=== PATIENT | female | born 1980 | race Caucasian/White ===

== ENCOUNTER 2019-11-03 14:43 | Emergency (ER) | payer OTHER, SELFPAY ==
[2019-11-03 14:55] VITALS: BP 143/100; PULSE 125; RESP 20; TEMP 36.8; O2SAT 100
--- NOTE | 2019-11-03 15:16 | ED.URI ---
HPI - URI/Sore Throat General Chief Complaint: Upper Respiratory Infection Stated Complaint: cough/congestion Time Seen by Provider: 11/03/19 15:10 Source: patient Mode of arrival: ambulatory Limitations: no limitations History of Present Illness HPI Narrative: Lilia Vazquez is a 39 yo female with a PMH exercised induced asthma who comes to the urgent care with complaints of upper respiratory infection such as cough fever 102 no appetite feeling poorly. Started on Wednesday Related Data Home Medications Medication Instructions Recorded Confirmed Bystolic 5 mg PO QPM 08/10/19 11/03/19 diclofenac sodium 75 mg PO BID 08/10/19 11/03/19 Allergies Allergy/AdvReac Type Severity Reaction Status Date / Time meperidine AdvReac Severe N/V Verified 11/03/19 14:59 ondansetron AdvReac Unknown Headache Verified 11/03/19 14:59 Review of Systems Review of Systems: Narrative: CONSTITUTIONAL: Denies fever, chills, sweats. EYES: Denies visual changes, redness, discharge. ENT: Has rhinorrhea, congestion, sore throat, otalgia. CARDIOVASCULAR: Denies chest pain, palpitations, edema. RESPIRATORY: Denies dyspnea, wheezing, has dry cough GASTROINTESTINAL: Denies abdominal pain, nausea, vomiting, diarrhea. GENITOURINARY: Denies dysuria, hematuria, abnormal discharge SKIN: Denies rash or itching. MUSCULOSKELETAL: Denies acute back pain, joint pain, or myalgia. NEUROLOGIC: Denies numbness, or focal weakness. PSYCHIATRIC: Denies anxiety or depression. PMF Past Medical History Medical History HTN (hypertension) Surgical History Surgical History History of foot surgery History of knee surgery History of shoulder surgery Family History Family History (System 08/05/19 @ 12:49 by Dior Diaz) Father Diabetes mellitus Family history of diabetes mellitus in first degree relative Hypertension Family history of elevated blood lipids Mother Family history of hypercholesterolemia Hypertension Family history of elevated blood lipids Sibling Hypertension Family history of elevated blood lipids Family history of hypercholesterolemia Grandparent Diabetes mellitus Family history of hypercholesterolemia Hypertension Family history of cardiovascular disease Family history of lung cancer Family history of coronary artery disease Other Family history of malignant neoplasm Social History Social History (System 08/05/19 @ 12:49 by Diro Diaz) Smoking status: Never smoker Second hand tobacco smoke exposure: No Alcohol intake: current Comments At time of signature, I agree with nursing past medical, surgical, social and family history. There is no relevant family history pertinent to the presenting complaint. Exam Narrative: Exam Narrative: GENERAL: This is a well-nourished, well-developed patient, in moderate in distress. HEAD: normocephalic, atraumatic. EYES: Sclera clear/white. Vision is grossly intact. Ears: Biateral ears wuth redness of canals and bulging TMs Nose: discharge, nares with redness, rhinorrhea. THROAT: Mucous membranes moist, posterior pharynxerythema NECK: Neck supple, non-tender without lymphadenopathy, masses or thyromegaly. CARDIOVASCULAR: Regular rate and rhythm without murmurs, gallops, or rubs. RESPIRATORY: Diminished to auscultation. Breath sounds equal bilaterally. No wheezes, rales, or rhonchi. GASTROINTESTINAL: Abdomen soft, non-tender, SKIN: warm, intact with no suspicious lesions or rash, good texture and turgor. NEURO: awake, alert, and oriented to person, place and time. There were no obvious focal neurologic abnormalities. Steady gait EXTREMITIES: Normal range of motion. No edema. BACK: Nontender without deformity or crepitance.. Course Course Emergency Course: + flu B, neg strep Xofluza, mucinex, codeine cough Vital Signs Vital signs
== END 2019-11-03 15:37 | disposition home or self-care (01) ==
PROVIDERS: Emergency Provider Nurse Practitioner; PCP Family Medicine
DX: J10.1 Influenza due to other identified influenza virus with other respiratory manifestations (principal); I10 Essential (primary) hypertension
CPT/HCPCS: 87804; 87880; 99213; G0463

== ENCOUNTER 2020-04-06 10:51 | Emergency (ER) | payer OTHER, SELFPAY ==
--- NOTE | ~2020-04-06 | CT_ITS ---
EXAMINATION: CT abdomen pelvis wo con DATE: 04/06/2020 12:02 INDICATION: Right flank pain radiating to the abdomen. TECHNIQUE: Computed tomography (CT) of the abdomen and pelvis was performed without intravenous contr ast. Automated exposure control and iterative reconstruction technique were employed. The dose-length product was 771.73 mGy-cm. COMPARISON: None FINDINGS: Lung bases are clear. Heart size is normal. No pericardial or pleural effusion. Diffuse hepatic steat osis. Gallbladder, pancreas and bilateral adrenal glands are normal. 12 mm cyst at the upper pole of the left kidney. 5 mm nonobstructing stone at the mid left kidney. Right kidney and ureter are normal with no urolithiasis or hydronephrosis. Bowels including the appendix are normal. Bladder, anteverte d uterus and bilateral ovaries are normal. Small phleboliths versus tubal ligation rings along the bi lateral broad ligaments. No free intraperitoneal gas or fluid. No pathologically enlarged abdominal o r pelvic lymphadenopathy. Mild lumbar levocurvature with severe spondylosis at the lumbosacral juncti on. IMPRESSION: 1. 5 mm nonobstructing left renal stone. No hydronephrosis or right-sided urolithiasis. 2. Normal appendix. No acute intra-abdominal/pelvic process. 3. Diffuse hepatic steatosis. Reviewed, dictated and finalized at location A. IMPRESSION: 1. 5 mm nonobstructing left renal stone. No hydronephrosis or right-sided uroli thiasis. 2. Normal appendix. No acute intra-abdominal/pelvic process. 3. Diffuse hepatic steatosis.
[2020-04-06 11:13] VITALS: BP 172/110; PULSE 100; RESP 20; TEMP 36.8; O2SAT 99
[2020-04-06 11:39] LABS: Basophils Percent Auto 0.5 % (0.2-1.2); Eosinophils Absolute Auto 0.2 K/mm3 (0-0.3); Eosinophils Percent Auto 2.9 % (0-4.4); Hemoglobin 13.6 g/dL (12.0-15.0); Immature Granulocyte Absolute 0.03 K/mm3 (0.00-0.031); Immature Granulocyte Percent A 0.4 % (0-0.5); Lymphocytes Absolute Auto 2.03 K/mm3 (0.9-3.2); Lymphocytes Percent Auto 25.8 % (18.3-44.2); Mean Corpuscular HGB Conc 33.2 g/dl (32-36); Mean Corpuscular Hemoglobin 29.2 pg (26-34); Mean Platelet Volume 10.3 fl (7.4-10.4); Monocytes Absolute Auto 0.4 K/mm3 (0.1-0.6); Monocytes Percent Auto 5.2 % (2.6-8.5); Neutrophils Absolute Auto 5.1 K/mm3 (1.3-6.7); Neutrophils Percent Auto 65.2 % (45.5-73.1); Platelet Count Result 283 k/mm3 (150-375); Red Blood Count 4.66 M/mm3 (4.2-5.4); Red Cell Distribution Width 12.7 % (11.5-14.5); White Blood Count 7.9 K/mm3 (4.5-10.0)
--- NOTE | 2020-04-06 11:39 | ED.BACK ---
HPI - Back Pain/Injury General Chief Complaint: Back Pain/Injury Stated Complaint: R flank pain Time Seen by Provider: 04/06/20 11:29 Source: patient Mode of arrival: ambulatory Limitations: no limitations History of Present Illness HPI Narrative: This is a 40-year-old female that presents the emergency department for right mid back pain since last night. Reports she was working on some baseboards yesterday. Reports she started having some right-sided back pain since that afternoon. Associated with some nausea. The pain is constant and worse with movement. She took a Flexeril with little relief. Denies fever, vomiting, dysuria, or hematuria. Related Data Home Medications Medication Instructions Recorded Confirmed diclofenac sodium 75 mg PO BID 08/10/19 01/25/20 allopurinol 300 mg tablet 300 mg PO DAILY 01/25/20 01/25/20 tolterodine 4 mg capsule,extended 4 mg PO DAILY 01/25/20 01/25/20 release 24 hr pregabalin [Lyrica] 75 mg PO BID 04/06/20 04/06/20 Allergies Allergy/AdvReac Type Severity Reaction Status Date / Time meperidine AdvReac Severe N/V Verified 01/25/20 08:53 ondansetron AdvReac Unknown Headache Verified 01/25/20 08:53 Review of Systems Review of Systems: Narrative: CONSTITUTIONAL: Denies fever GASTROINTESTINAL: Reports abdominal pain, nausea. Denies vomiting, or diarrhea. GENITOURINARY: Denies dysuria or hematuria. MUSCULOSKELETAL: Reports back pain, joint pain, and myalgia. NEUROLOGIC: Denies numbness, or weakness. All systems reviewed & are unremarkable except as noted in HPI and below PMFSH Past Medical History Medical History (Updated 04/06/20 @ 13:59 by Lilia Kidd PA-C) HTN (hypertension) Hyperlipidemia Surgical History Surgical History History of foot surgery History of knee surgery History of shoulder surgery Family History Family History (System 08/05/19 @ 12:49 by Dior Diaz) Father Diabetes mellitus Family history of diabetes mellitus in first degree relative Hypertension Family history of elevated blood lipids Mother Family history of hypercholesterolemia Hypertension Family history of elevated blood lipids Sibling Hypertension Family history of elevated blood lipids Family history of hypercholesterolemia Grandparent Diabetes mellitus Family history of hypercholesterolemia Hypertension Family history of cardiovascular disease Family history of lung cancer Family history of coronary artery disease Other Family history of malignant neoplasm Social History Social History (System 08/05/19 @ 12:49 by Dior Diaz) Smoking status: Never smoker Second hand tobacco smoke exposure: No Alcohol intake: current Exam Narrative: Exam Narrative: GENERAL: Well-appearing, obese, and in no acute distress. HEAD: Normocephalic, atraumatic. EYES: EOMI. CHEST: Clear to auscultation. No respiratory distress. No wheezes rales or rhonchi HEART: Regular rate and rhythm. No murmur heard. Normal peripheral pulses. ABDOMEN: Soft, nontender, nondistended, normal active bowel sounds. No CVA tenderness BACK: No midline spinal tenderness EXTREMITIES: Normal range of motion. No edema. Strength equal in bilateral lower extremities SKIN: Warm, dry, no rash. NEURO: No focal deficits. Alert and oriented x3. PSYCH: Normal mood and affect Course Vital Signs Vital signs: Vital Signs Temperature 98.2 F 04/06/20 11:13 Pulse Rate 100 04/06/20 11:13 Respiratory Rate 04/06/20 11:13 Blood Pressure 172/110 H 04/06/20 11:13 Pulse Oximetry 99 04/06/20 11:13 Temperature 98.2 F 04/06/20 11:13 Pulse Rate 100 04/06/20 11:13 Respiratory Rate 04/06/20 11:13 Blood Pressure 172/110 H 04/06/20 11:13 Pulse Oximetry 99 04/06/20 11:13 MDM - Back Pain/Injury MDM Narrative Medical decision making narrative: Patient presents to the emergency department for right-
[2020-04-06 11:49] LABS: Add Urine Microscopic? YES; Appearance Urine Cloudy (Clear); Bacteria Urine Trace /hpf; Bilirubin Urine Negative (Negative); Blood Urine Negative (Negative); Color Urine Yellow (Yellow); Glucose Urine UA Negative (Negative); Ketones Urine Negative (Negative); Leukocyte Esterase Ur Trace LEU/UL (Negative); Mucus Urine Rare /lpf; Nitrate Urine Negative (Negative); Protein Urine Negative (Negative); RBC Urine 0-2 /hpf (0-2); Specific Grav Ur 1.014 (1.001-1.035); Squamous Epithelial Cell Urine Many /hpf (Few); Urobilinogen Urine Negative mg/dL (<2.0)
[2020-04-06 11:50] LABS: Blood Urea Nitrogen 10 mg/dL (7-17); Carbon Dioxide 23 mmol/L (22-30); Chloride 104 mmol/L (98-107); Estimated CRCL calculation 153 ml/min; Estimated Glomerular Filt Rate > 60; Glucose 135 mg/dL (65-105); Potassium 3.8 mmol/L (3.4-5.0); Sodium 135 mmol/L (137-145)
[2020-04-06 14:47] VITALS: BP 138/76; PULSE 80; RESP 20
== END 2020-04-06 14:49 | disposition home or self-care (01) ==
PROVIDERS: Physician Assistant; Emergency Provider Emergency Medicine; PCP Family Medicine
DX: M54.6 Pain in thoracic spine (principal); I10 Essential (primary) hypertension; E78.5 Hyperlipidemia, unspecified; N20.0 Calculus of kidney; K76.0 Fatty (change of) liver, not elsewhere classified
CPT/HCPCS: 36415; 74176; 80048; 81001; 81025; 85025; 87086; 96365; 96375; 99284; J0131; J3360

== ENCOUNTER 2020-06-05 08:45 | Outpatient (CLI) | payer OTHER, SELFPAY ==
--- NOTE | 2020-06-08 00:32 | SLEEP_ITS ---
Home Sleep Study DATE OF STUDY: 06/05/2020 ORDERING PHYSICIAN: Linda Moore MD. REASON FOR THE STUDY: Hypersomnia. HISTORY: This patient is a 40-year-old female, 5 feet 5 inches tall, weighing 230 pounds with a body mass index of 38.2. She has extreme hypersomnolence. She can sleep for 8-12 hours and still feel very tired. She falls asleep most any time during the day, the middle of the day if it is quiet. This started about 4-6 years ago and has become worse in the last 2 years. Her father has sleep apnea. She frequently snores and it is frequently loud enough that other people complain about it. She does not awaken at night with heartburn, belching, or coughing. She does not awaken from sleep feeling short of breath. She frequently has difficulty sleeping if she has a cold, does not awake at night gasping for breath, constantly has breathing problems at night reported to her by others. She does not sweat excessively at night. She frequently notices her heart pounding or beating irregularly at night. She frequently falls asleep during the day rarely involuntarily, but never while driving or during physical effort. She does not have loss of muscle tone with strong emotion. 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 She does not feel paralyzed on waking or falling asleep. She does not have vivid dreamlike scenes upon awakening or falling asleep and is not afraid to go to sleep. She does not have nightmares. She rarely remembers her dreams, rarely has racing thoughts, feelings of sadness, depression, anxiety, and rarely has muscular tension. She notices her legs moving at night constantly. She occasionally has crawly achy feelings in her legs. She constantly has foot pain at night. She does not have morning jaw pain. She does not grind her teeth at night. She is bothered by pain in her feet during the day and rarely is awakened by pain at night. She rarely wakes up feeling stiff in the morning with sore achy muscles. She rarely wakes up with pain in the neck and spine. She has fatigue, headaches, palpitations. Bedtime is 9 to 10 p.m., falling asleep within 30 to 60 minutes, waking 1 or 2 times at night for 5 minutes and will go to the bathroom at this time. She wakes in the morning at 7 a.m. She estimates 9 to 10 hours of sleep at night. Weekend schedule reveals she goes to bed 1 hour later and wakes 1 hour later. She does not take naps. Short naps are not refreshing. She is drowsy in the morning for 2 hours or longer. She feels better in the afternoon than other times a day. MEDICAL COMORBIDITIES: Palpitations, hypertension, mixed hyperlipidemia, obesity. MEDICATIONS: 1. Fluoxetine 40 mg a day for depression. 2. Lisinopril 20 mg a day. 3. Lyrica 75 mg a day for foot pain. 4. Diclofenac ER 75 mg b.i.d. 5. Allopurinol 300 mg a day. 6. Atorvastatin 10 mg a day. 7. Bisoprolol 10 mg daily. 8. Detrol LA 4 mg a day for slight incontinence. HABITS: Never smoked tobacco. Caffeine, 6 to 8 beverages a day. No alcohol. No recreational drugs. DESCRIPTION OF THE STUDY: On the [place] Sleepiness Scale, her score is 18. This is extremely high. This study was conducted as an unattended type III portable home sleep study using 4-channel monitoring including respiratory effort channel, snoring channel, oxygen saturation channel, and heart rate channel. The study was scored using CMS guidelines. Duration of the study was 9 hours 25 minutes. The apnea-hypopnea index is 6.1. Oxygen desaturation index 6. Lowest desaturation 91%. She had 2 apneas, both were obstructive. She had 55 hypopneas, 1003 snoring events, and 55 desaturations, but spent no time below 88%. Heart rate ranged from 65 to 95.
== END 2020-06-05 08:46 | disposition home or self-care (01) ==
LOC: ANHCSM 08:45
PROVIDERS: PCP Family Medicine; Visit Provider Internal Medicine Cardiovascular Disease
DX: G47.10 Hypersomnia, unspecified (principal); G47.33 Obstructive sleep apnea (adult) (pediatric)
CPT/HCPCS: 95806

== ENCOUNTER 2020-10-28 09:45 | Outpatient (CLI) | payer OTHER, SELFPAY ==
--- NOTE | ~2020-10-28 | XR_ITS ---
EXAMINATION: XR abdomen/kub 1V DATE: 10/28/2020 10:06 INDICATION: Calculus of kidney. TECHNIQUE: A supine view of the abdomen on 2 radiographs was obtained. COMPARISON: CT abdomen and pelvis 04/06/20 FINDINGS: There are no dilated loops of bowel. There is a 4 mm stone in left kidney. IMPRESSION: 1. 4 mm stone in left kidney. Reviewed, dictated and finalized at location A. 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
== END 2020-10-28 09:46 | disposition home or self-care (01) ==
LOC: ANHIMG 09:50
PROVIDERS: PCP Family Medicine; Visit Provider Urology
DX: N20.0 Calculus of kidney (principal)
CPT/HCPCS: 74018

== ENCOUNTER 2020-12-09 16:29 | Outpatient (CLI) | payer OTHER, SELFPAY | END 2020-12-09 16:30 | disposition home or self-care (01) | LOC: ANHLAB 16:33 | PROVIDERS: PCP Family Medicine; Visit Provider Urology | DX: Z01.818 Encounter for other preprocedural examination (principal); N39.3 Stress incontinence (female) (male) | CPT/HCPCS: 87086 ==

== ENCOUNTER → 2020-12-10 02:37 | Outpatient (CLI) | payer OTHER, SELFPAY ==
[2020-12-10 22:47] LABS: SARS-CoV-2 RNA PCR Negative
== END ==
PROVIDERS: PCP Family Medicine; Visit Provider Urology
DX: Z01.812 Encounter for preprocedural laboratory examination (principal); Z20.822 Contact with and (suspected) exposure to COVID-19
CPT/HCPCS: C9803; U0003; U0005

== ENCOUNTER 2020-12-13 01:09 | Day surgery (SDC) | payer OTHER, SELFPAY ==
--- NOTE | 2020-12-07 09:42 | PM.IMHP ---
H&P: HPI History of Present Illness Date/Time: 12/07/20 09:42 Chief Complaint: stress incontinence Narrative: Lilia Vazquez is a 40 year old female with stress incontinence. She also has a degree of overactive bladder which she is on combination therapy Review of Systems Review of Systems: All systems reviewed & are unremarkable except as noted in HPI and below PMFSH Past Medical History Medical History (Updated 12/07/20 @ 09:44 by Dimitri Dean MD) Depression Headache, migraine HTN (hypertension) Hyperlipidemia Neuropathy Obstructive sleep apnea Surgical History Surgical History History of foot surgery History of knee surgery History of shoulder surgery Family History Family History Father Diabetes mellitus Family history of diabetes mellitus in first degree relative Hypertension Family history of elevated blood lipids Mother Family history of hypercholesterolemia Hypertension Family history of elevated blood lipids Sibling Hypertension Family history of elevated blood lipids Family history of hypercholesterolemia Grandparent Diabetes mellitus Family history of hypercholesterolemia Hypertension Family history of cardiovascular disease Family history of lung cancer Family history of coronary artery disease Other Family history of malignant neoplasm Social History Social History Smoking status: Never smoker Second hand tobacco smoke exposure: No Alcohol intake: current Substance use: never Additional occupation/education comments: [employer] Gender identity (if verbalized by the patient): Female Spiritual care concerns: No Agree to blood products: Yes Meds Home Medications and Allergies Home Medications Medication Instructions Recorded Confirmed Type diclofenac sodium 75 mg PO BID 08/10/19 05/27/20 History allopurinol 300 mg tablet 300 mg PO DAILY 01/25/20 05/27/20 History tolterodine 4 mg capsule,extended 4 mg PO DAILY 01/25/20 05/27/20 History release 24 hr pregabalin [Lyrica] 75 mg PO BID 04/06/20 05/27/20 History bisoprolol fumarate 10 mg tablet 10 mg PO DAILY #90 tablet 04/23/20 05/27/20 Rx fluoxetine 40 mg capsule 40 mg PO DAILY #90 cap 04/23/20 05/27/20 Rx atorvastatin 20 mg tablet 20 mg PO DAILY #90 tablet 06/15/20 Rx albuterol sulfate 90 mcg/actuation 1 puff INHALATION Q4H PRN 07/22/20 History aerosol inhaler lisinopril 20 mg tablet 20 mg PO DAILY #90 tablet 09/03/20 Rx mirabegron 25 mg tablet,extended 25 mg PO DAILY 11/01/20 History release 24 hr Allergies Allergy/AdvReac Type Severity Reaction Status Date / Time meperidine AdvReac Severe N/V Verified 07/22/20 09:12 ondansetron AdvReac Unknown Headache Verified 07/22/20 09:12 Exam Const: General: healthy appearing HENMT: Head: normal to inspection Face and sinus: normal facial exam Resp: Effort & Inspection: normal respiratory effort and able to speak in complete sentences Back/Spine/Pelvis: Back: no CVA tenderness Skin: General skin exam: normal color Neuro: General: patient oriented x3 Assessment and Plan Assessment and plan (1) [place] (stress urinary incontinence, female): Code(s): N39.3 - Stress incontinence (female) (male) Status: Acute Assessment and Plan: urethral sling. She understands this will likely not improve her overactive bladder symptoms
[2020-12-09 15:00] VITALS: BMI 40.1
--- NOTE | 2020-12-13 05:54 | ECG_ITS ---
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
[2020-12-13] MEDS: LACTATED RINGERS 1,000 ML 30 ML IV CONT (06:43)
--- NOTE | 2020-12-13 07:13 | WPDANESEPPF ---
Anes - Initial Pre Proc Eval Procedure: Operation Date: 12/13/20 07:30 Proposed Procedures p Urethral Sling - Dimitri Dean MD Date/Time: 12/13/20 07:13 Surgeon: Dimitri Dean MD Pre Op Diagnosis: Stress Incontinence Patient Data Age: 40 Gender: F Height: 1.63 m Weight: 106 kg Allergies Allergy/AdvReac Type Severity Reaction Status Date / Time meperidine AdvReac Severe N/V Verified 12/09/20 14:49 ondansetron AdvReac Unknown Headache Verified 12/09/20 14:49 Home Medications Medication Instructions Recorded Confirmed Type diclofenac sodium 75 mg PO BID 08/10/19 12/09/20 History allopurinol 300 mg tablet 300 mg PO DAILY 01/25/20 12/09/20 History tolterodine 4 mg capsule,extended 4 mg PO DAILY 01/25/20 12/09/20 History release 24 hr pregabalin [Lyrica] 75 mg PO BID 04/06/20 12/09/20 History fluoxetine 40 mg capsule 40 mg PO DAILY #90 cap 04/23/20 12/09/20 Rx albuterol sulfate 90 mcg/actuation 1 puff INHALATION Q4H PRN 07/22/20 12/09/20 History aerosol inhaler lisinopril 20 mg tablet 20 mg PO DAILY #90 tablet 09/03/20 12/09/20 Rx atorvastatin 20 mg tablet See Rx Instructions .ROUTE 12/11/20 Rx .COMPLEX #90 tablet bisoprolol fumarate 10 mg tablet 10 mg PO DAILY #90 tablet 12/11/20 Rx Patient hx anesthesia problems: none Family hx anesthesia problems: none PMFSH Past Medical History Medical History (Updated 12/13/20 @ 07:15 by Jluis Dunlap MD) Asthma Depression Headache, migraine HTN (hypertension) Hyperlipidemia Neuropathy Obstructive sleep apnea Surgical History Surgical History History of foot surgery History of knee surgery History of shoulder surgery Family History Family History Father Diabetes mellitus Family history of diabetes mellitus in first degree relative Hypertension Family history of elevated blood lipids Mother Family history of hypercholesterolemia Hypertension Family history of elevated blood lipids Sibling Hypertension Family history of elevated blood lipids Family history of hypercholesterolemia Grandparent Diabetes mellitus Family history of hypercholesterolemia Hypertension Family history of cardiovascular disease Family history of lung cancer Family history of coronary artery disease Other Family history of malignant neoplasm Social History Social History Smoking status: Former smoker Second hand tobacco smoke exposure: No Additional smoking assessment comments: stopped 20 yrs ago Alcohol intake: current Drinks per week: 1 Substance use: never Living arrangements: with family Additional occupation/education comments: [employer] Gender identity (if verbalized by the patient): Female Spiritual care concerns: No Agree to blood products: Yes Anes - Eval Final PreProcedure Day of Procedure 12/13/20 07:13 Patient weight: morbidly obese Heart: regular rate and rhythm Lungs: clear to auscultation and normal air movement Airway: Mallampati scale class II Neurological: alert and oriented Last oral intake: >/= 8 hours ASA classification: III Emergent: no Anesthetic plan: proceed Anesthesia type and monitoring: general LMA and ETT Informed Consent: The patient's anesthetic plan and its attendant risks and benefits were discussed with the patient/family/POA. Questions were solicited and answers provided to the satisfaction of the patient/family/POA.
--- NOTE | 2020-12-13 07:16 | WPDHPUPDATE1 ---
History and Physical Update Update Date/Time: 12/13/20 07:16 History and Physical has been reviewed, including an updated exam of the patient. There are NO changes in the patient's condition. Risks, benefits, and alternatives have been discussed and questions answered. Patient agrees to proceed with procedure.
[2020-12-13] MEDS: ceFAZolin 2 GM/D5W 50 ML 2 GM/50 ML BAG IVPB (07:27)
[2020-12-13] MEDS: BUPIVACAINE/EPINEPHRINE 0.25% 50 ML VIAL 10 ML INFILTRATE (07:43)
[2020-12-13 07:52] VITALS: BP 130/90; PULSE 84; RESP 18; TEMP 36.1; O2SAT 99
--- NOTE | 2020-12-13 08:00 | PM.PROC ---
Procedure Note - Detailed Date of procedure: 12/13/20 Pre-op diagnosis: Stress Incontinence Stress urinary incontinence Post-op diagnosis: same Procedure performed: Transobturator Mid-urethral sling Cystoscopy Description of procedure: Anesthesia: MAC/Local This is a patient with confirmed stress urinary incontinence. She desires correction. She understands the risks of bleeding, infection, damage to the urinary tract, lack of cure of stress incontinence, recurrence of stress incontinence, postoperative voiding dysfunction including incontinence and retention, need for ancillary procedures to loosen remove the sling, postoperative voiding dysfunction including retention and overactive bladder, hip and leg pain, dyspareunia, mesh related complications including exposure and extrusion. She agrees to proceed. She understands it will not help overactive bladder symptoms if present. She was correctly identified and informed consent obtained. She is brought to the operating room. She was given appropriate anesthesia. She was placed in the dorsal lithotomy position. All pressure points were padded. She was given appropriate perioperative antibiotics and a time-out performed. A Reyes catheter is placed. I marked out the thigh incisions anesthetize the skin and made those incisions. I anesthetized the anterior vaginal wall over the mid urethra. I made a 1 cm incision. I dissected out laterally taking great care not to injure the urethra or the vaginal wall. Passed the helical trocars 1st on the left and then on the right from the thigh incision towards the vaginal incision. Sling was connected to the trocars and brought out through the thigh incision. I tensioned the sling appropriately. I cut and removed the plastic sheaths. I closed the incision with 2 0 Vicryl. I then performed cystoscopy. There was no surgical artifact or abnormalities inside the bladder. The urethra was normal without surgical artifact. I cut the excess sling material. I closed the incisions with glue. She was awakened and transferred to the PACU in stable condition. Implants: Mid urethral sling Surgeon: Dimitri Dean MD Drains: No Packing: No Pathology: none sent Complications: No immediate complications Condition: stable Disposition: PACU
[2020-12-13 08:02] VITALS: BP 161/90; PULSE 88; RESP 20; O2SAT 98
[2020-12-13 08:30] VITALS: BP 155/86; PULSE 83; RESP 18; O2SAT 98
--- NOTE | 2020-12-13 08:51 | SUR.PHASEII ---
0840; PT UP TO RECLINER. GAIT STEADY. 0850; SPOUSE AT BEDSIDE
[2020-12-13 09:00] VITALS: BP 154/90; PULSE 79; RESP 20
--- NOTE | 2020-12-13 09:20 | SUR.PHASEII ---
0905; PT WALKED TO BATHROOM. GAIT STEADY. VOIDED
[2020-12-13] MEDS: oxyCODONE HCL (*CRX) 5 MG TAB IR PO (09:30)
--- NOTE | 2020-12-13 09:45 | SUR.PHASEII ---
0925; PT AWAKE AND ALERT. STATES READY TO GO HOME. 0945; NOTIFIED DR LAYTON, PRESCRIPTION SENT TO WRONG [facility].
== END 2020-12-13 09:50 | disposition home or self-care (01) ==
PROVIDERS: PCP Family Medicine; Visit Provider Urology
PROC: (CPT 57288; principal; 2020-12-13 07:30)
DX: N39.3 Stress incontinence (female) (male) (principal); I10 Essential (primary) hypertension; E78.5 Hyperlipidemia, unspecified; G62.9 Polyneuropathy, unspecified; J45.909 Unspecified asthma, uncomplicated; G47.33 Obstructive sleep apnea (adult) (pediatric); F32.9 Major depressive disorder, single episode, unspecified; Z87.891 Personal history of nicotine dependence; E66.01 Morbid (severe) obesity due to excess calories; Z68.41 Body mass index [BMI] 40.0-44.9, adult
CPT/HCPCS: 57288; 87086; 93005; A9270; C1771; C9803; J0131; J0690; J1100; J1885; J2250; J2405; J2704; J3010; J7030; J7120; U0003; U0005

== ENCOUNTER → 2021-01-30 08:51 | Outpatient (CLI) | payer OTHER, SELFPAY ==
--- NOTE | ~2021-01-30 | MR_ITS ---
. EXAMINATION: MR shoulder RT wo con DATE: 01/30/2021 09:40 INDICATION: Right shoulder pain. TECHNIQUE: Magnetic resonance imaging (MRI) of the right shoulder was performed without intravenous c ontrast. Sequences included axial PD-weighted FS FSE, coronal oblique PD-weighted FS FSE and T2-weigh sergey FS FSE, and sagittal oblique T2-weighted FS FSE and T1-weighted FSE. COMPARISON: None. FINDINGS: Coracoacromial arch: The acromion undersurface is curved in morphology (type II). There is moderate acromioclavicular join t osteoarthritis. There is mild subacromial/subdeltoid bursitis. Rotator cuff: There is severe supraspinatus tendinopathy and mild infraspinatus tendinopathy. There is a bursal laura ed partial-thickness tear of anterior supraspinatus tendon at its distal attachment measuring 8 mm an terior to posterior by 7 mm proximal to distal by 30% tendon thickness. Teres minor tendon is normal. There is moderate subscapularis tendinopathy. There is a partial tear of distal subscapularis tendon . There are artifacts from prior surgery around subscapularis tendon. There is mild fatty atrophy of superior subscapularis tendon. Biceps tendon and glenoid labrum: Biceps tendon is medially displaced from the bicipital groove into the partial tear of subscapularis tendon. There is a longitudinal split tear of biceps tendon. The glenoid labrum is normal. Fluid: There is no glenohumeral joint effusion. Bones/cartilage: Glenoid cartilage is normal. Humeral head cartilage is normal. IMPRESSION: 1. Partial tear of subscapularis tendon and evidence of prior surgery in the area of subscapularis te ndon. 2. Longitudinal split tear of biceps tendon, which is medially displaced into the subscapularis tendo n tear. 3. Bursal-sided, partial-thickness tear of distal supraspinatus tendon. 4. Moderate acromioclavicular joint osteoarthritis. 5. Mild subacromial/subdeltoid bursitis. Reviewed, dictated and finalized at location A. IMPRESSION: 1. Partial tear of subscapularis tendon and evidence of prior surgery in the ar ea of subscapularis tendon. 2. Longitudinal split tear of biceps tendon, which is medially displaced into t he subscapularis tendon tear. 3. Bursal-sided, partial-thickness tear of distal supraspinatus tendon. 4. Moderate acromioclavicular joint osteoarthritis. 5. Mild subacromial/subdeltoid bursitis.
== END ==
DX: M25.511 Pain in right shoulder (principal); S46.811A Strain of other muscles, fascia and tendons at shoulder and upper arm level, right arm, initial encounter; S46.211A Strain of muscle, fascia and tendon of other parts of biceps, right arm, initial encounter; M19.011 Primary osteoarthritis, right shoulder; M75.51 Bursitis of right shoulder
CPT/HCPCS: 73221

== ENCOUNTER 2021-08-29 11:01 | Outpatient (CLI) | payer OTHER, SELFPAY ==
--- NOTE | ~2021-08-29 | CT_ITS ---
EXAMINATION: CT abdomen pelvis wo con DATE: 08/29/2021 11:32 INDICATION: Right flank pain TECHNIQUE: Computed tomography (CT) of the abdomen and pelvis was performed without intravenous contr ast. The dose-length product (DLP) was 1296.42 mGy-cm. Automated exposure control and iterative recon struction technique were employed. COMPARISON: 04/06/2020 FINDINGS: Minimal dependent atelectasis is present in the lung bases. The heart size is normal. The l iver, spleen, pancreas, gallbladder, and adrenal glands are normal. There is a [address] one of the left kidney. There is a punctate nonobstructing stone of the right kidney. No stones are i dentified in the ureters or bladder. There is no hydronephrosis or hydroureter. No pathologically enl arged abdominal or pelvic lymph nodes are identified. The appendix is normal. There is no free intrap eritoneal gas or evidence of bowel obstruction. There is severe lumbar spondylosis at L5-S1. IMPRESSION: 1. No CT correlate for the patient's symptoms. Bilateral nonobstructing nephrolithiasis. Reviewed, dictated and finalized at location A. OMETRICIAN IMPRESSION: 1. No CT correlate for the patient's symptoms. Bilateral nonobstructing nephrol ithiasis.
--- NOTE | ~2021-08-29 | XR_ITS ---
EXAMINATION: XR abdomen/kub 1V INDICATION: Right flank pain TECHNIQUE: Supine views of the abdomen were obtained on 2 radiographs. COMPARISON: CT from today FINDINGS: No urolithiasis is identified. Round densities of the right abdomen are demonstrated to be within the bowel on today's CT. The bowel gas pattern is normal. There is lumbar spondylosis. Phlebol iths are noted in the pelvis. IMPRESSION: 1. No urolithiasis identified. Reviewed, dictated and finalized at location A. 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
== END 2021-08-29 11:02 | disposition home or self-care (01) ==
LOC: ANHIMG 11:07
PROVIDERS: PCP Hospitalist; Visit Provider Nurse Practitioner Adult Health
DX: R10.9 Unspecified abdominal pain (principal); N20.0 Calculus of kidney
CPT/HCPCS: 74018; 74176

== ENCOUNTER 2021-10-24 02:08 | Day surgery (SDC) | payer OTHER, SELFPAY ==
[2021-10-21 14:23] VITALS: BMI 39.4
--- NOTE | 2021-10-21 14:32 | PC.NURSE ---
Report to the Outpatient Waiting Room, entrance under the green pavilion located off [facility], at time 0830 on date 10/24/21. OR Time: 1030. - You will be asked a series of questions to screen for COVID 19 for your protection. - A mask is required within the hospital. - No visitors are allowed at this time. Preoperative COVID Testing Requirements: No COVID Test needed if: (proof is required; if not received patient will have Rapid Test prior to entry) - Patient has received COVID Vaccine at least 14 days prior to procedure date or - Patient has positive COVID test result within last 90 days of surgery date. COVID Test needed if above criteria is not met Patients may have clear liquids (water, carbonated beverages, clear teas, apple juice) until 3 hours prior to surgery with a maximum of 20 ounces. - No food from midnight until time of surgery Take the following medications with a SIP of water the morning of surgery: FLUOXETINE, LYRICA Medications to discontinue per physician: DICLOFENAC Date to take last dose: PER DR. CAMEJO Please no make-up, nail chinese, hairspray, perfume, deodorant, or body powder the day of surgery. No jewelry (including any body piercings) or valuables the day of surgery, leave them at home. Please take a shower or bath the night before, or the morning of, surgery with an antibacterial soap. Wear comfortable, loose fitting clothing. - Jewelry must be removed prior to entering the operating room. Rings and piercings that are not removed may be cut off. - The hospital will not accept responsibility for valuables. - Please leave all valuables, including medications, at home the day of surgery. If you are going home after surgery, a licensed mobile lounge driver or operator must drive you home. - NO public transportation without another adult. - We recommend that an adult stay with you for 24 hours following discharge. - We also recommend that you do not drive, make important decision, drink alcoholic beverages, or take any drugs that were not prescribed by your health care provider for at least 24 hours after your discharge time. Follow any additional instructions given to you from your surgeon. Telephone instructions given to BRANDY WAY and asked if any additional questions and then verbalized understanding. Patient advised to call surgeon office or pre surgery nurse liaison [phone] if any additional questions.
[2021-10-24] VITALS (8 sets, daily range): BP systolic 124–146; BP diastolic 80–99; PULSE 98–104; RESP 15–20; TEMP 36.3–36.6; O2SAT 93–100
--- NOTE | ~2021-10-24 | XR_ITS ---
EXAMINATION: XR surgery orthopedic DATE: 10/24/2021 10:50 INDICATION: Left foot arthrodesis and second hammertoe correction TECHNIQUE: 2 fluoroscopic images of the left forefoot were obtained during procedure performed by Dr. Cervantes. Radiologist was not present for the imaging or procedure. The amount of fluoroscopy time u sed during this procedure was 0.3 minutes. COMPARISON: None. FINDINGS: First metatarsophalangeal arthrodesis with dorsal plate and screw fixation. Osteotomy at the head of the second metatarsal with second proximal interphalangeal arthrodesis, also with internal fixation d evice. Alignment of the arthrodeses appears near-anatomic. No fracture. Remaining joint spaces are un remarkable. IMPRESSION: 1. Instrumented arthrodesis at the first metatarsophalangeal and second proximal interphalangeal join ts. See procedure note for further detail. Reviewed, dictated and finalized at location A. HER OPERATOR IMPRESSION: 1. Instrumented arthrodesis at the first metatarsophalangeal and second proxima l interphalangeal joints. See procedure note for further detail.
--- NOTE | 2021-10-24 07:25 | WPDHPUPDATE1 ---
History and Physical Update Update Date/Time: 10/24/21 07:25 History and Physical has been reviewed, including an updated exam of the patient. There are NO changes in the patient's condition. Risks, benefits, and alternatives have been discussed and questions answered. Patient agrees to proceed with procedure.
--- NOTE | 2021-10-24 09:06 | WPDANESEPPF ---
Anes - Initial Pre Proc Eval Procedure: Operation Date: 10/24/21 10:30 Proposed Procedures p Arthrodesis of First Metatarsal Phalangeal Joint Left Foot, - Israel Cervantes JR, MD s Hammer Toe Deformity Second Digit Left Foot - Israel Cervantes JR, MD Date/Time: 10/24/21 09:06 Surgeon: Israel Cervantes JR, MD Pre Op Diagnosis: arthritis lft 1st mpj,hammer toe 2nd digit lft ft Patient Data Age: 41 Gender: F Height: 1.63 m Weight: 104.33 kg Allergies Allergy/AdvReac Type Severity Reaction Status Date / Time meperidine AdvReac Severe N/V Verified 10/24/21 08:59 ondansetron AdvReac Unknown Headache Verified 10/24/21 08:59 Home Medications Medication Instructions Recorded Confirmed Type diclofenac sodium 75 mg PO BID 08/10/19 10/21/21 History allopurinol 300 mg tablet 300 mg PO DAILY 01/25/20 10/21/21 History pregabalin [Lyrica] 75 mg PO BID 04/06/20 10/21/21 History atorvastatin [Lipitor] 20 mg PO DAILY 12/13/20 10/21/21 History albuterol sulfate 90 mcg/actuation 1 puff INHALATION Q4H PRN #8.5 g 12/26/20 10/21/21 Rx aerosol inhaler lisinopril 20 mg tablet See Rx Instructions .ROUTE 02/17/21 10/21/21 Rx .COMPLEX #90 tablet fluoxetine 40 mg capsule 40 mg PO DAILY #90 cap 06/11/21 10/21/21 Rx bisoprolol fumarate 10 mg PO HS 10/21/21 10/21/21 History Patient hx anesthesia problems: none Family hx anesthesia problems: none Results Review: All pre-operative results and documents have been reviewed as part of the pre-operative evaluation. [facility] Past Medical History Medical History Asthma Depression Headache, migraine HTN (hypertension) Hyperlipidemia Neuropathy Obstructive sleep apnea Surgical History Surgical History History of bladder surgery History of foot surgery History of knee surgery History of shoulder surgery Family History Family History Father Diabetes mellitus Family history of diabetes mellitus in first degree relative Hypertension Family history of elevated blood lipids Mother Family history of hypercholesterolemia Hypertension Family history of elevated blood lipids Sibling Hypertension Family history of elevated blood lipids Family history of hypercholesterolemia Grandparent Diabetes mellitus Family history of hypercholesterolemia Hypertension Family history of cardiovascular disease Family history of lung cancer Family history of coronary artery disease Other Family history of malignant neoplasm Social History Social History Smoking status: Never smoker Second hand tobacco smoke exposure: No Additional smoking assessment comments: stopped 20 yrs ago Alcohol intake: current Drinks per week: 1 Alcohol use details: 2/MONTH Substance use: never Substance use type: does not use Living arrangements: with family Additional occupation/education comments: [employer] Gender identity (if verbalized by the patient): Female Sexual Orientation (if Verbalized by the Patient): Straight or Heterosexual Spiritual care concerns: No Agree to blood products: Yes Anes - Eval Final PreProcedure Day of Procedure 10/24/21 09:06 Patient weight: morbidly obese Heart: regular rate and rhythm Lungs: clear to auscultation Airway: Mallampati scale class II Neurological: alert and oriented Last oral intake: >/= 8 hours ASA classification: III Emergent: no Anesthetic plan: proceed Anesthesia type and monitoring: general LMA and standard monitoring Results Review: All pre-operative results and documents have been reviewed as part of the pre-operative evaluation. Informed Consent: The patient's anesthetic plan and its attendant risks and benefits were discussed with the patient/family/POA. Questions were solicited an
--- NOTE | 2021-10-24 09:26 | WPDANESPNB ---
Anes - Peripheral Nerve Block Date/Time: 10/24/21 09:26 I have discussed with the patient/family/POA the placement of a peripheral nerve block for post-operative pain management, including associated risks, benefits, complications, and side effects. Alternative methods of post-operative analgesia were detailed. Questions were solicited and answers provided to the satisfaction of the patient/family/POA. Time-Out: A pre-procedural Time-Out was completed immediately before starting the procedure and confirmed: Patient Identification, Site, Procedure, Patient Position and the Availability of Requisite Equipment. Clinical Indications: Acute post-operative pain management requested by the operative surgeon. Nerve Block Insertion Note Anes-nerve block: posterior fossa sciatic left and other (saphenous) Patient position: supine Skin prep: chlorhexidine Needle: 22 gauge, stimulating, insulated echogenic needle. Needle length: 120 mm Technique: nerve stimulation lost at (mA) (0.35) Injectate: bupivacaine 0.5% with epi 5 mcg/ml (23cc sciatic, 9 cc saphenous) and dexamethasone (mg) (8) Observations: tolerated well Complications: none Procedure start time:: 919 Procedure end time:: 926
[2021-10-24] MEDS: LACTATED RINGERS 1,000 ML 30 ML IV CONT ×2 (09:27→11:12)
[2021-10-24] MEDS: ceFAZolin 2 GM/D5W 50 ML 2 GM/50 ML BAG IVPB (09:37)
[2021-10-24] MEDS: SCOPOLAMINE 1.5 MG PATCH TRANSDERM (09:50)
--- NOTE | 2021-10-24 11:29 | W.PM.PROC2 ---
Procedure Note - Detailed Date of Procedure 10/24/21 Pre-op Diagnosis 1. Arthritic bunion left foot 2. Hammertoe deformity 2nd digit left foot Post-op Diagnosis same Procedure Performed 1. Arthrodesis of the first metatarsal phalangeal joint left foot 2. Hammertoe repair 2nd digit left foot Surgeon Israel Cervantes JR, LINDA Anesthesia general and regional Indications Painful left great toe joint and 2nd digit of the left foot Description of Procedure PROCEDURE IN DETAIL: Under mild sedation, the patient was brought into the operating room, placed on the operating table in supine position. A pneumatic ankle tourniquet was placed about the patient's ipsilateral ankle. Following general anesthesia and a popliteal fossa block, the foot was then scrubbed, prepped, and draped in the usual aseptic manner. An Esmarch bandage was then used to exsanguinate the patient's foot and the pneumatic ankle tourniquet was then inflated. Surgery began in the following manner: Attention was directed to the dorsal medial aspect of the 1st metatarsophalangeal joint where there was a moderate subcutaneous prominence was noted. The incision was made starting along the central shaft of the 1st metatarsal and extending just proximal to the interphalangeal joint of the hallux. The incision was continued deep down through the subcutaneous tissues using sharp and blunt dissection. All bleeders were cauterized as necessary. At this point, the dissection was continued down to the level of the periosteum and capsular structures overlying the 1st metatarsophalangeal joint. A full length periosteum and capsular incision was made just medial to the extensor hallucis longus tendon. The periosteum and capsular structures were freed from the base of the proximal phalanx as well as the distal 1st metatarsal. At this point, the 1st metatarsophalangeal joint was identified. There was loss of articular cartilage to the head of the 1st metatarsal as well as the base of the proximal phalanx worse centrally and medially. There was significant broadening and hypertrophy of the 1st metatarsophalangeal joint. Utilizing a sagittal bone saw, the hypertrophied 1st metatarsal was resected dorsally, medially, and laterally. A power bur was used to make sure that there were no rough edges and also to further debride the hypertrophic 1st metatarsal. Next, a rongeur was used to resect the hypertrophic base of the proximal phalanx. At this point, the reamer system for the SIM Digital CrossCHECK system was used to denude the degenerative cartilage from the head of the 1st metatarsal as well as the base of the proximal phalanx. The cartilage and subchondral bone were fully debrided utilizing the reamer system until healthy bleeding bone was noted. Next, a 2-0 drill bit was used to further fenestrate the head of the 1st metatarsal as well as the base of the proximal phalanx in order to allow fusion across the 1st metatarsophalangeal joint. Next, a 0.045 inch K-wire was driven from the medial aspect of the base of the proximal phalanx into the head of the 1st metatarsal in order to serve as temporary fixation. A large steel plate was used to make sure that the hallux was in a rectus position both in the sagittal plane as well as the frontal and transverse plane. Excellent position of the hallux was noted. Next, a CrossCHECK plate was placed atop the 1st metatarsophalangeal joint held in position with [place] wires. Utilizing standard principles and techniques, the 2 distal drill holes were drilled and two 2.7mm mm fully-threaded locking screws were driven from dorsal to plantar holding the distal aspect of the plate intact. At this point, a 3.5mm lag screw was driven from dorsal distal to proximal plantar across the 1st metatarsophalangeal joint through the plate system with excellent compression noted after careful removal of the olive wire and temporary fixation from the 1st metatarsopha
== END 2021-10-24 13:00 | disposition home or self-care (01) ==
PROVIDERS: PCP Hospitalist; Visit Provider Podiatrist Foot & Ankle Surgery
PROC: (CPT 28750; principal; 2021-10-24 10:30)
PROC: (CPT 28285; 2021-10-24 10:30)
DX: M21.612 Bunion of left foot (principal); M20.42 Other hammer toe(s) (acquired), left foot; G89.18 Other acute postprocedural pain; I10 Essential (primary) hypertension; E78.5 Hyperlipidemia, unspecified; G47.33 Obstructive sleep apnea (adult) (pediatric); J45.909 Unspecified asthma, uncomplicated; G62.9 Polyneuropathy, unspecified; F32.9 Major depressive disorder, single episode, unspecified; E66.01 Morbid (severe) obesity due to excess calories; Z68.39 Body mass index [BMI] 39.0-39.9, adult; Z79.51 Long term (current) use of inhaled steroids
CPT/HCPCS: 28285; 28750; 64450; 64445; A9270; C1713; J0690; J1100; J2250; J2405; J2704; J3010; J7120

== ENCOUNTER 2022-01-10 19:56 | Emergency (ER) | payer OTHER, SELFPAY ==
--- NOTE | ~2022-01-10 | CT_ITS ---
EXAMINATION: CT abdomen pelvis wo con DATE: 01/10/2022 20:56 INDICATION: left flank pain TECHNIQUE: Computed tomography (CT) of the abdomen and pelvis was performed without intravenous contr ast. Automated exposure control and iterative reconstruction technique were employed. The dose-length product was 617.33 mGy-cm. COMPARISON: 08/29/2021 FINDINGS: Lower thorax: Unremarkable. Liver: Normal. Biliary/Gallbladder: Gallbladder is normal. No bile duct dilation. Spleen: Normal. Pancreas: No mass or duct dilation. Adrenals:No mass. Kidneys: Mild left pelviectasis and caliectasis. Moderate left perinephric stranding. 6 mm calcificat ion at the left UPJ. GI tract: No small or large bowel dilation. Normal appendix. Mesentery/Peritoneum: No ascites, mass, or free air. Retroperitoneum: No mass. Pelvis: Pelvic organs are within normal limits. Bones/Soft Tissues: Soft tissues and body wall unremarkable. Degenerative changes. Additional Findings: None. IMPRESSION: 6 mm stone lodged at the left UPJ causing mild obstructive uropathy. Reviewed, dictated and finalized at location K.
[2022-01-10 20:04] VITALS: BP 164/114; PULSE 122; RESP 18; TEMP 36.5; O2SAT 99
[2022-01-10 20:30] LABS: Basophils Percent Auto 0.2 % (0.2-1.2); Eosinophils Percent Auto 0.2 % (0-4.4); Hematocrit 40.7 % (37.0-47.0); Hemoglobin 13.6 g/dL (12.0-15.0); Immature Granulocyte Absolute 0.15 K/mm3 (0.00-0.031); Immature Granulocyte Percent A 0.8 % (0-0.5); Lymphocytes Absolute Auto 0.94 K/mm3 (0.9-3.2); Lymphocytes Percent Auto 5.1 % (18.3-44.2); Mean Corpuscular HGB Conc 33.4 g/dl (32-36); Mean Corpuscular Hemoglobin 29.7 pg (26-34); Mean Corpuscular Volume 88.9 fl (80-100); Mean Platelet Volume 9.9 fl (7.4-10.4); Monocytes Absolute Auto 0.5 K/mm3 (0.1-0.6); Monocytes Percent Auto 2.7 % (2.6-8.5); Neutrophils Absolute Auto 16.7 K/mm3 (1.3-6.7); Platelet Count Result 344 k/mm3 (150-375); Red Blood Count 4.58 M/mm3 (4.2-5.4); White Blood Count 18.4 K/mm3 (4.5-10.0)
[2022-01-10 20:40] LABS: Alanine Aminotransferase 28 U/L (4-35); Albumin Level 4.6 g/dL (3.5-5.1); Alkaline Phosphatase 89 U/L (38-126); Anion Gap 11 mmol/L (8-16); Aspartate Amino Transferase 38 U/L (14-36); Bilirubin,Total 0.5 mg/dL (0.2-1.3); Blood Urea Nitrogen 13 mg/dL (7-17); Calcium 8.9 mg/dL (8.4-10.2); Carbon Dioxide 21 mmol/L (22-30); Chloride 105 mmol/L (98-107); Estimated CRCL calculation 87 ml/min; Estimated Glomerular Filt Rate > 60; Glucose 147 mg/dL (65-110); Lipase 138 U/L (23-300); Sodium 137 mmol/L (137-145)
[2022-01-10 20:41] LABS: Add Urine Microscopic? YES; Appearance Urine Cloudy (Clear); Bacteria Urine Trace /hpf; Bilirubin Urine Negative (Negative); Blood Urine 3+ (Negative); Color Urine Yellow (Yellow); Glucose Urine UA Negative (Negative); Ketones Urine 1+ mg/dL (Negative); Leukocyte Esterase Ur Negative LEU/UL (Negative); Mucus Urine Rare /lpf; Nitrate Urine Negative (Negative); Protein Urine 1+ mg/dL (Negative); RBC Urine >75 /hpf (0-2); Specific Grav Ur 1.019 (1.001-1.035); Squamous Epithelial Cell Urine Occasional /hpf (Few); Urobilinogen Urine Negative mg/dL (<2.0)
--- NOTE | 2022-01-10 20:50 | ED.GENADULT ---
HPI - General Adult General Chief complaint: Abdominal Pain Stated complaint: Left flank pain, n/v/d Time Seen by Provider: 01/10/22 20:24 Source: patient and family History of Present Illness HPI narrative: 51-year-old female with history of kidney stone presents to the emergency department for evaluation of cute onset of left-sided flank pain. Patient states yesterday she did have onset of some nausea and vomiting. Patient states today she did have onset of the left-sided flank pain. Patient describes as a sharp posterior pain that does radiate around to the front. Patient states the pain is improved when she presses on it. Patient does have a prior history of kidney stones but feels this is slightly different. Patient denies any other associated abdominal pain. Patient denies any pain with urination. Patient denies any fevers. Related Data Home Medications Medication Instructions Recorded Confirmed diclofenac sodium 75 mg PO BID 08/10/19 10/21/21 allopurinol 300 mg tablet 300 mg PO DAILY 01/25/20 10/21/21 pregabalin [Lyrica] 75 mg PO BID 04/06/20 10/21/21 atorvastatin [Lipitor] 20 mg PO DAILY 12/13/20 10/21/21 bisoprolol fumarate 10 mg PO HS 10/21/21 10/21/21 Allergies Allergy/AdvReac Type Severity Reaction Status Date / Time meperidine AdvReac Severe N/V Verified 01/10/22 20:33 ondansetron AdvReac Unknown Headache Verified 01/10/22 20:33 Review of Systems Review of Systems: CONSTITUTIONAL: Denies fever, chills, or sweats. EYES: Denies visual changes, redness, or discharge. ENT: Denies rhinorrhea, congestion, sore throat, or otalgia. CARDIOVASCULAR: Denies chest pain, palpitations, or edema. RESPIRATORY: Denies cough or dyspnea. GASTROINTESTINAL: Left flank pain with associated nausea vomiting and diarrhea GENITOURINARY: Denies dysuria or hematuria. SKIN: Denies rash or itching. MUSCULOSKELETAL: Denies back pain, joint pain, or myalgia. NEUROLOGIC: Denies headache, numbness, or weakness. All systems reviewed & are unremarkable except as noted in HPI and below PMFSH Past Medical History Medical History Asthma Depression Headache, migraine HTN (hypertension) Hyperlipidemia Neuropathy Obstructive sleep apnea Surgical History Surgical History History of bladder surgery History of foot surgery History of knee surgery History of shoulder surgery Family History Family History Father Diabetes mellitus Family history of diabetes mellitus in first degree relative Hypertension Family history of elevated blood lipids Mother Family history of hypercholesterolemia Hypertension Family history of elevated blood lipids Sibling Hypertension Family history of elevated blood lipids Family history of hypercholesterolemia Grandparent Diabetes mellitus Family history of hypercholesterolemia Hypertension Family history of cardiovascular disease Family history of lung cancer Family history of coronary artery disease Other Family history of malignant neoplasm Social History Social History Smoking status: Never smoker Second hand tobacco smoke exposure: No Additional smoking assessment comments: stopped 20 yrs ago Alcohol intake: current Drinks per week: 1 Alcohol use details: 2/MONTH Substance use: never Substance use type: does not use Additional occupation/education comments: [employer] Gender identity (if verbalized by the patient): Female Sexual Orientation (if Verbalized by the Patient): Straight or Heterosexual Spiritual care concerns: No Agree to blood products: Yes Exam Narrative: APPEARANCE: Well appearing, no pain, no distress, well-nourished. HEAD: normocephalic, atraumatic. EYES: PERRLA/EOMI, conjunctivae clear. NOSE: Pat
[2022-01-10 21:18] VITALS: BP 158/98; PULSE 119; RESP 18; O2SAT 97
[2022-01-10] MEDS: METOCLOPRAMIDE HCL INJ 10 MG/2 ML VIAL IV PUSH (21:21)
[2022-01-10] MEDS: HYDROmorphone HCL INJ (*CRX) 1 MG/ML SYR IV PUSH (21:23)
--- NOTE | 2022-01-10 21:28 | PC.NURSE ---
EDP Good notified of pts HR, no new orders.
[2022-01-10 21:50] VITALS: BP 148/107; PULSE 115; RESP 18; O2SAT 94
[2022-01-10] MEDS: SODIUM CHLORIDE 0.9% IV 500 ML 999 ML IV CONT (21:52)
[2022-01-10] MEDS: TAMSULOSIN HCL 0.4 MG CAPSULE PO (23:05)
[2022-01-10] MEDS: HYDROcodone/acetaminophen (*CRX) 5-325 MG TABLET 2 TAB PO (23:05)
[2022-01-10 23:10] VITALS: BP 153/101; PULSE 108; RESP 16; O2SAT 100
== END 2022-01-10 23:13 | disposition home or self-care (01) ==
PROVIDERS: Emergency Medicine; Emergency Provider Emergency Medicine; PCP Hospitalist
DX: N13.9 Obstructive and reflux uropathy, unspecified (principal); N20.1 Calculus of ureter; J45.909 Unspecified asthma, uncomplicated; I10 Essential (primary) hypertension; E78.5 Hyperlipidemia, unspecified; G47.33 Obstructive sleep apnea (adult) (pediatric); G62.9 Polyneuropathy, unspecified; Z87.891 Personal history of nicotine dependence
CPT/HCPCS: 36415; 74176; 80053; 81001; 83690; 85025; 96361; 96365; 96375; 99284; A9270; J0696; J1170; J2765; J7040

== ENCOUNTER → 2022-01-19 11:43 | Outpatient (CLI) | payer OTHER, SELFPAY ==
--- NOTE | ~2022-01-19 | XR_ITS ---
EXAM: XR abdomen/kub 1V HISTORY: Left ureteral stone COMPARISON: CT abdomen and pelvis 01/10/2022, x-ray abdomen/KUB 08/29/2021 FINDINGS: Lung bases clear. Bowel gas pattern. 2 x 6 mm left ureteral stone remains at the left UPJ. No other renal calcification. Pelvic phleboliths. IMPRESSION: Unchanged 6 mm left UPJ stone. Reviewed, dictated and finalized at location K.
== END ==
PROVIDERS: PCP Hospitalist; Visit Provider Urology
DX: N20.1 Calculus of ureter (principal)
CPT/HCPCS: 74018

== ENCOUNTER 2022-01-23 00:56 | Day surgery (SDC) | payer OTHER, SELFPAY ==
[2022-01-20 10:50] VITALS: BMI 39.1
--- NOTE | 2022-01-20 10:56 | PC.NURSE ---
Report to the Outpatient Waiting Room, entrance under the green pavilion located off [facility], at time 1030 on date 01/23/22. OR Time: 1230. - You and your visitor will be asked a series of questions to screen for COVID 19 for your protection. - A mask is required within the hospital. One visitor will be allowed to accompany the patient into the hospital. Patients visitor will be instructed to remain with patient at all times or leave the building. We will allow the visitor to come back to the postoperative area when patient is ready. Preoperative COVID Testing Requirements: No COVID Test needed if: (proof is required; if not received patient will have Rapid Test prior to entry) - Patient has received COVID Vaccine at least 14 days prior to procedure date or - Patient has positive COVID test result within last 90 days of surgery date. COVID Test needed if above criteria is not met Patients may have clear liquids (water, carbonated beverages, clear teas, apple juice) until 3 hours prior to surgery with a maximum of 20 ounces. - No food from midnight until time of surgery Take the following medications with a SIP of water the morning of surgery: FLUOXETINE, LYRICA, INHALER (IF NEEDED) Medications to discontinue per physician: DICLOFENAC Date to take last dose: PER DR. MAX Please no make-up, nail uzbek, hairspray, perfume, deodorant, or body powder the day of surgery. No jewelry (including any body piercings) or valuables the day of surgery, leave them at home. Please take a shower or bath the night before, or the morning of, surgery with an antibacterial soap. Wear comfortable, loose fitting clothing. Children are encouraged to wear pajamas. - Jewelry must be removed prior to entering the operating room. Rings and piercings that are not removed may be cut off. - The hospital will not accept responsibility for valuables. - Please leave all valuables, including medications, at home the day of surgery. If you are going home after surgery, a licensed local company refrigerated truck driver must drive you home. - NO public transportation without another adult. - We recommend that an adult stay with you for 24 hours following discharge. - We also recommend that you do not drive, make important decision, drink alcoholic beverages, or take any drugs that were not prescribed by your health care provider for at least 24 hours after your discharge time. Follow any additional instructions given to you from your surgeon. Telephone instructions given to BRANDY WAY and asked if any additional questions and then verbalized understanding. Patient advised to call surgeon office or pre surgery nurse liaison [phone] if any additional questions.
--- NOTE | 2022-01-22 13:38 | WPDANESEPPF ---
Anes - Initial Pre Proc Eval Procedure: Operation Date: 01/23/22 11:30 Proposed Procedures p Left Ureteral Extracorporeal Shock Wave Lithotripsy, - Donny Samuel MD s Possible Left Ureteroscopy, - Donny Samuel MD s Possible Holmium Laser - Donny Samuel MD Date/Time: 01/22/22 13:38 Surgeon: Donny Samuel MD Pre Op Diagnosis: left ureteral stone Patient Data Age: 42 Gender: F Height: 1.65 m Weight: 106.59 kg Allergies Allergy/AdvReac Type Severity Reaction Status Date / Time meperidine AdvReac Severe N/V Verified 01/23/22 10:42 ondansetron AdvReac Unknown Headache Verified 01/23/22 10:42 Home Medications Medication Instructions Recorded Confirmed Type diclofenac sodium 75 mg PO BID 08/10/19 01/20/22 History allopurinol 300 mg tablet 300 mg PO DAILY 01/25/20 01/20/22 History pregabalin [Lyrica] 75 mg PO BID 04/06/20 01/20/22 History atorvastatin [Lipitor] 20 mg PO DAILY 12/13/20 01/20/22 History albuterol sulfate 90 mcg/actuation 1 puff INHALATION Q4H PRN #8.5 g 12/26/20 01/20/22 Rx aerosol inhaler lisinopril 20 mg tablet See Rx Instructions .ROUTE 02/17/21 01/20/22 Rx .COMPLEX #90 tablet bisoprolol fumarate 10 mg PO HS 10/21/21 01/20/22 History fluoxetine 40 mg capsule See Rx Instructions .ROUTE 11/24/21 01/20/22 Rx .COMPLEX #90 cap hydrocodone-acetaminophen 1 tablet PO Q6H PRN #14 tablet 01/10/22 01/20/22 Rx tamsulosin [Flomax] 0.4 mg PO DAILY #10 cap 01/10/22 01/20/22 Rx Patient hx anesthesia problems: none Family hx anesthesia problems: none Results Review: All pre-operative results and documents have been reviewed as part of the pre-operative evaluation. [facility] Past Medical History Medical History Asthma Depression Headache, migraine HTN (hypertension) Hyperlipidemia Neuropathy Obstructive sleep apnea Surgical History Surgical History History of bladder surgery History of foot surgery History of knee surgery History of shoulder surgery Family History Family History Father Diabetes mellitus Family history of diabetes mellitus in first degree relative Hypertension Family history of elevated blood lipids Mother Family history of hypercholesterolemia Hypertension Family history of elevated blood lipids Sibling Hypertension Family history of elevated blood lipids Family history of hypercholesterolemia Grandparent Diabetes mellitus Family history of hypercholesterolemia Hypertension Family history of cardiovascular disease Family history of lung cancer Family history of coronary artery disease Other Family history of malignant neoplasm Social History Social History Smoking status: Never smoker Second hand tobacco smoke exposure: No Additional smoking assessment comments: stopped 20 yrs ago Alcohol intake: current Drinks per week: 1 Alcohol use details: 2/MONTH Substance use: never Substance use type: does not use Living arrangements: with family Additional occupation/education comments: [employer] Gender identity (if verbalized by the patient): Female Sexual Orientation (if Verbalized by the Patient): Straight or Heterosexual Spiritual care concerns: No Agree to blood products: Yes Anes - Eval Final PreProcedure Day of Procedure 01/22/22 13:38 Patient weight: obese Heart: regular rate and rhythm Lungs: clear to auscultation and normal air movement Airway: Mallampati scale class II Neurological: alert and oriented Last oral intake: >/= 8 hours ASA classification: III Emergent: no Anesthetic plan: proceed Anesthesia type and monitoring: general LMA and standard monitoring Results Review: All pre-operative results and documents have been reviewed as part of
[2022-01-23] VITALS (11 sets, daily range): BP systolic 142–167; BP diastolic 83–107; PULSE 80–92; RESP 14–21; TEMP 36.1–36.4; O2SAT 95–100
--- NOTE | ~2022-01-23 | XR_ITS ---
EXAMINATION: XR retrograde pyelo w/stent LT EXAM DATE: 01/23/2022 12:24 INDICATION: Left ureteral stone TECHNIQUE: Fluoroscopy used during XR retrograde pyelo w/stent LT performed by Dr. Donny fonseca MD, urologist. The radiologist Ronen Escalante M.D. dictating this report of the image(s) availabl e was not present for the procedure. Total fluoroscopic time of 27 seconds. The DAP for this proced ure was 0.52 mGym2. A total of 9 images sent to PACS from the exam. FINDINGS: Left proximal ureteral stone likely identified on teaching assistant image between the L3 and L4 transve rse processes. Left ureter was cannulated, injected. Mild left hydronephrosis. A double-J ureteral st ent was placed. Correlate with procedure note. IMPRESSION: Mild left hydronephrosis. Stent in position. Reviewed, dictated and finalized at location A.
--- NOTE | ~2022-01-23 | XR_ITS ---
EXAMINATION: XR abdomen/kub 1V DATE: 01/23/2022 09:24 INDICATION: Kidney stone. TECHNIQUE: A supine view of the abdomen on 2 radiographs was obtained. COMPARISON: CT abdomen and pelvis 01/10/2022 FINDINGS: There are no dilated loops of bowel. There is a 7 x 3 mm stone in proximal left ureter at L 3-L4. IMPRESSION: 1. 7 x 3 mm stone in proximal left ureter. Reviewed, dictated and finalized at location B.
[2022-01-23] MEDS: LACTATED RINGERS 1,000 ML 30 ML IV CONT ×2 (10:00→13:02)
--- NOTE | 2022-01-23 10:10 | WPDHPUPDATE1 ---
History and Physical Update Update Date/Time: 01/23/22 10:10 History and Physical has been reviewed, including an updated exam of the patient. There are NO changes in the patient's condition. Risks, benefits, and alternatives have been discussed and questions answered. Patient agrees to proceed with procedure.
[2022-01-23 10:45] LABS: Partial Thromboplastin Time 31.9 SECONDS (22.3-36.8)
--- NOTE | 2022-01-23 11:30 | WPDHPUPDATE1 ---
History and Physical Update Update Date/Time: 01/23/22 11:30 History and Physical has been reviewed, including an updated exam of the patient. There are NO changes in the patient's condition. Risks, benefits, and alternatives have been discussed and questions answered. Patient agrees to proceed with procedure. Ureteral stone is difficult to identify for lithotripsy. Will thus plan on cystoscopy, left retrograde pyelogram, left ureteroscopy with possible holmium laser, left ureteral stent placement
[2022-01-23] MEDS: ceFAZolin 2 GM/D5W 50 ML 2 GM/50 ML BAG IVPB (11:39)
[2022-01-23] MEDS: LIDOCAINE HCL 2% GEL UROJET 10 ML PKG MUCOUS MEM (12:05)
--- NOTE | 2022-01-23 12:22 | P.OP_ITS ---
Procedure Note - Detailed Date of Procedure 01/23/22 Pre-op Diagnosis left ureteral stone Post-op Diagnosis Same Procedure Performed Cystoscopy, left retrograde pyelogram, left ureteroscopy with holmium laser, stone extraction, left ureteral stent placement 4.8 Tanzanian contour Surgeon Donny Samuel MD Anesthesia General Description of Procedure Patient is taken the operative suite correctly identified. Once anesthesia was obtained she was placed in dorsal lithotomy position and prepped draped usual s terile fashion. Twenty-two Tanzanian scope was inserted into the bladder. There were no tumors noted. Left ureteral orifice was cannulated with a guidewire. We were able to be manipulated past the stone. The ureteral access sheath was then placed. Mini flexible ureteral scope was inserted. It was noted that there was some mucosal disruption from the access sheath. We were able to visualize the stone but it was too large to retrieve 1 piece. Using a 272 micron fiber we fragmented this into multiple pieces and sent those for analysis. Pyelogram was then performed to confirm placement of the stent. 4.8 Tanzanian contour stent was placed with the proximal end coiled in the renal pelvis and the distal in the bladder. Bladder was drained. 2% viscous lidocaine was inserted urethra patient is taken recovery stable condition. She will follow up in 2 weeks time for stent removal. Drains Yes Packing No Pathology Yes Complications No immediate complications Condition Stable Disposition PACU
[2022-01-23] MEDS: fentaNYL CITRATE INJ (*CRX) 100 MCG/2 ML VIAL 25 MCG IV PUSH ×8 (12:33→12:56)
[2022-01-23] MEDS: HYDROmorphone HCL INJ (*CRX) 1 MG/ML SYR 0.5 MG IV PUSH ×2 (13:09→13:34)
[2022-01-23] MEDS: oxyCODONE HCL (*CRX) 5 MG TAB IR PO (14:14)
--- NOTE | 2022-01-23 15:03 | SUR.PHASEII ---
Patient stated, Tramadol does not work for me. RN called office and got [place] electronically sent to pharmacy. Script for tramadol was shredded. Dr. Samuel said diclofenac can be resumed tomorrow if minimal bleeding.
== END 2022-01-23 14:55 | disposition home or self-care (01) ==
PROVIDERS: PCP Hospitalist; Visit Provider Urology
PROC: (CPT 50590; principal; 2022-01-23 11:30)
DX: N20.1 Calculus of ureter (principal); Z79.51 Long term (current) use of inhaled steroids; F32.9 Major depressive disorder, single episode, unspecified; I10 Essential (primary) hypertension; E78.5 Hyperlipidemia, unspecified; G62.9 Polyneuropathy, unspecified; G47.33 Obstructive sleep apnea (adult) (pediatric); E66.9 Obesity, unspecified; Z68.39 Body mass index [BMI] 39.0-39.9, adult; R51.9 Headache, unspecified; Z79.899 Other long term (current) drug therapy; J45.909 Unspecified asthma, uncomplicated
CPT/HCPCS: 52356; 36415; 74018; 74420; 82365; 85610; 85730; 88300; A9270; C1769; C1894; C2617; J0690; J1100; J1170; J2250; J2704; J3010; J7030; J7120; Q9966

== ENCOUNTER 2022-01-23 18:39 | Observation (INO) | payer OTHER, SELFPAY ==
[2022-01-23] VITALS (9 sets, daily range): BP systolic 147–186; BP diastolic 95–117; PULSE 99–110; RESP 18; TEMP 36.2; O2SAT 96–100
--- NOTE | ~2022-01-23 | CT_ITS ---
EXAMINATION: CT abdomen pelvis w con INDICATION: Left flank pain TECHNIQUE: Computed tomographic images of the abdomen and pelvis were obtained after the administrati on of 100 cc of Omnipaque 350 intravenous contrast. The dose-length product (DLP) was 1549.35 mGy-cm. Automated exposure control and iterative reconstruction technique were employed. COMPARISON: 01/10/2022 FINDINGS: Minimal dependent atelectasis is present in the lung bases. The heart size is normal. The l iver, spleen, pancreas, gallbladder, and adrenal glands are normal. The right kidney is unremarkable. A left internal ureteral stent has been placed in expected position. There is a large amount of left retroperitoneal stranding surrounding the left ureter. In addition, there are also multiple foci of gas adjacent to the proximal aspect of the ureter. The left ovarian vein as outlined by retroperitone al edema. There is a small amount of gas in the urinary bladder, likely due to today's catheter inser tion. No pathologically enlarged abdominal or pelvic lymph nodes are identified. There is no free int raperitoneal gas or evidence of bowel obstruction. IMPRESSION: 1. Large amount of left retroperitoneal stranding and foci of retroperitoneal gas adjacent to the pro ximal aspect of the left ureter. Findings likely reflect disruption of the ureter. The left internal ureteral stent is in expected position. Reviewed, dictated and finalized at location F. IMPRESSION: 1. Large amount of left retroperitoneal stranding and foci of retroperitoneal g as adjacent to the proximal aspect of the left ureter. Findings likely reflect disruption of the ureter. The left internal ureteral stent is in expected posit ion.
--- NOTE | 2022-01-23 19:16 | PC.NURSE ---
Patient report given to NOE Kwan. All questions answered and care of patient transferred.
--- NOTE | 2022-01-23 19:20 | PC.NURSE ---
Report received from NOE Lee.
--- NOTE | 2022-01-23 19:24 | ED.GENADULT ---
HPI - General Adult General Chief complaint: Abdominal Pain <Sen Higgins MD - Last Filed: 01/24/22 21:28> Stated complaint: sx today, now extreme pain, n/v, chills <Sen Higgins MD - Last Filed: 01/24/22 21:28> Time Seen by Provider: 01/23/22 18:50 <Sen Higgins MD - Last Filed: 01/24/22 21:28> History of Present Illness HPI narrative: Patient is a 42-year-old female who presents ER with left-sided flank pain. Patient underwent uteroscopy for a 5 mm left-sided ureteral stone today with its removal. She then underwent ureteral stent placement. She was discharged home. She has been having aching pains on the left side but this evening around 5:30 PM they became much more severe and intense. She is feeling chills. No documented fevers. No new dysuria. Contacted the on-call line who referred her here. Procedure performed by Dr. Samuel. <Sen Higgins MD - Last Filed: 01/24/22 21:28> Related Data Home medications: Home Medications Medication Instructions Recorded Confirmed allopurinol 300 mg tablet 300 mg PO HS 01/25/20 01/24/22 pregabalin [Lyrica] 75 mg PO Q12H 04/06/20 01/24/22 atorvastatin [Lipitor] 20 mg PO HS 12/13/20 01/24/22 bisoprolol fumarate 20 mg PO HS 10/21/21 01/24/22 fluoxetine 40 mg PO DAILY 01/24/22 01/24/22 lisinopril 20 mg PO DAILY 01/24/22 01/24/22 <Sen Higgins MD - Last Filed: 01/24/22 21:28> Allergies/adverse reactions: Allergies Allergy/AdvReac Type Severity Reaction Status Date / Time meperidine AdvReac Severe N/V Verified 01/23/22 19:27 ondansetron AdvReac Unknown Headache Verified 01/23/22 19:27 <Sen Higgins MD - Last Filed: 01/24/22 21:28> Review of Systems Review of Systems: All systems reviewed & are unremarkable except as noted in HPI and below <Sen Higgins MD - Last Filed: 01/24/22 21:28> Constitutional: Constitutional: Reports chills, Denies fever(s) and Denies weakness <Sen Higgins MD - Last Filed: 01/24/22 21:28> ENT: Denies nasal congestion and Denies sore throat <Sen Higgins MD - Last Filed: 01/24/22 21:28> Cardiovascular: Cardiovascular: Denies chest pain, Denies rapid heart rate and Denies radiating jaw, neck or arm pain <Sen Higgins MD - Last Filed: 01/24/22 21:28> Respiratory: Respiratory: Denies cough and Denies dyspnea <Sen Higgins MD - Last Filed: 01/24/22 21:28> Gastrointestinal: Gastrointestinal: Denies abdominal pain, Reports nausea and Denies vomiting <Sen Higgins MD - Last Filed: 01/24/22 21:28> Genitourinary: Genitourinary: Denies nocturia, Denies dysuria and Reports flank pain <Sen Higgins MD - Last Filed: 01/24/22 21:28> PMFSH Past Medical History Medical History: Medical History (Updated 01/24/22 @ 12:24 by Derik Baer MD) Asthma Depression Headache, migraine History of kidney stones HTN (hypertension) Hyperlipidemia Neuropathy Obstructive sleep apnea <Sen Higgins MD - Last Filed: 01/24/22 21:28> Surgical History Surgical History: Surgical History (Updated 01/23/22 @ 22:16 by Sen Higgins MD) History of bladder surgery History of foot surgery History of knee surgery History of shoulder surgery <Sen Higgins MD - Last Filed: 01/24/22 21:28> Family History Family History: Family History Father Diabetes mellitus Family history of diabetes mellitus in first degree relative Hypertension Family history of elevated blood lipids Mother Family history of hypercholesterolemia Hypertension Family history of elevated blood lipids Sibling Hypertension Family history of elevated blood lipids Family history of hypercholesterolemia Grandparent Diabetes mellitus Family history of hypercholesterolemia Hypertension Family history of cardiovascular disease Family history of lung cancer Family history of sherin
[2022-01-23] MEDS: SODIUM CHLORIDE 0.9% IV 1,000 ML 999 ML IV CONT (19:26)
[2022-01-23] MEDS: PROMETHAZINE HCL 25 MG/ML AMPUL 12.5 MG IV PUSH (19:26)
[2022-01-23 19:27] LABS: Basophils Percent Auto 0.2 % (0.2-1.2); Eosinophils Percent Auto 0.1 % (0-4.4); Hematocrit 42.8 % (37.0-47.0); Hemoglobin 13.8 g/dL (12.0-15.0); Immature Granulocyte Percent A 0.7 % (0-0.5); Lymphocytes Absolute Auto 0.97 K/mm3 (0.9-3.2); Lymphocytes Percent Auto 6.5 % (18.3-44.2); Mean Corpuscular HGB Conc 32.2 g/dl (32-36); Mean Corpuscular Hemoglobin 29.3 pg (26-34); Mean Corpuscular Volume 90.9 fl (80-100); Mean Platelet Volume 10.2 fl (7.4-10.4); Monocytes Absolute Auto 0.1 K/mm3 (0.1-0.6); Monocytes Percent Auto 0.7 % (2.6-8.5); Neutrophils Absolute Auto 13.8 K/mm3 (1.3-6.7); Neutrophils Percent Auto 91.8 % (45.5-73.1); Platelet Count Result 357 k/mm3 (150-375); Red Blood Count 4.71 M/mm3 (4.2-5.4); Red Cell Distribution Width 12.9 % (11.5-14.5)
[2022-01-23] MEDS: MORPHINE SULFATE (*CRX) 4 MG/ML INJ IV PUSH ×2 (19:27→21:51)
[2022-01-23 19:36] LABS: Lactic Acid Reflex 3.7 mmol/L (0.7-2.1)
[2022-01-23 19:53] LABS: Alanine Aminotransferase 33 U/L (4-35); Albumin Level 4.7 g/dL (3.5-5.1); Alkaline Phosphatase 85 U/L (38-126); Anion Gap 14 mmol/L (8-16); Aspartate Amino Transferase 35 U/L (14-36); Bilirubin,Total 0.2 mg/dL (0.2-1.3); Blood Urea Nitrogen 12 mg/dL (7-17); Calcium 8.6 mg/dL (8.4-10.2); Carbon Dioxide 18 mmol/L (22-30); Chloride 105 mmol/L (98-107); Estimated CRCL calculation 89 ml/min; Estimated Glomerular Filt Rate > 60; Glucose 218 mg/dL (65-110); Potassium 4.2 mmol/L (3.4-5.0); Sodium 137 mmol/L (137-145)
[2022-01-23] MEDS: SODIUM CHLORIDE 0.9% IV 3,200 ML/1,000 ML BAG 999 ML IV CONT (20:07)
--- NOTE | 2022-01-23 20:08 | PC.NURSE ---
2nd set blood cultures being drawn.. Liters #2 and #3 initiated for total of 3200ml's.
[2022-01-23 20:59] LABS: Add Urine Microscopic? YES; Appearance Urine Cloudy (Clear); Bilirubin Urine Negative (Negative); Blood Urine 3+ (Negative); Color Urine Yellow (Yellow); Glucose Urine UA 1+ mg/dL (Negative); Ketones Urine Trace mg/dL (Negative); Leukocyte Esterase Ur 1+ LEU/UL (Negative); Mucus Urine Rare /lpf; Nitrate Urine Negative (Negative); Protein Urine 1+ mg/dL (Negative); RBC Urine >75 /hpf (0-2); Specific Grav Ur 1.017 (1.001-1.035); Squamous Epithelial Cell Urine Many /hpf (Few); Urobilinogen Urine Negative mg/dL (<2.0)
[2022-01-23 22:24] LABS: Reflex Lactic Acid Yes or No Add Lactic
--- NOTE | 2022-01-23 23:09 | PM.IMHP ---
H&P: HPI History of Present Illness Date/Time: 01/23/22 23:09 Chief Complaint: 42 years old female with past medical history of hypertension kidney stone presented to the hospital with left flank pain severe worsening today sharp in nature associated with nausea patient had Cystoscopy, left retrograde pyelogram, left ureteroscopy with holmium laser, stone extraction, left ureteral stent placement 4.8 Gu[place]ian contour was done today at the ER patient was found to tachycardia leukocytosis CT scan of the abdomen was done showed retroperitoneal gas but with intact stent urology was aware of the CT scan finding commended IV antibiotic admission to the hospital urology will see the patient in a.m. Review of Systems Review of Systems: Twelve system review was done no significant finding other than as mentioned HPI [facility] Past Medical History Medical History (Updated 01/23/22 @ 23:03 by Doni Wilson MD) Asthma Depression Headache, migraine History of kidney stones HTN (hypertension) Hyperlipidemia Neuropathy Obstructive sleep apnea Surgical History Surgical History (Updated 01/23/22 @ 22:16 by Sen Higgins MD) History of bladder surgery History of foot surgery History of knee surgery History of shoulder surgery Family History Family History Father Diabetes mellitus Family history of diabetes mellitus in first degree relative Hypertension Family history of elevated blood lipids Mother Family history of hypercholesterolemia Hypertension Family history of elevated blood lipids Sibling Hypertension Family history of elevated blood lipids Family history of hypercholesterolemia Grandparent Diabetes mellitus Family history of hypercholesterolemia Hypertension Family history of cardiovascular disease Family history of lung cancer Family history of coronary artery disease Other Family history of malignant neoplasm Social History Social History Smoking status: Never smoker Second hand tobacco smoke exposure: No Additional smoking assessment comments: stopped 20 yrs ago Alcohol intake: current Drinks per week: 1 Alcohol use details: 2/MONTH Substance use: never Substance use type: does not use Additional occupation/education comments: [employer] Gender identity (if verbalized by the patient): Female Sexual Orientation (if Verbalized by the Patient): Straight or Heterosexual Spiritual care concerns: No Agree to blood products: Yes Meds Home Medications and Allergies Home Medications Medication Instructions Recorded Confirmed Type diclofenac sodium 75 mg PO BID 08/10/19 01/23/22 History allopurinol 300 mg tablet 300 mg PO DAILY 01/25/20 01/23/22 History pregabalin [Lyrica] 75 mg PO BID 04/06/20 01/23/22 History atorvastatin [Lipitor] 20 mg PO DAILY 12/13/20 01/23/22 History albuterol sulfate 90 mcg/actuation 1 puff INHALATION Q4H PRN #8.5 g 12/26/20 01/23/22 Rx aerosol inhaler lisinopril 20 mg tablet See Rx Instructions .ROUTE 02/17/21 01/23/22 Rx .COMPLEX #90 tablet bisoprolol fumarate 10 mg PO HS 10/21/21 01/23/22 History fluoxetine 40 mg capsule See Rx Instructions .ROUTE 11/24/21 01/23/22 Rx .COMPLEX #90 cap hydrocodone-acetaminophen 1 tablet PO Q6H PRN #14 tablet 01/10/22 01/23/22 Rx tamsulosin [Flomax] 0.4 mg PO DAILY #10 cap 01/10/22 01/23/22 Rx hydrocodone-acetaminophen 1 tablet PO Q6H PRN #20 tablet 01/23/22 Rx Allergies Allergy/AdvReac Type Severity Reaction Status Date / Time meperidine AdvReac Severe N/V Verified 01/23/22 19:27 ondansetron AdvReac Unknown Headache Verified 01/23/22 19:27 Vital Signs Vital Signs - 24 hr 01/23/22 18:42 01/23/22 19:26 01/23/22 19:31 Temperature 97.1 F L Pulse Rate 110 H 99 Respiratory Rate 18 18 Blood Pressure 159/109 H 172/95 H 186/117 H Pulse Oximetry 99 96 97
[2022-01-23 23:18] LABS: Lactic Acid 2.8 mmol/L (0.7-2.1)
[2022-01-23] MEDS: SODIUM CHLORIDE 0.9% IV 250 ML 999 ML (23:51)
--- NOTE | 2022-01-23 23:52 | PC.NURSE ---
NS 250ml initiated to complete 3200ml bolus ordered. Preparing to transport pt to floor.
[2022-01-24] VITALS (8 sets, daily range): BP systolic 128–175; BP diastolic 76–100; PULSE 88–101; RESP 16–18; TEMP 36.3–37.2; O2SAT 98–100
[2022-01-24 00:10] LABS: Hemoglobin A1C 5.5 % (<5.7)
[2022-01-24] MEDS: LACTATED RINGERS 1,000 ML 125 ML IV CONT ×3 (00:17→20:25)
[2022-01-24] MEDS: HYDROcodone/acetaminophen (*CRX) 5-325 MG TABLET 1 TAB PO ×2 (00:58→20:29)
[2022-01-24] MEDS: hydrALAZINE HCL 20 MG/ML VIAL 10 MG IV PUSH (01:00)
--- NOTE | 2022-01-24 01:20 | ADMGEN ---
At 0000, this patient, Lilia Vazquez, was admitted to 3 [facility] Surg Room 313-01. Patient/family oriented to hospital policies and general routines including ID bracelet, bed and alarms, visiting hours, pain management, procedures, bathroom and other care routines, personal items, smoking policy, room service/diet, and visiting hours. Information on how to activate the Rapid Response Team has been discussed. Patient/Family are encouraged to report perceived risks to care and to ask questions if they do not understand what they are told or what they should do.
[2022-01-24 01:43] LABS: Glucose Point of Care 148 mg/dl (65-105)
[2022-01-24] MEDS: HYDROmorphone HCL INJ (*CRX) 1 MG/ML SYR 0.5 MG IV PUSH ×4 (05:31→15:06)
[2022-01-24 06:44] LABS: Basophils Percent Auto 0.1 % (0.2-1.2); Eosinophils Percent Auto 0.1 % (0-4.4); Hematocrit 35.2 % (37.0-47.0); Hemoglobin 11.8 g/dL (12.0-15.0); Immature Granulocyte Percent A 0.7 % (0-0.5); Lymphocytes Absolute Auto 1.59 K/mm3 (0.9-3.2); Mean Corpuscular HGB Conc 33.5 g/dl (32-36); Mean Corpuscular Hemoglobin 29.7 pg (26-34); Mean Corpuscular Volume 88.7 fl (80-100); Mean Platelet Volume 10.1 fl (7.4-10.4); Monocytes Absolute Auto 0.8 K/mm3 (0.1-0.6); Monocytes Percent Auto 5.7 % (2.6-8.5); Neutrophils Absolute Auto 11.9 K/mm3 (1.3-6.7); Neutrophils Percent Auto 82.4 % (45.5-73.1); Platelet Count Result 326 k/mm3 (150-375); Red Blood Count 3.97 M/mm3 (4.2-5.4); White Blood Count 14.4 K/mm3 (4.5-10.0)
[2022-01-24 06:56] LABS: Alanine Aminotransferase 19 U/L (4-35); Albumin Level 3.7 g/dL (3.5-5.1); Alkaline Phosphatase 70 U/L (38-126); Anion Gap 9 mmol/L (8-16); Aspartate Amino Transferase 23 U/L (14-36); Bilirubin,Total 0.2 mg/dL (0.2-1.3); Blood Urea Nitrogen 12 mg/dL (7-17); Carbon Dioxide 20 mmol/L (22-30); Chloride 108 mmol/L (98-107); Estimated CRCL calculation 89 ml/min; Estimated Glomerular Filt Rate > 60; Glucose 143 mg/dL (65-110); Potassium 3.6 mmol/L (3.4-5.0); Sodium 137 mmol/L (137-145)
[2022-01-24] MEDS: MORPHINE SULFATE (*CRX) 2 MG/ML INJ IV PUSH (08:04)
--- NOTE | 2022-01-24 10:30 | PC.NURSE ---
Patient refusing polk catheter at this time,Patient wants to talk to doctor .
[2022-01-24] MEDS: KETOROLAC 30 MG/ML VIAL (*BKC) IV PUSH ×2 (10:49→18:36)
--- NOTE | 2022-01-24 11:16 | PM.IMPN ---
Progress Note: A&P Assessment and Plan (1) Pyelonephritis: Code(s): N12 - Tubulo-interstitial nephritis, not specified as acute or chronic Status: Acute Assessment and Plan: Awaiting cultures Started IV Zosyn (2) Sepsis: Qualifiers: Sepsis acute organ dysfunction status: unspecified Sepsis type: sepsis due to unspecified organism Qualified Code(s): A41.9 - Sepsis, unspecified organism Code(s): A41.9 - Sepsis, unspecified organism Status: Acute Assessment and Plan: Continue iv fluids Probably related to pyelonephritis and left ureteral injury Urology consult (3) Left ureteral injury: Qualifiers: Encounter type: initial encounter Qualified Code(s): S37.10XA - Unspecified injury of ureter, initial encounter Code(s): S37.10XA - Unspecified injury of ureter, initial encounter Status: Acute Assessment and Plan: CT scan shows retroperitoneal gas stent in place Probably urethral injury concern for pyelonephritis Urology to see and decide next steps (4) Obstructive sleep apnea: Code(s): G47.33 - Obstructive sleep apnea (adult) (pediatric) Status: Acute Assessment and Plan: Continue home today (5) HTN (hypertension): Code(s): I10 - Essential (primary) hypertension Status: Acute Assessment and Plan: Uncontrolled on admission given IV hydralazine now more stable (6) Hyperlipidemia: Code(s): E78.5 - Hyperlipidemia, unspecified Status: Acute Assessment and Plan: Npo with iv medications presently await urology evaluation Additional Plan DVT prophylaxis SCD for now pending urology evaluation Subjective Date/time seen: 01/24/22 11:16 Interval history: 42 years old female with past medical history of hypertension kidney stone presented to the hospital with left flank pain severe worsening today sharp in nature associated with nausea patient had Cystoscopy, left retrograde pyelogram, left ureteroscopy with holmium laser, stone extraction, left ureteral stent placement 4.8 [place] contour was done today at the ER patient was found to tachycardia leukocytosis CT scan of the abdomen was done showed retroperitoneal gas but with intact stent urology was aware of the CT scan finding commended IV antibiotic admission to the hospital urology will see the patient in a.m. Pt having left flank pain feels hot low grade fevers. Awaiting to see urology Review of Systems Review of Systems: All systems reviewed & are unremarkable except as noted in HPI and below Exam Const: General: in distress Resp: Effort & Inspection: normal respiratory effort Auscultation: clear to auscultation bilaterally Cardio: Rate: regular rate Rhythm: regular rhythm GI: Inspection: non-distended Auscultation: normal bowel sounds Other: Left sided Flank pains Skin: General skin exam: normal color Neuro: General: gait normal Speech: normal speech Motor exam (neuro): Normal motor muscle tone present throughout Extrem: General: normal to inspection Right upper extremity: normal to inspection Left upper extremity: normal to inspection Right lower extremity: normal to inspection Left lower extremity: normal to inspection Psych: Mental Status: mental status grossly normal Objective Data Vital Signs Vital Signs: Vital Signs - 24 hr 01/23/22 18:42 01/23/22 19:26 01/23/22 19:31 Temperature 36.2 C L Pulse Rate 110 H 99 Respiratory Rate 18 18 Blood Pressure 159/109 H 172/95 H 186/117 H Pulse Oximetry 99 96 97 01/23/22 20:31 01/23/22 21:19 01/23/22 21:20 Temperature Pulse Rate Respiratory Rate Blood Pressure 163/99 H 172/100 H Pulse Oximetry 100 98 01/23/22 22:16 01/23/22 22:31 01/23/22 23:20 Temperature Pulse Rate Respiratory Rate Blood Pressure 166/105 H 172/104 H 147/95 H Pulse Oximetry 98 96 97 01/24/22 00:00 01/24/22 04:00 01/24/22 06:00 Temperature 37.2 C
--- NOTE | 2022-01-24 12:19 | PM.IMHP ---
H&P: HPI History of Present Illness Date/Time: 01/24/22 12:19 Patient had left sided ureteroscopic stone extraction with placement stenting yesterday by Dr. Samuel. He placed a stent during the procedure he said this down was difficult to remove in the patient has subsequently had some recurrent left-sided flank pain nausea without fevers or chills. The pain worsened to the point which need to be seen in the emergency room last night a CT scan was completed the shows perinephric and periureteral edema without significant hydronephrosis on the left side. Of note the stent is in a appropriate position with a good curl the renal pelvis and a good curl in the bladder. The patient continued to have discomfort and pain overnight now a Reyes catheter is being placed a recheck of her laboratory values and she is continued on IV antibiotics. Chief Complaint: Left renal colic Review of Systems Review of Systems: No changes in her review of systems she denies fevers or chills PMFSH Past Medical History Medical History (Updated 01/24/22 @ 12:24 by Derik Baer MD) Asthma Depression Headache, migraine History of kidney stones HTN (hypertension) Hyperlipidemia Neuropathy Obstructive sleep apnea Surgical History Surgical History (Updated 01/23/22 @ 22:16 by eSn Higgins MD) History of bladder surgery History of foot surgery History of knee surgery History of shoulder surgery Family History Family History Father Diabetes mellitus Family history of diabetes mellitus in first degree relative Hypertension Family history of elevated blood lipids Mother Family history of hypercholesterolemia Hypertension Family history of elevated blood lipids Sibling Hypertension Family history of elevated blood lipids Family history of hypercholesterolemia Grandparent Diabetes mellitus Family history of hypercholesterolemia Hypertension Family history of cardiovascular disease Family history of lung cancer Family history of coronary artery disease Other Family history of malignant neoplasm Social History Social History Smoking status: Never smoker Second hand tobacco smoke exposure: No Additional smoking assessment comments: stopped 20 yrs ago Alcohol intake: never Drinks per week: 1 Alcohol use details: 2/MONTH Substance use: never Substance use type: does not use Additional occupation/education comments: [employer] Gender identity (if verbalized by the patient): Female Sexual Orientation (if Verbalized by the Patient): Straight or Heterosexual Spiritual care concerns: No Agree to blood products: Yes Meds Home Medications and Allergies Home Medications Medication Instructions Recorded Confirmed Type allopurinol 300 mg tablet 300 mg PO HS 01/25/20 01/24/22 History pregabalin [Lyrica] 75 mg PO Q12H 04/06/20 01/24/22 History atorvastatin [Lipitor] 20 mg PO HS 12/13/20 01/24/22 History albuterol sulfate 90 mcg/actuation 1 puff INHALATION Q4H PRN #8.5 g 12/26/20 01/24/22 Rx aerosol inhaler bisoprolol fumarate 20 mg PO HS 10/21/21 01/24/22 History hydrocodone-acetaminophen 1 tablet PO Q6H PRN #14 tablet 01/10/22 01/24/22 Rx fluoxetine 40 mg PO DAILY 01/24/22 01/24/22 History lisinopril 20 mg PO DAILY 01/24/22 01/24/22 History Allergies Allergy/AdvReac Type Severity Reaction Status Date / Time meperidine AdvReac Severe N/V Verified 01/23/22 19:27 ondansetron AdvReac Unknown Headache Verified 01/23/22 19:27 Vital Signs Vital Signs - 24 hr 01/23/22 18:42 01/23/22 19:26 01/23/22 19:31 Temperature 36.2 C L Pulse Rate 110 H 99 Respiratory Rate 18 18 Blood Pressure 159/109 H 172/95 H 186/117 H Pulse Oximetry 99 96 97 01/23/22 20:31 01/23/22 21:19 01/23/22 21:20 Temperature Pulse Rate Respiratory Rate Blood Pressure 16
--- NOTE | 2022-01-24 15:09 | PCRCNOTE ---
Patient has a CPAP machine at home that she don't wear. She not going to weaqr CPAP here.
--- NOTE | 2022-01-24 18:43 | PC.NURSE ---
The patient is still refusing polk her pain is getting better.
[2022-01-25] VITALS: BP 109/53; PULSE 79; RESP 18; TEMP 36.2; O2SAT 96
[2022-01-25] MEDS: HYDROmorphone HCL INJ (*CRX) 1 MG/ML SYR 0.5 MG IV PUSH (00:45)
[2022-01-25] MEDS: KETOROLAC 30 MG/ML VIAL (*BKC) IV PUSH ×2 (03:52→10:05)
[2022-01-25 04:00] VITALS: BP 164/94; PULSE 77; RESP 18; TEMP 36.6; O2SAT 98
[2022-01-25] MEDS: LACTATED RINGERS 1,000 ML 125 ML IV CONT (04:01)
[2022-01-25] MEDS: hydrALAZINE HCL 20 MG/ML VIAL 10 MG IV PUSH (04:24)
[2022-01-25 06:50] LABS: Basophils Percent Auto 0.5 % (0.2-1.2); Eosinophils Absolute Auto 0.2 K/mm3 (0-0.3); Eosinophils Percent Auto 2.3 % (0-4.4); Hematocrit 33.8 % (37.0-47.0); Hemoglobin 10.9 g/dL (12.0-15.0); Immature Granulocyte Absolute 0.05 K/mm3 (0.00-0.031); Immature Granulocyte Percent A 0.6 % (0-0.5); Lymphocytes Absolute Auto 2.93 K/mm3 (0.9-3.2); Lymphocytes Percent Auto 36.9 % (18.3-44.2); Mean Corpuscular HGB Conc 32.2 g/dl (32-36); Mean Corpuscular Hemoglobin 29.5 pg (26-34); Mean Corpuscular Volume 91.6 fl (80-100); Mean Platelet Volume 10.1 fl (7.4-10.4); Monocytes Absolute Auto 0.6 K/mm3 (0.1-0.6); Monocytes Percent Auto 6.9 % (2.6-8.5); Neutrophils Absolute Auto 4.2 K/mm3 (1.3-6.7); Neutrophils Percent Auto 52.8 % (45.5-73.1); Platelet Count Result 243 k/mm3 (150-375); Red Blood Count 3.69 M/mm3 (4.2-5.4); Red Cell Distribution Width 13.2 % (11.5-14.5); White Blood Count 7.9 K/mm3 (4.5-10.0)
[2022-01-25 08:00] VITALS: BP 159/89; PULSE 90; RESP 18; TEMP 35.9; O2SAT 99
[2022-01-25] MEDS: ACETAMINOPHEN 325 MG TABLET 650 MG PO (08:01)
[2022-01-25 08:42] LABS: Alanine Aminotransferase 17 U/L (4-35); Albumin Level 3.6 g/dL (3.5-5.1); Alkaline Phosphatase 62 U/L (38-126); Anion Gap 7 mmol/L (8-16); Aspartate Amino Transferase 20 U/L (14-36); Bilirubin,Total 0.3 mg/dL (0.2-1.3); Blood Urea Nitrogen 11 mg/dL (7-17); Calcium 8.3 mg/dL (8.4-10.2); Carbon Dioxide 24 mmol/L (22-30); Chloride 108 mmol/L (98-107); Estimated CRCL calculation 112 ml/min; Estimated Glomerular Filt Rate > 60; Glucose 106 mg/dL (65-110); Potassium 3.5 mmol/L (3.4-5.0); Sodium 139 mmol/L (137-145)
--- NOTE | 2022-01-25 09:54 | PM.IMPN ---
Progress Note: A&P Assessment and Plan (1) Pyelonephritis: Code(s): N12 - Tubulo-interstitial nephritis, not specified as acute or chronic Status: Acute Assessment and Plan: Awaiting cultures Started IV Zosyn, management per Urology. (2) Sepsis: Qualifiers: Sepsis acute organ dysfunction status: unspecified Sepsis type: sepsis due to unspecified organism Qualified Code(s): A41.9 - Sepsis, unspecified organism Code(s): A41.9 - Sepsis, unspecified organism Status: Acute Assessment and Plan: Resolved. Continue IV antibiotics. (3) Left ureteral injury: Qualifiers: Encounter type: initial encounter Qualified Code(s): S37.10XA - Unspecified injury of ureter, initial encounter Code(s): S37.10XA - Unspecified injury of ureter, initial encounter Status: Acute Assessment and Plan: Per Urology, conservative management for now. Continue IV antibiotics. (4) Obstructive sleep apnea: Code(s): G47.33 - Obstructive sleep apnea (adult) (pediatric) Status: Acute Assessment and Plan: Chronic and stable. (5) HTN (hypertension): Code(s): I10 - Essential (primary) hypertension Status: Acute Assessment and Plan: Monitor blood pressure and adjust medications as needed. (6) Hyperlipidemia: Code(s): E78.5 - Hyperlipidemia, unspecified Status: Acute Assessment and Plan: Chronic and stable. Additional Plan DVT prophylaxis SCD for now pending urology evaluation Subjective Date/time seen: 01/25/22 09:54 Patient is still having significant abdominal pain. Required Toradol earlier this morning. No new complaints. Review of Systems Review of Systems: All systems reviewed & are unremarkable except as noted in HPI and below Exam Const: General: in distress HENMT: Mouth: Yes dry mucous membranes Eyes: Sclera: sclerae normal Neck: Neck: no JVD Resp: Effort & Inspection: normal respiratory effort Auscultation: clear to auscultation bilaterally Cardio: Rate: regular rate Rhythm: regular rhythm GI: Inspection: non-distended Auscultation: normal bowel sounds Other: Left sided Flank pains Skin: General skin exam: normal color Neuro: General: gait normal Speech: normal speech Motor exam (neuro): Normal motor muscle tone present throughout Extrem: General: normal to inspection Right upper extremity: normal to inspection Left upper extremity: normal to inspection Right lower extremity: normal to inspection Left lower extremity: normal to inspection Psych: Mental Status: mental status grossly normal Objective Data Vital Signs Vital Signs: Vital Signs - 24 hr 01/24/22 12:00 01/24/22 16:00 01/24/22 20:00 Temperature 97.5 F L 97.3 F L 97.8 F Pulse Rate 93 91 97 Respiratory Rate 16 18 16 Blood Pressure 130/76 128/81 148/78 H Pulse Oximetry 99 99 99 01/25/22 00:00 01/25/22 04:00 01/25/22 08:00 Temperature 97.2 F L 97.8 F 96.7 F L Pulse Rate 79 77 90 Respiratory Rate 18 18 18 Blood Pressure 109/53 L 164/94 H 159/89 H Pulse Oximetry 96 98 99 Intake/Output Intake/Output: Intake & Output 01/22/22 01/23/22 01/24/22 01/25/22 23:59 23:59 23:59 23:59 Intake Total 7250 3440 1650 Balance 7250 3440 1650 Meds/Results Medications: Active Medications Generic Name Dose Route Start Last Admin Trade Name Freq PRN Reason Stop Dose Admin Acetaminophen 650 mg 01/23/22 23:05 01/25/22 08:01 Acetaminophen 325 Mg Tablet PO 650 mg Q6H PRN Administration Mild Pain (1-3) Hydrocodone Bitart/Acetaminophen 1 tab 01/23/22 23:05 01/24/22 20:29 Hydrocodone/Acetaminophen (*Crx) 5-325 Mg Tablet PO 1 tab Q6H PRN Administration Pain Rated 4-6 Albuterol 1 puff 01/24/22 11:24 Albuterol Sulfate (*Sp) Aerosol 1 Puff INHALATION Q4H PRN Shortness Of Breath Dextrose 12.5 gm 01/23/22 23:08 Dextrose 50% 25 Gm/50 Ml Syringe IV PUSH
[2022-01-25 12:00] VITALS: BP 148/91; PULSE 89; RESP 18; TEMP 36.1; O2SAT 99
--- NOTE | 2022-01-25 12:41 | WPDUROPN2 ---
Progress Note: A&P Assessment and Plan (1) Renal colic on left side: Code(s): N23 - Unspecified renal colic Status: Acute Assessment and Plan: Her pain is significantly improved now tolerating oral pain medications implanted discharged home today she has a stent in place we talked about the discomfort especially with the stent she will plan to leave the stent in for approximately two weeks. (2) Left ureteral injury: Qualifiers: Encounter type: initial encounter Qualified Code(s): S37.10XA - Unspecified injury of ureter, initial encounter Code(s): S37.10XA - Unspecified injury of ureter, initial encounter Status: Acute Assessment and Plan: There is fluid around the year and this is not to be unexpected from a ureteral stone extraction in addition there is some perinephric edema a stents in a good position and likely if there is any type of ureteral urine leak this will seal in the near future repeat imaging as well as further evaluation would be entertained pending our symptoms proceed. Clinically she has dramatically improved to be discharged home today with plans to leave the stent in place for two weeks. She will follow-up with Dr. Samuel. Subjective Subjective Date/Time Seen: 01/25/22 12:41 She is feeling much better today least Toradol this helped quite a bit with her left renal colic type symptoms. Reyes catheter was not placed and she is voiding without significant. Her cultures are negative today and she has no fevers she tolerated a regular diet the plan will be to let her discharge home today. Review of Systems Review of Systems: Denies fever chills nausea vomiting Objective Data Vital Signs Vital Signs: Vital Signs - 24 hr 01/24/22 16:00 01/24/22 20:00 01/25/22 00:00 Temperature 36.3 C L 36.6 C 36.2 C L Pulse Rate 91 97 79 Respiratory Rate 18 16 18 Blood Pressure 128/81 148/78 H 109/53 L Pulse Oximetry 99 99 96 01/25/22 04:00 01/25/22 08:00 Temperature 36.6 C 35.9 C L Pulse Rate 77 90 Respiratory Rate 18 18 Blood Pressure 164/94 H 159/89 H Pulse Oximetry 98 99 Intake/Output Intake/Output: Intake & Output 01/22/22 01/23/22 01/24/22 01/25/22 23:59 23:59 23:59 23:59 Intake Total 7250 3440 1650 Balance 7250 3440 1650 Meds/Results Medications: Active Medications Generic Name Dose Route Start Last Admin Trade Name Juanq PRN Reason Stop Dose Admin Acetaminophen 650 mg 01/23/22 23:05 01/25/22 08:01 Acetaminophen 325 Mg Tablet PO 650 mg Q6H PRN Administration Mild Pain (1-3) Hydrocodone Bitart/Acetaminophen 1 tab 01/23/22 23:05 01/24/22 20:29 Hydrocodone/Acetaminophen (*Crx) 5-325 Mg Tablet PO 1 tab Q6H PRN Administration Pain Rated 4-6 Hydrocodone Bitart/Acetaminophen 1 tab 01/25/22 11:38 Hydrocodone/Acetaminophen (*Crx) 5-325 Mg Tablet PO Q6H PRN PAIN RATED 4-6 Albuterol 1 puff 01/24/22 11:24 Albuterol Sulfate (*Sp) Aerosol 1 Puff INHALATION Q4H PRN Shortness Of Breath Allopurinol 300 mg 01/25/22 21:00 Allopurinol 300 Mg Tablet PO HS TRICIA Atorvastatin Calcium 20 mg 01/25/22 21:00 Atorvastatin 20 Mg Tablet PO HS TRICIA Bisoprolol Fumarate 20 mg 01/25/22 21:00 Bisoprolol Fumarate 5 Mg Tablet PO HS TRICIA Dextrose 12.5 gm 01/23/22 23:08 Dextrose 50% 25 Gm/50 Ml Syringe IV PUSH PRN PRN Hypoglycemia Protocol Fluoxetine HCl 40 mg 01/25/22 11:50 Fluoxetine Hcl 20 Mg Capsule PO DAILY TRICIA Glucagon 1 mg 01/23/22 23:08 Glucagon For Inj 1 Mg Vial IM PRN PRN Hypoglycemia Protocol Glucose 15 gm 01/23/22 23:08 Glucose Oral Gel 15 Gm Of Glucse In 37.5 Gm Tube PO PRN PRN Hypoglycemia Protocol Hydralazine HCl 10 mg 01/23/22 23:05 01/25/22 04:24 Hydralazine Hcl 20 Mg/Ml Vial IV PUSH 10 mg Q6H PRN Administration Hypertension Hydromorphone HCl 0.5 mg 01/24/22 10:22
--- NOTE | 2022-01-25 13:02 | PM.DS ---
DS: Admitting Diagnosis Discharge Date 01/25/22 Admitting Diagnosis ureteral injury DS: Discharge Diagnosis Discharge Diagnosis (1) Pyelonephritis: Code(s): N12 - Tubulo-interstitial nephritis, not specified as acute or chronic Status: Acute Assessment and Plan: no further plan perurology abx on dc (2) Sepsis: Qualifiers: Sepsis acute organ dysfunction status: unspecified Sepsis type: sepsis due to unspecified organism Qualified Code(s): A41.9 - Sepsis, unspecified organism Code(s): A41.9 - Sepsis, unspecified organism Status: Acute Assessment and Plan: Resolved. (3) Left ureteral injury: Qualifiers: Encounter type: initial encounter Qualified Code(s): S37.10XA - Unspecified injury of ureter, initial encounter Code(s): S37.10XA - Unspecified injury of ureter, initial encounter Status: Acute Assessment and Plan: Per Urology, conservative management for now. fu urology (4) Obstructive sleep apnea: Code(s): G47.33 - Obstructive sleep apnea (adult) (pediatric) Status: Acute Assessment and Plan: Chronic and stable. (5) HTN (hypertension): Code(s): I10 - Essential (primary) hypertension Status: Acute Assessment and Plan: Monitor blood pressure and adjust medications as needed. (6) Hyperlipidemia: Code(s): E78.5 - Hyperlipidemia, unspecified Status: Acute Assessment and Plan: Chronic and stable. DS: Summary Hospital Course Hospital Course: see plan and diagnosis Time Spent with Patient Time attestation: Total time spent providing and/or coordinating discharge services: greater than 30 min Exam Const: General: in distress HENMT: Mouth: Yes dry mucous membranes Eyes: Sclera: sclerae normal Neck: Neck: no JVD Resp: Effort & Inspection: normal respiratory effort Auscultation: clear to auscultation bilaterally Cardio: Rate: regular rate Rhythm: regular rhythm GI: Inspection: non-distended Auscultation: normal bowel sounds Other: Left sided Flank pains Skin: General skin exam: normal color Neuro: General: gait normal Speech: normal speech Motor exam (neuro): Normal motor muscle tone present throughout Extrem: General: normal to inspection Right upper extremity: normal to inspection Left upper extremity: normal to inspection Right lower extremity: normal to inspection Left lower extremity: normal to inspection Psych: Mental Status: mental status grossly normal DS: Data Data Completed and Pending Labs on day of discharge: Labs from last 24 hours 01/25/22 01/25/22 07:41 06:23 WBC 7.9 RBC 3.69 L Hgb 10.9 L Hct 33.8 L MCV 91.6 MCH 29.5 MCHC 32.2 RDW 13.2 Plt Count 243 MPV 10.1 Immature Gran % (Auto) 0.6 H Neut % (Auto) 52.8 Lymph % (Auto) 36.9 [place] % (Auto) 6.9 Eos % (Auto) 2.3 Baso % (Auto) 0.5 Lymph # (Auto) 2.93 [place] # (Auto) 0.6 Eos # (Auto) 0.2 Baso # (Auto) 0.0 Abs Immat Gran (auto) 0.05 H Absolute Neuts (auto) 4.2 Absolute Nucleated RBC 0.0 Nucleated RBC % 0.0 Sodium 139 Potassium 3.5 Chloride 108 H Carbon Dioxide 24 Anion Gap 7 L BUN 11 Creatinine 0.70 Estim Creat Clear Calc 112 Estimated GFR > 60 Glucose 106 Calcium 8.3 L Total Bilirubin 0.3 AST 20 ALT 17 Alkaline Phosphatase 62 Total Protein 6.0 L Albumin 3.6 Preliminary micro results at discharge 01/23/22 20:09 Blood Culture - Preliminary Blood 01/23/22 20:09 Blood Culture - Preliminary Blood Discharge Plan Discharge Attending physician on discharge: Tom Gil Consulting providers: Derik Baer Discharging Clinician: Tom Gil Patient Disposition: Home, Self-Care Activity: no preference Diet: as tolerated Discharge Instructions: Dr. Baer Call the office and make appointment with Dr. Samuel to have stent
== END 2022-01-25 13:20 | disposition home or self-care (01) ==
LOC: ANHED 23:03 → ANH3MEDSUR 01-25 12:44
PROVIDERS: Emergency Medicine; Admitting Provider Internal Medicine; Emergency Provider Emergency Medicine; PCP Hospitalist; Visit Provider Chiropractor
DX: A41.9 Sepsis, unspecified organism (principal); N12 Tubulo-interstitial nephritis, not specified as acute or chronic; S37.10XA Unspecified injury of ureter, initial encounter; G89.18 Other acute postprocedural pain; N23 Unspecified renal colic; I10 Essential (primary) hypertension; E78.5 Hyperlipidemia, unspecified; J45.909 Unspecified asthma, uncomplicated; G47.33 Obstructive sleep apnea (adult) (pediatric); G62.9 Polyneuropathy, unspecified; F32.9 Major depressive disorder, single episode, unspecified; Z79.51 Long term (current) use of inhaled steroids; Z96.0 Presence of urogenital implants; Z79.899 Other long term (current) drug therapy
CPT/HCPCS: 36415; 74018; 74177; 74420; 80053; 81001; 81025; 82365; 82948; 83036; 83605; 85025; 85610; 85730; 87040; 87086; 88300; 96361; 96365; 96366; 96375; 96376; 99285; A9270; C1769; C1894; C2617; G0378; J0360; J0690; J0696; J1100; J1170; J1885; J2250; J2270; J2543; J2550; J2704; J3010; J7030; J7050; J7120; Q9966; Q9967

== ENCOUNTER 2022-10-08 09:37 | Emergency (ER) | payer OTHER, SELFPAY ==
[2022-10-08 09:50] VITALS: BP 135/99; PULSE 96; RESP 18; TEMP 36.2; O2SAT 99
--- NOTE | 2022-10-08 09:53 | ED.URI ---
HPI - URI/Sore Throat General Chief Complaint: Upper Respiratory Infection Stated Complaint: Sore Throat Time Seen by Provider: 10/08/22 09:53 Source: patient, RN notes reviewed and old records reviewed Mode of arrival: ambulatory Limitations: no limitations History of Present Illness HPI Narrative: 42-year-old female who presents to [facility] with complaints of sore throat which started last night with some post nasal drainage. Patient reports no fevers, chills, or body aches. Patient has had Covid vaccinations and also flu shot.Patient has not taken any OTC medications for her symptoms. Patient denies any cough or any ear pain or any shortness of breath. MD elicited complaint: sore throat and other (post nasal drainage) Onset (ago): day(s) (since last night ) Pain scale (0-10): 3 Treatments prior to arrival: none Related Data Home Medications Medication Instructions Recorded Confirmed allopurinol 300 mg tablet 300 mg PO HS 01/25/20 10/08/22 pregabalin 75 mg capsule (Lyrica) 75 mg PO Q12H 04/06/20 10/08/22 atorvastatin 20 mg tablet (Lipitor) 20 mg PO HS 12/13/20 10/08/22 bisoprolol fumarate 10 mg tablet 20 mg PO HS 10/21/21 10/08/22 fluoxetine 40 mg capsule 40 mg PO DAILY 01/24/22 10/08/22 amitriptyline 25 mg tablet 25 mg PO DAILY 10/08/22 10/08/22 diclofenac sodium 75 mg 75 mg PO DAILY 10/08/22 10/08/22 tablet,delayed release Allergies Allergy/AdvReac Type Severity Reaction Status Date / Time meperidine AdvReac Severe N/V Verified 10/13/22 10:44 ondansetron AdvReac Unknown Headache Verified 10/13/22 10:44 Review of Systems Review of Systems: CONSTITUTIONAL: Denies malaise, chills, sweats, or fever. EYES: Denies visual changes, redness, or discharge. ENT: Reports some post nasal drainage, no sinus pain,no otalgia positive for sore throat. CARDIOVASCULAR: Denies chest pain, palpitations, or edema. RESPIRATORY: Reports no cough.? Denies dyspnea. GASTROINTESTINAL: Denies abdominal pain, nausea, vomiting, diarrhea SKIN: Denies rash or itching. MUSCULOSKELETAL: Denies myalgia. NEUROLOGIC: Denies headache. All systems reviewed & are unremarkable except as noted in HPI and below PMFSH Past Medical History Medical History Asthma Depression Headache, migraine History of kidney stones HTN (hypertension) Hyperlipidemia Neuropathy Obstructive sleep apnea Surgical History Surgical History History of bladder surgery History of foot surgery History of knee surgery History of shoulder surgery Family History Family History Father Diabetes mellitus Family history of diabetes mellitus in first degree relative Hypertension Family history of elevated blood lipids Mother Family history of hypercholesterolemia Hypertension Family history of elevated blood lipids Sibling Hypertension Family history of elevated blood lipids Family history of hypercholesterolemia Grandparent Diabetes mellitus Family history of hypercholesterolemia Hypertension Family history of cardiovascular disease Family history of lung cancer Family history of coronary artery disease Other Family history of malignant neoplasm Social History Social History (Updated 10/13/22 @ 20:13 by Kimberley Beatty NP) Smoking status: Former smoker Second hand tobacco smoke exposure: No Additional smoking assessment comments: stopped 20 yrs ago Alcohol intake: never Drinks per week: 1 Alcohol use details: 2/MONTH Substance use: never Substance use type: does not use Additional occupation/education comments: [employer] Gender identity (if verbalized by the patient): Female Sexual Orientation (if Verbalized by the Patient): Straight or Heterosexual Spiritual care concerns: No Agree to blood products: Yes Comments At t
== END 2022-10-08 10:33 | disposition home or self-care (01) ==
PROVIDERS: Emergency Provider Registered Nurse; PCP Hospitalist
DX: J06.9 Acute upper respiratory infection, unspecified (principal); J02.9 Acute pharyngitis, unspecified; I10 Essential (primary) hypertension; J45.909 Unspecified asthma, uncomplicated; G47.33 Obstructive sleep apnea (adult) (pediatric); E78.5 Hyperlipidemia, unspecified; Z87.891 Personal history of nicotine dependence
CPT/HCPCS: 87081; 87880; 99213; G0463

== ENCOUNTER 2022-10-13 10:00 | Emergency (ER) | payer OTHER, SELFPAY ==
--- NOTE | ~2022-10-13 | XR_ITS ---
EXAMINATION: XR chest 2V DATE: 10/13/2022 10:31 INDICATION: Cough and congestion. Chest tightness. TECHNIQUE: Frontal and lateral views of the chest were obtained. COMPARISON: Chest single view 04/19/2018 FINDINGS: The chest demonstrates clear lungs without pneumonia, pleural effusion, or pneumothorax. Th e heart size is normal. There is mild chronic anterior wedging of multiple vertebral bodies. IMPRESSION: 1. No acute cardiopulmonary disease. Reviewed, dictated and finalized at location A. 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
[2022-10-13 10:03] VITALS: BP 178/107; PULSE 91; RESP 98; TEMP 36.6; O2SAT 99
[2022-10-13 10:50] VITALS: BP 141/106; PULSE 86; RESP 16; TEMP 36.7; O2SAT 98
--- NOTE | 2022-10-13 11:59 | ED.URI ---
HPI - URI/Sore Throat General Chief Complaint: Upper Respiratory Infection Stated Complaint: URI Time Seen by Provider: 10/13/22 10:11 History of Present Illness HPI Narrative: 42-year-old female presents to the emergency room for evaluation of sinus congestion, postnasal drip, cough, headache. States has been experiencing symptoms for over 2 weeks. Has tried multiple [id number] medications including Mucinex, phenylephrine, Sudafed, Flonase and Afrin. Has had little to no relief of her symptoms. States that his facial pain that is worse when she bends over. Patient symptoms are worse at night when lying down. Denies fevers. Related Data Home Medications Medication Instructions Recorded Confirmed allopurinol 300 mg tablet 300 mg PO HS 01/25/20 10/08/22 pregabalin 75 mg capsule (Lyrica) 75 mg PO Q12H 04/06/20 10/08/22 atorvastatin 20 mg tablet (Lipitor) 20 mg PO HS 12/13/20 10/08/22 bisoprolol fumarate 10 mg tablet 20 mg PO HS 10/21/21 10/08/22 fluoxetine 40 mg capsule 40 mg PO DAILY 01/24/22 10/08/22 amitriptyline 25 mg tablet 25 mg PO DAILY 10/08/22 10/08/22 diclofenac sodium 75 mg 75 mg PO DAILY 10/08/22 10/08/22 tablet,delayed release Allergies Allergy/AdvReac Type Severity Reaction Status Date / Time meperidine AdvReac Severe N/V Verified 10/13/22 10:44 ondansetron AdvReac Unknown Headache Verified 10/13/22 10:44 Review of Systems Review of Systems: CONSTITUTIONAL: Denies fever, chills, or sweats. EYES: Denies visual changes, redness, or discharge. ENT: Reports rhinorrhea, congestion CARDIOVASCULAR: Denies chest pain, palpitations, or edema. RESPIRATORY: Denies cough or dyspnea. GASTROINTESTINAL: Denies abdominal pain, nausea, vomiting, or diarrhea. GENITOURINARY: Denies dysuria or hematuria. SKIN: Denies rash or itching. MUSCULOSKELETAL: Denies back pain, joint pain, or myalgia. NEUROLOGIC: Denies headache, numbness, dizziness, or weakness. PSYCHIATRIC: Denies anxiety or depression. [facility] Past Medical History Medical History Asthma Depression Headache, migraine History of kidney stones HTN (hypertension) Hyperlipidemia Neuropathy Obstructive sleep apnea Surgical History Surgical History History of bladder surgery History of foot surgery History of knee surgery History of shoulder surgery Family History Family History Father Diabetes mellitus Family history of diabetes mellitus in first degree relative Hypertension Family history of elevated blood lipids Mother Family history of hypercholesterolemia Hypertension Family history of elevated blood lipids Sibling Hypertension Family history of elevated blood lipids Family history of hypercholesterolemia Grandparent Diabetes mellitus Family history of hypercholesterolemia Hypertension Family history of cardiovascular disease Family history of lung cancer Family history of coronary artery disease Other Family history of malignant neoplasm Social History Social History Smoking status: Never smoker Second hand tobacco smoke exposure: No Additional smoking assessment comments: stopped 20 yrs ago Alcohol intake: never Drinks per week: 1 Alcohol use details: 2/MONTH Substance use: never Substance use type: does not use Additional occupation/education comments: [employer] Gender identity (if verbalized by the patient): Female Sexual Orientation (if Verbalized by the Patient): Straight or Heterosexual Spiritual care concerns: No Agree to blood products: Yes Exam Narrative: GENERAL: Well-appearing, well-nourished, no physical limitations, and in no acute distress. HEAD: Normocephalic, atraumatic. +TTP to maxillary and frontal sinuses EYES: Conjunctivae normal, PERRLA
[2022-10-13 12:46] VITALS: BP 134/102; RESP 16; O2SAT 99
[2022-10-13 12:52] LABS: Influenza A QL RT-PCR Negative (Negative); Influenza B QL RT-PCR Negative (Negative); RSV RNA, RT-PCR Negative (Negative); SARS-CoV-2 RNA PCR Negative
== END 2022-10-13 12:47 | disposition home or self-care (01) ==
PROVIDERS: Emergency Medicine; Emergency Provider Nurse Practitioner Family; PCP Hospitalist
DX: J06.9 Acute upper respiratory infection, unspecified (principal); J32.9 Chronic sinusitis, unspecified; Z20.822 Contact with and (suspected) exposure to COVID-19; J45.909 Unspecified asthma, uncomplicated; F32.9 Major depressive disorder, single episode, unspecified; I10 Essential (primary) hypertension; Z87.442 Personal history of urinary calculi; G47.30 Sleep apnea, unspecified
CPT/HCPCS: 71046; 87637; 96372; 99283; J1100

== ENCOUNTER 2023-01-19 08:20 | Emergency (ER) | payer OTHER, SELFPAY ==
--- NOTE | ~2023-01-19 | XR_ITS ---
EXAMINATION: XR elbow LT min 3V DATE: 01/19/2023 09:12 INDICATION: Left elbow trauma after being hit with a fast ball TECHNIQUE: Anteroposterior, two oblique and lateral views of the left elbow were obtained. COMPARISON: None. FINDINGS: Alignment is normal. No fracture or joint effusion. Joint spaces are normal. Mild soft tissue swellin g posterior to the proximal ulna. IMPRESSION: 1. No left elbow joint effusion or osseous abnormality. Reviewed, dictated and finalized at location A.
[2023-01-19 08:51] VITALS: BP 153/93; PULSE 84; RESP 18; TEMP 36.6; O2SAT 99
--- NOTE | 2023-01-19 09:00 | ED.UPPEXIN ---
HPI - Extremity Injury (Upper) General Chief Complaint: Extremity Injury, Upper Stated Complaint: lt elbow injury Time Seen by Provider: 01/19/23 09:00 Source: patient Mode of arrival: ambulatory Limitations: no limitations History of Present Illness HPI narrative: 43-year-old female presents with complaint of pain and swelling to left elbow since last night. Patient reports that she was throwing balls to her daughter who was doing batting practice in the [place]. States that daughter had a line drive right to patient's left elbow. Patient reports that the pain was so bad that she almost passed out. Full range of motion to left elbow, distal neurovascularly intact. All Systems reviewed and negative except as noted above. Related Data Home Medications Medication Instructions Recorded Confirmed allopurinol 300 mg tablet 300 mg PO HS 01/25/20 01/19/23 pregabalin 75 mg capsule (Lyrica) 75 mg PO Q12H 04/06/20 01/19/23 atorvastatin 20 mg tablet (Lipitor) 20 mg PO HS 12/13/20 01/19/23 bisoprolol fumarate 10 mg tablet 20 mg PO HS 10/21/21 01/19/23 fluoxetine 40 mg capsule 40 mg PO DAILY 01/24/22 01/19/23 amitriptyline 25 mg tablet 25 mg PO DAILY 10/08/22 01/19/23 diclofenac sodium 75 mg 75 mg PO DAILY 10/08/22 01/19/23 tablet,delayed release Allergies Allergy/AdvReac Type Severity Reaction Status Date / Time meperidine AdvReac Severe N/V Verified 01/19/23 08:53 ondansetron AdvReac Unknown Headache Verified 01/19/23 08:53 Review of Systems Review of Systems: CONSTITUTIONAL: Denies fever, chills, or sweats. EYES: Denies visual changes, redness, or discharge. ENT: Denies rhinorrhea, congestion, sore throat, or otalgia. CARDIOVASCULAR: Denies chest pain, palpitations, or edema. RESPIRATORY: Denies cough or dyspnea. GASTROINTESTINAL: Denies abdominal pain, nausea, vomiting, or diarrhea. GENITOURINARY: Denies dysuria or hematuria. SKIN: Denies rash or itching. MUSCULOSKELETAL: reports pain and swelling to left elbow. NEUROLOGIC: Denies headache, numbness, or weakness. PSYCHIATRIC: Denies anxiety or depression. All other systems reviewed are negative, except as documented in HPI. [facility] Past Medical History Medical History Asthma Depression Headache, migraine History of kidney stones HTN (hypertension) Hyperlipidemia Neuropathy Obstructive sleep apnea Surgical History Surgical History History of bladder surgery History of foot surgery History of knee surgery History of shoulder surgery Family History Family History Father Diabetes mellitus Family history of diabetes mellitus in first degree relative Hypertension Family history of elevated blood lipids Mother Family history of hypercholesterolemia Hypertension Family history of elevated blood lipids Sibling Hypertension Family history of elevated blood lipids Family history of hypercholesterolemia Grandparent Diabetes mellitus Family history of hypercholesterolemia Hypertension Family history of cardiovascular disease Family history of lung cancer Family history of coronary artery disease Other Family history of malignant neoplasm Social History Social History (Updated 10/13/22 @ 20:13 by Kimberley Beatty NP) Smoking status: Former smoker Second hand tobacco smoke exposure: No Additional smoking assessment comments: stopped 20 yrs ago Alcohol intake: never Drinks per week: 1 Alcohol use details: 2/MONTH Substance use: never Substance use type: does not use Living arrangements: with family Occupation/Education: occupation Additional occupation/education comments: [employer] Gender identity (if verbalized by the patient): Female Sexual Orientation (if Verbalized by the Patient): Straight or Heterosexual Spiritual care concerns: No
== END 2023-01-19 09:23 | disposition home or self-care (01) ==
PROVIDERS: Emergency Provider Nurse Practitioner Family; PCP Hospitalist
DX: S50.02XA Contusion of left elbow, initial encounter (principal); W21.03XA Struck by baseball, initial encounter; J45.909 Unspecified asthma, uncomplicated; I10 Essential (primary) hypertension; E78.5 Hyperlipidemia, unspecified; G62.9 Polyneuropathy, unspecified; F32.A Depression, unspecified
CPT/HCPCS: 73080; 99213; G0463

== ENCOUNTER → 2023-03-20 09:52 | Outpatient (CLI) | payer OTHER, SELFPAY ==
--- NOTE | ~2023-03-20 | MR_ITS ---
MRI of the right shoulder Technique: Axial proton-density fat-sat images, coronal proton density fat-sat and T2 fat-sat images, and sagittal T1-weighted and T2 fat-sat images were acquired. Clinical History: Pain COMPARISON: 01/30/2021 Findings: There is moderate to severe AC joint degenerative change, with minimal subacromial spur. Co racoclavicular, coracoacromial, and coracohumeral ligaments are intact. There is probable focal full-thickness tearing at the very anterior, distal supraspinatus tendon inse rtion, with tear measuring up to 1.0 x 1.0 cm in extent. Infraspinatus tendon is intact, without part ial or full-thickness tear. Subscapularis tendon demonstrates severe tendinosis and/or postoperative change, with areas of susceptibility artifact about the midportion of the tendon. Tendon of the long head of the biceps is probably intact. Possible focal tear of the anterior labrum at the equator. Inferior glenohumeral ligament appears to be intact. There is a small glenohumeral joint effusion wit h fluid passing through the rotator cuff defect into the subacromial/subdeltoid bursa. No muscle atro phy or edema identified. No degenerative change at the glenohumeral joint. Impression: 1.0 x 1.0 cm area of full-thickness tearing at the very anterior, distal supraspinatus tendon inserti on. Postoperative change of the subscapularis tendon, which is similar appearance to prior exam. Possible focal tear of the anterior labrum at the equator. Moderate to advanced AC joint degenerative change. Reviewed, dictated and finalized at location . Impression: 1.0 x 1.0 cm area of full-thickness tearing at the very anterior, distal supras pinatus tendon insertion. Postoperative change of the subscapularis tendon, which is similar appearance t o prior exam. Possible focal tear of the anterior labrum at the equator. Moderate to advanced AC joint degenerative change.
== END ==
DX: M19.011 Primary osteoarthritis, right shoulder (principal); M75.121 Complete rotator cuff tear or rupture of right shoulder, not specified as traumatic
CPT/HCPCS: 73221

== ENCOUNTER → 2023-06-11 12:39 | Outpatient (CLI) | payer OTHER, SELFPAY ==
--- NOTE | ~2023-06-11 | XR_ITS ---
EXAMINATION: XR lumbar spine min 4V DATE: 06/11/2023 13:30 INDICATION: Low back pain TECHNIQUE: Anteroposterior, lateral, and bilateral oblique views of the lumbar spine, and cone-down l ateral view of the lumbosacral junction were obtained. COMPARISON: CT, 01/10/2022 FINDINGS: There is unchanged severe loss of intervertebral disc space height at L5-S1. There is mild loss of disc space height at L4-5. The lumbar vertebral body heights are maintained. There is mild ch ronic anterior wedging of multiple lower thoracic vertebral bodies. There is no fracture. There is mo derate facet joint osteoarthritis in the lower lumbar spine. A moderate volume of colonic stool is pr esent. IMPRESSION: 1. Moderate to severe lumbar spondylosis at L5-S1, otherwise mild lumbar spondylosis. Reviewed, dictated and finalized at location B. IMPRESSION: 1. Moderate to severe lumbar spondylosis at L5-S1, otherwise mild lumbar spondy losis.
== END ==
PROVIDERS: PCP Chiropractor; Visit Provider Hospitalist
DX: M54.50 Low back pain, unspecified (principal); M43.06 Spondylolysis, lumbar region
CPT/HCPCS: 72110

== ENCOUNTER 2023-09-25 13:19 | Emergency (ER) | payer OTHER, SELFPAY ==
--- NOTE | 2023-09-25 13:35 | ED.URI ---
HPI - URI/Sore Throat General Chief Complaint: Upper Respiratory Infection Stated Complaint: bodyaches,headache,fever Source: patient Mode of arrival: ambulatory Limitations: no limitations History of Present Illness HPI Narrative: Lilia is a 43-year-old female patient presenting to the clinic today with complaints of body aches, headache, and fever times. She reports MD elicited complaint: sore throat and nasal congestion Related Data Home Medications Medication Instructions Recorded Confirmed allopurinol 300 mg tablet 300 mg PO HS 01/25/20 01/19/23 pregabalin 75 mg capsule (Lyrica) 75 mg PO Q12H 04/06/20 01/19/23 atorvastatin 20 mg tablet (Lipitor) 20 mg PO HS 12/13/20 01/19/23 bisoprolol fumarate 10 mg tablet 20 mg PO HS 10/21/21 01/19/23 fluoxetine 40 mg capsule 40 mg PO DAILY 01/24/22 01/19/23 amitriptyline 25 mg tablet 25 mg PO DAILY 10/08/22 01/19/23 diclofenac sodium 75 mg 75 mg PO DAILY 10/08/22 01/19/23 tablet,delayed release Allergies Allergy/AdvReac Type Severity Reaction Status Date / Time meperidine AdvReac Severe N/V Verified 01/19/23 08:53 ondansetron AdvReac Unknown Headache Verified 01/19/23 08:53 Review of Systems Review of Systems: Pertinent positives per HPI. Patient denies any rash, visual changes, dizziness, cough, shortness of breath, chest pain, palpitations, nausea, vomiting, diarrhea, constipation, abdominal pain, or any urinary issues. [facility] Past Medical History Medical History Asthma Depression Headache, migraine History of kidney stones HTN (hypertension) Hyperlipidemia Neuropathy Obstructive sleep apnea Surgical History Surgical History History of bladder surgery History of foot surgery History of knee surgery History of shoulder surgery Family History Family History Father Diabetes mellitus Family history of diabetes mellitus in first degree relative Hypertension Family history of elevated blood lipids Mother Family history of hypercholesterolemia Hypertension Family history of elevated blood lipids Sibling Hypertension Family history of elevated blood lipids Family history of hypercholesterolemia Grandparent Diabetes mellitus Family history of hypercholesterolemia Hypertension Family history of cardiovascular disease Family history of lung cancer Family history of coronary artery disease Other Family history of malignant neoplasm Social History Social History Smoking status: Former smoker Second hand tobacco smoke exposure: No Additional smoking assessment comments: stopped 20 yrs ago Alcohol intake: never Drinks per week: 1 Alcohol use details: 2/MONTH Substance use: never Substance use type: does not use Living arrangements: with family Occupation/Education: occupation Additional occupation/education comments: [employer] Gender identity (if verbalized by the patient): Female Sexual Orientation (if Verbalized by the Patient): Straight or Heterosexual Spiritual care concerns: No Agree to blood products: Yes Comments At the time of my signature, I reviewed and agree with the nursing past medical, surgical, social, and family history. There is no relevant family history pertinent to the patient complaint. Exam Narrative: General: Well-developed, well nourished, in no apparent distress Head: Normocephalic, atraumatic Eyes: Pupils equally round and reactive to light bilaterally, EOM intact, sclera and conjunctive clear, no discharge, lids normal Ears: TMs intact and clear, ear canals clear, no drainage, grossly hearing normal. Nose: Nares patent, no discharge, no inflammation, no sinus tenderness. Mouth: Oral pharynx without lesions or masses, good dentitio
[2023-09-25 14:25] VITALS: BP 101/56; PULSE 130; RESP 20; TEMP 37.5; O2SAT 99
== END 2023-09-25 14:41 | disposition home or self-care (01) ==
PROVIDERS: Emergency Provider Nurse Practitioner Family; PCP Hospitalist
DX: U07.1 COVID-19 (principal); Z87.891 Personal history of nicotine dependence; J45.909 Unspecified asthma, uncomplicated; I10 Essential (primary) hypertension; E78.5 Hyperlipidemia, unspecified; G62.9 Polyneuropathy, unspecified; F32.A Depression, unspecified
CPT/HCPCS: 87081; 87426; 87804; 87880; 99213; C9803; G0463

== ENCOUNTER → 2023-10-15 11:04 | Outpatient (CLI) | payer OTHER, SELFPAY ==
--- NOTE | ~2023-10-15 | XR_ITS ---
XR sacroiliac joints min 3V DATE: 10/15/2023 11:32 INDICATION: Low back pain TECHNIQUE: AP, bilateral oblique views of sacroiliac joints COMPARISON: January 23, 2022 CT abdomen pelvis FINDINGS: There is severe degenerative disc disease at L5-S1. No sacral fracture or bone destruction is evident. Normal alignment and mild degenerative change at t he sacroiliac joints. No erosive change or ankylosis is evident. The pubic symphysis is intact. IMPRESSION: Severe degenerative disc disease at L5-S1 Mild degenerative change at the sacroiliac joints Reviewed, dictated and finalized at Location A. Reviewed, dictated and finalized at location B. 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
== END ==
PROVIDERS: PCP Hospitalist; Referring Provider Chiropractor
DX: M51.37 Other intervertebral disc degeneration, lumbosacral region (principal); M46.1 Sacroiliitis, not elsewhere classified
CPT/HCPCS: 72202

== ENCOUNTER 2024-06-21 14:02 | Emergency (ER) | payer OTHER, SELFPAY ==
[2024-06-21 14:18] VITALS: BP 122/79; PULSE 103; RESP 18; TEMP 36.3; O2SAT 98
--- NOTE | 2024-06-21 16:32 | ED.EAR ---
HPI - Ear Problem General Chief complaint: Ear Stated complaint: ear infection Time Seen by Provider: 06/21/24 14:19 Source: patient and RN notes reviewed Mode of arrival: ambulatory Limitations: no limitations History of Present Illness HPI Narrative: Patient presents today complaining of a right ear pain and swelling with popping and decreased hearing since yesterday. Denies any other upper respiratory symptoms. Currently rates her pain 5/10 and has been taking Tylenol without relief. Related Data Home Medications Medication Instructions Recorded Confirmed allopurinol 300 mg tablet 300 mg PO HS 01/25/20 06/21/24 pregabalin 75 mg capsule (Lyrica) 75 mg PO Q12H 04/06/20 06/21/24 atorvastatin 20 mg tablet (Lipitor) 20 mg PO HS 12/13/20 06/21/24 bisoprolol fumarate 10 mg tablet 20 mg PO HS 10/21/21 06/21/24 fluoxetine 40 mg capsule 40 mg PO DAILY 01/24/22 06/21/24 amitriptyline 25 mg tablet 25 mg PO DAILY 10/08/22 06/21/24 diclofenac sodium 75 mg 75 mg PO DAILY 10/08/22 06/21/24 tablet,delayed release Allergies Allergy/AdvReac Type Severity Reaction Status Date / Time meperidine AdvReac Severe N/V Verified 06/21/24 14:26 ondansetron AdvReac Unknown Headache Verified 06/21/24 14:26 Review of Systems Review of Systems: CONSTITUTIONAL: Denies body aches, fever, chills, or sweats. EYES: Denies visual changes, redness, or discharge. ENT: Denies rhinorrhea, congestion, sore throat. + right ear pain, swelling, popping, muffling CARDIOVASCULAR: Denies chest pain, palpitations, or edema. RESPIRATORY: Denies cough or dyspnea. GASTROINTESTINAL: Denies abdominal pain, nausea, vomiting, or diarrhea. GENITOURINARY: Denies dysuria or hematuria. SKIN: Denies rash, itching, or wounds. MUSCULOSKELETAL: Denies back pain, joint pain, or myalgia. NEUROLOGIC: Denies headache, numbness, tingling, or weakness. PSYCH: Denies depression or anxiety. [facility] Past Medical History Medical History Asthma Depression Headache, migraine History of kidney stones HTN (hypertension) Hyperlipidemia Neuropathy Obstructive sleep apnea Surgical History Surgical History History of bladder surgery History of foot surgery History of knee surgery History of shoulder surgery Family History Family History Father Diabetes mellitus Family history of diabetes mellitus in first degree relative Hypertension Family history of elevated blood lipids Mother Family history of hypercholesterolemia Hypertension Family history of elevated blood lipids Sibling Hypertension Family history of elevated blood lipids Family history of hypercholesterolemia Grandparent Diabetes mellitus Family history of hypercholesterolemia Hypertension Family history of cardiovascular disease Family history of lung cancer Family history of coronary artery disease Other Family history of malignant neoplasm Social History Social History Smoking status: Former smoker Second hand tobacco smoke exposure: No Additional smoking assessment comments: stopped 20 yrs ago Alcohol intake: never Drinks per week: 1 Alcohol use details: 2/MONTH Substance use: never Substance use type: does not use Living arrangements: with family Occupation/Education: occupation Additional occupation/education comments: [employer] Gender identity (if verbalized by the patient): Female Sexual Orientation (if Verbalized by the Patient): Straight or Heterosexual Spiritual care concerns: No Agree to blood products: Yes Comments At time of signature, I have reviewed and agree with nursing past medical, surgical, social and family history unless otherwise noted. Please see nursing chart for further informat
== END 2024-06-21 14:30 | disposition home or self-care (01) ==
PROVIDERS: Emergency Provider Nurse Practitioner; PCP Hospitalist
DX: H60.91 Unspecified otitis externa, right ear (principal); Z87.891 Personal history of nicotine dependence; J45.909 Unspecified asthma, uncomplicated; I10 Essential (primary) hypertension; E78.5 Hyperlipidemia, unspecified; G62.9 Polyneuropathy, unspecified; F32.A Depression, unspecified
CPT/HCPCS: 99213; G0463

== ENCOUNTER 2024-11-08 15:54 | Emergency (ER) | payer OTHER, SELFPAY ==
[2024-11-08 16:07] VITALS: BP 128/85; PULSE 96; RESP 18; TEMP 37.2; O2SAT 100
--- NOTE | 2024-11-08 16:08 | ED_ITS ---
HPI - URI/Sore Throat General Chief Complaint: Upper Respiratory Infection Stated Complaint: flu-like symptoms Source: patient and RN notes reviewed Mode of arrival: ambulatory Limitations: no limitations History of Present Illness HPI Narrative: Reported year old female presented for complaint of headache, body aches, sinus pressure/congestion, cough, fever/chills. Onset 2 days. Temp up to 101 yesterday. Daughter tested positive for COVID last week. Denies sob, wheezing, n/v/d. Taking Tylenol for symptoms. MD elicited complaint: cough Related Data Home Medications ?Medication ?Instructions ?Recorded ?Confirmed ?Last Taken ?Type allopurinol 300 mg tablet 300 mg PO HS 01/25/20 06/21/24 01/23/22 21:00 History pregabalin 75 mg capsule (Lyrica) 75 mg PO Q12H 04/06/20 06/21/24 01/23/22 06:30 History atorvastatin 20 mg tablet (Lipitor) 20 mg PO HS 12/13/20 06/21/24 01/23/22 21:00 History bisoprolol fumarate 10 mg tablet 20 mg PO HS 10/21/21 06/21/24 01/23/22 21:00 History fluoxetine 40 mg capsule 40 mg PO DAILY 01/24/22 06/21/24 01/23/22 06:30 History diclofenac sodium 75 mg 75 mg PO DAILY 10/08/22 06/21/24 Unknown History tablet,delayed release Allergies Allergy/AdvReac Type Severity Reaction Status Date / Time meperidine AdvReac Severe N/V Verified 11/08/24 16:07 ondansetron AdvReac Unknown Headache Verified 11/08/24 16:07 Review of Systems Review of Systems: CONSTITUTIONAL: Endorses malaise, chills, sweats, fever EYES: Denies visual changes, redness, or discharge ENT: Reports rhinorrhea, congestion, sinus pain, otalgia, sore throat CARDIOVASCULAR: Denies chest pain, palpitations, edema RESPIRATORY: Reports cough, post nasal drainage. Denies dyspnea GASTROINTESTINAL: Denies abdominal pain, nausea, vomiting, diarrhea MUSCULOSKELETAL: Endorses myalgia NEUROLOGIC: Reports headache PMFSH Past Medical History Medical History History of kidney stones Asthma Obstructive sleep apnea Neuropathy Headache, migraine Depression Hyperlipidemia HTN (hypertension) Surgical History Surgical History History of bladder surgery History of foot surgery History of knee surgery History of shoulder surgery Family History Family History Father Diabetes mellitus Family history of diabetes mellitus in first degree relative Hypertension Family history of elevated blood lipids Mother Family history of hypercholesterolemia Hypertension Family history of elevated blood lipids Sibling Hypertension Family history of elevated blood lipids Family history of hypercholesterolemia Grandparent Diabetes mellitus Family history of hypercholesterolemia Hypertension Family history of cardiovascular disease Family history of lung cancer Family history of coronary artery disease Other Family history of malignant neoplasm Social History Social History Smoking status: Former smoker Second hand tobacco smoke exposure: No Additional smoking assessment comments: stopped 20 yrs ago Alcohol intake: never Drinks per week: 1 Alcohol use details: 2/MONTH Substance use: never Substance use type: does not use Living arrangements: with family Occupation/Education: occupation Additional occupation/education comments: [employer] Gender identity (if verbalized by the patient): Female Sexual Orientation (if Verbalized by the Patient): Straight or Heterosexual Spiritual care concerns: No Agree to blood products: Yes Exam Narrative: GENERAL: Ill-appearing, nontoxic no acute distress. EYES: PERRLA, conjunctivae clear ENT: Mucous membranes moist. TM pearly nelson with dull light reflex bilaterally; no tragal tenderness. Oropharynx erythematous without lesions or exudate, no drooling, no hoarseness, no trismus, uvula midline. No tripod positioning, muffled voice, soft palate or pharyngeal wall bulging NECK: Supple. No lymphadenopathy CHEST: Clear to auscultation, breath sounds equal. No wheezing, rhonchi, rales, or stridor. No respiratory distress, speaks in full sentences. HEART: Regular rate and rhythm. No murmur heard. SKIN: Warm, dry, no rash. NEURO: Alert and oriented x3. PSYCH: Normal mood and affect Course Course Emergency Course: Patient is aware of diagnosis, understands and agrees to treatment plan. Anticipatory guidance given. Patient agrees to follow-up as directed and is olive re of reasons to seek care at the emergency department. Portions of this record may have been created with voice recognition software Level of Care: Express Care Visit Vital Signs Vital signs: Vital Signs Temperature 99.0 F 11/08/24 16:07 Pulse Rate 96 11/08/24 16:07 Respiratory Rate 18 11/08/24 16:07 Blood Pressure 128/85 11/08/24 16:07 Pulse Oximetry 100 11/08/24 16:07 Oxygen Delivery Room Air 11/08/24 16:07 Temperature 99.0 F 11/08/24 16:07 Pulse Rate 96 11/08/24 16:07 Respiratory Rate 18 11/08/24 16:07 Blood Pressure 128/85 11/08/24 16:07 Pulse Oximetry 100 11/08/24 16:07 Oxygen Delivery Room Air 11/08/24 16:07 reviewed MDM - URI/Sore Throat MDM Narrative Medical decision making narrative: Positive COVID. Discussed physical exam findings. Advised supportive measures and signs/symptoms to go to the ER. Pt is appropriate for outpt treatment and f/u. Differential Diagnosis Differential diagnosis: Likely upper respiratory infection, sinusitis, viral infection, bronchitis, influenza and pharyngitis Discharge Plan Discharge Clinical Impression: COVID-19 Patient Disposition: Home, Self-Care Condition: Stable Instructions: COVID-19 (Coronavirus Disease 2019) (ED) Additional Instructions: Your rapid COVID test was positive today. The following updated recommendations have been made by the CDC and local Health Departments, regarding COVID-19: - When people get sick with a respiratory virus, they stay home and away from others. - Return to normal activities when, for at least 24 hours, symptoms are impro ving overall, and if a fever was present, it has been gone without use of a fever-reducing medication. - Once people resume normal activities, they are encouraged to take additional prevention strategies for the next 5 days to curb disease spread, such as taking more steps for domestic cleaner air, enhancing hygiene practices, wearing a well-fitting mask, keeping a distance from others, and/or getting tested for respiratory viruses. - Enhanced precautions are especially important to protect those most at risk for severe illness, including those over 65 and people with weakened immune systems. Rest, stay hydrated. Tylenol and ibuprofen every 8 hours as needed Flonase/nasal spray, Zyrtec, cough syrup cold/flu medications for symptoms as needed Follow up with your primary care provider, call to schedule an appointment. Go to the ER for worsening symptoms or concerns. Patient Language: Japanese Prescriptions: No Action diclofenac sodium 75 mg tablet,delayed release (DR/EC) 75 mg PO DAILY allopurinol 300 mg tablet 300 mg PO HS pregabalin [Lyrica] 75 mg Capsule 75 mg PO Q12H atorvastatin [Lipitor] 20 mg tablet 20 mg PO HS Rx Instructions: TAKE 1 TABLET DAILY bisoprolol fumarate 10 mg tablet 20 mg PO HS fluoxetine 40 mg capsule 40 mg PO DAILY lisinopril 20 mg tablet See Rx Instructions .ROUTE .COMPLEX Qty: 90 0RF Dose Instruction: TAKE 1 TABLET DAILY Rx Instructions: TAKE 1 TABLET DAILY Follow-up/Referrals: Bonilla,Tom Mackey Jr., MD [Primary Care Provider] - Time of Disposition: 16:13
--- OUTSIDE RECORDS SUMMARY | 2024-11-08 16:09 | XMS_ITS | Encounter Summary ---
Author Organization [facility] Address [address] [place] [address] Care Team Providers Care Diamond Cleaver Name Role Phone Tom Lees MD Primary Care Provider [phone] Encounter Details Date Type Department Care Team (Late st Contact Info) Description 07/13/2023 Lab Requisition [facility] - DermPath Lab [address] [place] [id number] Marco Antonio Gambino MD [address] [place] [address] Social History Tobacco Use Types Packs/Day Years Used Date Smoking Tobacco: Never Assessed Sex and Gender Information Value Date Recorded Sex Assigned at Not on file Gender Identity Not on file Sexual Orientation Not on file documented as of this encounter Plan of Treatment Not on file documented as of this encounter Procedures Procedure Name Priority Date/Time Associated Diagnosis Comments DERMATOPATHOLOGY Routine 07/09/2023 12:0 0 AM CDT documented in this encounter Results * DERMATOPATHOLOGY (07/09/2023 12:00 AM CDT) Case Report Dermatopathology Report Case: [id number] Authorizing Provider: Marco Antonio Gambino MD Collected: 07/09/2023 12:00 AM Ordering Location: [facility] DermPath Lab Received: 07/13/2023 07:29 AM Pathologist: Delma Allen MD Specimen: Skin, left neck 11:55 AM CDT DERMATOPATHOLOGY LABORATORY Final Diagnosis Specimen A. SKIN, left neck: SUBACUTE SPONGIOTIC DERMATITIS WITH INTRAEPIDERMAL NEUTROPHILS (L30.8) (see microscopic description and comment) 11:55 AM [facility] DERMAT[facility]ORAT[facility] Clinical History Dermatomyositis vs Lupus vs ACD. Path# [id number] 11:55 AM [facility]MAT[facility]OR[facility] Gross Description Specimen A: Received is one formalin filled container labeled with the patient's name and designated left neck. The specimen consists of a shave biopsy measuring 5x4x1 mm. Jar 0. 11:55 AM [facility] DERMATOPATHOLOGY [facility]ORATORY Microscopic Description Specimen A. SKIN, left neck: The epidermis reveals neutrophil-rich subcorneal pustules, and focal spongiosis. In the dermis there is a superficial perivascular inflammatory infiltrate composed predominantly of lymphocytes and neutrophils. Eosinophils are not present. Grocott's methenamine silver (GMS) stain fails to highlight fungal elements in the available sections. Additional deeper sections were obtained and reviewed. COMMENT: These histologic findings represent a subcorneal and intra-epidermal pustule with overlying excoriation. The differential diagnosis of these histologic findings include acute generalized exanthematous pustulosis (AGEP,) subcorneal pustular dermatosis, IgA pemphigus, pustular psoriasis, as well as infectious etiologies including impetigo and candidiasis. If there is clinical concern for a diagnosis of IgA pemphigus, consideration should be given to submitting tissue for direct immunofluorescence. Clinicopathologic correlation is recommended. 11:55 AM [facility]ERMAT[facility]ORAT[facility] Disclaimer An external and internal positive and negative controls are appropriate for the histochemical, immunohistochemical and immunofluorescence stain(s) in this case (if any), except where stated explicitly. The performance characteristics of the stain(s) cited in this report were developed and its performance characteristic determined by the Dermatopathology Laboratory at [facility], directed by Dr. Terrell Allen. These tests need not be, and therefore are not, approved by the [place] Food and Drug Administration. The tests are used for clinical purposes. Billing Codes Specimen Charges Stain Charges 59689 1 82606 1 11:55 AM T DERMATOPATHOLOGY LABORATORY Embedded Images 11:55 AM [facility] DERMAT[facility]OR[facility] Pathology/Cytolog y TISSUE SPECIMEN FROM SKIN / Unknown 07/09/2023 07/13/2023 7:29 AM CDT Marco Antonio Gambino MD LAB - PATHOLOGY/CYTO LOGY ORDERABLES DERMATOPATHOLOGY LABORATORY [facility] - Department of Dermatology [address], [address] [phone] documented in this encounter Visit Diagnoses Not on filedocumented in this encounter Care Teams Diamond Cleaver Relationship Specialty Start Date End Date Tom Lees MD [address] [place], [place] [id number] PCP - General 07/10/19 documented as of this encounter
--- OUTSIDE RECORDS SUMMARY | 2024-11-08 16:09 | XMS_ITS | Referral Summary ---
Author Organization [facility] Address [address] [place] [address] Care Team Providers Care Oracle Fusion Middleware Developer Name Role Phone Tom Lees MD Primary Care Provider [phone] Source Comments [facility],non-owned Affiliates and Associated Physician Practices is amultiple site organization consisting of ambulatory clinics and hospital sitesin [place], [place]. This disclosure is being madepursuant to the Care Everywhere program and may not contain all information available regarding this patient. Last updated 18.[facility] [employer] Social History Tobacco Use Types Packs/Day Years Used Date Smoking Tobacco: Never Assessed Sex and Gender Information Value Date Recorded Sex Assigned at Not on file Gender Identity Not on file Sexual Orientation Not on file Plan of Treatment Not on file Care Teams Oracle Fusion Middleware Developer Relationship Specialty Start Date End Date Tom Lees MD [address] [place] [address] [address] [place] [address] [facility] - General 07/10/19
--- OUTSIDE RECORDS SUMMARY | 2024-11-08 16:09 | XMS_ITS | Encounter Summary ---
Author Organization [facility] Address [address] [place] [address] Care Team Providers Care Dedicated Regional Driver Name Role Phone Gerardo Ortega MD Unavailable [phone] Billy Guevara DPM, Gabriel Unavailable [phone] Linda Moore MD Unavailable [phone] Bonilla Guevara MD, Tom Mackey Primary Care Provide r Noe Acevedo MD Unavailable [phone] Reason for Visit * Reason Onset Date Comments [facility] Preprocedure 01/06/2024 Encounter Details Date Type Department Care Team (Late st Contact Info) Description 01/06/2024 Telephone [facility] [address] [facility] [address] [place] [address] Derik Faith MD [address] [facility] [facility] [address] [place] [address] [facility] Preprocedure Social History Tobacco Use Types Packs/Day Years Used Date Smoking Tobacco: Never Smokeless Tobacco: Never Comments:high school smoker Alcohol Use Standard Drinks/Week Comments Yes 1 (1 standard drink = 0.6 oz pur e alcohol) occassionally AUDIT-C Answer Date Recorded Q1: How often do you have a drink containing alcohol? Never 11/30/2023 Q2: How many drinks containi ng alcohol do you have on a typical day when you are drinking? Patient does not drink Q3: How often do you have si x or more drinks on one occasion? Never 11/30/2023 PHQ-2 Answer Date Recorded PHQ-2 Total Score (If total score is 3 or more points, staff should administer the PHQ-9) 4 10/27/2023 Hunger Vital Sign Answer Date Recorded Within the past 12 months, y ou worried that your food would run out before you got the money to buy more. Never true 09/30/20 23 Within the past 12 months, t he food you bought just didn't last and you didn't have money to get more. Never true 09/30/2023 Personal Safety Answer Date Recorded Have you ever been in or are you currently in a harmful physical or emotional relationship or is someone making you feel afraid or unsafe? 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 Author CCM Chronic Pain Care Plan Chronic Care Management Worsening( 9:38 AM FIELD CROP HARVEST CONTRACTOR) Sharon Chamberlain, NOE Note: Problem: Chronic Pain Goals: 1. Minimize further functional decline 2. Maximize quality of life 3. Control pain Strategies: - Activity/exercise program recommendation - Conservative stepwise pain medicine strategy with multi-disciplinary approach - Recommend healthy lifestyle strategies and compensatory methods as needed documented as of this encounter Visit Diagnoses Not on filedocumented in this encounter Care Teams Dedicated Regional Driver Relationship Specialty Start Date End Date Tom Crystal Jr., MD [address] [address] PCP - General Internal Medicine 07/23/22 Gerardo Ortega MD [address] [address] Referring Physician Obstetrics and Gynecology 04/10/21 Israel Cervantes Jr., DPM [address] [place] [address] Referring Physician Podiatry 04/10/21 Linda Moore MD [address] [place] [address] Consulting Physician Cardiology 04/10/21 Noe Acevedo MD [address] [place] [address] Consulting Physician Rheumatology 08/17/23 documented as of this encounter
--- OUTSIDE RECORDS SUMMARY | 2024-11-08 16:09 | XMS_ITS | Clinical Summary ---
Author Organization [facility] [address] Address [address] [place] [address] Care Team Providers Care Soyfreeze Operator Name Role Phone Gerardo Ortega MD Unavailable [phone] Billy Guevara DPM, Gabriel Unavailable Linda Moore MD Unavailable Bonilla Guevara MD, Tom Mackey Primary Care Provide r Noe Acevedo MD Unavailable [phone] Allergies Active Allergy Reactions Criticality Noted Date Comments Meperidine Nausea only Low 04/16/2022 Metoprolol Succinate Other (See comments) Low 05/12 Extreme fatigue Ondansetron Headache Low 10/28/2017 Medications albuterol HFA (PROVENTIL HFA,VENTOLIN HFA,PROAIR HFA) 90 mcg/actuation inhaler Inhale 2 puffs every 4 (four) hours as needed for wheezing Please dispense 3 inhalers 3 each 3 3 Active allopurinoL (ZYLOPRIM) 300 mg tabletIndications: Gout, unspecified cause, unspecified chronicity, unspecified site TAKE 1 TABLET DAILY (PLEASE CALL TO SCHEDULE YOUR ANNUAL VISIT) 90 tablet 3 4 Active FLUoxetine (PROzac) 40 mg capsule TAKE 1 CAPSULE DAILY 90 capsule [address] (VOLTAREN) 75 mg EC tablet TAKE 1 TABLET TWICE A DAY 180 tablet 3 4 Active atorvastatin (LIPITOR) 20 mg tabletIndications: Mixed hyperlipidemia TAKE 1 TABLET DAILY 90 tablet 3 4 Active bisoprolol (ZEBETA) 10 mg tabletIndications: Sinus tachycardia TAKE 2 TABLETS DAILY 180 tablet 3 4 Active amLODIPine (NORVASC) 5 mg tabletIndications: Essential hypertension TAKE 1 TABLET DAILY 100 tablet 1 4 Active lisinopriL (PRINIVIL,ZESTRIL) 40 mg tabletIndications: Essential hypertension TAKE 1 TABLET DAILY 90 tablet 3 4 Active mexiletine (MEXITIL) 150 mg capsuleIndications :Ventricular Arrhythmias Take 1 capsule (150 mg total) by mouth 3 (three) times a day 90 capsule 2 4 025 Active HYDROcodone-acetam inophen (NORCO) 5-325 mg per tabletIndications: Pain Take 1 tablet by mouth 2 (two) times a day as needed for pain 60 tablet 5 Active pregabalin (LYRICA) 150 mg capsuleIndications :Neuropathy (CMS/HCC) Take 2 capsules (300 mg total) by mouth 2 (two) times a day 120 capsule 5 025 Active pregabalin (LYRICA) 150 mg capsuleIndications :Neuropathy (CMS/HCC) Take 2 capsules (300 mg total) by mouth 2 (two) times a day 120 capsule 2 4 025 Discontin ued(Reord er) HYDROcodone-acetam inophen (NORCO) 5-325 mg per tabletIndications: Pain Take 1 tablet by mouth 2 (two) times a day as needed for pain 60 tablet 4 025 Discontin ued(Reord er) tirzepatide, weight loss, (Zepbound) 2.5 mg/0.5 mL pen injectorIndication s:Class 3 severe obesity due to excess calories with serious comorbidity and body mass index (BMI) of 40.0 to 44.9 in adult (HCC) Inject 0.5 mL (2.5 mg total) under the skin every 7 days 2 mL 4 025 Discontin ued(Reord er) pregabalin (LYRICA) 150 mg capsuleIndications :Neuropathy (CMS/HCC) Take 2 capsules (300 mg total) by mouth 2 (two) times a day 120 capsule 2 5 025 Discontin ued(Reord er) HYDROcodone-acetam inophen (NORCO) 5-325 mg per tabletIndications: Pain Take 1 tablet by mouth 2 (two) times a day as needed for pain 60 tablet 5 025 Discontin ued(Reord er) tirzepatide, weight loss, (Zepbound) 2.5 mg/0.5 mL pen injectorIndication s:Class 3 severe obesity due to excess calories with serious comorbidity and body mass index (BMI) of 40.0 to 44.9 in adult ([facility]) Inject 0.5 mL (2.5 mg total) under the skin every 7 days 2 mL 5 025 Discontin ued(Reord er) tirzepatide, weight loss, (Zepbound) 2.5 mg/0.5 mL pen injectorIndication s:Class 3 severe obesity due to excess calories with serious comorbidity and body mass index (BMI) of 40.0 to 44.9 in adult ([facility]) Inject 0.5 mL (2.5 mg total) under the skin every 7 days 2 mL 5 025 Discontin ued(Thera py completed ) Active Problems Problem Noted Date Diagnosed Date Preventative health care 06/16/2024 Assessment & Plan (06/16/2024 9:48 AM CDT): Reviewed labs, screenings and vaccines Recurrent major depression 10/27/2023 Assessment & Plan (06/16/2024 11:20 AM CDT): Chronic stable Well controlled Continue current prescribed medications elavil and prozac at current dose Assessment & Plan (01/25/2024 9:41 AM CDT): Will continue the prozac for now She is in a better space with her foot getting better, sun is out and weather is improved Rash and nonspecific skin eruption 09/14/2023 Overview (10/05/2023): 09/2023 AVISE negative, Neg Myositis 11 panel, CRP 35.5, ESR 9, AST 42, ALT 45, TSH 2.12, 06/2022 XR: -R elbow: unremarkable -R shoulder: mild GH and AC joint OA Assessment & Plan (10/05/2023 4:20 PM DIRECTOR OF DIRECT MARKETING): Ms. Vazquez is a 43yo female with PMH of HTN, HLD, MARINE, tachycardia, PCOS, peripheral neuropathy, depression, presyncope, asthma, nephrolithiasis, migraines, rosacea and psoriasis who presented at last visit for evaluation of neck/facial rash that developed in July. The rash did not respond to either antifungal cream or steroid cream and started on neck spreading up onto her face/cheeks. A skin biopsy came back as 'subacute spongiotic dermatitis with intraepidermal neutrophils' with ddx dermatomyositis vs Lupus vs ACD. Reports history of purple discoloration/rash under her eyes in the past but not involving the eyelids and no photosensitivity. Does have some LBP worsened with activity but denies any inflammatory sounding symptoms. She denies any muscle weakness, rashes to upper back/chest/sides of hips or dyspnea. Currently on amitriptyline, lyrica and diclofenac for foot neuropathies. Additional symptoms include fatigue and intermittent mouth sores. FH significant for mother with psoriasis. Recent autoimmune antibody testing was negative on both the AVISE and Myositis 11 panel. CRP was elevated at 35.5 with normal ESR (9) as well as mildly elevated AST 42/ALT 45. TSH was wnl at 2.12. At this time the work up does not support a diagnosis of lupus or dermatomyositis. We are still awaiting prior results of SI joint imaging and will try to request this again. Will call her once we have the results - if there are inflammatory changed noted on the imaging then medication may be warranted. Seen with Dr. Acevedo. Assessment & Plan (09/14/2023 11:33 AM DIRECTOR OF DIRECT MARKETING): Ms. Vazquez is a 43yo female with PMH of HTN, HLD, MARINE, tachycardia, PCOS, peripheral neuropathy, depression, presyncope, asthma, nephrolithiasis, migraines, rosacea and psoriasis who presents for evaluation of neck/facial rash that developed in July. The rash did not respond to either antifungal cream or steroid cream and started on neck spreading up onto her face/cheeks. A skin biopsy came back as 'subacute spongiotic dermatitis with intraepidermal neutrophils' with ddx dermatomyositis vs Lupus vs ACD. Reports history of purple discoloration/rash under her eyes in the past but not involving the eyelids and no photosensitivity. Does have some LBP worsened with activity but denies any inflammatory sounding symptoms. She denies any muscle weakness, rashes to upper back/chest/sides of hips or dyspnea. Currently on amitriptyline, lyrica and diclofenac for foot neuropathies. Additional symptoms include fatigue and intermittent mouth sores. FH significant for mother with psoriasis. No joint synovitis on exam, R shoulder examination was deferred due to recent RTC surgery. There is tto of the upper thoracic/lower lumbar spine and SI joints. Rosacea apparent on face. Symptoms and rash appearance are not overly concerning for dermatomyositis or lupus. However given the differential on the dermatopathology results and history of psoriasis will be thorough and check serologies and SI joint XRs to evaluate for any underlying connective tissue disease or inflammatory arthritis. Recommend use of a TENs unit on her left foot to see if this would reduce the neuropathic pain and look into SCRAMBLR therapy. Return in [address] Acevedo. Complex regional pain syndro me type 1 of left lower extremity 07/13/2022 Assessment & Plan (06/16/2024 10:11 AM CDT): Chronic stable Well controlled Continue current prescribed medications pregabalin, amitriptyline at current dose Insomnia 06/17/2022 Assessment & Plan (06/17/2022 12:32 PM CDT): Attempt amitriptyline Right shoulder pain 06/15/2022 Right elbow pain 06/15/2022 Medial epicondylitis of right elbow 06/15/2022 Lateral epicondylitis of right elbow 06/15/2022 Rotator cuff tendinitis, right 06/15/2022 PCOS (polycystic ovarian syndrome) 05/06/2022 Class 3 severe obesity due t o excess calories with serious comorbidity and body mass index (BMI) of 40.0 to 44.9 in adult 03/12/2022 Assessment & Plan (06/16/2024 11:19 AM CDT): Will hector for now Made several diet changes, weight remains the same Assessment & Plan (01/25/2024 9:41 AM CDT): Monitor weight Assessment & Plan (01/21/2023 11:02 AM CDT): With HTN and HLD Doing hand written prescription for [employer] for [facility], cheapest option available Will try to do this via phone moving forward MARINE on CPAP 05/12/2021 Neuropathy 04/11/2021 Assessment & Plan (06/16/2024 10:13 AM CDT): Chronic stable Well controlled Continue current prescribed medications lyrica at current dose Assessment & Plan (01/25/2024 9:41 AM CDT): Continue amitriptyline and lyrica Assessment & Plan (01/21/2023 11:46 AM CDT): Chronic stable Well controlled Continue current prescribed medications at current dose Assessment & Plan (06/12/2022 9:45 AM CDT): leftlower ext- wants to see a specialist to figure out what to do next Assessment & Plan (04/11/2021 8:12 AM CDT): Left foot s/p tarsal tunnel relase and several surgeries also with gout Cont lyrica Gout 04/11/2021 Assessment & Plan (04/11/2021 8:12 AM CDT): Left foot Cont allopurinol Mixed hyperlipidemia 04/30/2020 Assessment & Plan (01/21/2023 11:46 AM CDT): Chronic stable Well controlled Continue current prescribed medications at current dose Assessment & Plan (04/11/2021 8:09 AM CDT): Checking flp Essential hypertension 05/31/2017 Assessment & Plan (06/16/2024 10:14 AM CDT): Chronic stable Well controlled Continue current prescribed medications amlodipine lisinopril at current dose Assessment & Plan (01/25/2024 9:41 AM CDT): Controlled, continue current medications Assessment & Plan (01/21/2023 11:46 AM CDT): Chronic stable Well controlled Continue current prescribed medications at current dose Assessment & Plan (07/23/2022 9:53 AM CDT): Within normal range Continue current medication Assessment & Plan (06/12/2022 9:53 AM CDT): Taking lisinopril - running high Assessment & Plan (04/11/2021 8:08 AM CDT): Controlled, no changes today Assessment & Plan (05/31/2017 8:49 PM CDT): Hypertension is controlled on today's visit. Palpitations 05/04/2017 Assessment & Plan (05/31/2017 8:51 PM CDT): Increased frequency of palpitations which are disturbing to the patient. Will do further monitoring to see what type of arrhythmia she may be experiencing. Patient says that her heart rate is usually over 100 during the day, which makes me wonder if she has POTS. Unfortunately she was intolerant of a beta-ananya in the past as a cause excessive fatigue. Resolved Problems Problem Noted Date Diagnosed Date Resolved Date Preoperative clearance 04/10/202205/06 Assessment & Plan (04/10/2022 10:29 AM CDT): Pt is acceptable medical risk for podiatric surgery. Body mass index 40.0-44.9, adult ([facility]) 03/12/2022 01/21/2023 Overview (03/13/2022): Has been on saxenda, had to dc dt cost Assessment & Plan (03/13/2022 8:54 AM CDT): Sending semaglutide to compound pharm- restart at 0.5 mg weekly x4 weeks then inc to 1.0 mg weekly if tolerating well Preoperative cardiovascular examination 04/11/2021 06/16/2024 Assessment & Plan (04/11/2021 8:09 AM CDT): Needs pap- referral placed Fasting labwork Has had tdap and varicella vax Had covid fax Due for mammo 01/2021 Sleep-disordered breathing 04/24/2020 0 05/06/2022 Excessive daytime sleepiness 04/24/2020 05/06/2022 Abnormal ECG 08/28/2019 05/06/2022 Sinus tachycardia 08/28/2019 06/16/2024 Assessment & Plan (04/11/2021 8:08 AM CDT): 108 resting even after 30 minutes of us talking Recommend she discuss increasing bisoprolol v switching bb at her next cards appt Obesity (BMI 30-39.9) 05/31/20172021 Assessment & Plan (09/12/2021 1:24 PM DIRECTOR OF DIRECT MARKETING): Cont saxenda On month ~6 for now wegovy not covered If at next appt, still plateu'ing , may not be the right med for her. Recommend referral to discuss weight loss surgery options, she is agreeable to this as she has tried many avenues to loose weight now. Assessment & Plan (04/11/2021 8:10 AM CDT): Cont saxenda for now- has had so much success with 22 lbs Trying to see if wegovy may be covered- also instructed her to talk with [employer] and her husbands [employer] to see if wegovy covered under independent plan Assessment & Plan (05/31/2017 8:49 PM CDT): Unfortunately continues to gain weight, is nearly in the morbidly obese category. Encounters Date Type Department Care Team Description 11/08/2024 Telephone [facility] [address] [place] [address] Arlette Marsh MD PhD pre-procedure instructions 10/17/2024 Orders Only [facility] [address] [place] [address] Arlette Marsh MD PhD Neuropathy (CMS/HCC) 10/12/2024 Telephone [facility] [address] [place] [address] Arlette Marsh MD PhD 10/11/2024 Orders Only [facility] [address] [place] [address] Winter Verma RN 09/22/2024 9:02 AM DIRECTOR OF DIRECT MARKETING - 09/22/2024 11:59 PM DIRECTOR OF DIRECT MARKETING Hospital Encounter [facility] [address] [place] [address] Arlette Marsh MD PhD Neuralgia (Primary Dx) Discharge Disposition: Discharge to home or self care 09/05/2024 1:00 PM DIRECTOR OF DIRECT MARKETING Office Visit [facility] [address] [place] [address] Jojo Pavon NP Sinus tachycardia (Primary Dx) 08/23/2024 Orders Only [facility] [address] [place] [address] Arlette Marsh MD PhD Neuralgia (Primary Dx) 08/09/2024 11:15 AM DIRECTOR OF DIRECT MARKETING Office Visit [facility] [address] [place] [id number] Master Coates, PhD Other chronic pain (Primary Dx); Complex regional pain syndrome type 1 of left lower extremity; Recurrent major depressive disorder, in partial remission (HCC); Neuralgia from Last 3 Months Immunizations Name Administration Dates Next Due Influenza, Quadrivalent, Spl it, Intramuscular 07/31/2015 Influenza, Quadrivalent, Spl it, Preservative Free, Intramuscular 07/23/2022,09/11/2021,07/12/2019,07/08 Influenza, Trivalent, Preser vative Free, Intramuscular 06/16/2024 Influenza, Unspecified 01/25/2024(Deferred: Pam ent Refused) Pfizer SARS-CoV-2 Monovalent Vaccination (12+ Yrs) PURPLE 02/03/2021,01/13/2021 Tdap 09/11/2021 Surgical History Surgery Date Site/Laterality Comments TARSAL TUNNEL RELEASE 10/04/2018 - 10/03/2019 TUBAL LIGATION SHOULDER SURGERY 3 KNEE SURGERY Bilateral FOOT SURGERY 2 left 1 right TONSILLECTOMY ENDOMETRIAL ABLATION W/ JEROD Medical History Medical History Date Comments Hx Other Medical migraines; Comm ents: [facility] 11/09/2014 - Hx Other Medical psoriasis; Comm ents: [facility] 11/09/2014 - Hx Other Medical asthma; Comment s: [facility] 11/09/2014 - Hypertension Hypertension Depression Depression Hx Other Medical obesity; Commen ts: [facility] 11/09/2014 - Tachycardia Gout Peripheral neuropathy Hypercholesteremia Kidney stone Migraines Chronic pain disorder Family History Medical History Relation Name Comments Hyperlipidemia Brother Micheal Diabetes Father Lazaro Family history of diabetes mellitus - (Added by TW Conv) Heart failure Father Lazaro Hyperlipidemia Father Lazaro Stroke Father Lazaro Diabetes Maternal Grandmother Rachel Hyperlipidemia Mother Asiya Hypertension Mother Asiya Breast cancer Neg Hx Relation Name Status Comments Brother Micheal Father Lazaro Alive Maternal Grandmother Rachel Mother Asiya Alive Social History Tobacco Use Types Packs/Day Years Used Date Smoking Tobacco: Never Smokeless Tobacco: Never Tobacco Cessation:Counseling Given: Not Answered Comments:high school smoker Alcohol Use Standard Drinks/Week Comments Yes 1 (1 standard drink = 0.6 oz pur e alcohol) occassionally AUDIT-C Answer Date Recorded Q1: How often do you have a drink containing alcohol? Never 09/22/2024 Q2: How many drinks containi ng alcohol do you have on a typical day when you are drinking? Patient does not drink Q3: How often do you have si x or more drinks on one occasion? Never 09/22/2024 PHQ-2 Answer Date Recorded PHQ-2 Total Score (If total score is 3 or more points, staff should administer the PHQ-9) 3 06/16/2024 Hunger Vital Sign Answer Date Recorded Within the past 12 months, y ou worried that your food would run out before you got the money to buy more. Never true 06/08/20 24 Within the past 12 months, t he food you bought just didn't last and you didn't have money to get more. Never true 06/08/2024 Personal Safety Answer Date Recorded Have you ever been in or are you currently in a harmful physical or emotional relationship or is someone making you feel afraid or unsafe? 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 Not on file Not on file Obstetrics History Para Term AB IAB SAB Ectopic Multiple Livin g Live Births 2 2 2 Date Outcome GA Total Labor Labor/2nd/3rd Weight Sex Type Anes PTL Maria Isabel A1 A5 Name Clin Term Term Last Filed Vital Signs Vital Sign Reading Time Taken Comments Blood Pressure 120/71 09/22/2024 9:35 AM DIRECTOR OF DIRECT MARKETING Pulse 84 09/22/2024 9:35 AM DIRECTOR OF DIRECT MARKETING Temperature 36.2 C (97.1 F) 09/22/2024 9:35 AM DIRECTOR OF DIRECT MARKETING Respiratory Rate 12 09/22/2024 9:35 AM DIRECTOR OF DIRECT MARKETING Oxygen Saturation 96% 09/22/2024 9:35 AM DIRECTOR OF DIRECT MARKETING Inhaled Oxygen Concentration - - Weight 111.1 kg (245 lb) 09/22/2024 9:35 AM DIRECTOR OF DIRECT MARKETING Height 165.1 cm (5' 5 ) 09/22/2024 9:35 AM DIRECTOR OF DIRECT MARKETING Body Mass Index 40.77 09/22/2024 9:35 AM DIRECTOR OF DIRECT MARKETING Plan of Treatment Health Maintenance Due Date Last Done Comments Hepatitis C Screening 1982 Hepatitis B Screening 01/20/2000 Breast Cancer Screening-Mammogram 05/26/2023 05/26/2022 Cervical Cancer Screening 01/12/2024 01/11/2023 Covid-19 Vaccine ( season) 2024 10/01/2021, 02/03/2021, 01/13/2021 Depression Screening 06/16/2025 06/16/2024, 01/25/2024, 10/27/2023, Additional history exists Regular Well Visit/Exam 18-64 06/16/2025 06/16/2024, 06/12/2022, 04/10/2021 DTaP/Tdap/Td Vaccine (2 - Td or Tdap) 09/11/2031 09/11/2021 Influenza Vaccine Completed 06/16/2024, , 09/11/2021, Additional history exists HPV Vaccines Aged Out No longer eligi ble based on patient's age to complete this topic Pneumococcal vaccine <65 Aged Out No longer eligible based on patient's age to complete this topic Varicella Vaccines Discontinued Goals Goal Patient Goal Type Associated Problems Recent Progress Patient-Stated? Author CCM Chronic Pain Care Plan Chronic Care Management Worsening( 9:38 AM DIRECTOR OF DIRECT MARKETING) No Sharon Thompson, RN Note: Problem: Chronic Pain Goals: 1. Minimize further functional decline 2. Maximize quality of life 3. Control pain Strategies: - Activity/exercise program recommendation - Conservative stepwise pain medicine strategy with multi-disciplinary approach - Recommend healthy lifestyle strategies and compensatory methods as needed Procedures Procedure Name Priority Date/Time Associated Diagnosis Comments HEMOGLOBIN A1C Routine 10/18/2024 9:12 AM DIRECTOR OF DIRECT MARKETING Hyperglycemia COMPREHENSIVE METABOLIC PANEL Routine 10/18/2024 9:12 AM DIRECTOR OF DIRECT MARKETING Hyperglycemia HM PAP SMEAR WITH HPV Routine 01/11/2023 SCREENING MAMMOGRAM BILATERAL W CARLOS Schedule Routine, Read Routine (OP Routine) 05/26/2022 3:17 PM CDT Preventative health care from Last 3 Months or Most Recently Relevant to Health Maintenance Results * (ABNORMAL) Hemoglobin A1c (10/18/2024 9:12 AM DIRECTOR OF DIRECT MARKETING) Hgb A1C 7.2(H) 4.8 - 5.6 % [facility] - 01 Comment: Prediabetes: 5.7 - 6.4 Diabetes: >6.4 Glycemic control for adults with diabetes: <7.0 Blood 10/18/2024 9:12 AM DIRECTOR OF DIRECT MARKETING 10/18/2024 Narrative [facility] - 10/19/2024 3:35 AM DIRECTOR OF DIRECT MARKETING Performed at: [address] [place] [id number] Math Specialist: Kahlil Mims PhD, Phone: [phone] us Tom Crystal Jr., MD LAB BLOOD ORDERABLES Final Result [facility] - 01 * (ABNORMAL) Comprehensive metabolic panel (10/18/2024 9:12 AM DIRECTOR OF DIRECT MARKETING) [facility] Glucose 140(H) 70 - 99 mg/dL [facility] - 01 BUN 11 6 - 24 mg/dL [facility] - 01 Creatinine, Serum 0.60 0.57 - 1.00 mg/dL [facility] - 01 eGFR 115 >59 mL/min/1.7 3 [facility] - 01 BUN/creat ratio 18 9 - 23 [facility] - 01 Sodium 141 134 - 144 mmol/L [facility] - 01 Potassium, sr 4.3 3.5 - 5.2 mmol/L [facility] - 01 Chloride 104 96 - 106 mmol/L [facility] - 01 CO2 21 20 - 29 mmol/L [facility] - 01 Calcium 9.1 8.7 - 10.2 mg/dL [facility] - 01 Protein, sr 6.5 6.0 - 8.5 g/dL [facility] - 01 Albumin 4.3 3.9 - 4.9 g/dL [facility] - 01 Globulin, Total 2.2 1.5 - 4.5 g/dL [facility] - 01 Bilirubin, Total 0.4 0.0 - 1.2 mg/dL [facility] - 01 Alk phos 98 44 - 121 IU/L [facility] - 01 AST 49(H) 0 - 40 IU/L [facility] - 01 ALT 52(H) 0 - 32 IU/L [facility] - 01 Blood 10/18/2024 9:12 AM DIRECTOR OF DIRECT MARKETING 10/18/2024 Narrative [facility] - 10/19/2024 3:35 AM DIRECTOR OF DIRECT MARKETING Performed at: - [facility] [id number] Math Specialist: Kahlil Mims PhD, Phone: [phone] Tom Crystal Jr., MD LAB BLOOD ORDERABLES Final Result [facility] - 01 * HM PAP SMEAR WITH HPV (01/11/2023) Scribed Pap Smear w/HPV Normal Historical Provider HEALTH MAINTENANCE Final Result * Screening Mammogram Bilateral W Carlos (05/26/2022 3:17 PM CDT) Anatomical Region Laterality Modality Breast Bilateral Mammography Impressions 05/27/2022 9:30 AM CDT BI-RADS ATLAS category (overall): 2 - Benign There is no mammographic evidence of malignancy. A 1 year screening mammogram is recommended. The patient has been or will be contacted. We recommend annual screening mammography for women at average risk of breast cancer beginning at age 40, based on guidelines of the [employer] (ACR Practice Parameter for the Performance of Screening and Diagnostic Mammography) and [employer]. For women with and elevated risk of breast cancer, please refer to the ACR Practice Parameter for specific screening recommendations. The patient will be entered into a reminder system with a target due date of 1 year for her next screening exam. Narrative 05/27/2022 9:30 AM CDT Screening Mammogram Bilateral W Carlos: 05/26/22 The study was acquired using full field digital technology and interpreted from soft copy. 2D digital mammographic views, as well as 3D digital tomosynthesis were performed in the CC and MLO projections. CLINICAL: Preventative health care. No relevant medical history has been documented for this patient. History of breast cancer in Neg Hx. COMPARISON: New Baseline Screening Mammography. No prior mammography is available for comparison. BREAST TISSUE: The breasts have scattered areas of fibroglandular density. FINDINGS: There are benign appearing intramammary lymph nodes in the outer left breast. No suspicious masses, suspicious calcifications, or other suspicious findings are seen within either breast. Kirstin Gaytan MD IMG MAMMO PROCEDURES Final Resu lt from Last 3 Months or Most Recently Relevant to Health Maintenance Insurance [employer] [place] [address] [employer] Care Teams Soyfreeze Operator Relationship Specialty Start Date End Date Tom Crystal Jr., MD [address] [place] [id number] PCP - General Internal Medicine 07/23/22 Gerardo Ortega MD [address] [place] [address] Referring Physician Obstetrics and Gynecology 04/10/21 Israel Cervantes Jr., LINDA [address] [place] [address] Referring Physician Podiatry 04/10/21 Linda Moore MD [address] [place] [address] [phone] Consulting Physician Cardiology 04/10/21 Noe Acevedo MD [address] [place] [address] Consulting Physician Rheumatology 08/17/23
--- OUTSIDE RECORDS SUMMARY | 2024-11-08 16:09 | XMS_ITS | Encounter Summary ---
Author Organization [facility] Healthcare Address [address] [place] [address] Care Team Providers Care Silk Screen Cutter Name Role Phone Gerardo Ortega MD Unavailable [phone] Billy Guevara DPM, Gabriel Unavailable [phone] Linda Moore MD Unavailable Bonilla Guevara MD, Tom Mackey Primary Care Provide r Noe Acevedo MD Unavailable [phone] Reason for Visit * Reason Onset Date Comments infusion 03/07/2024 Encounter Details Date Type Department Care Team (Late st Contact Info) Description 03/07/[address] [facility] [address] [facility] [address] [place] [address] Arlette Marsh MD PhD [address] [facility] [address] [place] [address] infusion Social History Tobacco Use Types Packs/Day Years Used Date Smoking Tobacco: Never Smokeless Tobacco: Never Comments:high school smoker Alcohol Use Standard Drinks/Week Comments Yes 1 (1 standard drink = 0.6 oz pur e alcohol) occassionally AUDIT-C Answer Date Recorded Q1: How often do you have a drink containing alc ohol? Monthly or less 02/24/2024 Q2: How many drinks containi ng alcohol do you have on a typical day when you are drinking? 1 or 2 02/24/2024 Q3: How often do you have si x or more drinks on one occasion? Never 02/24/2024 PHQ-2 Answer Date Recorded PHQ-2 Total Score (If total score is 3 or more points, staff should administer the PHQ-9) 1 01/25/2024 Hunger Vital Sign Answer Date Recorded Within the past 12 months, y ou worried that your food would run out before you got the money to buy more. Never true 02/24/20 24 Within the past 12 months, t he food you bought just didn't last and you didn't have money to get more. Never true 02/24/2024 Personal Safety Answer Date Recorded Have you ever been in or are you currently in a harmful physical or emotional relationship or is someone making you feel afraid or unsafe? Denies 11/03/2023 Comments No Sex and Gender Information Value Date Recorded Sex Assigned at Not on file Legal Sex Female 3:33 AM FAREBOX REPAIRER Gender Identity Not on file Sexual Orientation [...] Plan Chronic Care Management Worsening( 9:38 AM FAREBOX REPAIRER) Sharon Chamberlain, NOE Note: Problem: Chronic Pain Goals: 1. Minimize further functional decline 2. Maximize quality of life 3. Control pain Strategies: - Activity/exercise program recommendation - Conservative stepwise pain medicine strategy with multi-disciplinary approach - Recommend healthy lifestyle strategies and compensatory methods as needed documented as of this encounter Visit Diagnoses Not on filedocumented in this encounter Care Teams Silk Screen Cutter Relationship Specialty Start Date End Date Tom Crystal Jr., MD [address] [address] PCP - General Internal Medicine 07/23/22 Gerardo Ortega MD [address] [address] Referring Physician Obstetrics and Gynecology 04/10/21 Israel Cervantes Jr., DPM [address] [place] [address] Referring Physician Podiatry 04/10/21 Linda Moore MD [address] [place] [address] Consulting Physician Cardiology 04/10/21 Noe Acevedo MD [address] [place] [address] Consulting Physician Rheumatology 08/17/23 documented as of this encounter
--- OUTSIDE RECORDS SUMMARY | 2024-11-08 16:09 | XMS_ITS | Clinical Summary ---
Author Organization [facility] Address [address] [place] [address] Care Team Providers Care Food Service Hotel Runner Name Role Phone Linda Moore MD Unavailable [phone] Bonilla Guevara MD, Tom Patricio Primary Care Pro vider Allergies Active Allergy Reactions Criticality Noted Date Comments Meperidine Nausea Only 04/16/2022 Metoprolol Other (see comment) Low 05/12/2021 Extreme fatigue Ondansetron Headache Low 10/28/2017 Medications allopurinol (ZYLOPRIM) 300 MG tablet Take 1 tablet (300 mg total) by mouth daily. 02/06/2022 Active atorvastatin (LIPITOR) 20 MG tablet Take 1 tablet (20 mg total) by mouth nightly. 02/06/2022 Active bisoprolol (ZEBETA) 10 MG tablet Take 1 tablet (10 mg total) by mouth nightly. 01/22/2022 Active diclofenac EC (VOLTAREN) 75 MG tablet Take 1 tablet (75 mg total) by mouth 2 (two) times a day. 01/22/2022 Active FLUoxetine (PROZAC) 40 MG capsule Take 1 capsule (40 mg total) by mouth daily. 02/25/2022 Active lisinopril (PRINIVIL) 20 MG tablet Take 1 tablet (20 mg total) by mouth daily. Active pregabalin (LYRICA) 150 MG capsule Take 1 capsule (150 mg total) by mouth 2 (two) times a day. 1 in AM 2 in PM 03/12/2022 Active semaglutide (OZEMPIC) 2 MG/1.5ML injection (PEN) Inject 0.5 mg into the skin once a week. Starting next week Wednesday for weight loss, NOT DIABETIC 03/13/2022 Active omeprazole (PRILOSEC) 40 MG capsule Take 1 capsule (40 mg total) by mouth daily. Active Family History Medical History Relation Comments No Known Problems Brother 1 No Known Problems Brother 2 Diabetes Father Stroke Father Relation Status Comments Brother 1 Alive Brother 2 Alive Father Alive Mother Alive Social History Tobacco Use Types Packs/Day Years Used Date Smoking Tobacco: Never Smokeless Tobacco: Never Tobacco Cessation:Counseling Given: Not Answered Alcohol Use Standard Drinks/Week Comments Not Currently 0 (1 standard drink = 0.6 oz pur e alcohol) rare Comments No Sex and Gender Information Value Date Recorded Sex Assigned at Not on file Legal Sex Female 9:24 PM CDT Gender Identity Not on file Sexual Orientation Not on file Last Filed Vital Signs Vital Sign Reading Time Taken Comments Blood Pressure 135/94 05/13/2023 10:48 AM CDT Pulse 81 05/13/2023 10:48 AM CDT Temperature 36.5 C (97.7 F) 05/13/2023 10:48 AM CDT Respiratory Rate 16 05/13/2023 10:4 8 AM CDT Oxygen Saturation 97% 05/13/2023 10: 48 AM CDT Inhaled Oxygen Concentration - - Weight 116.5 kg (256 lb 13.4 oz) 05/13/2023 6:54 AM CDT Height 165.1 cm (5' 5 ) 05/13/2023 6:54 AM CDT Body Mass Index 42.74 05/13/2023 6:54 AM CDT Plan of Treatment Health Maintenance Due Date Last Done Comments Cervical Cancer Screening Pap Smear (Age 30 to 64) Every 3 Years 1982 Annual Physical 1985 Hepatitis C 01/20/2000 Hepatitis B Vaccines (1 of 3 - 19+ 3-dose series) 2001 Cervical Cancer Screening Pap with HPV Testing (Age 30 to 64) Every 5 Years 01/20/2012 Cervical Cancer Screening with HPV 01/20/2012 Mammogram Screening 2022 COVID-19 Vaccine ( season) 2024 10/01/2021, 02/03/2021, 01/13/2021 Influenza Adult (#1) 2024 07/23/2022, 09/11/2021, 07/12/2019, Additional history exists DTaP, Tdap and Td Vaccines (2 - Td or Tdap) 09/11/2031 09/11/2021 HPV Vaccines Aged Out No longer eligi ble based on patient's age to complete this topic Meningococcal B Vaccine Aged Out No l onger eligible based on patient's age to complete this topic Meningococcal Vaccine Aged Out No [place] eligible based on patient's age to complete this topic Pneumococcal Vaccine: Pediatrics (0 to 5 Years) and At-Risk Patients (6 to 64 Years) Aged Out No longer eligible based on patient's age to complete this topic RSV Immunizations Under 20 Months Aged Out No longer eligible based on patient's age to complete this topic Medical Devices Explanted Type Area Gauger Delivery Device Identifier Shelf Expiration Date Model / Serial / Lot Plate Explanted:Qty: 1 on 04/23/2022 by Margarito Crystal DPM at [facility] Plate Left: Foot Description:Plate and screws removed from left foot- hardware from [employer] medical Screws Explanted:Qty: 1 on 04/23/2022 by Margarito Crystal DPM at [facility] Screw Left: Foot Description:Hardware explant ed from Left foot - hardware from [employer] Insurance [facility] Care Teams Food Service Hotel Runner Relationship Specialty Start Date End Date Tom Crystal Jr., MD [address] [place] [id number] PCP - General HOSPITALIST 05/06/23 [facility] [address] [facility] [address] [place] [address] CARDIOVASCULAR DISEASE 04/16/22
--- OUTSIDE RECORDS SUMMARY | 2024-11-08 16:09 | XMS_ITS | Patient Health Summary ---
Author Organization [facility] Address [address] [facility] [place] [address] Care Team Providers Care Entry Level Programmer Name Role Phone Tom Lees MD Primary Care Provider Note from [facility],non-owned Affiliates and Associated Physician Practices is amultiple site organization consisting of ambulatory clinics and hospital sitesin [place], [place]. This disclosure is being madepursuant to the Care Everywhere program and may not contain all information available regarding this patient. Last updated 18.[facility] Social History Tobacco Use Types Packs/Day Years Used Date Smoking Tobacco: Never Assessed Sex and Gender Information Value Date Recorded Sex Assigned at Not on file Gender Identity Not on file Sexual Orientation Not on file Procedures * DERMATOPATHOLOGY(Performed 07/09/2023) Results * DERMATOPATHOLOGY (07/09/2023 12:00 AM CDT) Case Report Dermatopathology Report Case: [id number] Authorizing Provider: Marco Antonio Gambino MD Collected: 07/09/2023 12:00 AM Ordering Location: [facility] DermPath Lab Received: 07/13/2023 07:29 AM Pathologist: Delma Allen MD Specimen: Skin, left neck 11:55 AM CDT DERMATOPATHOLOGY LABORATORY Final Diagnosis Specimen A. 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 Path# [id number] 11:55 AM CDT DERMATOPATHOLOGY LABORATORY Gross Description Specimen A: Received is one formalin filled container labeled with the patient's name and designated left neck. The specimen consists of a shave biopsy measuring 5x4x1 mm. Jar 0. 11:55 AM T DERMATOPATHOLOGY LABORATORY Microscopic Description Specimen A. SKIN, [...] immunofluorescence. Clinicopathologic correlation is recommended. 11:55 AM T DERMATOPATHOLOGY LABORATORY Disclaimer An external and internal positive and negative controls are appropriate for the histochemical, immunohistochemical and immunofluorescence stain(s) in this case (if any), except where stated explicitly. The performance characteristics of the stain(s) cited in this report were developed and its performance characteristic determined by the Dermatopathology Laboratory at [facility], directed by Dr. Terrell Allen. These tests need not be, and therefore are not, approved by the [place] Food and Drug Administration. The tests are used for clinical purposes. Billing Codes Specimen Charges Stain Charges 16530 1 03039 1 11:55 AM CDT DERMATOPATHOLOGY LABORATORY Embedded Images 11:55 AM CDT DERMATOPATHOLOGY LABORATORY Pathology/Cytolog y TISSUE SPECIMEN FROM SKIN / Unknown 07/09/2023 07/13/2023 7:29 AM CDT Marco Antonio Gambino MD LAB - PATHOLOGY/CYTO LOGY ORDERABLES DERMATOPATHOLOGY LABORATORY [facility] - Department of Dermatology [facility] Special[facility] [facility], [address]rd Floor [address] [phone] Care Teams Entry Level Programmer Relationship Specialty Start Date End Date Tom Lees MD [address] [facility] [address] [place] [address] PCP - General 07/10/19
--- OUTSIDE RECORDS SUMMARY | 2024-11-08 16:09 | XMS_ITS | Clinical Summary ---
Author Organization [facility] Address [address] [place] [address] Phone Care Team Providers Care Learning Administrator Name Role Phone Unavailable Primary Care Provider Unavailabl e Allergies No known active allergies Medications FLUoxetine (PROzac) 40 mg capsule TAKE ONE CAPSULE BY MOUTH ONCE DAILY 90 Capsule 07/22/2022 9:41 AM CDT 2 Active albuterol sulfate HFA 90 mcg/actuation aerosol inhaler Inhale 2 puffs every 4 (four) hours as needed for wheezing or shortness of breath 25.5 Gram 4 12/10/2022 4:22 PM CADDIE SUPERVISOR 3 Active azithromycin (ZITHROMAX) 250 mg tablet Take 2 tablets (500 mg) by mouth today, than take 1 tablet (250 mg) once daily for 4 days. 6 Tablet 11/06/2022 3:41 PM CADDIE SUPERVISOR 3 Active FLUoxetine (PROzac) 40 mg capsule TAKE ONE CAPSULE BY MOUTH ONCE DAILY 90 Capsule 3 Active amitriptyline (ELAVIL) 25 mg tablet Take 1 tablet (25 mg total) by mouth nightly 90 Tablet 1 12/04/2022 7:20 PM CADDIE SUPERVISOR 3 Active pregabalin (LYRICA) 75 mg Capsule Take 2 Capsules (150 mg) by mouth 2 times daily. 120 Capsule 2 3 Active amitriptyline (ELAVIL) 50 mg tablet Take 1 Tablet (50 mg) by mouth nightly. 90 Tablet 3 02/19/2023 12:21 PM CDT 3 Active pregabalin (LYRICA) 75 mg Capsule Take 2 Capsules (150 mg) by mouth 2 times daily. 120 Capsule 2 05/05/2023 2:43 PM CDT 3 Active cephALEXin (KEFLEX) 500 mg capsule Take 1 capsule (500 mg total) by mouth 2 (two) times a day for 10 days 20 Capsule 3 Active doxycycline hyclate (VIBRAMYCIN) 100 mg capsule Take 1 capsules (100 mg total) by mouth 2 (two) times a day for 10 days 20 Capsule 3 Active FLUoxetine (PROzac) 20 mg capsule Take 1 capsule (20 mg total) by mouth daily 30 Capsule 08/11/2023 10:10 AM CADDIE SUPERVISOR 3 Active sertraline (ZOLOFT) 25 mg tablet Take 1 tablet (25 mg total) by mouth daily 90 Tablet 4 08/11/2023 10:10 AM CADDIE SUPERVISOR 3 Active sertraline (ZOLOFT) 25 mg tablet Take 1 tablet (25 mg total) by mouth daily 90 Tablet 4 3 Active HYDROcodone-moira taminophen (NORCO) 5-325 mg tablet Take 1 tablet by mouth every 6 (six) hours as needed for pain for up to 7 days 28 Tablet 09/01/2023 2:07 PM CADDIE SUPERVISOR 3 Active HYDROcodone-moira taminophen (NORCO) 5-325 mg tablet Take 1 Tablet by mouth nightly as needed for pain. 30 Tablet 10/07/2023 11:40 AM CADDIE SUPERVISOR 4 Active cariprazine (Vraylar) 1.5 mg Capsule capsule Take 1 Capsule (1.5 mg) by mouth daily. 90 Capsule 12/20/2023 6:53 PM CDT 4 Active amLODIPine (NORVASC) 5 mg tablet Take 1 Tablet (5 mg) by mouth daily. 90 Tablet 4 11/05/2023 2:59 PM CADDIE SUPERVISOR 4 Active Encounters Date Type Department Care Team Description 10/25/2024 External Device Data [facility] ABSTRACTION Provider, Abstract 10/24/2024 External Device Data [facility]CTION Provider, Abstract 09/05/2024 External Device Data [facility] Provider, Abstract 08/08/2024 External Device Data [facility]CTION Provider, Abstract from Last 3 Months Social History Tobacco Use Types Packs/Day Years Used Date Smoking Tobacco: Never Assessed Comments Unknown Sex and Gender Information Value Date Recorded Sex Assigned at Not on file Legal Sex Female 9:28 PM CDT Gender Identity Not on file Sexual Orientation Not on file Plan of Treatment Health Maintenance Due Date Last Done Comments DTAP/TDAP/TD VACCINES (1 - Tdap) 2001 HEPATITIS B VACCINES (1 of 3 - 19+ 3-dose series) 2001 CERVICAL CANCER SCREENING 01/20/2012 BREAST CANCER SCREENING 2022 INFLUENZA VACCINE (#1) 2024 HPV VACCINES Aged Out No longer eligi ble based on patient's age to complete this topic PNEUMOCOCCAL VACCINE 0-64 YEARS Aged Out No longer eligible based on patient's age to complete this topic Insurance [employer] (INTERNAL) [employer] [employer] Commercial
--- OUTSIDE RECORDS SUMMARY | 2024-11-08 16:09 | XMS_ITS | Referral Summary ---
Author Organization [facility] [address] Address [address] [place] [address] Care Team Providers Care Industrial Automation Engineer Name Role Phone Gerardo Ortega MD Unavailable [phone] Billy Guevara DPM, Gabriel Unavailable Linda Moore MD Unavailable [phone] Bonilla Guevara MD, Tom Mackey Primary Care Provide r Noe Acevedo MD Unavailable [phone] Encounters Date Type Department Care Team Description 11/08/2024 Telephone [facility] [place] [facility] [address] [place] [address] Arlette Marsh MD PhD pre-procedure instructions 10/17/2024 Orders Only [facility] [address] [facility] [address] [place] [address] Arlette Marsh MD PhD Neuropathy (CMS/HCC) 10/12/2024 Telephone [facility] [address] [facility] [address] [place] [address] Arlette Marsh MD PhD 10/11/2024 Orders Only [facility] [address] [place] [address] Winter Verma RN 09/22/2024 9:02 AM CORNER BLOCK CUTTER - 09/22/2024 11:59 PM CORNER BLOCK CUTTER Hospital Encounter [facility] at the [facility] [address] [facility] [address] [place] [address] Arlette Marsh MD PhD Neuralgia (Primary Dx) Discharge Disposition: Discharge to home or self care 09/05/2024 1:00 PM CORNER BLOCK CUTTER Office Visit [facility] Cardiology [address] [place] [address] Jojo Pavon NP Sinus tachycardia (Primary Dx) 08/23/2024 Orders Only [facility] at the [facility] [address] [facility] [address] [place] [address] Arlette Marsh MD PhD Neuralgia (Primary Dx) 08/09/2024 11:15 AM CORNER BLOCK CUTTER Office Visit [facility] [address] [place] [id number] Master Coates, PhD Other chronic pain (Primary Dx); Complex regional pain syndrome type 1 of left lower extremity; Recurrent major depressive disorder, in partial remission (HCC); Neuralgia from Last 3 Months Allergies Active Allergy Reactions Criticality Noted Date [...] (BMI) of 40.0 to 44.9 in adult ([facility]) Inject 0.5 mL (2.5 mg total) under the skin every 7 days 2 mL 5 025 Discontin ued(Reord er) tirzepatide, weight loss, (Zepbound) 2.5 mg/0.5 mL pen injectorIndication s:Class 3 severe obesity due to excess calories with serious comorbidity and body mass index (BMI) of 40.0 to 44.9 in adult ([facility]) Inject 0.5 mL (2.5 mg total) [...] OA Assessment & Plan (10/05/2023 4:20 PM CORNER BLOCK CUTTER): Ms. Vazquez is a 43yo female with [...] Acevedo. Assessment & Plan (09/14/2023 11:33 AM CORNER BLOCK CUTTER): Ms. Vazquez is a 43yo female with [...] and HLD Doing hand written prescription for [employer] for SaxFlick[employer], cheapest option available Will try to do [...] podiatric surgery. Body mass index 40.0-44.9, adult ([facility]) 03/12/2022 01/21/2023 Overview (03/13/2022): Has been [...] 05/31/20172021 Assessment & Plan (09/12/2021 1:24 PM CORNER BLOCK CUTTER): Cont saxenda On month ~6 for now [...] covered- also instructed her to talk with [employer] and her husbands employer [employer] to see if wegovy covered under independent plan Assessment & Plan (05/31/2017 8:49 PM CDT): Unfortunately continues to gain weight, is nearly in the morbidly obese category. Immunizations Name Administration Dates Next Due Influenza, Quadrivalent, Spl it, Intramuscular 07/31/2015 Influenza, Quadrivalent, Spl it, Preservative Free, Intramuscular 07/23/2022,09/11/2021,07/12/2019,07/08 Influenza, Trivalent, Preser vative Free, Intramuscular 06/16/2024 Influenza, Unspecified 01/25/2024(Deferred: Pam ent Refused) Pfizer SARS-CoV-2 Monovalent Vaccination (12+ Yrs) PURPLE 02/03/2021,01/13/2021 Tdap 09/11/2021 Social History Tobacco Use Types Packs/Day Years [...] on file Legal Sex Female 3:33 AM CORNER BLOCK CUTTER Gender Identity Not on file Sexual Orientation Not on file 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 Not on file Not on file Last Filed Vital Signs Vital Sign Reading Time Taken Comments Blood Pressure 120/71 09/22/2024 9:35 AM CORNER BLOCK CUTTER Pulse 84 09/22/2024 9:35 AM CORNER BLOCK CUTTER Temperature 36.2 C (97.1 F) 09/22/2024 9:35 AM CORNER BLOCK CUTTER Respiratory Rate 12 09/22/2024 9:35 AM CORNER BLOCK CUTTER Oxygen Saturation 96% 09/22/2024 9:35 AM CORNER BLOCK CUTTER Inhaled Oxygen Concentration - - Weight 111.1 kg (245 lb) 09/22/2024 9:35 AM CORNER BLOCK CUTTER Height 165.1 cm (5' 5 ) 09/22/2024 9:35 AM CORNER BLOCK CUTTER Body Mass Index 40.77 09/22/2024 9:35 AM CORNER BLOCK CUTTER Plan of Treatment Not on file Goals Goal Patient Goal Type Associated Problems Recent Progress Patient-Stated? Author CCM Chronic Pain Care Plan Chronic Care Management Worsening( 9:38 AM CORNER BLOCK CUTTER) Sharon Chamberlain, RN Note: Problem: Chronic Pain Goals: 1. Minimize further functional decline 2. Maximize quality of life 3. Control pain Strategies: - Activity/exercise program recommendation - Conservative stepwise pain medicine strategy with multi-disciplinary approach - Recommend healthy lifestyle strategies and compensatory methods as needed Procedures Procedure Name Priority Date/Time Associated Diagnosis Comments HEMOGLOBIN A1C Routine 10/18/2024 9:12 AM CORNER BLOCK CUTTER Hyperglycemia COMPREHENSIVE METABOLIC PANEL Routine 10/18/2024 9:12 AM CORNER BLOCK CUTTER Hyperglycemia HM PAP SMEAR WITH HPV Routine 01/11/2023 SCREENING MAMMOGRAM BILATERAL W CARLOS Schedule Routine, Read Routine (OP Routine) 05/26/2022 3:17 PM CDT Preventative health care from Last 3 Months or Most Recently Relevant to Health Maintenance Results * (ABNORMAL) Hemoglobin A1c (10/18/2024 9:12 AM CORNER BLOCK CUTTER) Hgb A1C 7.2(H) 4.8 - 5.6 % [facility] - 01 Comment: Prediabetes: 5.7 - 6.4 Diabetes: >6.4 Glycemic control for adults with diabetes: <7.0 Blood 10/18/2024 9:12 AM CORNER BLOCK CUTTER 10/18/2024 Narrative [facility] - 10/19/2024 3:35 AM CORNER BLOCK CUTTER Performed at: [address] [id number] Perinatology Physician: Kahlil Mims PhD, Phone: [phone] us Tom Crystal Jr., MD LAB BLOOD ORDERABLES Final Result [facility] - * (ABNORMAL) Comprehensive metabolic panel (10/18/2024 9:12 AM CORNER BLOCK CUTTER) [facility] Glucose 140(H) 70 - 99 mg/dL [facility] [...] [facility] - 01 Blood 10/18/2024 9:12 AM CORNER BLOCK CUTTER 10/18/2024 Narrative [facility] - 10/19/2024 3:35 AM CORNER BLOCK CUTTER Performed at: 01 - [facility] [place] [address] [id number] Perinatology Physician: Kahlil Mims PhD, Phone: [phone] Tom Crystal Jr., MD LAB BLOOD ORDERABLES Final Result [facility] - 01 * HM PAP SMEAR [...] age 40, based on guidelines of the [employer] (ACR Practice Parameter for the Performance of Screening and Diagnostic Mammography) and [employer]. For women [...] Most Recently Relevant to Health Maintenance Insurance [employer] OPEN ACCESS [employer] OPEN ACCESS [employer] OPEN ACCESS [employer] OPEN ACCESS Care Teams Industrial Automation Engineer Relationship Specialty Start Date End Date Tom Crystal Jr., MD [address] [place] [address] PCP - General Internal Medicine 07/23/22 Gerardo Ortega MD [address] [place] [address] Referring Physician Obstetrics and Gynecology 04/10/21 Israel Cervantes Jr., DPDelma [address] [address] Referring Physician Podiatry 04/10/21 Linda Moore MD [address] [id number] Consulting Physician Cardiology 04/10/21 Noe Acevedo MD [address] [place] [address] Consulting Physician Rheumatology 08/17/23
--- OUTSIDE RECORDS SUMMARY | 2024-11-08 16:09 | XMS_ITS | Clinical Summary ---
Author Organization [facility] [employer] Address [address] [place] [address] Care Team Providers Care Tonguer Name Role Phone Tom Lees MD Primary Care Provider [phone] Source Comments [facility],non-owned Affiliates and Associated Physician Practices is amultiple site organization consisting of ambulatory clinics and hospital sitesin [place], [place], [place] and [place]. This disclosure is being madepursuant to the Care Everywhere program and may not contain all information available regarding this patient. Last updated 18.[facility] [employer] Social History Tobacco Use Types Packs/Day Years Used Date Smoking Tobacco: Never Assessed Sex and Gender Information Value Date Recorded Sex Assigned at Not on file Gender Identity Not on file Sexual Orientation Not on file Plan of Treatment Health Maintenance Due Date Last Done Comments LIPID TESTING 1982 MAMMOGRAM 1982 PAP SMEAR 1982 HIV SCREENING 1997 HEPATITIS C SCREENING 01/15/2000 DTAP/TDAP/TD VACCINES (1 - Tdap) 2001 HEPATITIS B VACCINE (1 of 3 - 19+ 3-dose series) 2001 COVID-19 VACCINE (3 - 2023-25 season) 2024 02/03/2021, 01/13/2021 INFLUENZA VACCINE (#1) 2024 , 09/11/2021, 07/12/2019, Additional history exists DEPRESSION SCREENING 10/04/2024 ZOSTER VACCINE (1 of 2) 01/20/2032 HIB VACCINE Aged Out No longer eligi ble based on patient's age to complete this topic HPV VACCINE Aged Out No longer eligi ble based on patient's age to complete this topic MENINGOCOCCAL (Group B) VACCINE Aged Out No longer eligible based on patient's age to complete this topic MENINGOCOCCAL VACCINE Aged Out No junito [place] eligible based on patient's age to complete this topic PNEUMOCOCCAL VACCINE Aged Out No long er eligible based on patient's age to complete this topic Care Teams Tonguer Relationship Specialty Start Date End Date Tom Lees MD [address] [place] [address] [address] [place] [address] PCP - General 07/10/19
--- OUTSIDE RECORDS SUMMARY | 2024-11-08 16:09 | XMS_ITS | Encounter Summary ---
Author Organization [facility] Address [address] [place] [address] Care Team Providers Care Geomagnetist Name Role Phone Gerardo Ortega MD Unavailable [phone] Billy Guevara DPM, Gabriel Unavailable [phone] Linda Moore MD Unavailable [phone] Bonilla Guevara MD, Tom Mackey Primary Care Provide r Noe Acevedo MD Unavailable [phone] Reason for Visit * Reason Onset Date Comments pre-procedure instructions 11/08/2024 Encounter Details Date Type Department Care Team (Late st Contact Info) Description 11/08/2024 Telephone [facility] [place] [facility] [address] [facility] [address] [place] [address] Arlette Marsh MD PhD [address] [facility] [address] [place] [address] pre-procedure instructions Social History Tobacco Use Types Packs/Day Years [...] on file 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 Minimize further functional decline 2. Maximize quality of life 3. Control pain Strategies: - Activity/exercise program recommendation - Conservative stepwise pain medicine strategy with multi-disciplinary approach - Recommend healthy lifestyle strategies and compensatory methods as needed documented as of this encounter Visit Diagnoses Not on filedocumented in this encounter Care Teams Geomagnetist Relationship Specialty Start Date End Date Tom Crystal Jr., MD [address] [address] PCP - General Internal Medicine 07/23/22 Gerardo Ortega MD [address] [address] Referring Physician Obstetrics and Gynecology 04/10/21 Israel Cervantes Jr., DPM [address] [place] [address] Referring Physician Podiatry 04/10/21 Linda Moore MD [address] [place] [address] Consulting Physician Cardiology 04/10/21 Noe Acevedo MD [address] [place] [address] Consulting Physician Rheumatology 08/17/23 documented as of this encounter
[2024-11-08 16:22] LABS: EDCOVIDSCREEN Positive (Negative); EDINFLUASCREEN Negative (Negative); EDINFLUBSCREEN Negative (Negative)
== END 2024-11-08 16:25 | disposition home or self-care (01) ==
PROVIDERS: Emergency Provider Nurse Practitioner Family; PCP Hospitalist
DX: U07.1 COVID-19 (principal); I10 Essential (primary) hypertension; Z87.891 Personal history of nicotine dependence
CPT/HCPCS: 87426; 87804; 99212; G0463

== ENCOUNTER 2024-12-19 12:09 | Outpatient (CLI) | payer OTHER, SELFPAY ==
--- NOTE | ~2024-12-19 | MM_ITS ---
EXAMINATION: MM screening isabel BI w veda HISTORY: Screening TECHNIQUE: Craniocaudal and mediolateral oblique 3-D tomosynthesis images were obtained and synthetic 2-D images were generated. CAD analysis was submitted and interpreted. COMPARISON: No prior mammogram is available for comparison at this institution. BREAST PARENCHYMAL COMPOSITION: Not dense: There are scattered areas of fibroglandular density. FINDINGS: There are low-density masses in the upper outer quadrant of the left breast, most likely be nign intramammary lymph nodes. There is no evidence for malignancy in the right breast. IMPRESSION: 1. Low-density left breast masses centered in the upper outer quadrant. 2. Recommend comparison to previous outside mammograms. If prior mammograms are not available additio nal views of the left breast and left breast ultrasound recommended. BI-RADS CATEGORY 0 - INCOMPLETE STUDY, NEED ADDITIONAL IMAGING EVALUATION. Reviewed, dictated and finalized at location B. IMPRESSION: 1. Low-density left breast masses centered in the upper outer quadrant. 2. Recommend comparison to previous outside mammograms. If prior mammograms are not available additional views of the left breast and left breast ultrasound r ecommended. BI-RADS CATEGORY 0 - INCOMPLETE STUDY, NEED ADDITIONAL IMAGING EVALUATION.
--- OUTSIDE RECORDS SUMMARY | 2024-12-19 13:34 | XMS_ITS | Encounter Summary ---
Author Organization [facility] Healthcare Address [address] [place] [address] Care Team Providers Care Electrical Cad Technician Name Role Phone Gerardo Ortega MD Unavailable [phone] Billy Guevara DPM, Gabriel Unavailable [phone] Linda Moore MD Unavailable [phone] Bonilla Guevara MD, Tom Mackey Primary Care Provide r Noe Acevedo MD Unavailable [phone] Reason for Visit * Reason Onset Date Comments pre-procedure instructions 11/08/2024 Encounter Details Date Type Department Care Team (Late st Contact Info) Description 11/08/2024 Telephone [facility] at the [place] [facility] [address] [facility] Advanced Medicine [address] [place] [address] Arlette Marsh MD PhD [address] [facility] [address] [place] [address] pre-procedure instructions Social History Tobacco Use Types Packs/Day Years Used Date Smoking Tobacco: Never Smokeless Tobacco: Never Comments:high school smoker Alcohol Use Standard Drinks/Week Comments Yes 1 (1 standard drink = 0.6 oz pur e alcohol) occassionally AUDIT-C Answer Date Recorded Q1: How often do you have a drink containing alcohol? Never 11/10/2024 Q2: How many drinks containi ng alcohol do you have on a typical day when you are drinking? Patient does not drink Q3: How often do you have si x or more drinks on one occasion? Never 11/10/2024 PHQ-2 Answer Date Recorded PHQ-2 Total Score [...] money to get more. Never true 06/08/2024 PHQ-9 Answer Date Recorded PHQ-9 Total Score 11 06/16/2024 Personal Safety Answer Date Recorded Have you ever been in or are you currently in a harmful physical or emotional relationship or is someone making you feel afraid or unsafe? 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 Never 11/10/2024 1:40 PM Donte Kessler RN Q2: How many drinks containing alcohol do you have on a typical day when you are drinking? Patient does not drink 11/10/2024 1:40 PM Donte Kessler RN Q3: How often do you have six or more drinks on one occasion? Never 11/10/2024 1:40 PM Donte Kessler RN documented as of this encounter Plan of Treatment Not on file documented as of this encounter Goals Goal Patient Goal Type Associated Problems Recent Progress Patient-Stated? 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 Minimize further functional decline 2. Maximize quality of life 3. Control pain Strategies: - Activity/exercise program recommendation - Conservative stepwise pain medicine strategy with multi-disciplinary approach - Recommend healthy lifestyle strategies and compensatory methods as needed documented as of this encounter Visit Diagnoses Not on filedocumented in this encounter Care Teams Electrical Cad Technician Relationship Specialty Start Date End Date Tom Crystal Jr., MD [address] [place] [address] PCP - General Internal Medicine 07/23/22 Gerardo Ortega MD [address] [phone] Referring Physician Obstetrics and Gynecology 04/10/21 Israel Cervantes Jr., DPM [address] [phone] Referring Physician Podiatry 04/10/21 Linda Moore MD [address] [address] Consulting Physician Cardiology 04/10/21 Noe Acevedo MD [address] [place] [address] Consulting Physician Rheumatology 08/17/23 documented as of this encounter
--- OUTSIDE RECORDS SUMMARY | 2024-12-19 13:34 | XMS_ITS | Clinical Summary ---
Author Organization [facility] Address [address] [place] [address] Care Team Providers Care Rough Rib Grader Name Role Phone Linda Moore MD Unavailable [phone] Bonilla Guevara MD, Tom Patricio Primary Care [...] this topic Medical Devices Explanted Type Area Day Spa Manager Device Identifier Shelf Expiration Date Model / Serial / Lot Plate Explanted:Qty: 1 on 04/23/2022 by Margarito Crystal DPM at [facility] Plate Left: Foot Description:Plate and screws removed from left foot- hardware from [employer] Screws Explanted:Qty: 1 on 04/23/2022 by Margarito Crystal DPM at [facility] Screw Left: Foot Description:Hardware explant ed from Left foot - hardware from [employer] Insurance [facility] Care Teams Rough Rib Grader Relationship Specialty Start Date End Date Tom Crystal Jr., MD [address] [place] [address] PCP - General HOSPITALIST 05/06/23 RustLinda MD [address] [facility] [address] [place] [address] CARDIOVASCULAR DISEASE 04/16/22
--- OUTSIDE RECORDS SUMMARY | 2024-12-19 13:35 | XMS_ITS | Encounter Summary ---
Author Organization [facility] Address [address] [facility] [place] [address] Care Team Providers Care Chinese Herbalist Name Role Phone Tom Lees MD Primary Care Provider Encounter Details Date Type Department Care Team (Late st Contact Info) Description 07/13/2023 Lab Requisition [facility] - DermPath Lab [address] [facility] [place] [id number] Marco Antonio Gambino MD [address] [facility] [address] [address] [place] [address] Social History Tobacco Use Types Packs/Day [...] AM CDT) Case Report Dermatopathology Report Case: [id number] Authorizing Provider: Marco Antonio Gambino MD Collected: 07/09/2023 12:00 AM Ordering Location: [facility] DermPath Lab Received: 07/13/2023 07:29 AM Pathologist: Delma Allen MD Specimen: Skin, left neck 11:55 AM CDT DERMATOPATHOLOGY LABORATORY Final Diagnosis Specimen A. 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 Path# [id number] 11:55 AM [facility] DERMATOPATHOLOGY LABORATORY Gross Description Specimen A: Received is one formalin filled container labeled with the patient's name and designated left neck. The specimen consists of a shave biopsy measuring 5x4x1 mm. Jar 0. 11:55 AM [facility] DERMATOPATHOLOGY LABORATORY Microscopic Description Specimen A. SKIN, [...] immunofluorescence. Clinicopathologic correlation is recommended. 11:55 AM [facility] DERMATOPATHOLOGY LABORATORY Disclaimer An external and internal positive and negative controls are appropriate for the histochemical, immunohistochemical and immunofluorescence stain(s) in this case (if any), except where stated explicitly. The performance characteristics of the stain(s) cited in this report were developed and its performance characteristic determined by the Dermatopathology Laboratory at [facility], directed by Dr. Terrell Allen. These tests need not be, and therefore are not, approved by the [place] Food and Drug Administration. The tests are used for clinical purposes. Billing Codes Specimen Charges Stain Charges 48098 1 22601 1 11:55 AM T DERMATOPATHOLOGY LABORATORY Embedded Images 11:55 AM [facility] DERMATOPATHOLOGY LABORATORY Pathology/Cytolog y TISSUE SPECIMEN FROM SKIN / Unknown 07/09/2023 07/13/2023 7:29 AM CDT Marco Antonio Gambino MD LAB - PATHOLOGY/CYTO LOGY ORDERABLES DERMATOPATHOLOGY LABORATORY [facility] - Department of Dermatology [address], [address] [phone] documented in this encounter Visit Diagnoses Not on filedocumented in this encounter Care Teams Chinese Herbalist Relationship Specialty Start Date End Date Tom Lees MD [address] [place], [place] [id number] PCP - General 07/10/19 documented as of this encounter
--- OUTSIDE RECORDS SUMMARY | 2024-12-19 13:35 | XMS_ITS | Referral Summary ---
Author Organization [facility] – [place] [address] Address [address] [place] [address] Care Team Providers Care Systems Software Engineer Name Role Phone Gerardo Ortega MD Unavailable [phone] Billy Guevara DPM, Gabriel Unavailable Linda Moore MD Unavailable [phone] Bonilla Guevara MD, Tom Mackey Primary Care Provide r Noe Acevedo MD Unavailable [phone] Encounters Date Type Department Care Team Description 12/18/2024 Telephone [facility] Scheduling [address] [place] [address] Amrit Bright MD PhD Scheduling Appointments 12/14/2024 Telephone [facility] Primary Care [address] [place] [phone] Tom Crystal Jr., MD 11/23/2024 Orders Only [facility] Primary Care [address] [place] [phone] Tom Crystal Jr., MD Gastroesophageal reflux disease without esophagitis (Primary Dx) 11/14/2024 9:45 AM REHABILITATION ENGINEER Office Visit [facility] Primary Care [address] [place] [phone] Tom Crystal Jr., MD Type 2 diabetes mellitus with hyperlipidemia (HCC) (Primary Dx); Moderate episode of recurrent major depressive disorder (HCC); Class 3 severe obesity due to excess calories with serious comorbidity and body mass index (BMI) of 40.0 to 44.9 in adult (HCC); Neuropathy 11/10/2024 12:58 PM REHABILITATION ENGINEER - 11/10/2024 11:59 PM REHABILITATION ENGINEER Hospital Encounter [facility] [address] [place] [address] [facility] [address] [place] [address] Arlette Marsh MD PhD Complex regional pain syndrome type 1 of left lower extremity (Primary Dx); Neuralgia Discharge Disposition: Discharge to home or self care 11/08/2024 Telephone [facility] [address] [place] [address] for Advanced Medicine [address] [place] [address] Arlette Marsh MD PhD pre-procedure instructions 10/17/2024 Orders Only [facility] [address] [place] [address] for Advanced Medicine [address] [place] [address] Arlette Marsh MD PhD Neuropathy 10/12/2024 Telephone [facility] [address] [place] [address] for Advanced Medicine [address] [place] [address] Arlette Marsh MD PhD 10/11/2024 Orders Only [facility] [address] [place] [address] for [facility] Medicine [address] [place] [address] Winter Verma RN 09/22/2024 9:02 AM REHABILITATION ENGINEER - 09/22/2024 11:59 PM REHABILITATION ENGINEER Hospital Encounter [facility] [address] [place] [address] for Advanced Medicine [address] [place] [address] Arlette Marsh MD PhD Neuralgia (Primary Dx) Discharge Disposition: Discharge to home or self care from Last 3 Months Allergies Active Allergy Reactions Criticality Noted Date Comments Meperidine Nausea only Low 04/16/2022 Metoprolol Succinate Other (See comments) Low 05/12 Extreme fatigue Ondansetron Headache Low 10/28/2017 Medications albuterol HFA (PROVENTIL HFA,VENTOLIN HFA,PROAIR HFA) 90 mcg/actuation inhaler Inhale 2 puffs every 4 (four) hours as needed for wheezing Please dispense 3 inhalers 3 each 3 01/16/20 23 Active allopurinoL (ZYLOPRIM) 300 mg tabletIndications :Gout, unspecified cause, unspecified chronicity, unspecified site TAKE 1 TABLET DAILY (PLEASE CALL TO SCHEDULE YOUR ANNUAL VISIT) 90 tablet 3 01/03/20 24 Active FLUoxetine (PROzac) 40 mg capsule TAKE 1 CAPSULE DAILY 90 capsule 3 01/18/[address] (VOLTAREN) 75 mg EC tablet TAKE 1 TABLET TWICE A DAY 180 tablet 3 01/18/20 24 Active atorvastatin (LIPITOR) 20 mg tabletIndications :Mixed hyperlipidemia TAKE 1 TABLET DAILY 90 tablet 3 04/07/20 24 Active bisoprolol (ZEBETA) 10 mg tabletIndications :Sinus tachycardia TAKE 2 TABLETS DAILY 180 tablet 3 07/06/20 24 Active amLODIPine (NORVASC) 5 mg tabletIndications :Essential hypertension TAKE 1 TABLET DAILY 100 tablet 1 07/22/20 24 Active pregabalin (LYRICA) 150 mg capsuleIndication s:Neuropathy Take 2 capsules (300 mg total) by mouth 2 (two) times a day 120 capsule 10/17/19 25 025 Active omeprazole (PriLOSEC) 40 mg capsuleIndication s:Gastroesophagea l reflux disease without esophagitis Take 1 capsule (40 mg total) by mouth daily 90 capsule 3 11/23/19 25 026 Active losartan (COZAAR) 100 mg tabletIndications :Type 2 diabetes mellitus with hyperlipidemia (HCC) Take 1 tablet (100 mg total) by mouth daily 90 tablet 3 11/24/19 25 Active mexiletine (MEXITIL) 150 mg capsuleIndication s:Ventricular Arrhythmias Take 1 capsule (150 mg total) by mouth 3 (three) times a day 270 capsule 11/27/19 25 025 Active HYDROcodone-aceta minophen (NORCO) 5-325 mg per tabletIndications :Pain Take 1 tablet by mouth 2 (two) times a day as needed for pain 60 tablet 12/16/19 25 Active tirzepatide, weight loss, (Zepbound) 7.5 mg/0.5 mL pen injectorIndicatio ns:Class 3 severe obesity due to excess calories with serious comorbidity and body mass index (BMI) of 40.0 to 44.9 in adult ([facility]),MARINE on CPAP Inject 0.5 mL (7.5 mg total) under the skin every 7 days 2 mL 12/16/19 25 Active mexiletine (MEXITIL) 150 mg capsuleIndication s:Ventricular Arrhythmias Take 1 capsule (150 mg total) by mouth 3 (three) times a day 90 capsule 2 09/22/20 24 025 Discontinued(R eorder) HYDROcodone-aceta minophen (NORCO) 5-325 mg per tabletIndications :Pain Take 1 tablet by mouth 2 (two) times a day as needed for pain 60 tablet 11/14/19 25 025 Discontinued(R eorder) tirzepatide, weight loss, (Zepbound) 5 mg/0.5 mL pen injectorIndicatio ns:Class 3 severe obesity due to excess calories with serious comorbidity and body mass index (BMI) of 40.0 to 44.9 in adult ([facility]) Inject 0.5 mL (5 mg total) under the skin every 7 days 2 mL 11/13/19 25 025 Discontinued losartan (COZAAR) 100 mg tabletIndications :Type 2 diabetes mellitus with hyperlipidemia ([facility]) Take 1 tablet (100 mg total) by mouth daily 90 tablet 4 11/14/19 25 025 Discontinued tirzepatide, weight loss, (Zepbound) 7.5 mg/0.5 mL pen injectorIndicatio ns:Class 3 severe obesity due to excess calories with serious comorbidity and body mass index (BMI) of 40.0 to 44.9 in adult ([facility]),MARINE on CPAP Inject 0.5 mL (7.5 mg total) under the skin every 7 days 2 mL 12/15/19 25 025 Discontinued(R eorder) Active Problems Problem Noted Date Diagnosed Date Type 2 diabetes mellitus with hyperlipidemia 08/2025 Moderate episode of recurrent major depressive d isorder 11/14/2024 Assessment & Plan (11/14/2024 12:42 PM REHABILITATION ENGINEER): Chronic stable Well controlled Continue current prescribed medications prozac at current dose [facility] care 06/16/2024 Assessment & Plan (06/16/2024 9:48 AM CDT): Reviewed labs, screenings and vaccines Rash and nonspecific skin eruption 09/14/2023 Overview (10/05/2023): 09/2023 AVISE negative, Neg Myositis 11 panel, CRP 35.5, ESR 9, AST 42, ALT 45, TSH 2.12, 06/2022 XR: -R elbow: unremarkable -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 Vazquez is a 43yo female with [...] Acevedo. Assessment & Plan (09/14/2023 11:33 AM REHABILITATION ENGINEER): Ms. Vazquez is a 43yo female with [...] 44.9 in adult 03/12/2022 Assessment & Plan (11/14/2024 10:16 AM REHABILITATION ENGINEER): Got zepbound approved Assessment & Plan (06/16/2024 11:19 AM CDT): Will hector for now Made several diet changes, weight remains the same Assessment & Plan (01/25/2024 9:41 AM CDT): Monitor weight Assessment & Plan (01/21/2023 11:02 AM CDT): With HTN and HLD Doing hand written prescription for Ophis Vape for [employer], cheapest option available Will try to do this via phone moving forward MARINE on CPAP 05/12/2021 Neuropathy 04/11/2021 Assessment & Plan (11/14/2024 12:42 PM REHABILITATION ENGINEER): Chronic stable Well controlled Continue current prescribed medications lyrica at current dose Assessment & Plan (06/16/2024 10:13 AM CDT): [...] Problem Noted Date Diagnosed Date Resolved Date Recurrent major depression 10/27/2023 0 11/14/2024 Assessment & Plan (06/16/2024 11:20 AM CDT): Chronic stable Well controlled Continue current prescribed medications elavil and prozac at current dose Assessment & Plan (01/25/2024 9:41 AM CDT): Will continue the prozac for now She is in a better space with her foot getting better, sun is out and weather is improved Preoperative clearance 04/10/202205/06 Assessment & Plan (04/10/2022 10:29 AM CDT): Pt is acceptable medical risk for podiatric surgery. Body mass index 40.0-44.9, adult (CMS/[facility]) 03/12/2022 01/21/2023 Overview (03/13/2022): Has been [...] 05/31/20172021 Assessment & Plan (09/12/2021 1:24 PM REHABILITATION ENGINEER): Joseph bill On month ~6 for now wegovy not covered If at next appt, still plateu'ing , may not be the right med for her. Recommend referral to discuss weight loss surgery options, she is agreeable to this as she has tried many avenues to loose weight now. Assessment & Plan (04/11/2021 8:10 AM CDT): Joseph bill for now- has had so much success with 22 lbs Trying to see if wegovy may be covered- also instructed her to talk with [employer] and her husbands [employer] to see if wegovy covered under independent plan Assessment & Plan (05/31/2017 8:49 PM CDT): Unfortunately continues to gain weight, is nearly in the morbidly obese category. 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 Not on file Not on file Last Filed Vital Signs Vital Sign Reading Time Taken Comments Blood Pressure 102/64 11/14/2024 9:51 AM REHABILITATION ENGINEER Pulse 91 11/14/2024 9:51 AM REHABILITATION ENGINEER Temperature 36.3 C (97.4 F) 11/14/2024 9:51 AM REHABILITATION ENGINEER Respiratory Rate 18 11/14/2024 9:51 AM REHABILITATION ENGINEER Oxygen Saturation 97% 11/14/2024 9:51 AM REHABILITATION ENGINEER Inhaled Oxygen Concentration - - Weight 111.1 kg (245 lb) 11/14/2024 9:51 AM REHABILITATION ENGINEER Height 165.1 cm (5' 5 ) 11/14/2024 9:51 AM REHABILITATION ENGINEER Body Mass Index 40.77 11/14/2024 9:51 AM REHABILITATION ENGINEER Plan of Treatment Not on file Goals Goal Patient Goal Type Associated Problems Recent Progress Patient-Stated? Author CCM Chronic Pain Care Plan Chronic Care Management On track(2024 2:01 PM REHABILITATION ENGINEER) No Sharon Thompson, NOE Note: Problem: Chronic Pain Goals: 1. Minimize further functional decline 2. Maximize quality of life 3. Control pain Strategies: - Activity/exercise program recommendation - Conservative stepwise pain medicine strategy with multi-disciplinary approach - Recommend healthy lifestyle strategies and compensatory methods as needed Medical Devices Implanted Type Area Director Of Agriculture Device Identifier Shelf Expiration Date Model / Serial / Lot Spr Therapeutics System Nerve Stimulator Peripheral Single Lead Sprint Endura [id number] - [id number] Implanted:Qty: 1 on 11/10/2024 by Arlette Marsh MD PhD at [facility] Lead [employer] 10/05/2025 9 [id number] / / [id number] Description:Implant was expl anted. Patient did not tolerate procedure could not get neurmodulation settings to appropriate setting to satisfy patient need. Procedures Procedure Name Priority Date/Time Associated Diagnosis Comments US GUIDED SPRINT PNS 1ST LEAD IMPLANT Schedule Routine, Read Routine (OP Routine) 11/10/2024 3:54 PM REHABILITATION ENGINEER Neuralgia HEMOGLOBIN A1C Routine 10/18/2024 9:12 AM REHABILITATION ENGINEER Hyperglycemia COMPREHENSIVE METABOLIC PANEL Routine 10/18/2024 9:12 AM REHABILITATION ENGINEER Hyperglycemia LIPID PANEL Routine 06/13/2024 8:14 AM CDT Mixed hyperlipidemia Preventative health care HM PAP SMEAR WITH HPV Routine 01/11/2023 SCREENING MAMMOGRAM BILATERAL W CARLOS Schedule Routine, Read Routine (OP Routine) 05/26/2022 3:17 PM CDT Preventative health care from Last 3 Months or Most Recently Relevant to Health Maintenance Results * US Guided Sprint PNS 1st Lead Implant (11/10/2024 3:54 PM REHABILITATION ENGINEER) Narrative SYSTEMGENERATED, DOCUMENTATION II - 11/10/2024 3:56 PM REHABILITATION ENGINEER The images from this study are not interpreted by Radiology. Please refer to the physician's procedure / OR operative note. us Arlette Marsh MD PhD IMG FLUOROSCOPY PROCED URES Final Result * (ABNORMAL) Hemoglobin A1c (10/18/2024 9:12 AM REHABILITATION ENGINEER) Hgb A1C 7.2(H) 4.8 - 5.6 % [facility] - 01 Comment: Prediabetes: 5.7 - 6.4 Diabetes: >6.4 Glycemic control for adults with diabetes: <7.0 Blood 10/18/2024 9:12 AM REHABILITATION ENGINEER 10/18/2024 Narrative [facility] - 10/19/2024 3:35 AM REHABILITATION ENGINEER Performed at: - Lab[address] [id number] Electrical Contacts Adjuster: Kahlil Mims PhD, Phone: [phone] Tom Crystal Jr., MD LAB BLOOD ORDERABLES Final Result [facility] * (ABNORMAL) Comprehensive metabolic panel (10/18/2024 9:12 AM REHABILITATION ENGINEER) Pathologist [facility] Glucose 140(H) 70 - 99 [...] [facility] - 01 Blood 10/18/2024 9:12 AM REHABILITATION ENGINEER 10/18/2024 Narrative [facility] - 10/19/2024 3:35 AM REHABILITATION ENGINEER Performed at: [address] [id number] Electrical Contacts Adjuster: Kahlil Mims PhD, Phone: [phone] Tom Crystal Jr., MD LAB BLOOD ORDERABLES Final Result Performing Organization Address [facility] Co de Phone Number [facility] * (ABNORMAL) Lipid panel (06/13/2024 8:14 AM CDT) Cholesterol 147 100 - 199 mg/dL [facility] - 01 Triglycerides 209(H) 0 - 149 mg/dL [facility] - 01 HDL Cholesterol 37(L) >39 mg/dL [facility] - 01 VLDL 35 5 - 40 mg/dL [facility] - 01 LDL, calculated 75 0 - 99 mg/dL [facility] - 01 Blood 06/13/2024 8:14 AM CDT 06/13/2024 Narrative [facility] - 06/14/2024 3:35 AM CDT Performed at: [address] [id number] Electrical Contacts Adjuster: Kahlil Mims PhD, Phone: [phone] us Tom Crystal Jr., MD LAB BLOOD ORDERABLES Final Result Performing Organization Address City/[facility]/ZIP Co de Phone Number [facility] - * HM PAP SMEAR WITH HPV (01/11/2023) Scribed Pap Smear w/HPV Normal us Historical Provider HEALTH MAINTENANCE Final Result * [...] age 40, based on guidelines of the [place] [employer] (ACR Practice Parameter for the Performance of Screening and Diagnostic Mammography) and [place]. For women [...] Most Recently Relevant to Health [place] [address] [facility] OPEN ACCESS [employer] OPEN ACCESS [employer] OPEN ACCESS [employer] OPEN ACCESS Care Teams Systems Software Engineer Relationship Specialty Start Date End Date Tom Crystal Jr., MD [address] [place] [address] PCP - General Internal Medicine 07/23/22 Gerardo Ortega MD [address] [place] [address] Referring Physician Obstetrics and Gynecology 04/10/21 Israel Cervantes Jr., DPM [address] [place] [phone] Referring Physician Podiatry 04/10/21 Linda Moore MD [address] [place] [phone] Consulting Physician Cardiology 04/10/21 Noe Acevedo MD [facility] [place] [address] Consulting Physician Rheumatology 08/17/23
--- OUTSIDE RECORDS SUMMARY | 2024-12-19 13:35 | XMS_ITS | Clinical Summary ---
Author Organization [facility] Address [address] [place] [address] Phone Care Team Providers Care Property And Supply Officer Name Role Phone Unavailable Primary Care Provider Unavailabl e Allergies No known active allergies Medications FLUoxetine (PROzac) 40 mg capsule TAKE ONE CAPSULE BY MOUTH ONCE DAILY 90 Capsule 07/22/2022 9:41 AM CDT 2 Active albuterol sulfate HFA 90 mcg/actuation aerosol inhaler Inhale 2 puffs every 4 (four) hours as needed for wheezing or shortness of breath 25.5 Gram 4 12/10/2022 4:22 PM BOARD SETTER 3 Active azithromycin (ZITHROMAX) 250 mg tablet Take 2 tablets (500 mg) by mouth today, than take 1 tablet (250 mg) once daily for 4 days. 6 Tablet 11/06/2022 3:41 PM BOARD SETTER 3 Active FLUoxetine (PROzac) 40 mg capsule TAKE ONE CAPSULE BY MOUTH ONCE DAILY 90 Capsule 3 Active amitriptyline (ELAVIL) 25 mg tablet Take 1 tablet (25 mg total) by mouth nightly 90 Tablet 1 12/04/2022 7:20 PM BOARD SETTER 3 Active pregabalin (LYRICA) 75 mg Capsule [...] mouth daily 30 Capsule 08/11/2023 10:10 AM BOARD SETTER 3 Active sertraline (ZOLOFT) 25 mg tablet Take 1 tablet (25 mg total) by mouth daily 90 Tablet 4 08/11/2023 10:10 AM BOARD SETTER 3 Active sertraline (ZOLOFT) 25 mg tablet Take 1 tablet (25 mg total) by mouth daily 90 Tablet 4 3 Active HYDROcodone-moira taminophen (NORCO) 5-325 mg tablet Take 1 tablet by mouth every 6 (six) hours as needed for pain for up to 7 days 28 Tablet 09/01/2023 2:07 PM BOARD SETTER 3 Active HYDROcodone-moira taminophen (NORCO) 5-325 mg tablet Take 1 Tablet by mouth nightly as needed for pain. 30 Tablet 10/07/2023 11:40 AM BOARD SETTER 4 Active cariprazine (Vraylar) 1.5 mg Capsule capsule Take 1 Capsule (1.5 mg) by mouth daily. 90 Capsule 12/20/2023 6:53 PM CDT 4 Active amLODIPine (NORVASC) 5 mg tablet Take 1 Tablet (5 mg) by mouth daily. 90 Tablet 4 11/05/2023 2:59 PM BOARD SETTER 4 Active Encounters Date Type Department Care Team Description 12/12/2024 External Device Data [facility] Provider, Abstract 12/12/2024 External Device Data [facility] Provider, Abstract 12/09/2024 External Device Data [facility] Provider, Abstract 12/08/2024 External Device Data [facility] Provider, Abstract 12/05/2024 External Device Data [facility] Provider, Abstract 11/21/2024 External Device Data [facility] Provider, Abstract 11/14/2024 External Device Data [facility] Provider, Abstract 10/25/2024 External Device Data [facility] Provider, [...]
--- OUTSIDE RECORDS SUMMARY | 2024-12-19 13:35 | XMS_ITS | Encounter Summary ---
Author Organization [facility] Healthcare Address [address] [place] [address] Care Team Providers Care Manager Of Enterprise Name Role Phone Gerardo Ortega MD Unavailable [phone] Billy Guevara DPM, Gabriel Unavailable [phone] Linda Moore MD Unavailable [phone] Bonilla Guevara MD, Tom Mackey Primary Care Provide r Noe Acevedo MD Unavailable [phone] Reason for Visit * Reason Onset Date Comments infusion 03/07/2024 Encounter Details Date Type Department Care Team (Late st Contact Info) Description 03/07/2024 Telephone [facility] [place] [facility] [address] [facility] [address] [place] [address] Arlette Marsh MD PhD [address] [facility] [address] [place] [address] infusion Social History Tobacco Use Types Packs/Day [...] on file Legal Sex Female 3:33 AM AUTOMOBILE ENGINE ASSEMBLER Gender Identity Not on file Sexual Orientation [...] Chronic Care Management On track(2024 2:01 PM AUTOMOBILE ENGINE ASSEMBLER) No Sharon Thompson, NOE Note: Problem: Chronic Pain Goals: 1. Minimize further functional decline 2. Maximize quality of life 3. Control pain Strategies: - Activity/exercise program recommendation - Conservative stepwise pain medicine strategy with multi-disciplinary approach - Recommend healthy lifestyle strategies and compensatory methods as needed documented as of this encounter Visit Diagnoses Not on filedocumented in this encounter Care Teams Manager Of Enterprise Relationship Specialty Start Date End Date Tom Crystal Jr., MD [address] [address] PCP - General Internal Medicine 07/23/22 Gerardo Ortega MD [address] [address] Referring Physician Obstetrics and Gynecology 04/10/21 Israel Cervantes Jr., DPM [address] [place] [address] Referring Physician Podiatry 04/10/21 Linda Moore MD [address] [place] [address] Consulting Physician Cardiology 04/10/21 Noe Acevedo MD [address] [place] [address] Consulting Physician Rheumatology 08/17/23 documented as of this encounter
--- OUTSIDE RECORDS SUMMARY | 2024-12-19 13:35 | XMS_ITS | Encounter Summary ---
Author Organization [facility] Healthcare Address [address] [place] [address] Care Team Providers Care Smooth And Burr Worker Composites Name Role Phone Gerardo Ortega MD Unavailable [phone] Billy Guevara DPM, Gabriel Unavailable [phone] Linda Moore MD Unavailable [phone] Bonilla Guevara MD, Tom Mackey Primary Care Provide r Noe Acevedo MD Unavailable [phone] Reason for Visit * Reason Onset Date Comments [facility] Preprocedure 01/06/2024 Encounter Details Date Type Department Care Team (Late st Contact Info) Description 01/06/2024 Telephone [facility] [address] [facility] Advanced Medicine [address] [place], [place] [id number] Derik Faith MD [address] [facility] [address] [place] [address] [facility] Preprocedure Social History Tobacco Use [...] on file Legal Sex Female 3:33 AM GAS APPLIANCE SERVICER HELPER Gender Identity Not on file Sexual Orientation [...] Chronic Care Management On track(2024 2:01 PM GAS APPLIANCE SERVICER HELPER) Sharon Chamberlain, NOE Note: Problem: Chronic Pain Goals: 1. Minimize further functional decline 2. Maximize quality of life 3. Control pain Strategies: - Activity/exercise program recommendation - Conservative stepwise pain medicine strategy with multi-disciplinary approach - Recommend healthy lifestyle strategies and compensatory methods as needed documented as of this encounter Visit Diagnoses Not on filedocumented in this encounter Care Teams Smooth And Burr Worker Composites Relationship Specialty Start Date End Date Tom Crystal Jr., MD [address] [address] PCP - General Internal Medicine 07/23/22 Gerardo Ortega MD [address] [address] Referring Physician Obstetrics and Gynecology 04/10/21 Israel Cervantes Jr., DPM [address] [place] [address] Referring Physician Podiatry 04/10/21 Linda Moore MD [address] [facility] [address] [place] [address] Consulting Physician Cardiology 04/10/21 Noe Acevedo MD [address] [place] [address] Consulting Physician Rheumatology 08/17/23 documented as of this encounter
--- OUTSIDE RECORDS SUMMARY | 2024-12-19 13:35 | XMS_ITS | Encounter Summary ---
Author Organization [facility] Address [address] [place] [address] Phone Care Team Providers Care Plant Operations Vice President Name Role Phone Gerardo Ortega MD Unavailable [phone] Billy Guevara DPM, Gabriel Unavailable [phone] Linda Moore MD Unavailable [phone] Bonilla Guevara MD, Tom Mackey Primary Care Provide r Noe Acevedo MD Unavailable [phone] Reason for Visit * Reason Onset Date Comments Scheduling Appointments 12/18/2024 Encounter Details Date Type Department Care Team (Late st Contact Info) Description 12/18/2024 Telephone [facility] Scheduling [address] [place] [address] Amrit Bright MD PhD [address] [place] [address] Scheduling Appointments Social History Tobacco Use Types Packs/Day Years [...] on file Legal Sex Female 3:33 AM BUS AND RAIL OPERATOR Gender Identity Not on file Sexual Orientation Not on file 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 documented in this encounter Plan of Treatment Not on file documented as of this encounter Goals Goal Patient Goal Type Associated Problems Recent Progress Patient-Stated? Author CCM Chronic Pain Care Plan Chronic Care Management On track(2024 2:01 PM BUS AND RAIL OPERATOR) No Sharon Thompson RN Note: Problem: Chronic Pain Goals: 1. Minimize further functional decline 2. Maximize quality of life 3. Control pain Strategies: - Activity/exercise program recommendation - Conservative stepwise pain medicine strategy with multi-disciplinary approach - Recommend healthy lifestyle strategies and compensatory methods as needed documented as of this encounter Visit Diagnoses Not on filedocumented in this encounter Care Teams Plant Operations Vice President Relationship Specialty Start Date End Date Tom Crystal Jr., MD [address] [address] PCP - General Internal Medicine 07/23/22 Gerardo Ortega MD [address] [address] Referring Physician Obstetrics and Gynecology 04/10/21 Israel Cervantes Jr., DPM [address] [place] [address] Referring Physician Podiatry 04/10/21 Linda Moore MD [address] [address] Consulting Physician Cardiology 04/10/21 Noe Acevedo MD [address] [place] [address] Consulting Physician Rheumatology 08/17/23 documented as of this encounter
--- OUTSIDE RECORDS SUMMARY | 2024-12-19 13:35 | XMS_ITS | Clinical Summary ---
Author Organization [facility] [address] Address [address] [place] [address] Care Team Providers Care Software Requirements Engineer Name Role Phone Gerardo Ortega MD Unavailable [phone] Billy Guevara DPM, Gabriel Unavailable Linda Moore MD Unavailable [phone] Bonilla Guevara MD, Tom Mackey Primary Care Provide r Noe Acevedo MD Unavailable [phone] Allergies Active Allergy Reactions Criticality Noted Date [...] (BMI) of 40.0 to 44.9 in adult (HCC),MARINE on CPAP Inject 0.5 mL (7.5 mg [...] (BMI) of 40.0 to 44.9 in adult ([facility]) Inject 0.5 mL (5 mg total) under the skin every 7 days 2 mL 11/13/19 25 025 Discontinued losartan (COZAAR) 100 mg tabletIndications :Type 2 diabetes mellitus with hyperlipidemia ([facility]) Take 1 tablet (100 mg total) by mouth daily 90 tablet 4 11/14/19 25 025 Discontinued tirzepatide, weight loss, (Zepbound) 7.5 mg/0.5 mL pen injectorIndicatio ns:Class 3 severe obesity due to excess calories with serious comorbidity and body mass index (BMI) of 40.0 to 44.9 in adult ([facility]),MARINE on CPAP Inject 0.5 mL (7.5 mg total) under the skin every 7 days 2 mL 12/15/19 25 025 Discontinued(R eorder) Active Problems Problem Noted Date Diagnosed Date Type 2 diabetes mellitus with hyperlipidemia 08/2025 Moderate episode of recurrent major depressive d isorder 11/14/2024 Assessment & Plan (11/14/2024 12:42 PM COMPUTING ARCHITECT): Chronic stable Well controlled Continue current prescribed medications prozac at current dose Preventative health care 06/16/2024 Assessment & Plan (06/16/2024 9:48 AM CDT): Reviewed labs, screenings and vaccines Rash and nonspecific skin eruption 09/14/2023 Overview (10/05/2023): 09/2023 AVISE negative, Neg Myositis 11 panel, CRP 35.5, ESR 9, AST 42, ALT 45, TSH 2.12, 06/2022 XR: -R elbow: unremarkable -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 Vazquez is a 43yo female with [...] Acevedo. Assessment & Plan (09/14/2023 11:33 AM COMPUTING ARCHITECT): Ms. Vazquez is a 43yo female with [...] 03/12/2022 Assessment & Plan (11/14/2024 10:16 AM COMPUTING ARCHITECT): Got zepbound approved Assessment & Plan (06/16/2024 11:19 AM CDT): Will hector for now Made several diet changes, weight remains the same Assessment & Plan (01/25/2024 9:41 AM CDT): Monitor weight Assessment & Plan (01/21/2023 11:02 AM CDT): With HTN and HLD Doing hand written prescription for Codasip for Drifty, cheapest option available Will try to do this via phone moving forward MARINE on CPAP 05/12/2021 Neuropathy 04/11/2021 Assessment & Plan (11/14/2024 12:42 PM COMPUTING ARCHITECT): Chronic stable Well controlled Continue current prescribed [...] podiatric surgery. Body mass index 40.0-44.9, adult ([facility]) 03/12/2022 01/21/2023 Overview (03/13/2022): Has been on [...] 05/31/20172021 Assessment & Plan (09/12/2021 1:24 PM COMPUTING ARCHITECT): Cont saxenda On month ~6 for now [...] covered- also instructed her to talk with [employer]o [employer] and her husbands employer [employer] to see if wegovy covered under independent plan Assessment & Plan (05/31/2017 8:49 PM CDT): Unfortunately continues to gain weight, is nearly in the morbidly obese category. Encounters Date Type Department Care Team Description 12/18/2024 Telephone [facility] Scheduling [address] [place] [address] Amrit Bright MD PhD Scheduling Appointments 12/14/2024 Telephone [facility] Primary Care [address] [place] [phone] Tom Crystal Jr., MD 11/23/2024 Orders Only [facility] Primary Care [address] [place] [phone] Tom Crystal Jr., MD Gastroesophageal reflux disease without esophagitis (Primary Dx) 11/14/2024 9:45 AM COMPUTING ARCHITECT Office Visit [facility] Primary Care [address] [place] [phone] Tom Crystal Jr., MD Type 2 diabetes mellitus with hyperlipidemia (HCC) (Primary Dx); Moderate episode of recurrent major depressive disorder (HCC); Class 3 severe obesity due to excess calories with serious comorbidity and body mass index (BMI) of 40.0 to 44.9 in adult (HCC); Neuropathy 11/10/2024 12:58 PM COMPUTING ARCHITECT - 11/10/2024 11:59 PM COMPUTING ARCHITECT Hospital Encounter [facility] Pain Center at the [facility] Medicine [address] [place] [address] Arlette Marsh MD PhD Complex regional pain syndrome type 1 of left lower extremity (Primary Dx); Neuralgia Discharge Disposition: Discharge to home or self care 11/08/2024 Telephone [facility] Pain Center at the [facility] Advanced Medicine [address] [place] [address] Medicine [address] [place] [address] Arlette Marsh MD PhD pre-procedure instructions 10/17/2024 Orders Only [facility] Pain Center at the [facility] [address] [place] [address] for Advanced Medicine [address] [place] [address] Arlette Marsh MD PhD Neuropathy 10/12/2024 Telephone [facility] [address] [place] [address] for Advanced Medicine [address] [place] [address] Arlette Marsh MD PhD 10/11/2024 Orders Only [facility] Center at the [facility] [address] [place] [address] for Advanced Medicine [address] [place] [address] Winter Verma RN 09/22/2024 9:02 AM COMPUTING ARCHITECT - 09/22/2024 11:59 PM COMPUTING ARCHITECT Hospital Encounter [facility] at the [facility] Advanced Medicine [address] [place] [address] Advanced Medicine [address] [place] [address] Arlette Marsh MD PhD Neuralgia (Primary Dx) Discharge Disposition: Discharge to home or self care from Last 3 Months Immunizations Immunization Administration Dates Next Due Influenza, [...] left 1 right TONSILLECTOMY ENDOMETRIAL ABLATION W/ NOVASURE FL UPPER GI AIR CONTRAST W KUB 11/10/2024 Left Medical History Medical History Date Comments Hx Other Medical migraines; Comm ents: [facility] 11/09/2014 - Hx Other Medical psoriasis; Comm ents: [facility] 11/09/2014 - Hx Other Medical asthma; Comment s: [facility] 11/09/2014 - Hypertension Hypertension Depression Depression Hx Other Medical obesity; Commen ts: [facility] 11/09/2014 - Tachycardia Gout Peripheral [...] on file Legal Sex Female 3:33 AM COMPUTING ARCHITECT Gender Identity Not on file Sexual Orientation [...] Comments Blood Pressure 102/64 11/14/2024 9:51 AM COMPUTING ARCHITECT Pulse 91 11/14/2024 9:51 AM COMPUTING ARCHITECT Temperature 36.3 C (97.4 F) 11/14/2024 9:51 AM COMPUTING ARCHITECT Respiratory Rate 18 11/14/2024 9:51 AM COMPUTING ARCHITECT Oxygen Saturation 97% 11/14/2024 9:51 AM COMPUTING ARCHITECT Inhaled Oxygen Concentration - - Weight 111.1 kg (245 lb) 11/14/2024 9:51 AM COMPUTING ARCHITECT Height 165.1 cm (5' 5 ) 11/14/2024 9:51 AM COMPUTING ARCHITECT Body Mass Index 40.77 11/14/2024 9:51 AM COMPUTING ARCHITECT Plan of Treatment Health Maintenance Due Date Last Done Comments Albumin Creatinine Ratio, Urine 1982 Hepatitis C Screening 1982 Dilated Eye Exam 1982 Foot Exam 1982 Hepatitis B Screening 01/20/2000 Pneumococcal vaccine <65 (1 of 2 - PCV) 2001 Breast Cancer Screening-Mammogram 05/26/2023 05/26/2022 Cervical Cancer Screening 01/12/2024 01/11/2023 Covid-19 Vaccine ( season) 2024 10/01/2021, 02/03/2021, 01/13/2021 Hemoglobin A1C 04/17/2025 10/18/2024, 06/04, 07/16/2022, Additional history exists Lipid Panel 06/13/2025 06/13/2024, 06/05, 07/16/2022, Additional history exists Regular Well Visit/Exam 18-64 06/16/2025 06/16/2024, 06/12/2022, 04/10/2021 eGFR 10/18/2025 10/18/2024, 06/04, 09/14/2023, Additional history exists Depression Screening 11/14/2025 11/14/2024, 06/16/2024, 01/25/2024, Additional history exists DTaP/Tdap/Td Vaccine (2 - Td or Tdap) 09/11/2031 09/11/2021 Influenza Vaccine Completed 06/16/2024, , 09/11/2021, Additional history exists HPV Vaccines Aged Out No longer eligi ble based on patient's age to complete this topic Varicella Vaccines Discontinued Goals Goal Patient Goal Type Associated Problems Recent Progress Patient-Stated? Author CCM Chronic Pain Care Plan Chronic Care Management On track(2024 2:01 PM COMPUTING ARCHITECT) No Sharon Thompson, RN Note: Problem: Chronic Pain Goals: 1. Minimize further functional decline 2. Maximize quality of life 3. Control pain Strategies: - Activity/exercise program recommendation - Conservative stepwise pain medicine strategy with multi-disciplinary approach - Recommend healthy lifestyle strategies and compensatory methods as needed Medical Devices Implanted Type Area Dental Laboratory Technician Device Identifier Shelf Expiration Date Model / Serial / Lot [employer] System Nerve Stimulator Peripheral Single Lead Sprint [facility] [id number] - [id number] Implanted:Qty: 1 on 11/10/2024 by Arlette Marsh MD PhD at [facility] Lead [employer] 10/05/2025 [id number] / / [id number] Description:Implant was expl anted. Patient did not tolerate procedure could not get neurmodulation settings to appropriate setting to satisfy patient need. Procedures Procedure Name Priority Date/Time Associated Diagnosis Comments US GUIDED SPRINT PNS 1ST LEAD IMPLANT Schedule Routine, Read Routine (OP Routine) 11/10/2024 3:54 PM COMPUTING ARCHITECT Neuralgia HEMOGLOBIN A1C Routine 10/18/2024 9:12 AM COMPUTING ARCHITECT Hyperglycemia COMPREHENSIVE METABOLIC PANEL Routine 10/18/2024 9:12 AM COMPUTING ARCHITECT Hyperglycemia LIPID PANEL Routine 06/13/2024 8:14 AM CDT Mixed hyperlipidemia Preventative health care HM PAP SMEAR WITH HPV Routine 01/11/2023 SCREENING MAMMOGRAM BILATERAL W CARLOS Schedule Routine, Read Routine (OP Routine) 05/26/2022 3:17 PM CDT Preventative health care from Last 3 Months or Most Recently Relevant to Health Maintenance Results * US Guided Sprint PNS 1st Lead Implant (11/10/2024 3:54 PM COMPUTING ARCHITECT) Narrative SYSTEMGENERATED, DOCUMENTATION II - 11/10/2024 3:56 PM COMPUTING ARCHITECT The images from this study are not interpreted by Radiology. Please refer to the physician's procedure / OR operative note. us Arlette Marsh MD PhD IMG FLUOROSCOPY PROCED URES Final Result * (ABNORMAL) Hemoglobin A1c (10/18/2024 9:12 AM COMPUTING ARCHITECT) Hgb A1C 7.2(H) 4.8 - 5.6 % [facility] - 01 Comment: Prediabetes: 5.7 - 6.4 Diabetes: >6.4 Glycemic control for adults with diabetes: <7.0 Blood 10/18/2024 9:12 AM COMPUTING ARCHITECT 10/18/2024 Narrative [facility] - 10/19/2024 3:35 AM COMPUTING ARCHITECT Performed at: [address] [id number] Animal Warden: Kahlil Mims PhD, Phone: [phone] us Tom Crystal Jr., MD LAB BLOOD ORDERABLES Final Result [facility] - 01 * (ABNORMAL) Comprehensive metabolic panel (10/18/2024 9:12 AM COMPUTING ARCHITECT) Glucose 140(H) 70 - 99 mg/dL [facility] [...] [facility] - 01 Blood 10/18/2024 9:12 AM COMPUTING ARCHITECT 10/18/2024 Narrative [facility] - 10/19/2024 3:35 AM COMPUTING ARCHITECT Performed at: [address] [id number] Animal Warden: Kahlil Mims PhD, Phone: [phone] us Tom Crystal Jr., MD LAB BLOOD ORDERABLES Final Result [facility] * (ABNORMAL) Lipid panel (06/13/2024 8:14 AM CDT) [facility] Signature Cholesterol 147 100 - 199 mg/dL [facility] - 01 Triglycerides 209(H) 0 - 149 mg/dL [facility] - 01 HDL Cholesterol 37(L) >39 mg/dL [facility] - 01 VLDL 35 5 - 40 mg/dL [facility] - 01 LDL, calculated 75 0 - 99 mg/dL [facility] - 01 Blood 06/13/2024 8:14 AM CDT 06/13/2024 Narrative [facility] - 06/14/2024 3:35 AM CDT Performed at: [address], [place] [id number] Animal Warden: Kahlil Mims PhD, Phone: [phone] Tom Crystal Jr., MD LAB BLOOD ORDERABLES Final Result [facility] - 01 * HM PAP SMEAR [...] age 40, based on guidelines of the [employer] (ACR Practice Parameter for the Performance of Screening and Diagnostic Mammography) and [employer]. For women [...] Most Recently Relevant to Health Maintenance Insurance [employer] OPEN ACCESS [employer] OPEN ACCESS [employer] OPEN ACCESS [employer] OPEN ACCESS Care Teams Software Requirements Engineer Relationship Specialty Start Date End Date Tom Crystal Jr., MD [address] [place] [phone] PCP - General Internal Medicine 07/23/22 Gerardo Ortega MD [address] [place] [address] Referring Physician Obstetrics and Gynecology 04/10/21 Israel Cervantes Jr., DPM [address] [address] Referring Physician Podiatry 04/10/21 Linda Moore MD [address] [facility] [address] [phone] Consulting Physician Cardiology 04/10/21 Noe Acevedo MD [facility] [place] [address] Consulting Physician Rheumatology 08/17/23
--- OUTSIDE RECORDS SUMMARY | 2024-12-19 13:35 | XMS_ITS | Clinical Summary ---
Author Organization [facility] Address [address] [place] [address] Care Team Providers Care General Counsel Name Role Phone Tom Lees MD Primary Care Provider [phone] [facility],non-owned Affiliates and Associated Physician Practices is amultiple site organization consisting of ambulatory clinics and hospital sitesin [place], [place], [place]. This disclosure is being madepursuant to the Care Everywhere program and may not contain all information available regarding this patient. Last updated 18.[facility] Social History Tobacco Use Types Packs/Day Years [...] complete this topic MENINGOCOCCAL (Group B) VACCINE SHARED DECISION-MAKING Aged Out No longer eligible based on patient's age to complete this topic MENINGOCOCCAL GROUPS A/C/Y/W VACCINE Aged Out No longer eligible based on patient's age to complete this topic PNEUMOCOCCAL VACCINE Aged Out No long er eligible based on patient's age to complete this topic Care Teams General Counsel Relationship Specialty Start Date End Date Tom Lees MD [facility] [address] [place] [address] PCP - General 07/10/19
== END 2024-12-19 12:10 | disposition home or self-care (01) ==
PROVIDERS: PCP Hospitalist; Visit Provider Obstetrics & Gynecology
DX: Z12.31 Encounter for screening mammogram for malignant neoplasm of breast (principal); R92.8 Other abnormal and inconclusive findings on diagnostic imaging of breast
CPT/HCPCS: 77063; 77067

== ENCOUNTER 2025-01-01 09:49 | Outpatient (CLI) | payer OTHER, SELFPAY ==
--- NOTE | ~2025-01-01 | MMUS_ITS ---
EXAMINATION: MM diagnostic isabel LT w veda, US breast LT limited HISTORY: Follow-up nodular asymmetries in the upper outer quadrant of the left breast posteriorly. TECHNIQUE: Additional 3-D tomosynthesis images of the left breast were performed and synthetic 2-D im ages were generated. CAD analysis was submitted and interpreted. High resolution Limited left breast ultrasound was performed. COMPARISON: 12/19/2024 BREAST PARENCHYMAL COMPOSITION: Not dense: There are scattered areas of fibroglandular density. FINDINGS: MAMMOGRAPHIC FINDINGS: There are persistent small radiolucent masses in the upper outer quadrant of the left breast which ar e partially obscured by fibroglandular tissue. The given the location and appearance these are likely benign intramammary lymph nodes. ULTRASOUND: Limited left breast ultrasound: Normal heterogeneous echotexture. No focal solid or cystic mass is id entified. IMPRESSION: 1. Probable benign masses in the upper outer quadrant of the left breast. No sonographic correlate. 2. Recommend 6 month follow-up diagnostic left mammogram. BI-RADS category 3, probably benign findings. Reviewed, dictated and finalized at location A. IMPRESSION: 1. Probable benign masses in the upper outer quadrant of the left breast. No so nographic correlate. 2. Recommend 6 month follow-up diagnostic left mammogram. BI-RADS category 3, probably benign findings.
--- OUTSIDE RECORDS SUMMARY | 2025-01-01 10:56 | XMS_ITS | Clinical Summary ---
Author Organization [facility] Address [address] [place] [address] Care Team Providers Care Dicer Operator Name Role Phone Linda Moore MD Unavailable [phone] Bonilla Guevara MD, Tom Patricio Primary Care [...] Date Last Done Comments Cervical Cancer Screening Pa p Smear (Age 30 to 64) Every 3 Years 1982 Annual Physical 1985 Hepatitis C 01/20/2000 Hepatitis B Vaccines (1 of 3 - 19+ 3-dose series) 2001 Cervical Cancer Screening Pa p with HPV Testing (Age 30 to 64) Every 5 Years 01/20/2012 Cervical Cancer Screening wi th HPV 01/20/2012 Mammogram Screening 2022 COVID-19 Vaccine (2023-2 5 season) 2024 10/01/2021, 02/03/2021, 01/13/2021 DTaP, Tdap and Td Vaccines ( 2 - Td or Tdap) 09/11/2031 09/11/2021 HPV [...] 64 Years) Aged Out No longer eligible b ased on patient's age to complete this topic RSV Immunizations Under 20 Months Aged Out No longer eligible b ased on patient's age to complete this topic Medical Devices Explanted Type Area Soft Sugar Operator Head Device Identifier Shelf Expiration Date Model / Serial / Lot Plate Explanted:Qty: 1 on 04/23/2022 by Margarito Crystal DPM at [facility] Plate Left: Foot Description:Plate and screws removed from left foot- hardware from [employer] Screws Explanted:Qty: 1 on 04/23/2022 by Margarito Crystal DPM at [facility] Screw Left: Foot Description:Hardware explant ed from Left foot - hardware from [employer] Insurance [facility] Care Teams Dicer Operator Relationship Specialty Start Date End Date Tom Crystal Jr., MD [address] [place] [address] PCP - General HOSPITALIST 05/06/23 Linda Moore MD [address] [address] CARDIOVASCULAR DISEASE 04/16/22
--- OUTSIDE RECORDS SUMMARY | 2025-01-01 10:56 | XMS_ITS | Encounter Summary ---
Author Organization [facility] Healthcare Address [address] [facility] [place] [address] Care Team Providers Care Program Management Specialist Name Role Phone Gerardo Ortega MD Unavailable [phone] Billy Guevara DPM, Gabriel Unavailable [phone] Linda Moore MD Unavailable [phone] Bonilla Guevara MD, Tom Mackey Primary Care Provide r Noe Acevedo MD Unavailable [phone] Reason for Visit * Reason Onset Date Comments pre-procedure instructions 11/08/2024 Encounter Details Date Type Department Care Team (Late st Contact Info) Description 11/08/2024 Telephone [facility] Pain Center at the [place] [facility] [address] Advanced Medicine [address] [place] [address] Arlette Marsh MD PhD [address] [facility] [address] [place] [address] pre-procedure instructions Social History Tobacco Use Types [...] on file Legal Sex Female 3:33 AM VAMP MAKER Gender Identity Not on file Sexual Orientation [...] Type Associated Problems Recent Progress Patient-Stated? Author [facility] Chronic Pain Care Plan Chronic Care Management On track(2024 2:01 PM VAMP MAKER) Sharno Chamberlain RN Note: Problem: Chronic Pain Goals: 1. Minimize further functional decline 2. Maximize quality of life 3. Control pain Strategies: - Activity/exercise program recommendation - Conservative stepwise pain medicine strategy with multi-disciplinary approach - Recommend healthy lifestyle strategies and compensatory methods as needed documented as of this encounter Visit Diagnoses Not on filedocumented in this encounter Care Teams Program Management Specialist Relationship Specialty Start Date End Date Tom Crystal Jr., MD [address] [place] [address] PCP - General Internal Medicine 07/23/22 Gerardo Ortega MD [address] [phone] Referring Physician Obstetrics and Gynecology 04/10/21 Israel Cervantes Jr., DPM [address] [phone] Referring Physician Podiatry 04/10/21 Linda Moore MD [address] [address] Consulting Physician Cardiology 04/10/21 Noe Acevedo MD [address] [place] [address] Consulting Physician Rheumatology 08/17/23 documented as of this encounter
--- OUTSIDE RECORDS SUMMARY | 2025-01-01 10:56 | XMS_ITS | Referral Summary ---
Author Organization [facility] [address] Address [address] [place] [address] Care Team Providers Care Stock Roller Name Role Phone Gerardo Ortega MD Unavailable [phone] Billy Guevara DPM, Gabriel Unavailable [phone] Linda Moore MD Unavailable [phone] Bonilla Guevara MD, Tom Mackey Primary Care Provide r Noe Acevedo MD Unavailable Encounters Date Type Department Care Team Description 12/18/2024 Telephone [facility] Scheduling [address] [place] [address] Amrit Bright MD PhD Scheduling Appointments 12/14/2024 Telephone [facility] [address] [place] [phone] Tom Crystal Jr., MD 11/23/2024 Orders Only [facility] [address] [place] [phone] Tom Crystal Jr., MD Gastroesophageal reflux disease without esophagitis (Primary Dx) 11/14/2024 9:45 AM FERTILIZING MACHINE OPERATOR Office Visit [facility] [address] [place] [phone] Tom Crystal Jr., MD Type 2 diabetes mellitus with hyperlipidemia (HCC) (Primary Dx); Moderate episode of recurrent major depressive disorder (HCC); Class 3 severe obesity due to excess calories with serious comorbidity and body mass index (BMI) of 40.0 to 44.9 in adult (HCC); Neuropathy 11/10/2024 12:58 PM FERTILIZING MACHINE OPERATOR - 11/10/2024 11:59 PM FERTILIZING MACHINE OPERATOR Hospital Encounter [facility] [address] [place] [address] for [facility] Medicine [address] [place] [address] Arlette Marsh MD PhD Complex regional pain syndrome type 1 of left lower extremity (Primary Dx); Neuralgia Discharge Disposition: Discharge to home or self care 11/08/2024 Telephone [facility] [address] [place] [address] for [facility] Medicine [address] [place] [address] Arlette Marsh MD PhD pre-procedure instructions 10/17/2024 Orders Only [facility] [address] [place] [address] for [facility] Medicine [address] [place] [address] Arlette Marsh MD PhD Neuropathy 10/12/2024 Telephone [facility] [address] [place] [address] for [facility] Medicine [address] [place] [address] Arlette Marsh MD PhD 10/11/2024 Orders Only [facility] [address] [place] [address] for [facility] Medicine [address] [place] [address] Winter Verma RN from Last 3 Months Allergies Active Allergy Reactions Criticality Noted Date Comments Meperidine Nausea only Low 04/16/2022 Metoprolol Succinate Other (See comments) Low 05/12 Extreme fatigue Ondansetron Headache Low 10/28/2017 Medications albuterol HFA (PROVENTIL HFA,VENTOLIN HFA,PROAIR HFA) 90 mcg/actuation inhaler Inhale 2 puffs every 4 (four) hours as needed for wheezing Please dispense 3 inhalers 3 each 3 01/16/[address] (VOLTAREN) 75 mg EC tablet TAKE 1 TABLET TWICE A DAY 180 tablet 3 01/18/20 24 Active atorvastatin (LIPITOR) 20 mg tabletIndications :Mixed hyperlipidemia TAKE 1 TABLET DAILY 90 tablet 3 04/07/20 24 Active bisoprolol (ZEBETA) 10 mg tabletIndications :Sinus tachycardia TAKE 2 TABLETS DAILY 180 tablet 3 07/06/20 24 Active pregabalin (LYRICA) 150 mg capsuleIndication [...] 7 days 2 mL 12/16/19 25 Active FLUoxetine (PROzac) 40 mg capsule TAKE 1 CAPSULE DAILY 90 capsule 3 12/21/19 25 Active amLODIPine (NORVASC) 5 mg tabletIndications :Essential hypertension TAKE 1 TABLET DAILY 90 tablet 3 12/29/19 25 Active allopurinoL (ZYLOPRIM) 300 mg tabletIndications :Gout, unspecified cause, unspecified chronicity, unspecified site TAKE 1 TABLET DAILY (PLEASE CALL TO SCHEDULE YOUR ANNUAL VISIT) 90 tablet 3 12/29/19 25 Active allopurinoL (ZYLOPRIM) 300 mg tabletIndications :Gout, unspecified cause, unspecified chronicity, unspecified site TAKE 1 TABLET DAILY (PLEASE CALL TO SCHEDULE YOUR ANNUAL VISIT) 90 tablet 3 01/03/20 24 025 Discontinued FLUoxetine (PROzac) 40 mg capsule TAKE 1 CAPSULE DAILY 90 capsule 3 01/18/20 24 025 Discontinued amLODIPine (NORVASC) 5 mg tabletIndications :Essential hypertension TAKE 1 TABLET DAILY 100 tablet 1 07/22/20 24 025 Discontinued HYDROcodone-aceta minophen (NORCO) 5-325 mg per tabletIndications :Pain Take 1 tablet by mouth 2 (two) times a day as needed for pain 60 tablet 11/14/19 025 Discontinued(R eorder) tirzepatide, weight loss, (Zepbound) 5 mg/0.5 mL pen injectorIndicatio ns:Class 3 severe obesity due to excess calories with serious comorbidity and body mass index (BMI) of 40.0 to 44.9 in adult ([facility]) Inject 0.5 mL (5 mg total) under the skin every 7 days 2 mL 11/13/19 25 025 Discontinued tirzepatide, weight loss, (Zepbound) [...] 11/14/2024 Assessment & Plan (11/14/2024 12:42 PM FERTILIZING MACHINE OPERATOR): Chronic stable Well controlled Continue current prescribed [...] OA Assessment & Plan (10/05/2023 4:20 PM FERTILIZING MACHINE OPERATOR): Ms. Vazquez is a 43yo female with [...] Acevedo. Assessment & Plan (09/14/2023 11:33 AM FERTILIZING MACHINE OPERATOR): Ms. 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 Recommend referral to discuss weight loss surgery options, she is agreeable to this as she has tried many avenues to loose weight now. 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 Not on file Not on file Last Filed Vital Signs Vital Sign Reading Time Taken Comments Blood Pressure 102/64 11/14/2024 9:51 AM FERTILIZING MACHINE OPERATOR Pulse 91 11/14/2024 9:51 AM FERTILIZING MACHINE OPERATOR Temperature 36.3 C (97.4 F) 11/14/2024 9:51 AM FERTILIZING MACHINE OPERATOR Respiratory Rate 18 11/14/2024 9:51 AM FERTILIZING MACHINE OPERATOR Oxygen Saturation 97% 11/14/2024 9:51 AM FERTILIZING MACHINE OPERATOR Inhaled Oxygen Concentration - - Weight 111.1 kg (245 lb) 11/14/2024 9:51 AM FERTILIZING MACHINE OPERATOR Height 165.1 cm (5' 5 ) 11/14/2024 9:51 AM FERTILIZING MACHINE OPERATOR Body Mass Index 40.77 11/14/2024 9:51 AM FERTILIZING MACHINE OPERATOR Plan of Treatment Not on file Goals Goal Patient Goal Type Associated Problems Recent Progress Patient-Stated? Author CCM Chronic Pain Care Plan Chronic Care Management On track(2024 2:01 PM FERTILIZING MACHINE OPERATOR) No Sharon Thompson, RN Note: Problem: Chronic Pain Goals: 1. Minimize further functional decline 2. Maximize quality of life 3. Control pain Strategies: - Activity/exercise program recommendation - Conservative stepwise pain medicine strategy with multi-disciplinary approach - Recommend healthy lifestyle strategies and compensatory methods as needed Medical Devices Implanted Type Area Head Of Ethics And Compliance Device Identifier Shelf Expiration Date Model / Serial / Lot Spr [employer] System Nerve Stimulator Peripheral Single Lead Sprint Joshua [id number] - [id number] Implanted:Qty: 1 on 11/10/2024 by Arlette Marsh MD PhD at [facility] Lead [employer] 10/05/2025 9 [id number] / / [id number] Description:Implant was expl anted. Patient did not tolerate procedure could not get neurmodulation settings to appropriate setting to satisfy patient need. Procedures Procedure Name Priority Date/Time Associated Diagnosis Comments US GUIDED SPRINT PNS 1ST LEAD IMPLANT Schedule Routine, Read Routine (OP Routine) 11/10/2024 3:54 PM FERTILIZING MACHINE OPERATOR Neuralgia HEMOGLOBIN A1C Routine 10/18/2024 9:12 AM FERTILIZING MACHINE OPERATOR Hyperglycemia COMPREHENSIVE METABOLIC PANEL Routine 10/18/2024 9:12 AM FERTILIZING MACHINE OPERATOR Hyperglycemia LIPID PANEL Routine 06/13/2024 8:14 AM CDT Mixed hyperlipidemia Preventative health care HM PAP SMEAR WITH HPV Routine 01/11/2023 SCREENING MAMMOGRAM BILATERAL W CARLOS Schedule Routine, Read Routine (OP Routine) 05/26/2022 3:17 PM CDT Preventative health care from Last 3 Months or Most Recently Relevant to Health Maintenance Results * US Guided Sprint PNS 1st Lead Implant (11/10/2024 3:54 PM FERTILIZING MACHINE OPERATOR) Narrative SYSTEMGENERATED, DOCUMENTATION II - 11/10/2024 3:56 PM FERTILIZING MACHINE OPERATOR The images from this study are not interpreted by Radiology. Please refer to the physician's procedure / OR operative note. us Arlette Marsh MD PhD IMG FLUOROSCOPY PROCED URES Final Result * (ABNORMAL) Hemoglobin A1c (10/18/2024 9:12 AM FERTILIZING MACHINE OPERATOR) Hgb A1C 7.2(H) 4.8 - 5.6 % [facility] - 01 Comment: Prediabetes: 5.7 - 6.4 Diabetes: >6.4 Glycemic control for adults with diabetes: <7.0 Blood 10/18/2024 9:12 AM FERTILIZING MACHINE OPERATOR 10/18/2024 Narrative [facility] - 10/19/2024 3:35 AM FERTILIZING MACHINE OPERATOR Performed at: [address] [place] [id number] Front Desk Worker: Kahlil Mims PhD, Phone: [phone] us Tom Crystal Jr., MD LAB BLOOD ORDERABLES Final Result [facility] - * (ABNORMAL) Comprehensive metabolic panel (10/18/2024 9:12 AM FERTILIZING MACHINE OPERATOR) Glucose 140(H) 70 - 99 mg/dL [facility] [...] [facility] - 01 Blood 10/18/2024 9:12 AM FERTILIZING MACHINE OPERATOR 10/18/2024 Narrative [facility] - 10/19/2024 3:35 AM FERTILIZING MACHINE OPERATOR Performed at: [address] [id number] Front Desk Worker: Kahlil Mims PhD, Phone: [phone] us Tom Crystal Jr., MD LAB BLOOD ORDERABLES Final Result Performing Organization Address City/[facility]/ZIP Co de Phone Number [facility] * (ABNORMAL) Lipid panel (06/13/2024 8:14 [...] - 06/14/2024 3:35 AM CDT Performed at: [address] [id number] Front Desk Worker: Kahlil Mims PhD, Phone: [phone] us Tom Crystal Jr., MD LAB BLOOD ORDERABLES Final Result Performing Organization Address City/[facility] Co de Phone Number [facility] * HM PAP SMEAR WITH HPV (01/11/2023) [...] age 40, based on guidelines of the [employer] (ACR Practice Parameter for the Performance of Screening and Diagnostic Mammography) and [employer]. For women [...] Recently Relevant to Health Maintenance [place] [address] [employer] OPEN ACCESS CIGNA OPEN ACCESS CIGNA OPEN ACCESS CIGNA OPEN ACCESS Care Teams Stock Roller Relationship Specialty Start Date End Date Tom Crystal Jr., MD [address] [place] [address] PCP - General Internal Medicine 07/23/22 Gerardo Ortega MD [address] [id number] Referring Physician Obstetrics and Gynecology 04/10/21 Israel Cervantes Jr., DPM [address] [id number] Referring Physician Podiatry 04/10/21 Linda Moore MD [address] [address] Consulting Physician Cardiology 04/10/21 Noe Acevedo MD [facility] [place] [address] Consulting Physician Rheumatology 08/17/23
--- OUTSIDE RECORDS SUMMARY | 2025-01-01 10:56 | XMS_ITS | Encounter Summary ---
Author Organization [facility] Address [address] [place] [address] Care Team Providers Care Cook Fry Name Role Phone Tom Lees MD Primary Care Provider Encounter Details Date Type Department Care Team (Late st Contact Info) Description 07/13/2023 Lab Requisition [facility] - D[facility] Lab [address] [facility] [place] [id number] Marco Antonio Gambino MD [address] [place] [address] Social History Tobacco Use Types Packs/Day [...] AM CDT) Case Report Dermatopathology Report Case: [id number] Authorizing Provider: Marco Antonio Gambino MD Collected: 07/09/2023 12:00 AM Ordering Location: [facility] DermPath Lab Received: 07/13/2023 07:29 AM Pathologist: Delma Allen MD Specimen: Skin, left neck 11:55 AM CDT DERMATOPATHOLOGY LABORATORY Final Diagnosis Specimen A. 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 Path# [id number] 11:55 AM [facility] DERMATOPATHOLOGY LABORATORY Gross Description Specimen A: Received is one formalin filled container labeled with the patient's name and designated left neck. The specimen consists of a shave biopsy measuring 5x4x1 mm. Jar 0. 11:55 AM [facility] DERMATOPATHOLOGY LABORATORY Microscopic Description Specimen A. SKIN, [...] immunofluorescence. Clinicopathologic correlation is recommended. 11:55 AM [facility] DERMATOPATHOLOGY LABORATORY Disclaimer An external and internal positive and negative controls are appropriate for the histochemical, immunohistochemical and immunofluorescence stain(s) in this case (if any), except where stated explicitly. The performance characteristics of the stain(s) cited in this report were developed and its performance characteristic determined by the Dermatopathology Laboratory at [facility], directed by Dr. Terrell Allen. These tests need not be, and therefore are not, approved by the [place] Food and Drug Administration. The tests are used for clinical purposes. Billing Codes Specimen Charges Stain Charges 26991 1 80761 1 11:55 AM T DERMATOPATHOLOGY LABORATORY Embedded Images 11:55 AM [facility] DERMATOPATHOLOGY LABORATORY Pathology/Cytolog y TISSUE SPECIMEN FROM SKIN / Unknown 07/09/2023 07/13/2023 7:29 AM CDT Marco Antonio Gambino MD LAB - PATHOLOGY/CYTO LOGY ORDERABLES DERMATOPATHOLOGY LABORATORY [facility] - Department of Dermatology [address], [address] [phone] documented in this encounter Visit Diagnoses Not on filedocumented in this encounter Care Teams Cook Fry Relationship Specialty Start Date End Date Tom Lees MD [address] [place], [place] [id number] PCP - General 07/10/19 documented as of this encounter
--- OUTSIDE RECORDS SUMMARY | 2025-01-01 10:56 | XMS_ITS | Clinical Summary ---
Author Organization [facility] Address [address] [place] [address] Care Team Providers Care Engineer Byproduct Name Role Phone Tom Lees MD Primary Care Provider [phone] Source Comments [facility],non-owned Affiliates and Associated Physician Practices is amultiple site organization consisting of ambulatory clinics and hospital sitesin [place], [place], [place] and [place]. This disclosure is being madepursuant to the Care Everywhere program and may not contain all information available regarding this patient. Last updated 18.[facility] Social History Tobacco Use Types Packs/Day Years [...] age to complete this topic Care Teams Engineer Byproduct Relationship Specialty Start Date End Date Tom Lees MD [facility] [address] [place] [address] PCP - General 07/10/19
--- OUTSIDE RECORDS SUMMARY | 2025-01-01 10:56 | XMS_ITS | Encounter Summary ---
Author Organization [facility] Address [address] [place] [address] Care Team Providers Care Patient Financial Counselor Name Role Phone Gerardo Ortega MD Unavailable [phone] Billy Guevara DPM, Gabriel Unavailable [phone] Linda Moore MD Unavailable [phone] Bonilla Guevara MD, Tom Mackey Primary Care Provide r Noe Acevedo MD Unavailable [phone] Reason for Visit * Reason Onset Date Comments [facility] Preprocedure 01/06/2024 Encounter Details Date Type Department Care Team (Late st Contact Info) Description 01/06/2024 Telephone [facility] [address] [facility] [address] [place] [address] Derik Faith MD [address] [facility] [address] [place] [address] [facility] Preprocedure Social History Tobacco Use Types Packs/Day [...] on file Legal Sex Female 3:33 AM RADIOLOGY ASSISTANT Gender Identity Not on file Sexual Orientation [...] Chronic Care Management On track(2024 2:01 PM RADIOLOGY ASSISTANT) Sharon Chamberlain, NOE Note: Problem: Chronic Pain Goals: 1. Minimize further functional decline 2. Maximize quality of life 3. Control pain Strategies: - Activity/exercise program recommendation - Conservative stepwise pain medicine strategy with multi-disciplinary approach - Recommend healthy lifestyle strategies and compensatory methods as needed documented as of this encounter Visit Diagnoses Not on filedocumented in this encounter Care Teams Patient Financial Counselor Relationship Specialty Start Date End Date Tom Crystal Jr., MD [address] [address] PCP - General Internal Medicine 07/23/22 Gerardo Ortega MD [address] [address] Referring Physician Obstetrics and Gynecology 04/10/21 Israel Cervantes Jr., DPM [address] [place] [address] Referring Physician Podiatry 04/10/21 Linda Moore MD [address] [facility] [address] [place] [address] Consulting Physician Cardiology 04/10/21 Noe Acevedo MD [address] [place] [address] Consulting Physician Rheumatology 08/17/23 documented as of this encounter
--- OUTSIDE RECORDS SUMMARY | 2025-01-01 10:56 | XMS_ITS | Clinical Summary ---
Author Organization [facility] [address] Address [address] [place] [address] Care Team Providers Care Information Systems Security Officer Name Role Phone Gerardo Ortega MD Unavailable [phone] Billy Guevara DPM, Gabriel Unavailable Linda Moore MD Unavailable [phone] Bonilla Guevara MD, Tom Mackey Primary Care Provide r Noe Acevedo MD Unavailable [phone] Allergies Active Allergy Reactions Criticality Noted Date [...] of 40.0 to 44.9 in adult ([facility]) Inject 0.5 mL (5 mg total) [...] 11/14/2024 Assessment & Plan (11/14/2024 12:42 PM BEEF FARMER): Chronic stable Well controlled Continue current prescribed [...] OA Assessment & Plan (10/05/2023 4:20 PM BEEF FARMER): Ms. Vazquez is a 43yo female with [...] Acevedo. Assessment & Plan (09/14/2023 11:33 AM BEEF FARMER): Ms. Vazquez is a 43yo female with [...] 03/12/2022 Assessment & Plan (11/14/2024 10:16 AM BEEF FARMER): Got zepbound approved Assessment & Plan (06/16/2024 11:19 AM CDT): Will hector for now Made several diet changes, weight remains the same Assessment & Plan (01/25/2024 9:41 AM CDT): Monitor weight Assessment & Plan (01/21/2023 11:02 AM CDT): With HTN and HLD Doing hand written prescription for [employer] for [place], cheapest option available Will try to do this via phone moving forward MARINE on CPAP 05/12/2021 Neuropathy 04/11/2021 Assessment & Plan (11/14/2024 12:42 PM BEEF FARMER): Chronic stable Well controlled Continue current prescribed [...] podiatric surgery. Body mass index 40.0-44.9, adult ([facility]) 03/12/2022 01/21/2023 Overview (03/13/2022): Has been [...] 05/31/20172021 Assessment & Plan (09/12/2021 1:24 PM BEEF FARMER): Cont saxenda On month ~6 for now [...] covered- also instructed her to talk with [employer] and her husbands employer [employer] to see if wegovy covered under independent plan Assessment & Plan (05/31/2017 8:49 PM CDT): Unfortunately continues to gain weight, is nearly in the morbidly obese category. Encounters Date Type Department Care Team Description 12/18/2024 Telephone [facility] Scheduling [address] [place] [address] Amrit Bright MD PhD Scheduling Appointments 12/14/2024 Telephone [facility] Primary Care [address] [place] [phone] Tom Crystal Jr., MD 11/23/2024 Orders Only [facility] Primary Care [address] [place] [phone] Tom Crystal Jr., MD Gastroesophageal reflux disease without esophagitis (Primary Dx) 11/14/2024 9:45 AM BEEF FARMER Office Visit [facility] [address] [place] [phone] Tom Crystal Jr., MD Type 2 diabetes mellitus with hyperlipidemia (HCC) (Primary Dx); Moderate episode of recurrent major depressive disorder (HCC); Class 3 severe obesity due to excess calories with serious comorbidity and body mass index (BMI) of 40.0 to 44.9 in adult (HCC); Neuropathy 11/10/2024 12:58 PM BEEF FARMER - 11/10/2024 11:59 PM BEEF FARMER Hospital Encounter [facility] [address] [facility] [address] [place] [address] Arlette Marsh MD PhD Complex regional pain syndrome type 1 of left lower extremity (Primary Dx); Neuralgia Discharge Disposition: Discharge to home or self care 11/08/2024 Telephone [facility] [address] [place] [address] Arlette Marsh MD PhD pre-procedure instructions 10/17/2024 Orders Only [facility] [address] [place] [address] for [facility] Medicine [address] [place] [address] Arlette Marsh MD PhD Neuropathy 10/12/2024 Telephone [facility] [address] [place] [address] for Advanced Medicine [address] [place] [address] Arlette Marsh MD PhD 10/11/2024 Orders Only [facility] [place] [facility] [address] [place] [address] for Advanced Medicine [address] [place] [address] Winter Verma RN from Last 3 Months Immunizations Immunization Administration [...] Comments Hx Other Medical migraines; Comm ents: [facility] 11/09/2014 - Hx Other Medical psoriasis; Comm ents: [facility] 11/09/2014 - Hx Other Medical asthma; Comment s: [facility] 11/09/2014 - Hypertension Hypertension Depression Depression Hx Other Medical obesity; Commen ts: [facility] 11/09/2014 - Tachycardia Gout Peripheral neuropathy [...] on file Legal Sex Female 3:33 AM BEEF FARMER Gender Identity Not on file Sexual Orientation [...] Comments Blood Pressure 102/64 11/14/2024 9:51 AM BEEF FARMER Pulse 91 11/14/2024 9:51 AM BEEF FARMER Temperature 36.3 C (97.4 F) 11/14/2024 9:51 AM BEEF FARMER Respiratory Rate 18 11/14/2024 9:51 AM BEEF FARMER Oxygen Saturation 97% 11/14/2024 9:51 AM BEEF FARMER Inhaled Oxygen Concentration - - Weight 111.1 kg (245 lb) 11/14/2024 9:51 AM BEEF FARMER Height 165.1 cm (5' 5 ) 11/14/2024 9:51 AM BEEF FARMER Body Mass Index 40.77 11/14/2024 9:51 AM BEEF FARMER Plan of Treatment Health Maintenance Due Date [...] Chronic Care Management On track(2024 2:01 PM BEEF FARMER) Sharon Chamberlain, NOE Note: Problem: Chronic Pain Goals: 1. Minimize further functional decline 2. Maximize quality of life 3. Control pain Strategies: - Activity/exercise program recommendation - Conservative stepwise pain medicine strategy with multi-disciplinary approach - Recommend healthy lifestyle strategies and compensatory methods as needed Medical Devices Implanted Type Area Laborer Adjustable Steel Joist Device Identifier Shelf Expiration Date Model / Serial / Lot Spr Therapeutics System Nerve Stimulator Peripheral Single Lead Sprint Endura [id number] - [id number] Implanted:Qty: 1 on 11/10/2024 by Arlette Marsh MD PhD at [facility] Lead SPR [employer] 10/05/2025 9 [id number] / / [id number] Description:Implant was expl anted. Patient did not tolerate procedure could not get neurmodulation settings to appropriate setting to satisfy patient need. Procedures Procedure Name Priority Date/Time Associated Diagnosis Comments US GUIDED SPRINT PNS 1ST LEAD IMPLANT Schedule Routine, Read Routine (OP Routine) 11/10/2024 3:54 PM BEEF FARMER Neuralgia HEMOGLOBIN A1C Routine 10/18/2024 9:12 AM BEEF FARMER Hyperglycemia COMPREHENSIVE METABOLIC PANEL Routine 10/18/2024 9:12 AM BEEF FARMER Hyperglycemia LIPID PANEL Routine 06/13/2024 8:14 AM CDT Mixed hyperlipidemia Preventative health care HM PAP SMEAR WITH HPV Routine 01/11/2023 SCREENING MAMMOGRAM BILATERAL W CARLOS Schedule Routine, Read Routine (OP Routine) 05/26/2022 3:17 PM CDT Preventative health care from Last 3 Months or Most Recently Relevant to Health Maintenance Results * US Guided Sprint PNS 1st Lead Implant (11/10/2024 3:54 PM BEEF FARMER) Narrative SYSTEMGENERATED, DOCUMENTATION II - 11/10/2024 3:56 PM BEEF FARMER The images from this study are not interpreted by Radiology. Please refer to the physician's procedure / OR operative note. us Arlette Marsh MD PhD IMG FLUOROSCOPY PROCED URES Final Result * (ABNORMAL) Hemoglobin A1c (10/18/2024 9:12 AM BEEF FARMER) Hgb A1C 7.2(H) 4.8 - 5.6 % [facility] - 01 Comment: Prediabetes: 5.7 - 6.4 Diabetes: >6.4 Glycemic control for adults with diabetes: <7.0 Blood 10/18/2024 9:12 AM BEEF FARMER 10/18/2024 Narrative [facility] - 10/19/2024 3:35 AM BEEF FARMER Performed at: [address] [place] [address] [id number] Hem Marker: Kahlil Mims PhD, Phone: [phone] us Tom Crystal Jr., MD LAB BLOOD ORDERABLES Final Result [facility] - 01 * (ABNORMAL) Comprehensive metabolic panel (10/18/2024 9:12 AM BEEF FARMER) Glucose 140(H) 70 - 99 mg/dL [facility] [...] [facility] - 01 Blood 10/18/2024 9:12 AM BEEF FARMER 10/18/2024 Narrative [facility] - 10/19/2024 3:35 AM BEEF FARMER Performed at: [address] [place] [address] [id number] Hem Marker: Kahlil Mims PhD, Phone: [phone] Tom Crystal Jr., MD LAB BLOOD ORDERABLES Final Result Performing Organization Address [facility] de Phone Number [facility] * (ABNORMAL) Lipid panel (06/13/2024 8:14 AM CDT) [facility] Cholesterol 147 100 - 199 mg/dL [facility] - 01 Triglycerides 209(H) 0 - 149 mg/dL [facility] - 01 HDL Cholesterol 37(L) >39 mg/dL [facility] - 01 VLDL 35 5 - 40 mg/dL [facility] - 01 LDL, calculated 75 0 - 99 mg/dL [facility] - 01 Blood 06/13/2024 8:14 AM CDT 06/13/2024 Narrative [facility] - 06/14/2024 3:35 AM CDT Performed at: [address] [place] [address] [id number] Hem Marker: Kahlil Mims PhD, Phone: [phone] Tom Crystal Jr., MD LAB BLOOD ORDERABLES Final Result Performing Organization Address [facility] de Phone Number [facility] * HM PAP SMEAR WITH HPV (01/11/2023) Scribed Pap Smear w/HPV Normal [facility] Provider HEALTH MAINTENANCE Final Result * Screening [...] age 40, based on guidelines of the [employer] (ACR Practice Parameter for the Performance of Screening and Diagnostic Mammography) and [employer]nec[employer]. For women [...] Most Recently Relevant to Health Maintenance Insurance CIGNA OPEN ACCESS CIGNA OPEN ACCESS CIGNA OPEN ACCESS panOpen OPEN ACCESS Care Teams Information Systems Security Officer Relationship Specialty Start Date End Date Tom Crystal Jr., MD [address] [place] [address] PCP - General Internal Medicine 07/23/22 Gerardo Ortega MD [address] [id number] Referring Physician Obstetrics and Gynecology 04/10/21 Israel Cervantes Jr., DPM [address] [facility] [address] [id number] Referring Physician Podiatry 04/10/21 Linda Moore MD [address] [address] Consulting Physician Cardiology 04/10/21 Noe Acevedo MD [address] [place] [address] Consulting Physician Rheumatology 08/17/23
--- OUTSIDE RECORDS SUMMARY | 2025-01-01 10:56 | XMS_ITS | Encounter Summary ---
Author Organization [facility] Healthcare Address [address] [place] [address] Care Team Providers Care Linen Manager Name Role Phone Gerardo Ortega MD Unavailable [phone] Billy Guevara DPM, Gabriel Unavailable [phone] Linda Moore MD Unavailable [phone] Bonilla Guevara MD, Tom Mackey Primary Care Provide r Noe Acevedo MD Unavailable [phone] Reason for Visit * Reason Onset Date Comments infusion 03/07/2024 Encounter Details Date Type Department Care Team (Late st Contact Info) Description 03/07/2024 Telephone [facility] [place] [facility] [address] [facility] [address] [place] [address] Arlette Marsh MD PhD [address] [facility] [address] [place] [address] infusion Social History Tobacco Use Types Packs/Day [...] on file Legal Sex Female 3:33 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 Minimize further functional decline 2. Maximize quality of life 3. Control pain Strategies: - Activity/exercise program recommendation - Conservative stepwise pain medicine strategy with multi-disciplinary approach - Recommend healthy lifestyle strategies and compensatory methods as needed documented as of this encounter Visit Diagnoses Not on filedocumented in this encounter Care Teams Linen Manager Relationship Specialty Start Date End Date Tom Crystal Jr., MD [address] [address] PCP - General Internal Medicine 07/23/22 Gerardo Ortega MD [address] [address] Referring Physician Obstetrics and Gynecology 04/10/21 Israel Cervantes Jr., DPM [address] [place] [address] Referring Physician Podiatry 04/10/21 Linda Moore MD [address] [place] [address] Consulting Physician Cardiology 04/10/21 Noe Acevedo MD [address] [place] [address] Consulting Physician Rheumatology 08/17/23 documented as of this encounter
--- OUTSIDE RECORDS SUMMARY | 2025-01-01 10:56 | XMS_ITS | Clinical Summary ---
Author Organization [facility] Address [address] [place] [address] Phone Care Team Providers Care Sweet Potato Disintegrator Name Role Phone Unavailable Primary Care Provider Unavailabl e Allergies No known active allergies Medications FLUoxetine (PROzac) 40 mg capsule TAKE ONE CAPSULE BY MOUTH ONCE DAILY 90 Capsule 07/22/2022 9:41 AM CDT 2 Active albuterol sulfate HFA 90 mcg/actuation aerosol inhaler Inhale 2 puffs every 4 (four) hours as needed for wheezing or shortness of breath 25.5 Gram 4 12/10/2022 4:22 PM LICENSED DISPENSING OPTICIAN 3 Active azithromycin (ZITHROMAX) 250 mg tablet Take 2 tablets (500 mg) by mouth today, than take 1 tablet (250 mg) once daily for 4 days. 6 Tablet 11/06/2022 3:41 PM LICENSED DISPENSING OPTICIAN 3 Active FLUoxetine (PROzac) 40 mg capsule TAKE ONE CAPSULE BY MOUTH ONCE DAILY 90 Capsule 3 Active amitriptyline (ELAVIL) 25 mg tablet Take 1 tablet (25 mg total) by mouth nightly 90 Tablet 1 12/04/2022 7:20 PM LICENSED DISPENSING OPTICIAN 3 Active pregabalin (LYRICA) 75 mg Capsule [...] mouth daily 30 Capsule 08/11/2023 10:10 AM LICENSED DISPENSING OPTICIAN 3 Active sertraline (ZOLOFT) 25 mg tablet Take 1 tablet (25 mg total) by mouth daily 90 Tablet 4 08/11/2023 10:10 AM LICENSED DISPENSING OPTICIAN 3 Active sertraline (ZOLOFT) 25 mg tablet Take 1 tablet (25 mg total) by mouth daily 90 Tablet 4 3 Active HYDROcodone-moira taminophen (NORCO) 5-325 mg tablet Take 1 tablet by mouth every 6 (six) hours as needed for pain for up to 7 days 28 Tablet 09/01/2023 2:07 PM LICENSED DISPENSING OPTICIAN 3 Active HYDROcodone-moira taminophen (NORCO) 5-325 mg tablet Take 1 Tablet by mouth nightly as needed for pain. 30 Tablet 10/07/2023 11:40 AM LICENSED DISPENSING OPTICIAN 4 Active cariprazine (Vraylar) 1.5 mg Capsule capsule Take 1 Capsule (1.5 mg) by mouth daily. 90 Capsule 12/20/2023 6:53 PM CDT 4 Active amLODIPine (NORVASC) 5 mg tablet Take 1 Tablet (5 mg) by mouth daily. 90 Tablet 4 11/05/2023 2:59 PM LICENSED DISPENSING OPTICIAN 4 Active Encounters Date Type Department Care Team Description 12/20/2024 External Device Data [facility] ABSTRACTION Provider, Abstract [...] of 3 - 19+ 3-dose series) 2001 PAP SMEAR 2003 CERVICAL CANCER SCREENING 01/20/2012 HPV/Cotest (30-65) 01/20/2012 PAP SMEAR 01/20/2012 BREAST CANCER SCREENING 2022 INFLUENZA VACCINE (#1) 2024 HPV VACCINES Aged Out No longer eligi ble based on patient's age to complete this topic Insurance RX [employer] (INTERNAL) [facility] RX [employer] Commercial
== END 2025-01-01 09:50 | disposition home or self-care (01) ==
LOC: CHSIMG 09:54
PROVIDERS: PCP Hospitalist; Visit Provider Obstetrics & Gynecology
DX: R92.8 Other abnormal and inconclusive findings on diagnostic imaging of breast (principal)
CPT/HCPCS: 76642; 77061; 77065; G0279

== ENCOUNTER 2025-08-03 12:26 | Emergency (ER) | payer OTHER, SELFPAY ==
--- OUTSIDE RECORDS SUMMARY | 2025-08-03 12:28 | XMS_ITS | Encounter Summary ---
Author Organization [facility] Healthcare Address [address] [place] [address] Care Team Providers Care Television Journalist Name Role Phone Gerardo Ortega MD Unavailable [phone] Billy Guevara DPM, Gabriel Unavailable [phone] Linda Moore MD Unavailable [phone] Bonilla Guevara MD, Tom Mackey Primary Care Provide r Noe Acevedo MD Unavailable [phone] Reason for Visit * Reason Onset Date Comments [facility] Preprocedure 01/06/2024 Encounter Details Date Type Department Care Team (Late st Contact Info) Description 01/06/2024 Telephone [facility] [address] [facility] [address] [place], [place] [id number] Derik Faith MD [address] [facility] [address] [place] [address] [facility] Preprocedure Social History Tobacco Use [...] on file Legal Sex Female 3:33 AM [employer]ISCO CERTIFIED NETWORK 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 Author CCM Chronic Pain Care Plan Chronic Care Management No change(05/28 10:19 AM CDT) Sharon Chamberlain, NOE Note: Problem: Chronic Pain Goals: 1. Minimize further functional decline 2. Maximize quality of life 3. Control pain Strategies: - Activity/exercise program recommendation - Conservative stepwise pain medicine strategy with multi-disciplinary approach - Recommend healthy lifestyle strategies and compensatory methods as needed documented as of this encounter Visit Diagnoses Not on filedocumented in this encounter Care Teams Television Journalist Relationship Specialty Start Date End Date Tom Crystal Jr., MD [address] [address] PCP - General Internal Medicine 07/23/22 Gerardo Ortega MD [address] [address] Referring Physician Obstetrics and Gynecology 04/10/21 Israel Cervantes Jr., LINDA [address] [place] [address] Referring Physician Podiatry 04/10/21 Linda Moore MD [address] [place] [address] Consulting Physician Cardiology 04/10/21 Noe Acevedo MD [address] [place] [address] Consulting Physician Rheumatology 08/17/23 documented as of this encounter
--- OUTSIDE RECORDS SUMMARY | 2025-08-03 12:28 | XMS_ITS | Encounter Summary ---
Author Organization [facility] Healthcare Address [address] [facility] [place] [address] Care Team Providers Care Sanitarian Aide Name Role Phone Gerardo Ortega MD Unavailable [phone] Billy Guevara DPM, Gabriel Unavailable [phone] Linda Moore MD Unavailable [phone] Bonilla Guevara MD, Tom Mackey Primary Care Provide r Noe Acevedo MD Unavailable [phone] Reason for Visit * Reason Onset Date Comments pre-procedure instructions 11/08/2024 Encounter Details Date Type Department Care Team (Late st Contact Info) Description 11/08/2024 Telephone [facility] [place] [facility] [address] [facility] [address] [place] [address] Arlette Marsh MD PhD [address] [facility] [address] [place] [address] pre-procedure instructions Social History Tobacco Use Types [...] on file Legal Sex Female 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 Author [facility] Chronic Pain Care Plan Chronic Care Management No change(05/28 10:19 AM CDT) No Sharon Thompson RN Note: Problem: Chronic Pain Goals: 1. Minimize further functional decline 2. Maximize quality of life 3. Control pain Strategies: - Activity/exercise program recommendation - Conservative stepwise pain medicine strategy with multi-disciplinary approach - Recommend healthy lifestyle strategies and compensatory methods as needed documented as of this encounter Visit Diagnoses Not on filedocumented in this encounter Care Teams Sanitarian Aide Relationship Specialty Start Date End Date Tom Crystal Jr., MD [address] [place] [address] PCP - General Internal Medicine 07/23/22 Gerardo Ortega MD [address] [phone] Referring Physician Obstetrics and Gynecology 04/10/21 Israel Cervantes Jr., DPM [address] [phone] Referring Physician Podiatry 04/10/21 Linda Moore MD [address] [address] Consulting Physician Cardiology 04/10/21 Noe Acevedo MD [address] [place] [address] Consulting Physician Rheumatology 08/17/23 documented as of this encounter
--- OUTSIDE RECORDS SUMMARY | 2025-08-03 12:28 | XMS_ITS | Encounter Summary ---
Author Organization [facility] Address [address] [place] [address] Care Team Providers Care Metal Stamping Machine Operator Name Role Phone Tom Lees MD Primary Care Provider [phone] Encounter Details Date Type Department Care Team (Late st Contact Info) Description 07/13/2023 Lab Requisition [facility] - DermPath Lab [address] [facility] [address] [place] [address] Marco Antonio Gambino MD [address] [place] [id number] Social History Tobacco Use Types Packs/Day Years Used Date Smoking Tobacco: Never Assessed Comments Unknown Sex and Gender Information Value Date Recorded Sex Assigned at Not on file Legal Sex Female 5:09 AM BEREAVEMENT COUNSELOR Gender Identity Not on file Sexual Orientation Not on file documented as of this encounter Plan of Treatment Not on file documented as of this encounter Procedures Procedure Name Priority Date/Time Associated Diagnosis Comments DERMATOPATHOLOGY Routine 07/09/2023 12:0 0 AM CDT documented in this encounter Results * DERMATOPATHOLOGY (07/09/2023 12:00 AM CDT) Case Report Dermatopathology Report Case: [id number] Authorizing Provider: Marco Antonio Gambino MD Collected: 07/09/2023 12:00 AM Ordering Location: [facility] Derm[facility] Lab Received: 07/13/2023 07:29 AM Pathologist: Delma Allen MD Specimen: Skin, left neck 11:55 AM CDT DERMATOPATHOLOGY LABORATORY Final Diagnosis Specimen A. 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 Path# [id number] 11:55 AM T DERMATOPATHOLOGY LABORATORY Gross Description Specimen A: Received [...] immunofluorescence. Clinicopathologic correlation is recommended. 11:55 AM [facility] DERMATOPATHOLOGY LABORATORY Disclaimer An external and internal positive and negative controls are appropriate for the histochemical, immunohistochemical and immunofluorescence stain(s) in this case (if any), except where stated explicitly. The performance characteristics of the stain(s) cited in this report were developed and its performance characteristic determined by the Dermatopathology Laboratory at [facility], directed by Dr. Terrell Allen. These tests need not be, and therefore are not, approved by the [place] Food and Drug Administration. The tests are used for clinical purposes. Billing Codes Specimen Charges Stain Charges 11081 1 90096 1 11:55 AM T DERMATOPATHOLOGY LABORATORY Embedded Images 11:55 AM CDT DERMATOPATHOLOGY LABORATORY Pathology/Cytolog y TISSUE SPECIMEN FROM SKIN / Unknown 07/09/2023 07/13/2023 7:29 AM CDT us Marco Antonio Gambino MD LAB - PATHOLOGY/CYTOLOGY ORDER CELINA Final Result DERMATOPATHOLOGY LABORATORY [facility] - Department of Dermatology [facility] [address] [place] [address], [address] [phone] documented in this encounter Visit Diagnoses Not on filedocumented in this encounter Care Teams Metal Stamping Machine Operator Relationship Specialty Start Date End Date Tom Lees MD [address] [place] [address] PCP - General 07/10/19 documented as of this encounter
--- OUTSIDE RECORDS SUMMARY | 2025-08-03 12:28 | XMS_ITS | Clinical Summary ---
Author Organization 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 6 Tablet 11/06/2022 3:41 PM FARM EQUIPMENT TECHNICIAN 3 Active FLUoxetine (PROzac) 40 mg capsule TAKE ONE CAPSULE BY MOUTH ONCE DAILY 90 Capsule 3 Active amitriptyline (ELAVIL) 25 mg tablet Take 1 tablet (25 mg total) by mouth nightly 90 Tablet 1 12/04/2022 7:20 PM FARM EQUIPMENT TECHNICIAN 3 Active pregabalin (LYRICA) 75 mg Capsule [...] mouth daily 30 Capsule 08/11/2023 10:10 AM FARM EQUIPMENT TECHNICIAN 3 Active sertraline (ZOLOFT) 25 mg tablet Take 1 tablet (25 mg total) by mouth daily 90 Tablet 4 08/11/2023 10:10 AM FARM EQUIPMENT TECHNICIAN 3 Active sertraline (ZOLOFT) 25 mg tablet Take 1 tablet (25 mg total) by mouth daily 90 Tablet 4 3 Active HYDROcodone-moira taminophen (NORCO) 5-325 mg tablet Take 1 tablet by mouth every 6 (six) hours as needed for pain for up to 7 days 28 Tablet 09/01/2023 2:07 PM FARM EQUIPMENT TECHNICIAN 3 Active HYDROcodone-moira taminophen (NORCO) 5-325 mg tablet Take 1 Tablet by mouth nightly as needed for pain. 30 Tablet 10/07/2023 11:40 AM FARM EQUIPMENT TECHNICIAN 4 Active cariprazine (Vraylar) 1.5 mg Capsule capsule Take 1 Capsule (1.5 mg) by mouth daily. 90 Capsule 12/20/2023 6:53 PM CDT 4 Active amLODIPine (NORVASC) 5 mg tablet Take 1 Tablet (5 mg) by mouth daily. 90 Tablet 4 11/05/2023 2:59 PM FARM EQUIPMENT TECHNICIAN 4 Active Social History Tobacco Use Types Packs/Day Years [...] (1 of 3 - 19+ 3-dose series) 01/02 HPV/Cotest (21-29) 2003 HPV VACCINES (1 - 3-dose SCDM series) 2009 CERVICAL CANCER SCREENING 01/20/2012 HPV/Cotest (30-65) 01/20/2012 PAP SMEAR 01/20/2012 BREAST CANCER SCREENING 2022 INFLUENZA VACCINE (#1) 2025 Insurance RX [employer] (INTERNAL) [facility] RX [employer] Commercial
--- OUTSIDE RECORDS SUMMARY | 2025-08-03 12:28 | XMS_ITS | Clinical Summary ---
Author Organization [facility] Address [address] [place] [address] Care Team Providers Care Deputy Sheriff Bailiff Name Role Phone Tom Lees MD Primary Care Provider Source Comments [facility],non-owned Affiliates and Associated Physician Practices is amultiple site organization consisting of ambulatory clinics and hospital sitesin [place], [place], [place] and [place]. This disclosure is being madepursuant to the Care Everywhere program and may not contain all information available regarding this patient. 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 Gender Identity Not on file Sexual Orientation Not on file Plan of Treatment Health Maintenance Due Date Last Done Comments LIPID TESTING 1982 MAMMOGRAM 1982 HIV SCREENING 1997 HEPATITIS C SCREENING 01/15/2000 DTAP/TDAP/TD VACCINES (1 - Tdap) 2001 HEPATITIS B VACCINE (1 of 3 - 19+ 3-dose series) 2001 PAP SMEAR 2003 HPV VACCINE (1 - 3-dose SCDM series) 2009 DEPRESSION SCREENING 10/04/2024 COVID-19 VACCINE (3 - 2024- season) 2025 02/03/2021, 01/13/2021 INFLUENZA VACCINE (#1) 2025 , 09/11/2021, 07/12/2019, Additional history exists ZOSTER VACCINE (1 of 2) 01/20/2032 HIB [...] patient's age to complete this topic Insurance [employer] Care Teams Deputy Sheriff Bailiff Relationship Specialty Start Date End Date Tom Lees MD [address] [place] [address] [address] [place] [address] PCP - General 07/10/19
--- OUTSIDE RECORDS SUMMARY | 2025-08-03 12:28 | XMS_ITS | Encounter Summary ---
Author Organization [facility] Address [address] [place] [address] Care Team Providers Care Field Hockey And Lacrosse Coach Name Role Phone Gerardo Ortega MD Unavailable [phone] Billy Guevara DPM, Gabriel Unavailable [phone] Linda Moore MD Unavailable [phone] Bonilla Guevara MD, Tom Mackey Primary Care Provide r Noe Acevedo MD Unavailable [phone] Reason for Visit * Reason Onset Date Comments letter for CRPS for [facility] 07/05/2025 Encounter Details Date Type Department Care Team ([facility] Contact Info) Description 07/05/2025 Telephone [facility] Primary Care [address] [place] [phone] Tom Crystal Jr., MD [address] [place] [phone] letter for CRPS for [facility] Social History Tobacco Use Types Packs/Day Years Used Date Smoking Tobacco: Never Smokeless Tobacco: Never Comments:high school smoker Alcohol Use Standard Drinks/Week Comments Yes 0 (1 standard drink = 0.6 oz pur e alcohol) occassionally PHQ-2 Answer Date Recorded PHQ-2 Total Score (If total score is 3 or more points, staff should administer the PHQ-9) 0 06/18/2025 Hunger Vital Sign Answer Date Recorded Within [...] Date Recorded PHQ-9 Total Score 11 06/16/2024 AUDIT-C Answer Date Recorded Q1: How often do you have a drink containing alc ohol? Monthly or less 06/18/2025 Q2: How many drinks containi ng alcohol do you have on a typical day when you are drinking? 1 or 2 06/18/2025 Q3: How often do you have si x or more drinks on one occasion? Never 06/18/2025 Personal Safety Answer Date Recorded Have you ever been in or are you currently in a harmful physical or emotional relationship or is someone making you feel afraid or unsafe? 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 Author CCM Chronic Pain Care Plan Chronic Care Management No change(05/28 10:19 AM CDT) No Sharon Thompson, NOE Note: Problem: Chronic Pain Goals: 1. Minimize further functional decline 2. Maximize quality of life 3. Control pain Strategies: - Activity/exercise program recommendation - Conservative stepwise pain medicine strategy with multi-disciplinary approach - Recommend healthy lifestyle strategies and compensatory methods as needed documented as of this encounter Visit Diagnoses Not on filedocumented in this encounter Care Teams Field Hockey And Lacrosse Coach Relationship Specialty Start Date End Date Tom Crystal Jr., MD [address] [address] PCP - General Internal Medicine 07/23/22 Gerardo Ortega MD [address] [address] Referring Physician Obstetrics and Gynecology 04/10/21 Israel Cervantes Jr., DPM [address] [address] Referring Physician Podiatry 04/10/21 Linda Moore MD [address] [address] Consulting Physician Cardiology 04/10/21 Noe Acevedo MD [address] [place] [address] Consulting Physician Rheumatology 08/17/23 documented as of this encounter
--- OUTSIDE RECORDS SUMMARY | 2025-08-03 12:28 | XMS_ITS | Encounter Summary ---
Author Organization [facility] Address [address] [place] [address] Care Team Providers Care Manager Tax Name Role Phone Gerardo Ortega MD Unavailable [phone] Billy Guevara DPM, Gabriel Unavailable [phone] Linda Moore MD Unavailable [phone] Bonilla Guevara MD, Tom Mackey Primary Care Provide r Noe Acevedo MD Unavailable [phone] Reason for Visit * Reason Onset Date Comments infusion 03/07/2024 Encounter Details Date Type Department Care Team (Late st Contact Info) Description 03/07/2024 Telephone [facility] [address] [facility] [address] [place] [address] Arlette Marsh MD PhD [address] [facility] [address] [place] [address] infusion Social History Tobacco Use Types Packs/Day [...] file 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 Gender Identity Not on file Sexual Orientation [...] filedocumented in this encounter Care Teams Manager Tax Relationship Specialty Start Date End Date Tom Crystal Jr., MD [address] [address] PCP - General Internal Medicine 07/23/22 Gerardo Ortega MD [address] [address] Referring Physician Obstetrics and Gynecology 04/10/21 Israel Cervantes Jr., DPM [address] [place] [address] Referring Physician Podiatry 04/10/21 Linda Moore MD [address] [place] [address] Consulting Physician Cardiology 04/10/21 Noe Acevedo MD [address] [place] [address] Consulting Physician Rheumatology 08/17/23 documented as of this encounter
--- OUTSIDE RECORDS SUMMARY | 2025-08-03 12:28 | XMS_ITS | Clinical Summary ---
Author Organization [facility] [address] [place] [address] Care Team Providers Care Dewaterer Operator Name Role Phone Gerardo Ortega MD Unavailable [phone] Billy Guevara DPM, Gabriel Unavailable Linda Moore MD Unavailable [phone] Bonilla Guevara MD, Tom Mackey Primary Care Provide r Noe Acevedo MD Unavailable [phone] Allergies Active Allergy Reactions Criticality Noted Date Comments Meperidine Nausea only Low 04/16/2022 Metoprolol Succinate Other (See comments) Low 05/12 Extreme fatigue Ondansetron Headache Low 10/28/2017 Medications omeprazole (PriLOSEC) 40 mg capsuleIndication s:Gastroesophagea l reflux disease without esophagitis Take 1 capsule (40 mg total) by mouth daily 90 capsule 3 11/23/19 25 2025 Active losartan (COZAAR) 100 mg tabletIndications :Type 2 diabetes mellitus with hyperlipidemia (HCC) Take 1 tablet (100 mg total) by mouth daily 90 tablet 3 11/24/19 25 Active FLUoxetine (PROzac) 40 mg capsule TAKE 1 CAPSULE DAILY 90 capsule 3 12/21/19 25 Active allopurinoL (ZYLOPRIM) 300 mg tabletIndications :Gout, unspecified cause, unspecified chronicity, unspecified site TAKE 1 TABLET DAILY (PLEASE CALL TO SCHEDULE YOUR ANNUAL VISIT) 90 tablet 3 12/29/[address] (VOLTAREN) 75 mg EC tablet TAKE 1 TABLET TWICE A DAY 180 tablet 3 01/09/20 25 Active mexiletine (MEXITIL) 150 mg capsule TAKE 1 CAPSULE THREE TIMES A DAY 270 capsule 3 03/12/20 25 Active atorvastatin (LIPITOR) 20 mg tabletIndications :Mixed hyperlipidemia TAKE 1 TABLET DAILY 90 tablet 3 04/02/20 25 Active tirzepatide, weight loss, (Zepbound) 15 mg/0.5 mL pen injectorIndicatio ns:Class 3 severe obesity due to excess calories with serious comorbidity and body mass index (BMI) of 40.0 to 44.9 in adult Inject 0.5 mL (15 mg total) under the skin every 7 days 6 mL 3 05/15/20 25 Active albuterol HFA (PROVENTIL HFA,VENTOLIN HFA,PROAIR HFA) 90 mcg/actuation inhaler 1 puff 12/27/19 21 Active betamethasone dipropionate (DIPROSONE) 0.05 % lotion Apply topically 2 (two) times a day 60 mL 06/07/20 25 Active traZODone (DESYREL) 50 mg tablet Take 1 tablet (50 mg total) by mouth nightly 90 tablet 1 06/19/20 25 Active bisoprolol (ZEBETA) 10 mg tabletIndications :Sinus tachycardia TAKE 2 TABLETS DAILY 180 tablet 3 06/29/20 25 Active HYDROcodone-aceta minophen (NORCO) 5-325 mg per tabletIndications :severe chronic pain requiring long-term opioid treatment Take 1 tablet by mouth 2 (two) times a day as needed for pain 60 tablet 07/06/20 25 2024 Active pregabalin (LYRICA) 150 mg capsuleIndication s:Complex regional pain syndrome type 1 of left lower extremity Take 2 capsules (300 mg total) by mouth 2 (two) times a day 360 capsule 1 07/17/20 25 Active pregabalin (LYRICA) 150 mg capsuleIndication s:Complex Regional Pain Syndrome, Type I Take 2 capsules (300 mg total) by mouth 2 (two) times a day 120 capsule 3 05/24/20 25 2024 Discontinued(R eorder) HYDROcodone-aceta minophen (NORCO) 5-325 mg per tabletIndications :Pain Take 1 tablet by mouth 2 (two) times a day as needed for pain 60 tablet 05/29/20 25 2024 Discontinued(R eorder) cephalexin (KEFLEX) 500 mg capsule Take 1 capsule (500 mg total) by mouth 2 (two) times a day for 7 days 14 capsule 06/29/20 25 2024 pregabalin (LYRICA) 150 mg capsuleIndication s:Complex Regional Pain Syndrome, Type I Take 2 capsules (300 mg total) by mouth 2 (two) times a day 120 capsule 3 07/06/20 25 2024 Discontinued Active Problems Problem Noted Date Diagnosed Date Preventative health care 06/18/2025 Assessment & Plan (06/18/2025 12:13 PM CDT): Reviewed preventative yearly labs(lipids, CBC, CMP), regular recommended cancer screenings for patient demographics along with recommended vaccines Headache, migraine 05/28/2025 Obstructive sleep apnea 05/28/2025 Assessment & Plan (06/18/2025 12:13 PM CDT): On zepbound Chronic use of opiate drug for therapeutic purpo se 02/22/2025 Type 2 diabetes mellitus with hyperlipidemia 08/2025 Assessment & Plan (06/18/2025 12:14 PM CDT): Well controlled on tirzetpide, losratan and lipitor Moderate episode of recurrent major depressive d isorder 11/14/2024 Assessment & Plan (06/18/2025 12:13 PM CDT): Chronic stable Well controlled Continue current prescribed medications prozac at current dose Assessment & Plan (11/14/2024 12:42 PM PROTEIN SPECIALIST): Chronic stable Well controlled Continue current prescribed medications prozac at current dose Complex regional pain syndro me type 1 of left lower extremity 07/13/2022 Assessment & Plan (06/18/2025 12:14 PM CDT): Following pain specialist High dose lyrica appears to be giving her the best results Assessment & Plan (06/16/2024 10:11 AM CDT): Chronic stable Well controlled Continue current prescribed medications pregabalin, amitriptyline at current dose Insomnia 06/17/2022 Assessment & Plan (06/17/2022 12:32 PM CDT): Attempt amitriptyline PCOS (polycystic ovarian syndrome) 05/06/2022 MARINE on CPAP 05/12/2021 Neuropathy 04/11/2021 Assessment & Plan (06/18/2025 12:13 PM CDT): Continue current prescribed medications lyrica at current dose Assessment & Plan (11/14/2024 12:42 PM PROTEIN SPECIALIST): Chronic stable Well controlled Continue current prescribed [...] several surgeries also with gout Cont lyrica Mixed hyperlipidemia 04/30/2020 Assessment & Plan (06/18/2025 12:13 PM CDT): Chronic stable Well controlled Continue current prescribed medication lipitor at current dose Assessment & Plan (01/21/2023 11:46 AM CDT): Chronic stable Well controlled Continue current prescribed medications at current dose Assessment & Plan (04/11/2021 8:09 AM CDT): Checking flp Essential hypertension 05/31/2017 Assessment & Plan (06/18/2025 12:13 PM CDT): Chronic stable Well controlled Continue current prescribed medications amlodipine lisinopril at current dose Assessment & Plan (06/16/2024 10:14 AM CDT): [...] CDT): Hypertension is controlled on today's visit. Resolved Problems Problem Noted Date Diagnosed Date Resolved Date Asthma 05/28/2025 06/18/2025 Depression 05/28/2025 06/18/2025 Hyperglycemia 05/28/2025 06/18/2025 Left ureteral injury 05/28/2025 025 Post-op pain 05/28/2025 06/18/2025 Pyelonephritis 05/28/2025 06/18/2025 Sepsis 05/28/2025 06/18/2025 Renal colic on left side 05/28/2025 [place] (stress urinary incontinence, female) 05/28/2025 06/18/2025 HTN (hypertension) 05/28/2025 Gout 05/28/2025 06/18/2025 Hyperlipidemia 05/28/2025 06/18/2025 Preventative health care 06/16/202410/2024 Assessment & Plan (06/16/2024 9:48 AM CDT): Reviewed labs, screenings and vaccines Recurrent major depression 10/27/2023 0 11/14/2024 Assessment [...] improved Rash and nonspecific skin eruption 09/14/2023 05/04/2025 Overview (10/05/2023): 09/2023 AVISE negative, Neg Myositis 11 panel, CRP 35.5, ESR 9, AST 42, ALT 45, TSH 2.12, 06/2022 XR: -R elbow: unremarkable -R shoulder: mild GH and AC joint OA Assessment & Plan (10/05/2023 4:20 PM PROTEIN SPECIALIST): Ms. Vazquez is a 43yo female with [...] Acevedo. Assessment & Plan (09/14/2023 11:33 AM PROTEIN SPECIALIST): Ms. Vazquez is a 43yo female with [...] in [address] Acevedo. Right shoulder pain 06/15/2022 05/04/20 25 Right elbow pain 06/15/2022 05/04/2025 Medial epicondylitis of right elbow 06/15/2022 05/04/2025 Lateral epicondylitis of right elbow 06/15/2022 05/04/2025 Rotator cuff tendinitis, right 06/15/2022 05/04/2025 Preoperative clearance 04/10/202205/06 Assessment & Plan (04/10/2022 10:29 AM CDT): Pt is acceptable medical risk for podiatric surgery. Class 3 severe obesity due t o excess calories with serious comorbidity and body mass index (BMI) of 40.0 to 44.9 in adult 03/12/2022 Assessment & Plan (11/14/2024 10:16 AM PROTEIN SPECIALIST): Got zepbound approved Assessment & Plan (06/16/2024 11:19 AM CDT): Will hector for now Made several diet changes, weight remains the same Assessment & Plan (01/25/2024 9:41 AM CDT): Monitor weight Assessment & Plan (01/21/2023 11:02 AM CDT): With HTN and HLD Doing hand written prescription for [employer] for Saxenda, cheapest option available Will try to do this via phone moving forward Body mass index 40.0-44.9, adult (CMS/[facility]) 03/12/2022 01/21/2023 Overview (03/13/2022): Has been on [...] Had covid fax Due for mammo 01/2021 Gout 04/11/2021 05/04/2025 Assessment & Plan (04/11/2021 8:12 AM CDT): Left foot Cont allopurinol Sleep-disordered breathing 04/24/2020 0 05/06/2022 Excessive daytime sleepiness 04/24/2020 05/06/2022 Abnormal ECG 08/28/2019 05/06/2022 Sinus tachycardia 08/28/2019 06/16/2024 Assessment & Plan (04/11/2021 8:08 AM CDT): 108 resting even after 30 minutes of us talking Recommend she discuss increasing bisoprolol v switching bb at her next cards appt Obesity (BMI 30-39.9) 05/31/20172021 Assessment & Plan (09/12/2021 1:24 PM PROTEIN SPECIALIST): Cont bill On month ~6 for now wegovy not covered If at next appt, still plateu'ing , may not be the right med for her. Recommend referral to discuss weight loss surgery options, she is agreeable to this as she has tried many avenues to loose weight now. Assessment & Plan (04/11/2021 8:10 AM CDT): Cont bill for now- has had so much success with 22 lbs Trying to see if wegovy may be covered- also instructed her to talk with epicurio and her husbands [employer] to see if wegovy covered under independent plan Assessment & Plan (05/31/2017 8:49 PM CDT): Unfortunately continues to gain weight, is nearly in the morbidly obese category. Palpitations 05/04/2017 06/18/2025 Assessment & Plan (05/31/2017 8:51 PM CDT): [...] the past as a cause excessive fatigue. Encounters Date Type Department Care Team Description 07/24/2025 Orders Only [facility] [address] [place] [address] Arlette Marsh MD PhD Complex regional pain syndrome type 1 of left lower extremity (Primary Dx); Neuropathy 07/23/2025 [facility]phone [facility] 6th [place] [address] [place] [phone] Amrit Bright MD PhD Authorization/Certifi cation ([employer]) 07/20/2025 Telephone [facility] Cardiology [address] [place] [phone] Jojo Pavon, GEGE Med Refill 07/17/2025 Orders Only [facility] [address] [place] [address] Arlette Marsh MD PhD 07/17/2025 Telephone [facility] Primary Care [address] [place] [address] [place] [phone] Tom Crystal Jr., MD [facility] Denied referral 07/05/2025 Telephone [facility] Primary Care [address] [place] [address] [address] [place] [address] Tom Crystal Jr., MD letter for CRPS for [facility] 06/29/2025 Orders Only [facility] [address] [place] [address] [place] [phone] Kirstin Rae NP 06/25/2025 9:30 AM CDT Office Visit [facility] Medicine Neuro Muscle [address] [place] [address] [place] [address] Kirstin Rae NP Neuropathy (Primary Dx); Complex regional pain syndrome type 1 of left lower extremity 06/22/2025 Orders Only [facility] [address] [place] [address] Arlette Marsh MD PhD Complex regional pain syndrome type 1 of left lower extremity (Primary Dx) 06/22/2025 Orders Only [facility] [address] [place] [phone] Amrit Bright MD PhD 06/21/2025 Letter (Out) [facility] Primary Care [address] [place] [phone] 06/20/2025 Patient Message [facility] Primary Care [address] [place] [phone] Tom Crystal Jr., MD [facility] 06/18/2025 11:15 AM CDT Office Visit [facility] Primary Care [address] [place] [phone] Tom Crystal Jr., MD Preventative health care (Primary Dx); Complex regional pain syndrome type 1 of left lower extremity; Type 2 diabetes mellitus with hyperlipidemia (HCC); Obstructive sleep apnea; Essential hypertension; Mixed hyperlipidemia; Neuropathy; Moderate episode of recurrent major depressive disorder (HCC); Chronic use of opiate drug for therapeutic purpose 06/18/2025 [facility] [address] [place] [phone] Amrit Bright MD PhD Neuropathy (Primary Dx) 06/05/2025 Orders Only [facility] Medicine Rheumatology [address] [facility] Medical Office [address] [place] [address] Terese Calderon NP 05/28/2025 4:59 PM CDT - 05/28/2025 11:59 PM CDT Hospital Encounter [address] [address] Chronic use of opiate drug for therapeutic purpose Discharge Disposition: Discharge to home or self care 05/28/2025 9:31 AM CDT - 05/28/2025 11:59 PM CDT Hospital Encounter [facility] [address] [facility] [address] [place] [address] Aylin Reyes NP Complex regional pain syndrome type 1 of left lower extremity (Primary Dx); Chronic use of opiate drug for therapeutic purpose Discharge Disposition: Discharge to home or self care 05/14/2025 Orders Only [facility] Medicine Neuro Muscle [address] [facility] Medicine 6th [place] [address] [place] [address] Ross Mott RN 05/04/2025 1:20 PM CDT Office Visit [facility] Medicine Rheumatology 10 [facility] Office Building [address] [place] [address] Treese Calderon NP Complex regional pain syndrome type 1 of left lower extremity (Primary Dx) 05/03/2025 Orders Only [facility] [address] [facility] Medicine [address] [place] [address] Kimberlyn Deluca RN Complex regional pain syndrome type 1 of left lower extremity; Neuropathy from Last 3 Months Immunizations Immunization Administration Dates Next Due Influenza, Quadrivalent, Spl it, Intramuscular 07/31/2015 Influenza, Quadrivalent, Spl it, Preservative Free, Intramuscular 07/23/2022,09/11/2021,07/12/2019,07/08 Influenza, Trivalent, IM (MDV) 07/09/2016 Influenza, Trivalent, Preser vative Free, Intramuscular 06/16/2024 Influenza, Unspecified 06/18/2025(Deferred: Pam ent Refused) Pfizer SARS-CoV-2 Monovalent Vaccination (12+ Yrs) PURPLE 02/03/2021,01/13/2021 Tdap 09/11/2021 Surgical History Surgery Date Site/Laterality Comments TARSAL TUNNEL RELEASE 10/04/2018 - 10/03/2019 TUBAL LIGATION SHOULDER SURGERY 3 KNEE SURGERY Bilateral FOOT SURGERY 2 left 1 right TONSILLECTOMY ENDOMETRIAL ABLATION W/ NOVASURE FL UPPER GI AIR CONTRAST W KUB 11/10/2024 Left PLANTAR FASCIA RELEASE 2009 ROTATOR CUFF REPAIR 2022 Medical History Medical History Date Comments Hx Other Medical migraines; Comm ents: [facility] 11/09/2014 - Hx Other Medical psoriasis; Comm ents: [facility] 11/09/2014 - Hx Other Medical asthma; Comment s: [facility] 11/09/2014 - Hypertension Hypertension Depression Depression Hx Other Medical obesity; Commen ts: [facility] 11/09/2014 - Tachycardia Gout Peripheral neuropathy Hypercholesteremia Kidney stone Migraines Chronic pain disorder Asthma 1992 Diabetes mellitus 12/2024 Rosacea 1988 Rotator cuff syndrome 2022 Psoriasis 1997 Plantar fasciitis 2007 Family History Medical History Relation Name Comments Hyperlipidemia Brother Micheal Diabetes Father Lazaro Family history of diabetes mellitus - (Added by TW Conv) Heart failure Father Lazaro Hyperlipidemia Father Lazaro Stroke Father Lazaro Diabetes Maternal Grandmother Rachel Arthritis Mother Asiya Hyperlipidemia Mother Asiya Hypertension Mother Asiya Breast [...] on file Legal Sex Female 3:33 AM PROTEIN SPECIALIST Gender Identity Not on file Sexual Orientation [...] Sign Reading Time Taken Comments Blood Pressure 135/93 06/25/2025 9:59 AM CDT Pulse 90 06/25/2025 9:59 AM CDT Temperature 36.7 C (98 F) 06/18/2025 11:13 AM CDT Respiratory Rate 16 06/18/2025 11:13 AM CDT Oxygen Saturation 97% 06/18/2025 11:13 AM CDT Inhaled Oxygen Concentration - - Weight 98.7 kg (217 lb 9.6 oz) 06/25/2025 9:59 A M CDT Height 165.1 cm (5' 5) 06/25/2025 9:59 AM CDT Body Mass Index 36.21 06/25/2025 9:59 AM CDT Plan of Treatment Health Maintenance Due Date Last Done Comments Hepatitis C Screening 1980 Foot Exam 1982 Hepatitis B Screening 01/20/2000 Pneumococcal vaccine <65 (1 of 2 - PCV) 2001 HPV Vaccines (1 - 3-dose SCD M series) 2009 Breast Cancer Screening-Mammogram 05/26/2023 022 Covid-19 Vaccine (4 - 2024-2 6 season) 2025 10/01/2021, 02/03/2021, 01/13/2021 Influenza Vaccine (#1) 2025 , 07/23/2022, 09/11/2021, Additional history exists Hemoglobin A1C 09/28/2025 03/29/2025, 10/04, 06/16/2024, Additional history exists Cervical Cancer Screening 01/11/2026 01/11/2023 Dilated Eye Exam 03/13/2026 03/13/2025 Albumin Creatinine Ratio, Urine 03/29/2026 Lipid Panel 03/29/2026 03/29/2025, 06/04, 06/23/2023, Additional history exists eGFR 03/29/2026 03/29/2025, 03/04, 10/18/2024, Additional history exists Depression Screening 06/18/2026 06/18/2025, 03/16/2025, 03/02/2025, Additional history exists Regular Well Visit/Exam 18-64 06/18/2026, 06/16/2024, 06/12/2022, Additional history exists DTaP/Tdap/Td Vaccine (2 - Td or Tdap) 09/11/2031 09/11/2021 Varicella Vaccines Discontinued Goals Goal Patient Goal Type Associated Problems Recent Progress Patient-Stated? Author CCM Chronic Pain Care Plan Chronic Care Management No change(05/28 10:19 AM CDT) No Sharon Thompson, RN Note: Problem: Chronic Pain Goals: 1. Minimize further functional decline 2. Maximize quality of life 3. Control pain Strategies: - Activity/exercise program recommendation - Conservative stepwise pain medicine strategy with multi-disciplinary approach - Recommend healthy lifestyle strategies and compensatory methods as needed Medical Devices Implanted Type Area Nitroglycerin Neutralizer Device Identifier Shelf Expiration Date Model / Serial / Lot Spr [employer]rapeutics System Nerve Stimulator Peripheral Single Lead Sprint [facility] [id number] - [id number] Implanted:Qty: 1 on 11/10/2024 by Arlette Marsh MD PhD at [facility] Lead [employer] 10/05/2025 [id number] / / [id number] Description:Implant was expl anted. Patient did not tolerate procedure could not get neurmodulation settings to appropriate setting to satisfy patient need. Procedures Procedure Name Priority Date/Time Associated Diagnosis Comments SKIN BIOPSY Routine 06/25/2025 9:59 AM CDT Complex regional pain syndrome type 1 of left lower extremity Neuropathy NEUROMUSCULAR TESTING Routine 06/25/2025 12:00 AM CDT Complex regional pain syndrome type 1 of left lower extremity Neuropathy NEUROMUSCULAR TESTING Routine 06/25/2025 12:00 AM CDT Complex regional pain syndrome type 1 of left lower extremity Neuropathy AMPHETAMINE, URINE, CONFIRMATION Routine 05/28/2025 10:13 AM CDT Chronic use of opiate drug for therapeutic purpose TARGET OPIOID SCREEN BY PARKING ENFORCEMENT SPECIALIST Routine 05/28/2025 10:13 AM CDT Chronic use of opiate drug for therapeutic purpose DRUGS OF ABUSE SCREEN, URINE WITH REFLEX CONFIRMATION Routine 05/28/2025 10:13 AM CDT Chronic use of opiate drug for therapeutic purpose PAIN MANAGEMENT PROFILE Routine 05/28/2025 10:13 AM CDT Chronic use of opiate drug for therapeutic purpose EGFR Routine 03/29/2025 11:23 AM CDT Type 2 diabetes mellitus with hyperlipidemia (HCC) HEMOGLOBIN A1C Routine 03/29/2025 11:23 AM CDT Type 2 diabetes mellitus with hyperlipidemia (HCC) LIPID PANEL Routine 03/29/2025 11:23 AM CDT Type 2 diabetes mellitus with hyperlipidemia (HCC) ALBUMIN CREATININE RATIO, URINE Routine 03/29/2025 11:23 AM CDT Type 2 diabetes mellitus with hyperlipidemia (HCC) HM DIABETES EYE EXAM Routine 03/13/2025 10:54 AM CDT HM PAP SMEAR WITH HPV Routine 01/11/2023 SCREENING MAMMOGRAM BILATERAL W CARLOS Schedule Routine, Read Routine (OP Routine) 05/26/2022 3:17 PM CDT Preventative health care from Last 3 Months or Most Recently Relevant to Health Maintenance Results * SKIN BIOPSY (06/25/2025 9:59 AM CDT) Kirstin Barraza NP - 06/25/2025 9:59 AM CDT Kirstin Rae NP 06/25/2025 11:43 AM Skin Biopsy Date/Time: 06/25/2025 9:59 AM Performed by: Kirstin Rae NP Authorized by: Kirstin Rae NP Preparation: Patient was prepped and draped in the usual sterile fashion. Local anesthesia used: yes Anesthesia: local infiltration Anesthesia: Local anesthesia used: yes Local Anesthetic: lidocaine 1% with epinephrine Anesthetic total: 2 mL Sedation: Patient sedated: no Patient tolerance: patient tolerated the procedure well with no immediate complications Comments: Per Deangelo request, both RIGHT and LEFT sides were completed. Kirstin Rae NP IN CLINIC/BEDSIDE PIO ZAZUETA Final Result * Neuromuscular Testing Tissue (06/25/2025 12:00 AM CDT) Tissue (Muscle, biopsy) 06/25/2025 06/25/2025 [facility] NEUROMUSCULAR CLINICAL LABORATORY - 07/18/2025 2:36 PM CDT EPIC results best viewed via link to PDF NEUROMUSCULAR CLINICAL LABORATORY [facility] Jimmy SMario Ramirez, [address] [facility]; ; Fax NEUROMUSCULAR REPORT Patient Name: LILIA VAZQUEZ Date of : 1980 (Age: 45) HOSPITAL: [facility] BIOPSY DATE: 06/25/2025 BIOPSY RECEIVED: 06/25/2025 [facility] BIOPSY NUMBER: [id number] Outside Specimen Number: NA Specimen(s) Received: A: R DISTAL LEG, FIX B: R DISTAL LEG, FRESH C: R DISTAL THIGH, FIX Submitting Physician: Kyra Gan FNP Additional Physician: Amrit Bright M.D. Report Date: 07/18/2025 SKIN BIOPSY CLINICAL HISTORY: The patient with diabetic neuropathy has complex regional pain syndrome of the left foot. A skin biopsy is requested to evaluate for small fiber neuropathy. DESCRIPTION OF SKIN AT DISTAL LEG (Microscopic; frozen & fixed tissue): H&E shows no inflammation. Anti-CD3 stain shows no cellularity. Congo Red stain shows no amyloid. PGP 9.5 stain shows axons in the dermis, but no intraepidermal axons. DESCRIPTION OF SKIN AT DISTAL THIGH (Microscopic; fixed tissue): PGP 9.5 stain shows intraepidermal axons. INTRAEPIDERMAL NERVE FIBER DENSITY (IENFD): Quantification/Morphometry Biopsy Site Patient Value Normal (>5th percentile) Distal leg RIGHT side 0.0 fibers/mm > 10.8 fibers/mm Distal Thigh RIGHT side 3.8 fibers/mm > 16.1 fibers/mm IMPRESSION: The intraepidermal nerve fiber density as determined using PGP 9.5 immunostain is absent at the distal leg and decreased at the distal thigh. This finding is consistent with the presence of a small fiber neuropathy. There are no morphological abnormalities noted. There is no amyloid. There is no increased cellularity or inflammation noted within the dermis. Report Electronically Reviewed and Signed Out By,Barbara Díaz M.D. lab billing lab billing [id number] COMMENTS: Assessment of internal & external controls shows that antibody staining is appropriate and adequate for interpretation. Normative values for intraepidermal nerve fiber (IENF) density were developed in this laboratory from skin biopsies of normal controls and based on reference values from Eur J Neurol 2016 23:333 and Eur J Neurol 2018 25:848. The number of nerves is expressed as a number per millimeter length of epidermis. Values that are less than the 5th percentile are considered abnormal and consistent with a diagnosis of small fiber neuropathy. Normal values do not rule out the presence of a small fiber neuropathy. Staining is performed by histochemistry and immunohistochemistry on frozen tissue sections. Stains performed are listed in the description section. These tests were developed, and their performance characteristics determined, by the [facility]. [facility] does not require that these tests go through premarket FDA review. They have not been cleared or approved by the US Food and Drug Administration. The FDA has determined that such clearance or approval is not necessary. These tests are used for clinical purposes. They should not be regarded as investigational or for research. This laboratory is certified under the Clinical Laboratory Improvement Amendments of 1988 (CLIA-88) as qualified to perform high complexity clinical laboratory testing. The physician professional and lab technical services for this case were performed at the [facility] Department of Neurology laboratory. Amrit Bright MD PhD LAB PATHOLOGY ORDERABLES Final Result NEUROMUSCULAR CLINICAL LABORATORY Room [phone] [place] [address] * Neuromuscular Testing Tissue (06/25/2025 12:00 AM CDT) Tissue (Muscle, biopsy) 06/25/2025 06/25/2025 Narrative NEUROMUSCULAR CLINICAL LABORATORY - 07/18/2025 2:30 PM CDT EPIC results best viewed via link to PDF NEUROMUSCULAR CLINICAL LABORATORY [address], [address] [facility]; ; Fax NEUROMUSCULAR REPORT Patient Name: LILIA VAZQUEZ Date of : 1980 (Age: 45) HOSPITAL: [facility] BIOPSY DATE: 06/25/2025 BIOPSY RECEIVED: 06/25/2025 [facility] BIOPSY NUMBER: [id number] Outside Specimen Number: NA Specimen(s) Received: A: L DISTAL LEG, FIX B: L DISTAL LEG, FRESH C: L DISTAL THIGH, FIX Submitting Physician: Kyra Gan FNP Additional Physician: Amrit Bright M.D. Report Date: 07/18/2025 SKIN BIOPSY CLINICAL HISTORY: The patient with diabetic neuropathy has complex regional pain syndrome in the left foot. A skin biopsy is requested to evaluate for small fiber neuropathy. DESCRIPTION OF SKIN AT DISTAL LEG (Microscopic; frozen & fixed tissue): H&E shows no inflammation. Anti-CD3 stain shows no cellularity. Congo Red stain shows no amyloid. PGP 9.5 stain does not show intraepidermal axons, but shows positive fibers in the dermis. DESCRIPTION OF SKIN AT DISTAL THIGH (Microscopic; fixed tissue): PGP 9.5 stain shows intraepidermal axons. INTRAEPIDERMAL NERVE FIBER DENSITY (IENFD): Quantification/Morphometry Biopsy Site Patient Value Normal (>5th percentile) Distal leg - LEFT side 0.0 fibers/mm > 10.8 fibers/mm Distal Thigh - LEFT side 3.7 fibers/mm > 16.1 fibers/mm IMPRESSION: The intraepidermal nerve fiber density as determined using PGP 9.5 immunostain is absent at the distal leg and decreased at the distal thigh. This finding is consistent with the presence of a small fiber neuropathy. There are no morphological abnormalities noted. There is no amyloid. There is no increased cellularity or inflammation noted within the dermis. Report Electronically Reviewed and Signed Out By,Barbara Díaz M.D. lab billing lab billing 601 COMMENTS: Assessment of internal & external controls shows that antibody staining is appropriate and adequate for interpretation. Normative values for intraepidermal nerve fiber (IENF) density were developed in this laboratory from skin biopsies of normal controls and based on reference values from Eur J Neurol 2016 23:333 and Eur J Neurol 2018 25:848. The number of nerves is expressed as a number per millimeter length of epidermis. Values that are less than the 5th percentile are considered abnormal and consistent with a diagnosis of small fiber neuropathy. Normal values do not rule out the presence of a small fiber neuropathy. Staining is performed by histochemistry and immunohistochemistry on frozen tissue sections. Stains performed are listed in the description section. These tests were developed, and their performance characteristics determined, by the [facility]. FDA does not require that these tests go through premarket FDA review. They have not been cleared or approved by the US Food and Drug Administration. The FDA has determined that such clearance or approval is not necessary. These tests are used for clinical purposes. They should not be regarded as investigational or for research. This laboratory is certified under the Clinical Laboratory Improvement Amendments of 1988 (CLIA-88) as qualified to perform high complexity clinical laboratory testing. The physician professional and lab technical services for this case were performed at the [facility] Department of Neurology laboratory. us Amrit Bright MD PhD LAB PATHOLOGY ORDERABLES Final Result NEUROMUSCULAR CLINICAL LABORATORY Room [address] [place] [address] * Targeted Opioid Screen, Ur (05/28/2025 10:13 AM CDT) [facility] Pain mgt 6-Acetylmorphine, Ur Not Detected CutOff 10 ng/mL Pain mgt Buprenorphine, Ur Not Detected CutOff 5 ng/mL [facility] Pain mgt Buprenorphine metabolite (Norbuprenorphine), Ur Not Detected CutOff 5 ng/mL [facility] Pain mgt Codeine, Ur Not Detected CutOff 25 ng/mL [facility] Pain mgt Hydrocodone, Ur Not Detected CutOff 25 ng/mL [facility] Pain mgt Hydromorphone, Ur Not Detected CutOff 25 ng/mL [facility] Pain mgt Methadone, Ur Not Detected CutOff 25 ng/mL [facility] Pain mgt Methadone Metabolite (EDDP), Ur Not Detected CutOff 25 ng/mL [facility] Pain mgt Morphine, Ur Not Detected CutOff 25 ng/mL [facility] Pain mgt Oxycodone, Ur Not Detected CutOff 25 ng/mL [facility] Pain mgt Oxymorphone, Ur Not Detected CutOff 25 ng/mL [facility] Pain mgt Tapentadol, Ur Not Detected CutOff 25 ng/mL [facility] Pain mgt Tramadol, Ur Not Detected CutOff 25 ng/mL [facility] Pain mgt Tramadol metabolite (O-desmethyltramado l), Ur Not Detected CutOff 25 ng/mL [facility] Comment: Interpretive Data This test only detects free, unconjugated drugs. The absence of expected drug(s) and/or metabolite(s) may indicate non-compliance, inappropriate timing of specimen collection relative to the time of dosing, variability in absorption, diluted or adulterated urine, or other testing limitations. Questions concerning interpretation should be directed to the laboratory. The results of this test are to be used only for medical purposes and are not suitable for forensic use. This test was developed and its performance characteristics determined by [facility]. It has not been cleared or approved by the U.S. Food and Drug Administration. Current interpretive data was last revised 19. Pain mgt Naloxone, ur Not Detected cutoff 20 ng/ml [facility] Urine 05/28/2025 10:1 3 AM CDT 05/28/2025 6:45 PM CDT Aylin Reyes NP LAB URINE ORDERABLES Final Re sult [facility] One [facility] Department [place] [address] * (ABNORMAL) Drugs of Abuse Screen, Urine with Reflex Confirmation (05/28/2025 10:13 AM CDT) Pathologist [facility] [place] Amphetamine, ur Screen Positive, presumptive (A) CutOff 500ng/mL Comment: Interpretive Data - Amphetamines: Samples containing greater than 500 ng/mL d-methamphetamine or other cross-reacting amphetamine compounds are reported as positive. Amphetamine immunoassays are subject to significant false positive rates due to cross-reactivity of non-amphetamine drugs. Confirmatory testing required for definitive results. Current Interpretive Data was last reviewed 2023. Barbiturates, ur Not Detected CutOff 200ng/mL [facility] Comment: Interpretive Data - Barbiturates: Samples containing greater than 200 ng/mL secobarbital or other cross-reacting barbiturate compounds are reported as positive. False positive and false negative results are possible. Confirmatory testing required for definitive results. Current Interpretive Data was last reviewed 2023. Benzodiazepines, ur Not Detected CutOff 100ng/mL [facility] Comment: Interpretive Data - Benzodiazepines: Samples containing greater than 100 ng/mL nordiazepam or other cross-reacting compounds are reported as positive. False positive and false negative results are possible. Confirmatory testing required for definitive results. Current Interpretive Data was last reviewed 2023. Cannabinoids, ur Not Detected CutOff 50 ng/mL [facility] Comment: Interpretive Data - Cannabinoids: Samples containing greater than 50 ng/mL delta-9 THC -COOH or other cross- reacting compounds are reported as positive. False positive and false negative results are possible. Confirmatory testing required for definitive results. Current Interpretive Data was last reviewed 2023. Cocaine, ur Not Detected CutOff 150ng/mL [facility] Comment: Interpretive Data - Cocaine: Samples containing greater than 150 ng/mL benzoylecgonine or other cross- reacting compounds are reported as positive. False positive and false negative results are possible. Confirmatory testing required for definitive results. Current Interpretive Data was last reviewed 2023. Fentanyl, Ur Not Detected CutOff 5 ng/mL [facility] Comment: Interpretive Data - Fentanyl: Samples containing greater than 5 ng/mL norfentanyl, fentanyl, or other cross-reacting fentanyl compounds are reported as positive. False positive and false negative results are possible. Confirmatory testing required for definitive results. Current Interpretive Data was last reviewed 2024. Methadone, ur Not Detected CutOff 300ng/mL [facility] Comment: Interpretive Data - Methadone: Samples containing greater than 300 ng/mL d,l-methadone or other cross-reacting compounds are reported as positive. False positive and false negative results are possible. Confirmatory testing required for definitive results. Current Interpretive Data was last reviewed 2023. Opiates, ur Not Detected CutOff 300ng/mL [facility] Comment: Interpretive Data - Opiates: Samples containing greater than 300 ng/mL morphine or other cross-reacting compounds are reported as positive. False positive and false negative results are possible. Confirmatory testing required for definitive results. Current Interpretive Data was last reviewed 2023. Oxycodone, ur Not Detected CutOff 100ng/mL [facility] Comment: Interpretive Data - Oxycodone: Samples containing greater than 100 ng/mL oxycodone or other cross-reacting compounds are reported as positive. False positive and false negative results are possible. Confirmatory testing required for definitive results. Current Interpretive Data was last reviewed 2023. Phencyclidine, ur Not Detected CutOff 25 ng/mL [facility] Comment: Interpretive Data - Phencyclidine: Samples containing greater than 25 ng/mL phencyclidine or other cross-reacting compounds are reported as positive. False positive and false negative results are possible. Confirmatory testing required for definitive results. Current Interpretive Data was last reviewed 2023. Urine Creatinine 187 mg/dL [facility] Comment: Interpretive Data Urine Creatinine: < 10 mg/dL is extremely dilute = or > 10 but < 20 mg/dL is dilute = or > 20 mg/dL is normal Current Interpretive Data was last revised on 2017. Urine 05/28/2025 10:1 3 AM CDT 05/28/2025 6:45 PM CDT Narrative [facility] - 05/28/2025 7:49 PM CDT Drug Screening is performed by immunoassay for medical purposes. If positive, confirmation testing will be performed for amphetamines, benzodiazepines, cocaine, fentanyl, methadone, opiates, oxycodone, and phencyclidine. Aylin Reyes NP LAB URINE ORDERABLES Final Re sult Performing Organization Address City/[facility]/ZIP Co de Phone Number [facility] [employer] [place] [address] * Amphetamine Confirmation, Urine (05/28/2025 10:13 AM CDT) Pathologist [facility] [place] Amphetamine Conf, Ur Does Not Confirm CutOff 150ng/mL Methamphetamine Conf, Ur Does Not Confirm CutOff 150ng/mL [facility] MDA Conf, Ur Does Not Confirm CutOff 150ng/mL [facility] MDMA Conf, Ur Does Not Confirm CutOff 50 ng/mL [facility] MDEA Conf, Ur Does Not Confirm CutOff 150ng/mL [facility] MBDB Conf, Ur Does Not Confirm CutOff 150ng/mL [facility] Comment: Interpretive Data This test detects the presence or absence of drug compounds using LC Tandem mass spectrometry. While this test is highly specific, false positive and false negative results may occur in very rare circumstances. Contact the laboratory for consultation, if needed. Performance characteristics were determined by the [facility] in a manner consistent with CLIA requirement and has not been cleared or approved by the U.S. Food and Drug Administration. Current interpretive data was last revised on 2020. Urine 05/28/2025 10:1 3 AM CDT 05/28/2025 7:13 PM CDT Aylin Reyes NP LAB URINE ORDERABLES Final Re sult Performing Organization Address City/[facility]/ZIP Co de Phone Number [facility] Department [place] [employer] [place] [address] * eGFR (03/29/2025 11:23 AM CDT) eGFR >90 >=60 mL/min/1. 73 m2 Comment: Interpretive Data Reference Interval Normal >/= 90 mL/min/1.73m2 Mildly decreased* 60 - 89 mL/min/1.73m2 Mildly to moderately decreased 45 - 59 mL/min/1.73m2 Moderately to severely decreased 30 - 44 mL/min/1.73m2 Severely decreased 15 - 29 mL/min/1.73m2 Kidney Failure < 15 mL/min/1.73m2 *Relative to young adult level Estimated glomerular filtration rate is determined by the 2020 CKD-EPI equation recommended by the National Kidney Foundation (A Unifying Approach to GFR Estimation: Recommendations of the NKF-ASK Task Force on Reassessing the Inclusion of Race in Diagnosing Kidney Disease, JASN 2020). The CKD-EPI equation should not be used for patients with unstable renal function and has not been validated in children and those over 70. Current interpretive data was last reviewed 2021. Blood 03/29/2025 11:2 3 AM CDT 03/29/2025 11:51 AM CDT us Tom Crystal Jr., MD LAB BLOOD ORDERABLES Final Result [facility] (KAN) [address] [facility] Department [place] [address] * Albumin Creatinine Ratio, Urine (03/29/2025 11:23 AM CDT) Albumin Ur 29.8 mg/L Comment: Interpretive Data No reference range established. Current interpretive data was last revised 2019. Testing performed by: [facility], [address] [place] [address], [place]., [address] Creatinine Ur 312.8 mg/dL [facility] (KAN) Comment: Interpretive Data No reference range established. Current interpretive data was last revised 2019. Testing performed by: [address] [place] [address] Albumin Creatinine Ratio, Ur 10 1 - 29 mg/g [facility] (KAN) Comment:Testing performed by : [facility], [address] [place] [address]., [id number] Urine 03/29/2025 11:2 3 AM CDT 03/29/2025 2:51 PM CDT Tom Crystal Jr., MD LAB URINE ORDERABLES Final Result Performing Organization Address [facility] de Phone Number [facility] (BRUSLY) [address] [place] [address] * Hemoglobin A1c (03/29/2025 11:23 AM CDT) Hgb A1C 5.0 4.0 - 5.6 % Estimated Average Glucose 97 mg/dL [facility] (BRUSLY) Comment: The ADA recommends reporting an estimated Average Glucose (eAG) with all Hemoglobin A1c results using the equation derived from a study of 507 normal and diabetic adults. Minority populations were underrepresented and children were not included. (Diabetes Care 31:0932-7351, 2008). The eAG is not equivalent to a fasting glucose. Blood 03/29/2025 11:2 3 AM CDT 03/29/2025 11:51 AM CDT Tom Crystal Jr., MD LAB BLOOD ORDERABLES Final Result Performing Organization Address [facility] de Phone Number [facility] (BRUSLY) [address] [place] [address] * (ABNORMAL) Lipid panel (03/29/2025 11:23 AM CDT) Cholesterol 131 30 - 199 mg/dL Comment: Interpretive Data Ages < or = 19 years Acceptable: <170 mg/dL Borderline high: 170-199 mg/dL High: >or= 200 mg/dL Ages > or = 20 years Desirable: <200 mg/dL Borderline high: 200-239 mg/dL High: >or= 240 mg/dL Literature References: 1. Expert Panel on Integrated Guidelines for Cardiovascular Health and Risk Reduction in Children and Adolescents. Pediatrics 2011;128:S213 2. NCEP Expert Panel. Circulation 2004;110:227 Current Interpretive Data was last revised on 2018. Triglycerides 212(H) <=149 mg/dL [facility] (KAN) Comment: Interpretive Data Ages < or = 9 years Acceptable: <75 mg/dL Borderline high: 75-99 mg/dL High: >or= 100 mg/dL Ages 10 to 20 years Acceptable: <90 mg/dL Borderline high: 90-129 mg/dL High: >or= 130 mg/dL Ages > or = 20 years Desirable: <150 mg/dL Borderline high: 150-199 mg/dL High: 200-499 mg/dL Very high: >or= 499 mg/dL Literature References: 1. Expert Panel on Integrated Guidelines for Cardiovascular Health and Risk Reduction in Children and Adolescents. Pediatrics 2011;128:S213 2. NCEP Expert Panel. Circulation 2004;110:227 Current Interpretive Data was last revised on 2018. HDL 29(L) >=40 mg/dL [facility] (KAN) Comment: Interpretive Data Ages < or = 19 years Acceptable: >45 mg/dL Borderline low: 40-45 mg/dL Low: <40 mg/dL Ages > or = 20 years Desirable: >or= 60 mg/dL Low: <40 mg/dL Literature References: 1. Expert Panel on Integrated Guidelines for Cardiovascular Health and Risk Reduction in Children and Adolescents. Pediatrics 2011;128:S213 2. NCEP Expert Panel. Circulation 2004;110:227 Current Interpretive Data was last revised on 2018. LDL, calculated 67 <=129 mg/dL [facility] (KAN) Comment: Interpretive Data Ages < or = 19 years Acceptable: <110 mg/dL Borderline high: 110-129 mg/dL High: >or= 130 mg/dL Ages > or = 20 years Optimal: <100 mg/dL Near optimal: 100-129 mg/dL Borderline high: 130-159 mg/dL High: >160 mg/dL Calculated using the Romaine LDL-C estimating equation. This equation was implemented on 2024. Prior to this date LDL-C was estimated using the Friedewald equation. Literature References: 1. Expert Panel on Integrated Guidelines for Cardiovascular Health and Risk Reduction in Children and Adolescents. Pediatrics 2011;128:S213 2. NCEP Expert Panel. Circulation 2004;110:227 3. Romaine Nguyễn et al. DUNG Cardiol. 2019February 01;5(5):540-548. doi: 10.1001/jamacardio.2020.0013 Current Interpretive Data was last revised on 2024. Non-HDL Cholesterol 102 mg/dL [facility] (BRUSLY) Comment: Interpretive Data Ages < or = 19 years Acceptable: <120 mg/dL Borderline high: 120-144 mg/dL High: >145 mg/dL Ages > or = 20 years When triglycerides are >200 mg/dL, Non-HDL cholesterol is a secondary target of therapy with treatment goals that are 30 mg/dL greater than the LDL cholesterol target. Literature References: 1. Expert Panel on Integrated Guidelines for Cardiovascular Health and Risk Reduction in Children and Adolescents. Pediatrics 2011;128:S213 2. NCEP Expert Panel. Circulation 2004;110:227 Current Interpretive Data was last revised on 2018. Chol/HDL ratio 5 ZENAIDA GARCIA (BRUSLY) Blood 03/29/2025 11:2 3 AM CDT 03/29/2025 11:51 AM CDT Tom Crystal Jr., MD LAB BLOOD ORDERABLES Final Result [facility] RADHA (BRUSLY) [address] [facility] Department [place] [address] * (ABNORMAL) DIABETES EYE EXAM (03/13/2025 10:54 AM CDT) SCRIBED DIABETIC DILATED EYE EXAM Abnormal Historical Provider HEALTH MAINTENANCE Final Result * PAP SMEAR WITH HPV (01/11/2023) Scribed Pap [...] age 40, based on guidelines of the [place] [employer] (ACR Practice Parameter for the Performance of Screening and Diagnostic Mammography) and [place]. For women [...] Recently Relevant to Health [place] [address] [employer] OPEN ACCESS CIGNA OPEN ACCESS CIGNA OPEN ACCESS CIGNA OPEN ACCESS Care Teams Dewaterer Operator Relationship Specialty Start Date End Date Tom Crystal Jr., MD [facility] [address] PCP - General Internal Medicine 07/23/22 Gerardo Ortega MD [address] [place] [address] [id number] Referring Physician Obstetrics and Gynecology 04/10/21 Israel Cervantes Jr., DPM [address] [id number] Referring Physician Podiatry 04/10/21 Linda Moore MD [address] [id number] Consulting Physician Cardiology 04/10/21 Noe Acevedo MD [address] [place] [address] Consulting Physician Rheumatology 08/17/23
--- OUTSIDE RECORDS SUMMARY | 2025-08-03 12:28 | XMS_ITS | Encounter Summary ---
Author Organization [facility] Address [address] [place] [address] Phone Care Team Providers Care Burial Vault Maker Name Role Phone Gerardo Ortega MD Unavailable [phone] Billy Guevara DPM, Gabriel Unavailable [phone] Linda Moore MD Unavailable [phone] Bonilla Guevara MD, Tom Mackey Primary Care Provide r Noe Acevedo MD Unavailable [phone] Reason for Visit * Reason Onset Date Comments Authorization/Certification 07/23/2025 Gamu nex Encounter Details Date Type Department Care Team (Late st Contact Info) Description 07/23/2025 Telephone [facility] Medicine Neuro Muscle [address] [facility] Advanced Medicine 6th [place] [address] [place] [address] Amrit Bright MD PhD [address] [place] [address] Authorization/Certifica tion (Gamunex) Social History Tobacco Use Types Packs/Day Years [...] on file Legal Sex Female 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 Infusion name/dose: Gamunex Units: 60GM monthly Plan.member ID# [employer] [id number] Faxed form to [phone] Facility location: [facility] Ordering Provider: Dr Bright Ref # Status: Pending Approval dates: Drug name IVIg Ordering Provider Deangelo Location/NPI [facility] Date of Service asao Frequency/dose monthly/60 gm Quantity 6 months ICD-10 SFN (small fiber neuropathy) G60.8 Tried/failed n/a documented in this encounter Plan of Treatment [...] on filedocumented in this encounter Care Teams Burial Vault Maker Relationship Specialty Start Date End Date Tom Crystal Jr., MD [address] [place] [id number] PCP - General Internal Medicine 07/23/22 Gerardo Ortega MD [address] [address] Referring Physician Obstetrics and Gynecology 04/10/21 Israel Cervantes Jr., DPM [address] [facility] [address] [address] Referring Physician Podiatry 04/10/21 Linda Moore MD [address] [facility] [address] [address] Consulting Physician Cardiology 04/10/21 Noe Acevedo MD [address] [place] [address] Consulting Physician Rheumatology 08/17/23 documented as of this encounter
[2025-08-03 13:22] VITALS: BP 134/85; PULSE 96; RESP 18; TEMP 36.9; O2SAT 98
--- NOTE | 2025-08-03 14:12 | PC.NURSE ---
patient walked out of ED without difficulty and in no distress, reports that she does not need to be seen more than others in the waiting room.
--- OUTSIDE RECORDS SUMMARY | 2025-08-03 14:19 | XMS_ITS | Clinical Summary ---
Author Organization [facility] Address [address] [place] [address] Care Team Providers Care Clinical Biostatistics Director Name Role Phone Linda Moore MD Unavailable Unavailable Bonilla Guevara MD, Tom Sheng Primary Care Pro vider Allergies Active Allergy [...] 6:54 AM CDT Height 165.1 cm (5' 5) 05/13/2023 6:54 AM CDT Body Mass Index 42.74 05/13/2023 6:54 AM CDT Plan of Treatment Health Maintenance Due Date Last Done Comments Cervical Cancer Screening Pap Smear (Age 30 to 64) Every 3 Years 1982 Annual Physical 1985 Hepatitis C 01/20/2000 Hepatitis B Vaccines (1 of 3 - 19+ 3-dose series) 2001 HPV Vaccines (1 - 3-dose SCDM series) 2009 Cervical Cancer Screening Pap with HPV Testing (Age 30 to 64) Every 5 Years 01/20/2012 Cervical Cancer Screening with HPV 01/20/2012 Mammogram Screening 2022 COVID-19 Vaccine ( season) 2025 10/01/2021, 02/03/2021, 01/13/2021 Influenza Adult (#1) 2025 07/23/2022, 09/11/2021, 07/12/2019, Additional history exists DTaP, Tdap and Td Vaccines (2 - Td or Tdap) 09/11/2031 09/11/2021 Hepatitis A Vaccines Aged Out No long er eligible based on patient's age to complete this topic Meningococcal B Vaccine Aged Out No l onger eligible based on patient's age to complete this topic Meningococcal Vaccine Aged Out No [place] eligible based on patient's age to complete this topic Pneumococcal Vaccine: Pediatrics (0 to 5 Years) and At-Risk Patients (6 to 49 Years) Aged Out No longer eligible based on patient's age to complete this topic RSV Immunizations Under 20 Months Aged Out No longer eligible based on patient's age to complete this topic Medical Devices Explanted Type Area Private Watchman Device Identifier Shelf Expiration Date Model / Serial / Lot Plate Explanted:Qty: 1 on 04/23/2022 by Margarito Crystal DPM at [facility] Plate Left: Foot Description:Plate and screws removed from left foot- hardware from [employer] Screws Explanted:Qty: 1 on 04/23/2022 by Margarito Crystal DPM at [facility] Screw Left: Foot Description:Hardware explant ed from Left foot - hardware from [employer] Insurance [facility] Care Teams Clinical Biostatistics Director Relationship Specialty Start Date End Date Tom Crystal Jr., MD [address] [place], [place] [address] PCP - General HOSPITALIST 05/06/23 Linda Moore MD CARDIOVASCULAR DISEASE 04/16/22
--- OUTSIDE RECORDS SUMMARY | 2025-08-03 14:19 | XMS_ITS | Encounter Summary ---
Author Organization [facility] Address [address] [place] [address] Care Team Providers Care Supervisor [employer] Name Role Phone Tom Lees MD Primary Care Provider [phone] Encounter Details Date Type Department Care Team (Late st Contact Info) Description 07/13/[address] 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 DermPath Lab Received: 07/13/2023 07:29 AM Pathologist: Delma Allen MD Specimen: Skin, left neck 11:55 AM CDT DERMATOPATHOLOGY LABORATORY Final Diagnosis Specimen A. 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 Path# [id number] 11:55 AM T DERMATOPATHOLOGY LABORATORY Gross Description [...] Clinicopathologic correlation is recommended. 11:55 AM [facility] DERMATOPATHOLOGY LABORATORY Disclaimer An external and internal positive and negative controls are appropriate for the histochemical, immunohistochemical and immunofluorescence stain(s) in this case (if any), except where stated explicitly. The performance characteristics of the stain(s) cited in this report were developed and its performance characteristic determined by the Dermatopathology Laboratory at [facility], directed by Dr. Terrell Allen. These tests need not be, and therefore are not, approved by the [place] Food and Drug Administration. The tests are used for clinical purposes. Billing Codes Specimen Charges Stain Charges 32667 1 67939 1 11:55 AM T DERMATOPATHOLOGY LABORATORY Embedded Images 11:55 AM CDT DERMATOPATHOLOGY LABORATORY Pathology/Cytolog y TISSUE SPECIMEN FROM SKIN / Unknown 07/09/2023 07/13/2023 7:29 AM CDT us Marco Antonio Gambino MD LAB - PATHOLOGY/CYTOLOGY ORDER CELINA Final Result DERMATOPATHOLOGY LABORATORY [facility] - Department of Dermatology [facility] [address] [place] [address], [address] [phone] documented in this encounter Visit Diagnoses Not on filedocumented in this encounter Care Teams Supervisor [employer] Relationship Specialty Start Date End Date Tom Lees MD [address] [place] [id number] PCP - General 07/10/19 documented as of this encounter
--- OUTSIDE RECORDS SUMMARY | 2025-08-03 14:19 | XMS_ITS | Encounter Summary ---
Author Organization [facility] Address [address] [place] [address] Care Team Providers Care Electrical Development Engineer Name Role Phone Gerardo Ortega MD Unavailable [phone] Billy Guevara DPM, Gabriel Unavailable [phone] Linda Moore MD Unavailable [phone] Bonilla Guevara MD, Tom Mackey Primary Care Provide r Noe Acevedo MD Unavailable Reason for Visit * Reason Onset Date Comments pre-procedure instructions 11/08/2024 Encounter Details Date Type Department Care Team (Late st Contact Info) Description 11/08/2024 Telephone [facility] [address] [address] [place] [address] Arlette Marsh MD PhD [address] [facility] [address] [place] [address] pre-procedure instructions Social History Tobacco Use Types [...] on file 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 Author [facility] Chronic Pain Care Plan Chronic Care [...] filedocumented in this encounter Care Teams Electrical Development Engineer Relationship Specialty Start Date End Date Tom Crystal Jr., MD [address] [place] [id number] PCP - General Internal Medicine 07/23/22 Gerardo Ortega MD [address] [id number] Referring Physician Obstetrics and Gynecology 04/10/21 Israel Cervantes Jr., DPM [address] [phone] Referring Physician Podiatry 04/10/21 Linda Moore MD [address] [address] Consulting Physician Cardiology 04/10/21 Noe Acevedo MD [address] [place] [address] Consulting Physician Rheumatology 08/17/23 documented as of this encounter
--- OUTSIDE RECORDS SUMMARY | 2025-08-03 14:19 | XMS_ITS | Clinical Summary ---
Author Organization [facility] [address] Address [address] [place] [address] Care Team Providers Care Case Management Specialist Name Role Phone Gerardo Ortega MD Unavailable Billy Guevara DPM, Gabriel Unavailable Linda Moore MD Unavailable [phone] Bonilla Guevara MD, Tom Mackey Primary Care Provide r Noe Acevedo MD Unavailable Allergies Active Allergy Reactions Criticality Noted Date [...] dose Assessment & Plan (11/14/2024 12:42 PM EXCHANGE OPERATOR): Chronic stable Well controlled Continue current [...] dose Assessment & Plan (11/14/2024 12:42 PM EXCHANGE OPERATOR): Chronic stable Well controlled Continue current [...] OA Assessment & Plan (10/05/2023 4:20 PM EXCHANGE OPERATOR): Ms. Vazquez is a 43yo female [...] Acevedo. Assessment & Plan (09/14/2023 11:33 AM EXCHANGE OPERATOR): Ms. Vazquez is a 43yo female [...] 03/12/2022 Assessment & Plan (11/14/2024 10:16 AM EXCHANGE OPERATOR): Got zepbound approved Assessment & Plan (06/16/2024 11:19 AM CDT): Will hector for now Made several diet changes, weight remains the same Assessment & Plan (01/25/2024 9:41 AM CDT): Monitor weight Assessment & Plan (01/21/2023 11:02 AM CDT): With HTN and HLD Doing hand written prescription for [employer] for Saxenda, cheapest option available Will try to do this via phone moving forward Body mass index 40.0-44.9, adult ([facility]) 03/12/2022 01/21/2023 Overview (03/13/2022): Has been on [...] 05/31/20172021 Assessment & Plan (09/12/2021 1:24 PM EXCHANGE OPERATOR): Cont bill On month ~6 for now [...] covered- also instructed her to talk with [employer] and her husbands employer [employer] to [...] Department Care Team Description 07/24/2025 Orders Only [facility] [place] at the [facility] [address] [place] [address] Arlette Marsh MD PhD Complex regional pain syndrome type 1 of left lower extremity (Primary Dx); Neuropathy 07/23/2025 Telephone [facility] Neuro Muscle [facility] [place] [address] [place] [phone] Amrit Bright MD PhD Authorization/Certifi cation ([employer]) 07/20/2025 Telephone [facility] [address] [place] [phone] Jojo Pavon, GEGE Med Refill 07/17/2025 Orders Only [facility] at the [place] [facility] [address] [place] [address] Arlette Marsh MD PhD 07/17/[address] [facility] [address] [place] [address] [place] [phone] Tom Crystal Jr., MD [facility] Denied referral 07/05/2025 Telephone [facility] [address] [place] [address] [address] [place] [address] Tom Crystal Jr., MD letter for CRPS for [facility] 06/29/2025 Orders Only [facility] Neuro Muscle [address] [place] [address] [place] [phone] Kirstin Rae NP 06/25/2025 9:30 AM CDT Office Visit [facility] Medicine Neuro Muscle [address] [place] [address] [place] [address] Kirstin Rae NP Neuropathy (Primary Dx); Complex regional pain syndrome type 1 of left lower extremity 06/22/2025 Orders Only [facility] at the [facility] [address] [place] [address] Arlette Marsh MD PhD Complex regional pain syndrome type 1 of left lower extremity (Primary Dx) 06/22/2025 Orders Only [facility] Neuro Muscle [address] [place] [phone] Amrit Bright MD PhD 06/21/2025 Letter (Out) [facility] [address] [place] [phone] 06/20/2025 Patient Message [facility] [address] [place] [phone] Tom Crystal Jr., MD [facility] 06/18/2025 11:15 AM CDT Office Visit [facility] [address] [place] [phone] Tom Crystal Jr., MD Preventative health care (Primary Dx); Complex regional pain syndrome type 1 of left lower extremity; Type 2 diabetes mellitus with hyperlipidemia (HCC); Obstructive sleep apnea; Essential hypertension; Mixed hyperlipidemia; Neuropathy; Moderate episode of recurrent major depressive disorder (HCC); Chronic use of opiate drug for therapeutic purpose 06/18/2025 Orders Only [facility] Neuro Muscle [address] [place] [phone] Amrit Bright MD PhD Neuropathy (Primary Dx) 06/05/2025 Orders Only [facility] Medicine Rheumatology [address] [facility] Medical Office Building [address] [place] [address] Terese Calderon NP 05/28/2025 4:59 PM CDT - 05/28/2025 11:59 PM CDT Hospital Encounter [address] [address] Chronic use of opiate drug for therapeutic purpose Discharge Disposition: Discharge to home or self care 05/28/2025 9:31 AM CDT - 05/28/2025 11:59 PM CDT Hospital Encounter [facility] [address] [facility] [address] [place] [address] Aylin Reyes NP Complex regional pain syndrome type 1 of left lower extremity (Primary Dx); Chronic use of opiate drug for therapeutic purpose Discharge Disposition: Discharge to home or self care 05/14/2025 Orders Only [facility] Medicine Neuro Muscle [address] [facility] Medicine 6th [place] [address] [place] [address] Ross Mott RN 05/04/2025 1:20 PM CDT Office Visit [facility] Medicine Rheumatology [address] [facility] Office Building [address] [place] [address] Terese Calderon NP Complex regional pain syndrome type 1 of left lower extremity (Primary Dx) 05/03/2025 Orders Only [facility] [address] [facility] Medicine [address] [place] [address] Kimberlyn Deluca RN Complex regional pain syndrome [...] Comments Hx Other Medical migraines; Comm ents: [facility] 11/09/2014 - Hx Other Medical psoriasis; Comm ents: [facility] 11/09/2014 - Hx Other Medical asthma; Comment s: [facility] 11/09/2014 - Hypertension Hypertension Depression Depression Hx Other Medical obesity; Commen ts: [facility] 11/09/2014 - Tachycardia Gout Peripheral neuropathy [...] on file Legal Sex Female 3:33 AM EXCHANGE OPERATOR Gender Identity Not on file Sexual [...] as needed Medical Devices Implanted Type Area Liquor Establishment Manager Device Identifier Shelf Expiration Date Model / Serial / Lot Spr Therapeutics System Nerve Stimulator Peripheral Single Lead [facility] [id number] - [id number] Implanted:Qty: 1 on 11/10/2024 by Arlette Marsh MD PhD at [facility] Lead [employer] 10/05/2025 [id number] / / [id number] Description:Implant was expl anted. Patient did not [...] for therapeutic purpose [employer] OPIOID SCREEN BY WATCHER AUTOMAT [employer] Routine 05/28/2025 10:13 AM CDT Chronic use [...] AM CDT) Tissue (Muscle, biopsy) 06/25/2025 06/25/[address] [facility] NEUROMUSCULAR CLINICAL LABORATORY - 07/18/2025 2:36 PM CDT EPIC results best viewed via link to PDF NEUROMUSCULAR CLINICAL LABORATORY [facility] Jimmy SMario [address], [address] [facility]; ; Fax NEUROMUSCULAR REPORT Patient Name: LILIA VAZQUEZ Date of : 1980 (Age: 45) HOSPITAL: [facility] BIOPSY DATE: 06/25/2025 BIOPSY RECEIVED: 06/25/2025 [facility] BIOPSY NUMBER: [id number] Outside Specimen Number: NA Specimen(s) Received: A: [...] and their performance characteristics determined, by the [facility] Neuromuscular Laboratory. [facility] does not require that these tests go [...] for this case were performed at the [facility] Department of Neurology laboratory. Amrit Bright MD PhD LAB PATHOLOGY ORDERABLES Final Result NEUROMUSCULAR CLINICAL LABORATORY Room [address] [place] [address] * Neuromuscular Testing Tissue (06/25/2025 12:00 AM CDT) Tissue (Muscle, biopsy) 06/25/2025 06/25/2025 Narrative NEUROMUSCULAR CLINICAL LABORATORY - 07/18/2025 2:30 PM CDT EPIC results best viewed via link to PDF NEUROMUSCULAR CLINICAL LABORATORY [address], [address] [facility]; ; Fax NEUROMUSCULAR REPORT Patient Name: LILIA VAZQUEZ Date of : 1980 (Age: 45) HOSPITAL: [facility] BIOPSY DATE: 06/25/2025 BIOPSY RECEIVED: 06/25/2025 [facility] BIOPSY NUMBER: [id number] Outside Specimen Number: NA Specimen(s) Received: A: [...] and their performance characteristics determined, by the [facility] Neuromuscular Laboratory. FDA does not require that [...] for this case were performed at the [facility] Department of Neurology laboratory. us Amrit Bright MD PhD LAB PATHOLOGY ORDERABLES Final Result NEUROMUSCULAR CLINICAL LABORATORY Room [address] [place] [address] * Targeted Opioid Screen, Ur (05/28/2025 10:13 AM CDT) [facility] Pain mgt 6-Acetylmorphine, Ur Not Detected CutOff 10 ng/mL Pain mgt Buprenorphine, Ur Not Detected CutOff 5 ng/mL [facility] Pain mgt Buprenorphine metabolite (Norbuprenorphine), Ur Not Detected CutOff 5 ng/mL [facility] Pain mgt Codeine, Ur Not Detected CutOff 25 ng/mL [facility] Pain mgt Hydrocodone, Ur Not Detected CutOff 25 ng/mL [facility] Pain mgt Hydromorphone, Ur Not Detected CutOff 25 ng/mL [facility] Pain mgt Methadone, Ur Not Detected CutOff 25 ng/mL [facility] Pain mgt Methadone Metabolite (EDDP), Ur Not Detected CutOff 25 ng/mL [facility] Pain mgt Morphine, Ur Not Detected CutOff 25 ng/mL [facility] Pain mgt Oxycodone, Ur Not Detected CutOff 25 ng/mL [facility] Pain mgt Oxymorphone, Ur Not Detected CutOff 25 ng/mL [facility] Pain mgt Tapentadol, Ur Not Detected CutOff 25 ng/mL [facility] Pain mgt Tramadol, Ur Not Detected CutOff 25 ng/mL [facility] Pain mgt Tramadol metabolite (O-desmethyltramado l), Ur Not Detected CutOff 25 ng/mL [facility] Comment: Interpretive Data This test only detects [...] developed and its performance characteristics determined by [facility]. It has not been cleared or approved by the U.S. Food and Drug Administration. Current interpretive data was last revised 19. Pain mgt Naloxone, ur Not Detected cutoff 20 ng/ml [facility] Urine 05/28/2025 10:1 3 AM CDT 05/28/2025 6:45 PM CDT Aylin Reyes NP LAB URINE ORDERABLES Final Re sult [facility] Department [place] [address] * (ABNORMAL) Drugs of Abuse Screen, Urine with Reflex Confirmation (05/28/2025 10:13 AM CDT) Pathologist [facility] Amphetamine, ur Screen Positive, presumptive (A) CutOff [...] Benzodiazepines, ur Not Detected CutOff 100ng/mL [facility] Comment: Interpretive Data - Benzodiazepines: Samples containing greater than 100 ng/mL nordiazepam or other cross-reacting compounds are reported as positive. False positive and false negative results are possible. Confirmatory testing required for definitive results. Current Interpretive Data was last reviewed 2023. Cannabinoids, ur Not Detected CutOff 50 ng/mL [facility] Comment: Interpretive Data - Cannabinoids: Samples containing [...] Ur Not Detected CutOff 5 ng/mL [facility] Comment: Interpretive Data - Fentanyl: Samples containing greater than 5 ng/mL norfentanyl, fentanyl, or other cross-reacting fentanyl compounds are reported as positive. False positive and false negative results are possible. Confirmatory testing required for definitive results. Current Interpretive Data was last reviewed 2024. Methadone, ur Not Detected CutOff 300ng/mL [facility] Comment: Interpretive Data - Methadone: Samples containing greater than 300 ng/mL d,l-methadone or other cross-reacting compounds are reported as positive. False positive and false negative results are possible. Confirmatory testing required for definitive results. Current Interpretive Data was last reviewed 2023. Opiates, ur Not Detected CutOff 300ng/mL [facility] Comment: Interpretive Data - Opiates: Samples containing greater than 300 ng/mL morphine or other cross-reacting compounds are reported as positive. False positive and false negative results are possible. Confirmatory testing required for definitive results. Current Interpretive Data was last reviewed 2023. Oxycodone, ur Not Detected CutOff 100ng/mL [facility] Comment: Interpretive Data - Oxycodone: Samples containing greater than 100 ng/mL oxycodone or other cross-reacting compounds are reported as positive. False positive and false negative results are possible. Confirmatory testing required for definitive results. Current Interpretive Data was last reviewed 2023. Phencyclidine, ur Not Detected CutOff 25 ng/mL [facility] Comment: Interpretive Data - Phencyclidine: Samples containing greater than 25 ng/mL phencyclidine or other cross-reacting compounds are reported as positive. False positive and false negative results are possible. Confirmatory testing required for definitive results. Current Interpretive Data was last reviewed 2023. Urine Creatinine 187 mg/dL [facility] Comment: Interpretive Data Urine Creatinine: < 10 mg/dL is extremely dilute = or > 10 but < 20 mg/dL is dilute = or > 20 mg/dL is normal Current Interpretive Data was last revised on 2017. Urine 05/28/2025 10:1 3 AM CDT 05/28/2025 6:45 PM CDT Narrative [facility] - 05/28/2025 7:49 PM CDT Drug Screening is performed by immunoassay for medical purposes. If positive, confirmation testing will be performed for amphetamines, benzodiazepines, cocaine, fentanyl, methadone, opiates, oxycodone, and phencyclidine. Aylin Reyes NP LAB URINE ORDERABLES Final Re sult Performing Organization Address City/[facility]/ZIP Co de Phone Number [facility] [employer] [place] [address] * Amphetamine Confirmation, Urine (05/28/2025 10:13 AM CDT) Pathologist [facility] Amphetamine Conf, Ur Does Not Confirm CutOff [...] needed. Performance characteristics were determined by the [facility] in a manner consistent with CLIA requirement and has not been cleared or approved by the U.S. Food and Drug Administration. Current interpretive data was last revised on 2020. Urine 05/28/2025 10:1 3 AM CDT 05/28/2025 7:13 PM CDT Aylin Reyes NP LAB URINE ORDERABLES Final Re sult Performing Organization Address City/[facility]/ZIP Co de Phone Number [facility] Department of [employer] [place] [address] * eGFR (03/29/2025 11:23 AM CDT) eGFR [...] ORDERABLES Final Result [facility] ([place]) 1 [facility] [place] [address] * Albumin Creatinine Ratio, Urine (03/29/2025 11:23 AM CDT) Albumin Ur 29.8 mg/L Comment: Interpretive Data No reference range established. Current interpretive data was last revised 2019. Testing performed by: [facility], [address] [place] [address], [place]., [address] Creatinine Ur 312.8 mg/dL [facility] ([place]) Comment: Interpretive Data No reference range established. Current interpretive data was last revised 2019. Testing performed by: [address] [place]., [address] Albumin Creatinine Ratio, Ur 10 1 - 29 mg/g [facility] ([place]) Comment:Testing performed by : [facility], [address] [place] [address]., [address] Urine 03/29/2025 11:2 3 AM CDT 03/29/2025 2:51 PM CDT Tom Crystal Jr., MD LAB URINE ORDERABLES Final Result Performing Organization Address [facility] de Phone Number [facility] ([place]) [address] [place] [address] * Hemoglobin A1c (03/29/2025 11:23 AM CDT) Hgb A1C 5.0 4.0 - 5.6 % Estimated Average Glucose 97 mg/dL [facility] ([place]) Comment: The ADA recommends reporting an estimated Average Glucose (eAG) with all Hemoglobin A1c results using the equation derived from a study of 507 normal and diabetic adults. Minority populations were underrepresented and children were not included. (Diabetes Care 31:8065-7373, 2008). The eAG is not equivalent to a fasting glucose. Blood 03/29/2025 11:2 3 AM CDT 03/29/2025 11:51 AM CDT Tom Crystal Jr., MD LAB BLOOD ORDERABLES Final Result Performing Organization Address [facility] de Phone Number [facility] ([place]) [address] [place] [address] * (ABNORMAL) Lipid panel (03/29/2025 11:23 AM [...] 2024. Non-HDL Cholesterol 102 mg/dL [facility] ([place]) Comment: Interpretive Data Ages < or = [...] on 2018. Chol/HDL ratio 5 [facility] ([place]) Blood 03/29/2025 11:2 3 AM CDT 03/29/2025 11:51 AM CDT Tom Crystal Jr., MD LAB BLOOD ORDERABLES Final Result [facility] ([place]) 1 [facility] [place] [address] * (ABNORMAL) DIABETES EYE EXAM (03/13/2025 10:54 [...] age 40, based on guidelines of the [place] [employer] (ACR Practice Parameter for the Performance of Screening and Diagnostic Mammography) and [employer] [place] [employer]etric[employer] Gynecologists. For women [...] Recently Relevant to Health Maintenance [place] [address] [employer] OPEN ACCESS CIGNA OPEN ACCESS CIGNA OPEN ACCESS CIG[employer] OPEN ACCESS Care Teams Case Management Specialist Relationship Specialty Start Date End Date Tom Crystal Jr., MD [facility] [address] PCP - General Internal Medicine 07/23/22 Gerardo Ortega MD [address] [place] [phone] Referring Physician Obstetrics and Gynecology 04/10/21 Israel Cervantes Jr., DPM [address] [id number] Referring Physician Podiatry 04/10/21 Linda Moore MD [address] [phone] Consulting Physician Cardiology 04/10/21 Noe Acevedo MD [address] [place] [address] Consulting Physician Rheumatology 08/17/23
--- OUTSIDE RECORDS SUMMARY | 2025-08-03 14:20 | XMS_ITS | Encounter Summary ---
Author Organization [facility] Healthcare Address [address] [place] [address] Care Team Providers Care Epic Prelude Analyst Name Role Phone Gerardo Ortega MD Unavailable [phone] Billy Guevara DPM, Gabriel Unavailable [phone] Linda Moore MD Unavailable [phone] Bonilla Guevara MD, Tom Mackey Primary Care Provide r Noe Acevedo MD Unavailable [phone] Reason for Visit * Reason Onset Date Comments infusion 03/07/2024 Encounter Details Date Type Department Care Team (Late st Contact Info) Description 03/07/2024 Telephone [facility] at the [place] [facility] [address] [facility] Advanced Medicine [address] [place] [address] Arlette Marsh MD PhD [address] [facility] [address] [place] [address] infusion Social History Tobacco Use Types Packs/Day [...] on file 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 Gender Identity Not on file Sexual Orientation [...] on filedocumented in this encounter Care Teams Epic Prelude Analyst Relationship Specialty Start Date End Date Tom Crystal Jr., MD [address] [address] PCP - General Internal Medicine 07/23/22 Gerardo Ortega MD [address] [address] Referring Physician Obstetrics and Gynecology 04/10/21 Israel Cervantes Jr., DPM [address] [place] [address] Referring Physician Podiatry 04/10/21 Linda Moore MD [address] [place] [address] Consulting Physician Cardiology 04/10/21 Noe Acevedo MD [address] [place] [address] Consulting Physician Rheumatology 08/17/23 documented as of this encounter
--- OUTSIDE RECORDS SUMMARY | 2025-08-03 14:20 | XMS_ITS | Clinical Summary ---
Author Organization [facility] [employer] Address [address] [place] [address] Care Team Providers Care Lodging Facilities Attendant Name Role Phone Tom Lees MD Primary Care Provider Source Comments [facility] [employer],non-owned Affiliates and Associated Physician Practices is amultiple site organization consisting of ambulatory clinics and hospital sitesin [place], [place], [place] and [place]. This disclosure is being madepursuant to the Care Everywhere program and may not contain all information available regarding this patient. Last updated 18.[facility] [employer] Social History Tobacco Use Types Packs/Day Years Used Date Smoking Tobacco: Never Assessed Comments Unknown Sex and Gender Information Value Date Recorded Sex Assigned at Not on file Legal Sex Female 5:09 AM LIFE CONSULTANT Gender Identity Not on file Sexual Orientation [...] complete this topic Insurance [employer] Care Teams Lodging Facilities Attendant Relationship Specialty Start Date End Date Tom Lees MD [address] [place] [address] [address] [place] [address] PCP - General 07/10/19
--- OUTSIDE RECORDS SUMMARY | 2025-08-03 14:20 | XMS_ITS | Encounter Summary ---
Author Organization [facility] Address [address] [place] [address] Phone Care Team Providers Care Logistics Team Lead Name Role Phone Gerardo Ortega MD Unavailable [phone] Billy Guevara DPM, Gabriel Unavailable [phone] Linda Moore MD Unavailable [phone] Bonilla Guevara MD, Tom Mackey Primary Care Provide r Noe Acevedo MD Unavailable [phone] Reason for Visit * Reason Onset Date Comments Authorization/Certification 07/23/2025 Gamu nex Encounter Details Date Type Department Care Team (Late st Contact Info) Description 07/23/2025 Telephone [facility] Medicine Neuro Muscle [address] [facility] Advanced Medicine 6th [place] [address] [place] [address] Amrit Bright MD PhD [address] [place] [address] Authorization/Certifica tion (Gamunex) Social History Tobacco Use [...] on file 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 Infusion name/dose: Gamunex Units: 60GM monthly Plan.member ID# [employer] [id number] Faxed form to [phone] Facility location: [facility] Ordering Provider: Dr Bright Ref # Status: Pending Approval dates: Drug name IVIg Ordering Provider Deangelo Location/[facility] Date of Service asao Frequency/dose monthly/60 gm [...] on filedocumented in this encounter Care Teams Logistics Team Lead Relationship Specialty Start Date End Date Tom Crystal Jr., MD [address] [place] [id number] PCP - General Internal Medicine 07/23/22 Gerardo Ortega MD [address] [address] Referring Physician Obstetrics and Gynecology 04/10/21 Israel Cervantes Jr., DPM [address] [facility] [address] [address] Referring Physician Podiatry 04/10/21 Linda Moore MD [address] [facility] [address] [address] Consulting Physician Cardiology 04/10/21 Noe Acevedo MD [address] [place] [address] Consulting Physician Rheumatology 08/17/23 documented as of this encounter
--- OUTSIDE RECORDS SUMMARY | 2025-08-03 14:20 | XMS_ITS | Encounter Summary ---
Author Organization [facility] Address [address] [place] [address] Care Team Providers Care Cocktail Lounge Manager Name Role Phone Gerardo Ortega MD Unavailable [phone] Billy Guevara DPM, Gabriel Unavailable [phone] Linda Moore MD Unavailable [phone] Bonilla Guevara MD, Tom Mackey Primary Care Provide r Noe Acevedo MD Unavailable [phone] Reason for Visit * Reason Onset Date Comments letter for CRPS for [facility] 07/05/2025 Encounter Details Date Type Department Care Team ([facility] Contact Info) Description 07/05/2025 Telephone [facility] Primary Care [address] [place] [id number] Tom Crystal Jr., MD [address] [place] [phone] letter for CRPS for 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 Gender Identity Not on file Sexual [...] on filedocumented in this encounter Care Teams Cocktail Lounge Manager Relationship Specialty Start Date End Date Tom Crystal Jr., MD [address] [address] PCP - General Internal Medicine 07/23/22 Gerardo Ortega MD [address] [address] Referring Physician Obstetrics and Gynecology 04/10/21 Israel Cervantes Jr., DPM [address] [address] Referring Physician Podiatry 04/10/21 Linda Moore MD [address] [address] Consulting Physician Cardiology 04/10/21 Noe Acevedo MD [address] [place] [address] Consulting Physician Rheumatology 08/17/23 documented as of this encounter
--- OUTSIDE RECORDS SUMMARY | 2025-08-03 14:20 | XMS_ITS | Clinical Summary ---
Author Organization [facility] Address [address] [place] [address] Phone Care Team Providers Care Data Modeling Specialist Name Role Phone Unavailable Primary Care Provider Unavailabl e Allergies No known active allergies Medications FLUoxetine (PROzac) 40 mg capsule TAKE ONE CAPSULE BY MOUTH ONCE DAILY 90 Capsule 07/22/2022 9:41 AM CDT 2 Active albuterol sulfate HFA 90 mcg/actuation aerosol inhaler Inhale 2 puffs every 4 (four) hours as needed for wheezing or shortness of breath 25.5 Gram 4 12/10/2022 4:22 PM TRANSFERRER 3 Active azithromycin (ZITHROMAX) 250 mg tablet Take 2 tablets (500 mg) by mouth today, than take 1 tablet (250 mg) once daily for 4 days. 6 Tablet 11/06/2022 3:41 PM TRANSFERRER 3 Active FLUoxetine (PROzac) 40 mg capsule TAKE ONE CAPSULE BY MOUTH ONCE DAILY 90 Capsule 3 Active amitriptyline (ELAVIL) 25 mg tablet Take 1 tablet (25 mg total) by mouth nightly 90 Tablet 1 12/04/2022 7:20 PM TRANSFERRER 3 Active pregabalin (LYRICA) 75 mg Capsule [...] mouth daily 30 Capsule 08/11/2023 10:10 AM TRANSFERRER 3 Active sertraline (ZOLOFT) 25 mg tablet Take 1 tablet (25 mg total) by mouth daily 90 Tablet 4 08/11/2023 10:10 AM TRANSFERRER 3 Active sertraline (ZOLOFT) 25 mg tablet Take 1 tablet (25 mg total) by mouth daily 90 Tablet 4 3 Active HYDROcodone-moira taminophen (NORCO) 5-325 mg tablet Take 1 tablet by mouth every 6 (six) hours as needed for pain for up to 7 days 28 Tablet 09/01/2023 2:07 PM TRANSFERRER 3 Active HYDROcodone-moira taminophen (NORCO) 5-325 mg tablet Take 1 Tablet by mouth nightly as needed for pain. 30 Tablet 10/07/2023 11:40 AM TRANSFERRER 4 Active cariprazine (Vraylar) 1.5 mg Capsule capsule Take 1 Capsule (1.5 mg) by mouth daily. 90 Capsule 12/20/2023 6:53 PM CDT 4 Active amLODIPine (NORVASC) 5 mg tablet Take 1 Tablet (5 mg) by mouth daily. 90 Tablet 4 11/05/2023 2:59 PM TRANSFERRER 4 Active Social History Tobacco Use Types [...]
--- OUTSIDE RECORDS SUMMARY | 2025-08-03 14:20 | XMS_ITS | Encounter Summary ---
Author Organization [facility] Healthcare Address [address] [place] [address] Care Team Providers Care Water Tester Name Role Phone Gerardo Ortega MD Unavailable [phone] Billy Guevara DPM, Gabriel Unavailable [phone] Linda Moore MD Unavailable [phone] Bonilla Guevara MD, Tom Mackey Primary Care Provide r Noe Acevedo MD Unavailable [phone] Reason for Visit * Reason Onset Date Comments [facility] Preprocedure 01/06/2024 Encounter Details Date Type Department Care Team (Late st Contact Info) Description 01/06/2024 Telephone [facility] [address] [facility] Advanced Medicine [address] [place], [place] [id number] Derik Faith MD [address] [facility] [address] [place] [address] [facility] Preprocedure Social History Tobacco Use Types [...] on file 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 Gender Identity Not on file Sexual Orientation [...] on filedocumented in this encounter Care Teams Water Tester Relationship Specialty Start Date End Date Tom Crystal Jr., MD [address] [address] PCP - General Internal Medicine 07/23/22 Gerardo Ortega MD [address] [address] Referring Physician Obstetrics and Gynecology 04/10/21 Israel Cervantes Jr., LINDA [address] [place] [address] Referring Physician Podiatry 04/10/21 Linda Moore MD [address] [place] [address] Consulting Physician Cardiology 04/10/21 Noe Acevedo MD [address] [place] [address] Consulting Physician Rheumatology 08/17/23 documented as of this encounter
== END 2025-08-03 15:19 | disposition left against medical advice (07) ==
PROVIDERS: Emergency Provider Emergency Medicine; PCP Hospitalist
DX: R68.84 Jaw pain (principal)
CPT/HCPCS: 99199

== ENCOUNTER 2025-08-21 14:25 | Emergency (ER) | payer OTHER, SELFPAY ==
[2025-08-21] VITALS (12 sets, daily range): BP systolic 111–137; BP diastolic 63–94; PULSE 86–98; RESP 12–20; TEMP 36.4–36.7; O2SAT 95–100
--- NOTE | ~2025-08-21 | CT_ITS ---
EXAMINATION: CT abdomen pelvis w con DATE: 08/21/2025 17:05 INDICATION: Rectal bleeding. Lower abdominal pain. As history of kidney stones. TECHNIQUE: Computed tomography (CT) of the abdomen and pelvis was performed 100 cc of intravenous contrast. Automated exposure control and iterative reconstruction technique were employed. The dose-length product was 609.71 mGy-cm. COMPARISON: CT abdomen and pelvis 01/23/2022. FINDINGS: No acute findings of the lung bases. No focal lesions of the liver and spleen. The gallbladder, bile ducts, pancreas and kidneys do not show acute findings. No calculi or obstruction of the urinary factors seen. Multigated clips. No adnexal mass. 1.5 cm size hypodensity follicle in the right ovary suggestive of hemorrhagic follicle. No free fluid in the pelvis. The appendix is not clearly visible. Significant degenerative disc disease at L5-S1 level. IMPRESSION: 1. No calculi are obstruction of the urinary tract. 2. No evidence of small bowel obstruction. No free fluid. 3. 1.5 cm hyperdense follicle in the right ovary, likely representing hemorrhagic follicle. No free fluid in the pelvis. Osteoporosis. 4. Degenerative disc disease at L5-S1 level. Reviewed, dictated and finalized at location T. ICAL PHYSICIAN ASSISTANT IMPRESSION: 1. No calculi are obstruction of the urinary tract. 2. No evidence of small bowel obstruction. No free fluid. 3. 1.5 cm hyperdense follicle in the right ovary, likely representing hemorrhag ic follicle. No free fluid in the pelvis. Osteoporosis. 4. Degenerative disc disease at L5-S1 level.
--- NOTE | 2025-08-21 14:53 | ED.ABDPAIN ---
HPI - Abdominal Pain General Chief Complaint: Abdominal Pain <JO-ANN Fletcher Last Filed: 08/21/25 19:43> Stated Complaint: abdominal pain <JO-ANN Fletcher Last Filed: 08/21/25 19:43> Time Seen by Provider: 08/21/25 14:53 <June Jimenez PA-C - Last Filed: 08/21/25 19:43> Focused HPI: Patient is a 45 y/o female who presents to the ED with c/o abdominal pain. Patient reports having pain intermittently throughout her lower abdomen for the past 2-3 days. Describes the pain as though concrete has been trying to move through her intestines. Pain has been constant over the past 1 week. Worse with eating. Also reports rectal pain with sitting. Reports occasional mild nausea, few episodes of rectal bleeding and mucous in her stool over the past few weeks. States the blood has been mixed in with the stool. Last BM was yesterday. Denies vomiting. Denies fevers. Denies dysuria/hematuria. GENERAL: Well-appearing, obese with BMI of 34.2, and in no acute distress. HEAD: Normocephalic, atraumatic. CHEST: Clear to auscultation. ?No respiratory distress. HEART: Regular rate and rhythm.? ABD: Diffuse lower abd tenderness, no rebound NEURO: ?Alert and oriented x3. Patient screened in triage and initial orders placed.? ?Additional care and disposition to be based upon?diagnostic testing and treatment. <June Jimenez PA-C - Last Filed: 08/21/25 19:43> Source: patient <JO-ANN Fletcher Last Filed: 08/21/25 19:43> Mode of arrival: ambulatory <JO-ANN Fletcher Last Filed: 08/21/25 19:43> Limitations: no limitations <JO-ANN Fletcher Last Filed: 08/21/25 19:43> History of Present Illness HPI narrative: I agree with the above HPI. <Spring Salter APRN - Last Filed: 08/21/25 23:54> Related Data Home Medications: Home Medications ?Medication ?Instructions ?Recorded ?Confirmed ?Last Taken ?Type allopurinol 300 mg tablet 300 mg PO HS 01/25/20 04/16/25 01/23/22 21:00 History pregabalin 75 mg capsule (Lyrica) 75 mg PO Q12H 04/06/20 04/16/25 01/23/22 06:30 History atorvastatin 20 mg tablet (Lipitor) 20 mg PO HS 12/13/20 04/16/25 01/23/22 21:00 History bisoprolol fumarate 10 mg tablet 20 mg PO HS 10/21/21 04/16/25 01/23/22 21:00 History fluoxetine 40 mg capsule 40 mg PO DAILY 01/24/22 04/16/25 01/23/22 06:30 History diclofenac sodium 75 mg 75 mg PO DAILY 10/08/22 04/16/25 Unknown History tablet,delayed release losartan 100 mg tablet 100 mg PO DAILY 04/16/25 04/16/25 Unknown History mexiletine 150 mg capsule 300 mg PO Q8H 04/16/25 04/16/25 Unknown History omeprazole 40 mg capsule,delayed 40 mg PO DAILY 04/16/25 04/16/25 Unknown History release tirzepatide (weight loss) 15 15 mg subcut WEEKLY 04/16/25 04/16/25 Unknown History mg/0.5 mL subcutaneous pen injector (Zepbound) <June Jimenez PA-C - Last Filed: 08/21/25 19:43> Allergies/Adverse Reactions: Allergies Allergy/AdvReac Type Severity Reaction Status Date / Time meperidine AdvReac Severe N/V Verified 08/21/25 21:26 ondansetron AdvReac Unknown Headache Verified 08/21/25 21:26 <June Jimenez PA-C - Last Filed: 08/21/25 19:43> [facility] Past Medical History Medical History: Medical History History of kidney stones Asthma Obstructive sleep apnea Neuropathy Headache, migraine Depression Hyperlipidemia HTN (hypertension) <June Jimenez PA-C - Last Filed: 08/21/25 19:43> Surgical History Surgical History: Surgical History History of bladder surgery History of foot surgery History of knee surgery History of shoulder surgery <June Jimenez PA-C - Last Filed: 08/21/25 19:43> Family History Family History: Family History Father Diabetes mellitus Family history of diabetes mellitus in first degree relative Hypertension Family history of elevated blood lipids Mother Family history of hypercholesterolemia Hypertension Family history of elevated blood lipids Sibling Hypertension Family history of elevated blood lipids Family history of hypercholesterolemia Grandparent Diabetes mellitus Family history of hypercholesterolemia Hypertension Family history of cardiovascular disease Family history of lung cancer Family history of coronary artery disease Other Family history of malignant neoplasm <June Jimenez PA-C - Last Filed: 08/21/25 19:43> Social History Social History: Social History Smoking status: Former smoker Second hand tobacco smoke exposure: No Additional smoking assessment comments: stopped 20 yrs ago Alcohol intake: never Drinks per week: 1 Alcohol use details: 2/MONTH Substance use: never Substance use type: does not use Living arrangements: with family Occupation/Education: occupation Additional occupation/education comments: [employer] Gender identity (if verbalized by the patient): Female Sexual Orientation (if Verbalized by the Patient): Straight or Heterosexual Spiritual care concerns: No Agree to blood products: Yes <June Jimenez PA-C - Last Filed: 08/21/25 19:43> Exam Narrative: GENERAL: Well-appearing, obese with BMI of 34.2, and in no acute distress. HEAD: Normocephalic, atraumatic. CHEST: Clear to auscultation. ?No respiratory distress. HEART: Regular rate and rhythm.? ABD: Diffuse lower abd tenderness, no rebound NEURO: ?Alert and oriented x3. : Palpable internal hemorrhoid, hemoccult negative <Spring Salter APRN - Last Filed: 08/21/25 23:54> Course Vital Signs Vital signs: Vital Signs Temperature 36.7 C 08/21/25 14:51 Pulse Rate 94 08/21/25 14:51 Respiratory Rate 18 08/21/25 14:51 Blood Pressure 137/94 H 08/21/25 14:51 Pulse Oximetry 98 08/21/25 14:51 Temperature 36.4 C 08/21/25 19:35 Pulse Rate 87 08/21/25 22:46 Respiratory Rate 13 08/21/25 22:46 Blood Pressure 123/71 08/21/25 22:46 Pulse Oximetry 96 08/21/25 22:46 Oxygen Delivery Room Air 08/21/25 21:23 <June Jimenez PA-C - Last Filed: 08/21/25 19:43> Vital Signs Temperature 36.7 C 08/21/25 14:51 Pulse Rate 94 08/21/25 14:51 Respiratory Rate 18 08/21/25 14:51 Blood Pressure 137/94 H 08/21/25 14:51 Pulse Oximetry 98 08/21/25 14:51 Temperature 36.4 C 08/21/25 19:35 Pulse Rate 87 08/21/25 22:46 Respiratory Rate 13 08/21/25 22:46 Blood Pressure 123/71 08/21/25 22:46 Pulse Oximetry 96 08/21/25 22:46 Oxygen Delivery Room Air 08/21/25 21:23 <Spring Salter, ROXANE - Last Filed: 08/21/25 23:54> MDM - Abdominal Pain MDM Narrative Medical decision making narrative: MSE by MARY ALICE in triage. <June Jimenez PA-C - Last Filed: 08/21/25 19:43> MSE by MARY ALICE in triage. Patient is a 45 y/o female who presents to the ED with c/o abdominal pain. Patient reports having pain intermittently throughout her lower abdomen for the past 2-3 days. Describes the pain as though concrete has been trying to move through her intestines. Pain has been constant over the past 1 week. Worse with eating. Also reports rectal pain with sitting. Reports occasional mild nausea, few episodes of rectal bleeding and mucous in her stool over the past few weeks. States the blood has been mixed in with the stool. Last BM was yesterday. Denies vomiting. Denies fevers. Denies dysuria/hematuria. Labs Ordered: CBC, CMP, UA, lipase Imaging Ordered: CT abdomen pelvis Medications Ordered: Ciprofloxacin p.o., Toradol 15 mg IV, 1 L normal saline IV bolus, GI cocktail Results: Pt's CT scan indicates No acute findings of the lung bases. No focal lesions of the liver and spleen. The gallbladder, bile ducts, pancreas and kidneys do not show acute findings. No calculi or obstruction of the urinary factors seen. Multigated clips. No adnexal mass. 1.5 cm size hypodensity follicle in the right ovary suggestive of hemorrhagic follicle. No free fluid in the pelvis. The appendix is not clearly visible. Significant degenerative disc disease at L5-S1 level. Diagnosis: Urinary tract infection, hemorrhagic ovarian cyst, GERD Consults: OBGYN (outpatient), already established Patient Education/Shared MDM: Results of lab work and imaging shared with patient. She endorses improvement of symptoms following medication administration. Patient strongly advised to maintain hydration status upon discharge and follow-up with her OBGYN as soon as possible. She has been on antibiotics for different diagnosis recently, so pt's antibiotics will be changed. Pt will be discharged home with a prescription for Ciprofloxacin, with her first dose given here in the ER. Strict return precautions provided. Patient verbalized understanding and is in agreement with plan. Vital signs stable at time of discharge. All questions answered. <Spring Salter APRN - Last Filed: 08/21/25 23:54> Differential Diagnosis Differential diagnosis: Likely abdominal pain, calculus of kidney, constipation and other (Ovarian cyst, GERD, urinary tract infection) <Spring Salter APRN - Last Filed: 08/21/25 23:54> Lab Data Attestation: I reviewed the patient's lab results. <Spring Salter APRN - Last Filed: 08/21/25 23:54> Result diagrams: 08/21/25 15:20 08/21/25 15:20 <June Jimenez PA-C - Last Filed: 08/21/25 19:43> Labs: Lab Results 08/21/25 Range/Units 15:20 WBC 9.2 (4.5-10.0) K/mm3 RBC 4.55 (4.2-5.4) M/mm3 Hgb 13.6 (12.0-15.0) g/dL Hct 39.9 (37.0-47.0) % MCV 87.7 (80-100) fl MCH 29.9 (26-34) pg MCHC 34.1 (32-36) g/dl RDW 12.5 (11.5-14.5) % Plt Count 295 (150-375) k/mm3 MPV 10.6 H (7.4-10.4) fl Immature Gran % (Auto) 0.2 (0-0.5) % Neut % (Auto) 53.9 (45.5-73.1) % Lymph % (Auto) 36.4 (18.3-44.2) % [place] % (Auto) 6.7 (2.6-8.5) % Eos % (Auto) 2.4 (0-4.4) % Baso % (Auto) 0.4 (0.2-1.2) % Lymph # (Auto) 3.33 H (0.9-3.2) K/mm3 [place] # (Auto) 0.6 (0.1-0.6) K/mm3 Eos # (Auto) 0.2 (0-0.3) K/mm3 Baso # (Auto) 0.0 (0.0-0.1) K/mm3 Abs Immat Gran (auto) 0.02 (0.00-0.031) K/mm3 Absolute Neuts (auto) 4.9 (1.3-6.7) K/mm3 Absolute Nucleated RBC 0.000 (0.0-0.012) K/mm3 Nucleated RBC % 0.0 (0.0-0.2) % Sodium 137 (137-145) mmol/L Potassium 4.0 (3.4-5.0) mmol/L Chloride 106 (98-107) mmol/L Carbon Dioxide 21 L (22-30) mmol/L Anion Gap 10 (4-12) mmol/L BUN 19 H (7-17) mg/dL Creatinine 0.85 (0.7-1.0) mg/dL Estim Creat Clear Calc 84 ml/min Estimated GFR > 60 (59 - ) Glucose 90 (65-110) mg/dL Calcium 9.1 (8.4-10.2) mg/dL Total Bilirubin 0.8 (0.2-1.3) mg/dL AST 28 (14-36) U/L ALT 21 (6-35) U/L Alkaline Phosphatase 61 (38-126) U/L Total Protein 7.8 (6.3-8.2) g/dL Albumin 4.6 (3.5-5.1) g/dL Lipase 146 (23-300) U/L Urine Color Dark yellow (Yellow) Urine Appearance Cloudy H (Clear) Urine pH 5.5 (5.0-9.0) Ur Specific [place] 1.028 (1.001-1.035) Urine Protein Trace (Negative) mg/dL Urine Glucose (UA) Negative (Negative) mg/dL Urine Ketones Trace H (Negative) mg/dL Ur Blood (Man) Negative (Negative) Urine Nitrate Negative (Negative) Urine Bilirubin Negative (Negative) Urine Urobilinogen 1.0 (<2.0) mg/dL Leukocyte Esterase Rfl 1+ H (Negative) LARISA/UL Urine RBC 3-5 H (0-2) /hpf Urine WBC 6-10 H (0-3) /hpf Ur Squamous Epith Cells Few (Few) /hpf Urine Bacteria 4+ H /hpf Urine Casts 0-2 Urine Test Negative <June Jimenez PA-C - Last Filed: 08/21/25 19:43> Lab Results 08/21/25 Range/Units 15:20 WBC 9.2 (4.5-10.0) K/mm3 RBC 4.55 (4.2-5.4) M/mm3 Hgb 13.6 (12.0-15.0) g/dL Hct 39.9 (37.0-47.0) % MCV 87.7 (80-100) fl MCH 29.9 (26-34) pg MCHC 34.1 (32-36) g/dl RDW 12.5 (11.5-14.5) % Plt Count 295 (150-375) k/mm3 MPV 10.6 H (7.4-10.4) fl Immature Gran % (Auto) 0.2 (0-0.5) % Neut % (Auto) 53.9 (45.5-73.1) % Lymph % (Auto) 36.4 (18.3-44.2) % [place] % (Auto) 6.7 (2.6-8.5) % Eos % (Auto) 2.4 (0-4.4) % Baso % (Auto) 0.4 (0.2-1.2) % Lymph # (Auto) 3.33 H (0.9-3.2) K/mm3 [place] # (Auto) 0.6 (0.1-0.6) K/mm3 Eos # (Auto) 0.2 (0-0.3) K/mm3 Baso # (Auto) 0.0 (0.0-0.1) K/mm3 Abs Immat Gran (auto) 0.02 (0.00-0.031) K/mm3 Absolute Neuts (auto) 4.9 (1.3-6.7) K/mm3 Absolute Nucleated RBC 0.000 (0.0-0.012) K/mm3 Nucleated RBC % 0.0 (0.0-0.2) % Sodium 137 (137-145) mmol/L Potassium 4.0 (3.4-5.0) mmol/L Chloride 106 (98-107) mmol/L Carbon Dioxide 21 L (22-30) mmol/L Anion Gap 10 (4-12) mmol/L BUN 19 H (7-17) mg/dL Creatinine 0.85 (0.7-1.0) mg/dL Estim Creat Clear Calc 84 ml/min Estimated GFR > 60 (59 - ) Glucose 90 (65-110) mg/dL Calcium 9.1 (8.4-10.2) mg/dL Total Bilirubin 0.8 (0.2-1.3) mg/dL AST 28 (14-36) U/L ALT 21 (6-35) U/L Alkaline Phosphatase 61 (38-126) U/L Total Protein 7.8 (6.3-8.2) g/dL Albumin 4.6 (3.5-5.1) g/dL Lipase 146 (23-300) U/L Urine Color Dark yellow (Yellow) Urine Appearance Cloudy H (Clear) Urine pH 5.5 (5.0-9.0) Ur Specific [place] 1.028 (1.001-1.035) Urine Protein Trace (Negative) mg/dL Urine Glucose (UA) Negative (Negative) mg/dL Urine Ketones Trace H (Negative) mg/dL Ur Blood (Man) Negative (Negative) Urine Nitrate Negative (Negative) Urine Bilirubin Negative (Negative) Urine Urobilinogen 1.0 (<2.0) mg/dL Leukocyte Esterase Rfl 1+ H (Negative) LARISA/UL Urine RBC 3-5 H (0-2) /hpf Urine WBC 6-10 H (0-3) /hpf Ur Squamous Epith Cells Few (Few) /hpf Urine Bacteria 4+ H /hpf Urine Casts 0-2 Urine Test Negative <Spring Salter APRN - Last Filed: 08/21/25 23:54> Imaging Data Attestation: I personally reviewed and interpreted this imaging study as follows: <Spring Salter APRN - Last Filed: 08/21/25 23:54> Radiologist's impression: ITS Impressions Abdomen/Pelvis CT 08/21/25 17:06 IMPRESSION: 1. No calculi are obstruction of the urinary tract. 2. No evidence of small bowel obstruction. No free fluid. 3. 1.5 cm hyperdense follicle in the right ovary, likely representing hemorrhagic follicle. No free fluid in the pelvis. Osteoporosis. 4. Degenerative disc disease at L5-S1 level. <June Jimenez PA-C - Last Filed: 08/21/25 19:43> ITS Impressions Abdomen/Pelvis CT 08/21/25 17:06 IMPRESSION: 1. No calculi are obstruction of the urinary tract. 2. No evidence of small bowel obstruction. No free fluid. 3. 1.5 cm hyperdense follicle in the right ovary, likely representing hemorrhagic follicle. No free fluid in the pelvis. Osteoporosis. 4. Degenerative disc disease at L5-S1 level. <Spring Salter APRN - Last Filed: 08/21/25 23:54> Discharge Plan Discharge Clinical Impression: Urinary tract infection, GERD (gastroesophageal reflux disease), Hemorrhagic cyst of ovary, Degenerative disc disease <JO-ANN Fletcher Last Filed: 08/21/25 19:43> Patient Disposition: Home <JO-ANN Fletcher Last Filed: 08/21/25 19:43> Condition: Stable <JO-ANN Fletcher Last Filed: 08/21/25 19:43> Instructions: Antibiotic Form, Ovarian Cyst (ED), Urinary Tract Infection in Women (DC), GERD (Gastroesophageal Reflux Disease) (ED) <June Jimenez PA-C - Last Filed: 08/21/25 19:43> Additional Instructions: Please return to the ER with any worsening symptoms. Follow-up with your OBGYN regarding your cyst as soon as possible. Take all medications as prescribed, including regularly scheduled medications. You may take Tylenol and/or ibuprofen for pain control. Please complete your full dose of antibiotics. Remember to drink lots of water. <June Jimenez PA-C - Last Filed: 08/21/25 19:43> Patient Language: Irish <June Jimenez PA-C - Last Filed: 08/21/25 19:43> Prescriptions: New ciprofloxacin HCl 500 mg tablet 500 mg PO Q12H Qty: 14 0RF No Action diclofenac sodium 75 mg tablet,delayed release (DR/EC) 75 mg PO DAILY Zepbound 15 mg/0.5 mL pen injector 15 mg subcut WEEKLY omeprazole 40 mg capsule,delayed release(DR/EC) 40 mg PO DAILY losartan 100 mg tablet 100 mg PO DAILY mexiletine 150 mg capsule 300 mg PO Q8H allopurinol 300 mg tablet 300 mg PO HS pregabalin [Lyrica] 75 mg Capsule 75 mg PO Q12H atorvastatin [Lipitor] 20 mg tablet 20 mg PO HS Rx Instructions: TAKE 1 TABLET DAILY bisoprolol fumarate 10 mg tablet 20 mg PO HS fluoxetine 40 mg capsule 40 mg PO DAILY <June Jimenez PA-C - Last Filed: 08/21/25 19:43> Follow-up/Referrals: Bonilla,Tom Mackey Jr., MD [Primary Care Provider, Unknown] <June Jimenez PA-C - Last Filed: 08/21/25 19:43> Stand Alone Forms: Work/School Release IP <June Jimenez PA-C - Last Filed: 08/21/25 19:43> Time of Disposition: 23:53 <June Jimenez PA-C - Last Filed: 08/21/25 19:43> 23:53 <Spring Salter APRN - Last Filed: 08/21/25 23:54>
[2025-08-21 15:29] LABS: Hematocrit 39.9 % (37.0-47.0); Hemoglobin 13.6 g/dL (12.0-15.0); Immature Granulocyte Percent A 0.2 % (0-0.5); Lymphocytes Absolute Auto 3.33 K/mm3 (0.9-3.2); Mean Corpuscular HGB Conc 34.1 g/dl (32-36); Mean Corpuscular Hemoglobin 29.9 pg (26-34); Mean Corpuscular Volume 87.7 fl (80-100); Nucleated Red Blood Cells Absolute Auto 0.000 K/mm3 (0.0-0.012); Nucleated Red Blood Cells Perc 0.0 % (0.0-0.2); Platelet Count Result 295 k/mm3 (150-375); Red Blood Count 4.55 M/mm3 (4.2-5.4); White Blood Count 9.2 K/mm3 (4.5-10.0)
[2025-08-21 15:41] LABS: Add Urine Microscopic? YES; Appearance Urine Cloudy (Clear); Glucose Urine UA Negative (Negative); Leukocyte Esterase Ur 1+ LEU/UL (Negative); Nitrate Urine Negative (Negative); Non Pathogenic Casts 0-2; Specific Grav Ur 1.028 (1.001-1.035)
[2025-08-21 15:47] LABS: Alanine Aminotransferase 21 U/L (6-35); Albumin Level 4.6 g/dL (3.5-5.1); Alkaline Phosphatase 61 U/L (38-126); Anion Gap 10 mmol/L (4-12); Aspartate Amino Transferase 28 U/L (14-36); Bilirubin,Total 0.8 mg/dL (0.2-1.3); Blood Urea Nitrogen 19 mg/dL (7-17); Calcium 9.1 mg/dL (8.4-10.2); Carbon Dioxide 21 mmol/L (22-30); Chloride 106 mmol/L (98-107); Estimated CRCL calculation 84 ml/min; Estimated Glomerular Filt Rate > 60; Glucose 90 mg/dL (65-110); Lipase 146 U/L (23-300); Potassium 4.0 mmol/L (3.4-5.0); Sodium 137 mmol/L (137-145); Total Protein 7.8 g/dL (6.3-8.2)
[2025-08-21 16:18] LABS: Pregnancy On Board Control Positive
[2025-08-21] MEDS: KETOROLAC 15 MG/ML VIAL (*BKC) IV PUSH (22:46)
[2025-08-21] MEDS: BELLADONNA ALK/PHENOB ELIX 10 ML, MAG HYDROX/ALUMINUM HYD/SIMETH 30 ML, LIDOCAINE 2% VI... PO (22:46)
[2025-08-21] MEDS: CIPROFLOXACIN 500 MG TAB PO (23:01)
[2025-08-21] MEDS: SODIUM CHLORIDE 0.9% IV 1,000 ML 999 ML IV CONT (23:01)
--- NOTE | 2025-08-21 23:18 | PC.NURSE ---
This RN received report from Marcela LIU.
[2025-08-22 00:04] VITALS: BP 131/82; PULSE 89; RESP 13; O2SAT 98
--- OUTSIDE RECORDS SUMMARY | 2025-08-22 01:20 | XMS_ITS | Encounter Summary ---
Author Organization [facility] Address [address] [place] [address] Care Team Providers Care Interior Design Program Chair Name Role Phone Tom Lees MD Primary Care Provider [phone] Encounter Details Date Type Department Care Team (Late st Contact Info) Description 07/13/2023 Lab Requisition [facility] [address] [place] [address] Marco Antonio Gambino MD [address] [place] [id number] Social History Tobacco Use Types Packs/Day Years Used Date Smoking Tobacco: Never Assessed Comments Unknown Sex and Gender Information Value Date Recorded Sex Assigned at Not on file 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 Gender Identity Not on file Sexual Orientation Not on file documented as of this encounter Plan of Treatment Not on file documented as of this encounter Procedures Procedure Name Priority Date/Time Associated Diagnosis Comments DERMATOPATHOLOGY Routine 07/09/2023 12:0 0 AM CDT documented in this encounter Results * DERMATOPATHOLOGY (07/09/2023 12:00 AM CDT) Case Report Dermatopathology Report Case: [id number] Authorizing Provider: Marco Antonio Gambino MD Collected: 07/09/2023 12:00 AM Ordering Location: [facility] Lab Received: 07/13/2023 07:29 AM Pathologist: Delma Allen MD Specimen: Skin, left neck 11:55 AM CDT DERMATOPATHOLOGY LABORATORY Final Diagnosis Specimen A. 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 Path# [id number] 11:55 AM T DERMATOPATHOLOGY LABORATORY Gross Description [...] immunofluorescence. Clinicopathologic correlation is recommended. 11:55 AM [facility] DERMATOPATHOLOGY LABORATORY Disclaimer An external and internal positive and negative controls are appropriate for the histochemical, immunohistochemical and immunofluorescence stain(s) in this case (if any), except where stated explicitly. The performance characteristics of the stain(s) cited in this report were developed and its performance characteristic determined by the Dermatopathology Laboratory at [facility], directed by Dr. Terrell Allen. These tests need not be, and therefore are not, approved by the [place] Food and Drug Administration. The tests are used for clinical purposes. Billing Codes Specimen Charges Stain Charges 76660 1 47846 1 11:55 AM T DERMATOPATHOLOGY LABORATORY Embedded Images 11:55 AM CDT DERMATOPATHOLOGY LABORATORY Pathology/Cytolog y TISSUE SPECIMEN FROM SKIN / Unknown 07/09/2023 07/13/2023 7:29 AM CDT us Marco Antonio Gambino MD LAB - PATHOLOGY/CYTOLOGY ORDER CELINA Final Result DERMATOPATHOLOGY LABORATORY [facility] - Department of Dermatology [facility] [address] [place] [address], [address] [phone] documented in this encounter Visit Diagnoses Not on filedocumented in this encounter Care Teams Interior Design Program Chair Relationship Specialty Start Date End Date Tom Lees MD [address] [place] [id number] PCP - General 07/10/19 documented as of this encounter
--- OUTSIDE RECORDS SUMMARY | 2025-08-22 01:20 | XMS_ITS | Encounter Summary ---
Author Organization [facility] Address [address] [place] [address] Care Team Providers Care Wide Area Network Administrator Name Role Phone Gerardo Ortega MD Unavailable [phone] Billy Guevara DPM, Gabriel Unavailable [phone] Linda Moore MD Unavailable [phone] Bonilla Guevara MD, Tom Mackey Primary Care Provide r Noe Acevedo MD Unavailable [phone] Reason for Visit * Reason Onset Date Comments pre-procedure instructions 11/08/2024 Encounter Details Date Type Department Care Team (Late st Contact Info) Description 11/08/2024 Telephone [facility] [address] [facility] [address] [place] [address] Arlette Marsh MD PhD [address] [facility] [place] [address] pre-procedure instructions Social History Tobacco Use Types [...] on file 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 Gender Identity Not on file Sexual Orientation Not on file 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 Minimize further functional decline 2. Maximize quality of life 3. Control pain Strategies: - Activity/exercise program recommendation - Conservative stepwise pain medicine strategy with multi-disciplinary approach - Recommend healthy lifestyle strategies and compensatory methods as needed documented as of this encounter Visit Diagnoses Not on filedocumented in this encounter Care Teams Wide Area Network Administrator Relationship Specialty Start Date End Date Tom Crystal Jr., MD [address] [place] [id number] PCP - General Internal Medicine 07/23/22 Gerardo Ortega MD [address] [place] [address] Referring Physician Obstetrics and Gynecology 04/10/21 Israel Cervantes Jr., DPM [address] [address] Referring Physician Podiatry 04/10/21 Linda Moore MD [address] [address] Consulting Physician Cardiology 04/10/21 Noe Acevedo MD [address] [place] [address] Consulting Physician Rheumatology 08/17/23 documented as of this encounter
--- OUTSIDE RECORDS SUMMARY | 2025-08-22 01:20 | XMS_ITS | Clinical Summary ---
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 Name Role Phone Gerardo Ortega MD Unavailable [phone] Billy Guevara DPM, Gabriel Unavailable [phone] Linda Moore MD Unavailable [phone] Bonilla Guevara MD, Tom Mackey Primary Care Provide r Noe Acevedo MD Unavailable [phone] Allergies Active Allergy Reactions Criticality Noted Date Comments Meperidine Nausea only Low 04/16/2022 Metoprolol Other (See comments) Low 05/12/2021 Extreme fatigue Metoprolol Succinate Other (See comments) Low 05/12 Extreme fatigue Ondansetron Headache Low 10/28/2017 Medications omeprazole (PriLOSEC) 40 mg capsuleIndications :Gastroesophageal reflux disease without esophagitis Take 1 capsule (40 mg total) by mouth daily 90 capsule 3 11/23/19 25 026 Active losartan (COZAAR) 100 mg tabletIndications: Type 2 diabetes mellitus with hyperlipidemia (HCC) Take 1 tablet (100 mg total) by mouth daily 90 tablet 3 11/24/19 25 Active FLUoxetine (PROzac) 40 mg capsule TAKE 1 CAPSULE DAILY 90 capsule 3 12/21/19 25 Active allopurinoL (ZYLOPRIM) 300 mg tabletIndications: Gout, unspecified cause, unspecified chronicity, unspecified site TAKE 1 TABLET DAILY (PLEASE CALL TO SCHEDULE YOUR ANNUAL VISIT) 90 tablet 3 12/29/19 25 Active Additional Information Patient not taking.Reported on 08/10/[address] (VOLTAREN) 75 mg EC tablet TAKE 1 TABLET TWICE A DAY 180 tablet 3 01/09/20 25 Active mexiletine (MEXITIL) 150 mg capsule TAKE 1 CAPSULE THREE TIMES A DAY 270 capsule 3 03/12/20 25 Active atorvastatin (LIPITOR) 20 mg tabletIndications: Mixed hyperlipidemia TAKE 1 TABLET DAILY 90 tablet 3 04/02/20 25 Active albuterol HFA (PROVENTIL HFA,VENTOLIN HFA,PROAIR HFA) 90 mcg/actuation inhaler 1 puff 12/27/19 21 Active betamethasone dipropionate (DIPROSONE) 0.05 % lotion Apply topically 2 (two) times a day 60 mL 06/07/20 25 Active traZODone (DESYREL) 50 mg tablet Take 1 tablet (50 mg total) by mouth nightly 90 tablet 1 06/19/20 25 Active bisoprolol (ZEBETA) 10 mg tabletIndications: Sinus tachycardia TAKE 2 TABLETS DAILY 180 tablet 3 06/29/20 25 Active pregabalin (LYRICA) 150 mg capsuleIndications :Complex regional pain syndrome type 1 of left lower extremity Take 2 capsules (300 mg total) by mouth 2 (two) times a day 360 capsule 1 07/17/20 25 Active tirzepatide, weight loss, (Zepbound) 15 mg/0.5 mL pen injectorIndication s:Class 3 severe obesity due to excess calories with serious comorbidity and body mass index (BMI) of 40.0 to 44.9 in adult Inject 0.5 mL (15 mg total) under the skin every 7 days 6 mL 3 08/08/20 25 Active HYDROcodone-acetam inophen (NORCO) 5-325 mg per tabletIndications: severe chronic pain requiring long-term opioid treatment Take 1 tablet by mouth 2 (two) times a day as needed for pain 60 tablet 08/13/20 25 025 Active tirzepatide, weight loss, (Zepbound) 15 mg/0.5 mL pen injectorIndication s:Class 3 severe obesity due to excess calories with serious comorbidity and body mass index (BMI) of 40.0 to 44.9 in adult Inject 0.5 mL (15 mg total) under the skin every 7 days 6 mL 3 05/15/20 25 025 Discontin ued(Reord er) HYDROcodone-acetam inophen (NORCO) 5-325 mg per tabletIndications: severe chronic pain requiring long-term opioid treatment Take 1 tablet by mouth 2 (two) times a day as needed for pain 60 tablet 07/06/20 025 Discontin ued(Reord er) Active Problems Problem Noted Date Diagnosed Date Other chronic pain 08/15/2025 Preventative health care 06/18/2025 Assessment & Plan [...] Well controlled on tirzetpide, losratan and lipitor Major depressive disorder, recurrent episode, mo derate 11/14/2024 Assessment & Plan (06/18/2025 12:13 PM CDT): Chronic stable Well controlled Continue current prescribed medications prozac at current dose Assessment & Plan (11/14/2024 12:42 PM AUTOMATIC PRINT DEVELOPER): Chronic stable Well controlled Continue current prescribed [...] dose Assessment & Plan (11/14/2024 12:42 PM AUTOMATIC PRINT DEVELOPER): Chronic stable Well controlled Continue current prescribed [...] incontinence, female) 05/28/2025 06/18/2025 HTN (hypertension) 05/28/2025 5 Gout 05/28/2025 06/18/2025 Hyperlipidemia 05/28/2025 06/18/2025 Preventative [...] OA Assessment & Plan (10/05/2023 4:20 PM AUTOMATIC PRINT DEVELOPER): Ms. Vazquez is a 43yo female with [...] Acevedo. Assessment & Plan (09/14/2023 11:33 AM AUTOMATIC PRINT DEVELOPER): Ms. Vazquez is a 43yo female with [...] Dr. Acevedo. Right shoulder pain 06/15/2022 05/04/20 Right elbow pain 06/15/2022 05/04/2025 Medial epicondylitis [...] 03/12/2022 Assessment & Plan (11/14/2024 10:16 AM AUTOMATIC PRINT DEVELOPER): Got zepbound approved Assessment & Plan (06/16/2024 11:19 AM CDT): Will hector for now Made several diet changes, weight remains the same Assessment & Plan (01/25/2024 9:41 AM CDT): Monitor weight Assessment & Plan (01/21/2023 11:02 AM CDT): With HTN and HLD Doing hand written prescription for [employer] for Saxenda, cheapest option available Will try to do this via phone moving forward Body mass index 40.0-44.9, adult (CMS/[facility]) 03/12/2022 01/21/2023 Overview (03/13/2022): Has been [...] 05/31/20172021 Assessment & Plan (09/12/2021 1:24 PM AUTOMATIC PRINT DEVELOPER): Cont bill On month ~6 for now [...] covered- also instructed her to talk with [employer] and her husbands employer [employer] to [...] Encounters Date Type Department Care Team Description 08/15/2025 9:30 AM AUTOMATIC PRINT DEVELOPER Telemedicine [facility] [address] [place] [address] Justin Easton, Major depressive disorder, recurrent episode, moderate (HCC) (Primary Dx); Other chronic pain 08/15/2025 Orders Only [facility] at the [facility] [address] [place] [address] Advanced Medicine [address] [place] [address] Arlette Marsh MD PhD 08/13/2025 Orders Only [facility] [place] [facility] [address] [place] [address] Advanced Medicine [address] [place] [address] Arlette Marsh MD PhD Small fiber neuropathy (Primary Dx); Complex regional pain syndrome type 1 of left lower extremity 08/10/2025 8:16 AM AUTOMATIC PRINT DEVELOPER - 08/10/2025 11:59 PM AUTOMATIC PRINT DEVELOPER Hospital Encounter [facility] [place] [facility] the [facility] Medicine [address] [place] [address] Advanced Medicine [address] [place] [address] Arlette Marsh MD PhD Small fiber neuropathy (Primary Dx); Preoperative evaluation to rule out surgical contraindication; Complex regional pain syndrome type 1 of left lower extremity; Chronic use of opiate drug for therapeutic purpose; Numbness and tingling of both lower extremities Discharge Disposition: Discharge to home or self care 07/24/2025 Orders Only [facility] [place] [facility] [address] [place] [address] [place] [address] Arlette Marsh MD PhD Complex regional pain syndrome type 1 of left lower extremity (Primary Dx); Neuropathy 07/23/2025 Telephone [facility] [address] [facility] Medicine 6th [place] [address] [place] [address] Amrit Bright MD PhD Authorization/Certifi cation ([employer]) 07/20/2025 Telephone [facility] [address] [place] [address] Jojo Pavon NP Med Refill 07/17/2025 Orders Only [facility] [place] [facility] [address] [facility] [address] [place] [address] Arlette Marsh MD PhD 07/17/2025 Telephone [facility] [address] [place] [address] [place] [phone] Tom Crystal Jr., MD [facility] Denied referral 07/05/2025 Telephone [facility] [address] [place] [address] [place] [phone] Tom Crystal Jr., MD letter for CRPS for [facility] 06/29/2025 Orders Only [facility] Medicine Neuro Muscle [address] [facility] 6th [place] [address] [place] [address] Kirstin Rae NP 06/25/2025 9:30 AM CDT Office Visit [facility] Medicine Neuro Muscle [address] [facility] 6th [place] [address] [place] [address] Kirstin Rae NP Neuropathy (Primary Dx); Complex regional pain syndrome type 1 of left lower extremity 06/22/2025 Orders Only [facility] [address] [facility] [address] [place] [address] Arlette Marsh MD PhD Complex regional pain syndrome type 1 of left lower extremity (Primary Dx) 06/22/2025 [facility] [address] [facility] 6th [place] [address] [place] [address] Amrit Bright MD PhD 06/21/2025 Letter (Out) [facility] [address] [place] [phone] 06/20/2025 Patient Message [facility] [address] [place] [phone] Tom Crystal Jr., MD [facility] 06/18/2025 11:15 AM CDT Office Visit [facility] [address] [place] [phone] Tom Crystal Jr., MD [facility] health care (Primary Dx); Complex regional pain syndrome type 1 of left lower extremity; Type 2 diabetes mellitus with hyperlipidemia (HCC); Obstructive sleep apnea; Essential hypertension; Mixed hyperlipidemia; Neuropathy; Moderate episode of recurrent major depressive disorder (HCC); Chronic use of opiate drug for therapeutic purpose 06/18/2025 Orders Only [facility] [address] [facility] 6th [place] [address] [place] [address] Amrit Bright MD PhD Neuropathy (Primary Dx) 06/05/2025 Orders Only [facility] Rheumatology [address] [facility] Office Building [address] [place] [phone] Terese Calderon NP 05/28/2025 4:59 PM CDT - 05/28/2025 11:59 PM CDT Hospital Encounter [address] [address] Chronic use of opiate drug for therapeutic purpose Discharge Disposition: Discharge to home or self care 05/28/2025 9:31 AM CDT - 05/28/2025 11:59 PM CDT Hospital Encounter [facility] at the [facility] [address] [facility] [address] [place] [address] Aylin Reyes NP Complex regional pain syndrome [...] W KUB 11/10/2024 Left PLANTAR FASCIA RELEASE 2008 ROTATOR CUFF REPAIR 2022 Medical History Medical History Date Comments Hx Other Medical migraines; Comm ents: [facility] 11/09/2014 - Hx Other Medical psoriasis; Comm ents: [facility] 11/09/2014 - Hx Other Medical asthma; Comment s: [facility] 11/09/2014 - Hypertension Hypertension Depression Depression Hx Other Medical obesity; Commen ts: [facility] 11/09/2014 - Tachycardia Gout Peripheral neuropathy Hypercholesteremia [...] e alcohol) occassionally PHQ-2 Answer Date Recorded Patient Health Questionnaire-2 Score 1 08/15/2025 PHQ-9 Answer Date Recorded Patient Health Questionnaire-9 Score 5 08/15/2025 AUDIT-C Answer Date Recorded Q1: How often do you have a drink containing alc ohol? Monthly or less 08/10/2025 Q2: How many drinks containi ng alcohol do you have on a typical day when you are drinking? 1 or 2 08/10/2025 Q3: How often do you have si x or more drinks on one occasion? Never 08/10/2025 Hunger Vital Sign Answer Date Recorded Within the past 12 months, y ou worried that your food would run out before you got the money to buy more. Never true 08/10/20 25 Within the past 12 months, t he food you bought just didn't last and you didn't have money to get more. Never true 08/10/2025 Personal Safety Answer Date Recorded Have you ever been in or are you currently in a harmful physical or emotional relationship or is someone making you feel afraid or unsafe? Denies 11/03/2023 Comments No Sex and Gender Information Value Date Recorded Sex Assigned at Not on file Legal Sex Female 3:33 AM AUTOMATIC PRINT DEVELOPER Gender Identity Not on file Sexual Orientation [...] Sign Reading Time Taken Comments Blood Pressure 134/94 08/10/2025 8:19 AM AUTOMATIC PRINT DEVELOPER Pulse 94 08/10/2025 8:19 AM AUTOMATIC PRINT DEVELOPER Temperature 36.2 C (97.1 F) 08/10/2025 8:19 AM AUTOMATIC PRINT DEVELOPER Respiratory Rate 18 08/10/2025 8:19 AM AUTOMATIC PRINT DEVELOPER Oxygen Saturation 96% 08/10/2025 8:19 AM AUTOMATIC PRINT DEVELOPER Inhaled Oxygen Concentration - - Weight 90.7 kg (200 lb) 08/21/2025 9:33 AM AUTOMATIC PRINT DEVELOPER Height 165.1 cm (5' 5) 08/10/2025 8:19 AM AUTOMATIC PRINT DEVELOPER Body Mass Index 33.28 08/10/2025 8:19 AM AUTOMATIC PRINT DEVELOPER Plan of Treatment Health Maintenance Due Date [...] Plan Chronic Care Management Worsening( 8:28 AM AUTOMATIC PRINT DEVELOPER) Sharon Chamberlain, RN Note: Problem: Chronic Pain Goals: 1. Minimize further functional decline 2. Maximize quality of life 3. Control pain Strategies: - Activity/exercise program recommendation - Conservative stepwise pain medicine strategy with multi-disciplinary approach - Recommend healthy lifestyle strategies and compensatory methods as needed Medical Devices Implanted Type Area Agricultural Chemicals Inspector Device Identifier Shelf Expiration Date Model / Serial / Lot Spr Therapeutics System Nerve Stimulator Peripheral Single Lead Sprint Joshua [id number] - [id number] Implanted:Qty: 1 on 11/10/2024 by Arlette Marsh MD PhD at [facility] Lead [employer] 10/05/2025 9 [id number] / / [id number] Description:Implant was expl anted. Patient did not [...] for therapeutic purpose TARGET OPIOID SCREEN BY SENIOR NETWORK SECURITY ENGINEER Routine 05/28/2025 10:13 AM CDT Chronic use [...] Type 2 diabetes mellitus with hyperlipidemia (HCC) DIABETES EYE EXAM Routine 03/13/2025 10:54 AM CDT PAP SMEAR WITH HPV Routine 01/11/2023 SCREENING MAMMOGRAM BILATERAL W CARLOS Schedule Routine, Read Routine (OP Routine) 05/26/2022 3:17 PM CDT Preventative health care from Last 3 Months or Most Recently Relevant to Health Maintenance Results * SKIN BIOPSY (06/25/2025 9:59 AM CDT) Narrative Kirstin Rae NP - 06/25/2025 9:59 AM CDT Kirstin [...] well with no immediate complications Comments: Per Varadhachary request, both RIGHT and LEFT sides were completed. Kirstin Rae NP IN CLINIC/BEDSIDE PIO ZAZUETA Final Result * Neuromuscular Testing Tissue (06/25/2025 12:00 AM CDT) Tissue (Muscle, biopsy) 06/25/2025 06/25/2025 Narrative [facility] - 07/18/2025 2:36 PM CDT EPIC results best viewed via link to PDF NEUROMUSCULAR CLINICAL LABORATORY [facility] Jimmy SMario Ramirez, [address] [facility]; ; Fax NEUROMUSCULAR REPORT Patient Name: LILIA VAZQUEZ Date of : 1980 (Age: 45) HOSPITAL: [facility] Neuromuscular Clinic BIOPSY DATE: 06/25/2025 BIOPSY RECEIVED: 06/25/2025 [facility] BIOPSY NUMBER: [id number] Outside Specimen Number: NA Specimen(s) Received: A: [...] and their performance characteristics determined, by the [facility] Neuromuscular Laboratory. FDA does not require [...] for this case were performed at the [facility] Department of Neurology laboratory. Amrit Bright MD PhD LAB PATHOLOGY ORDERABLES Final Result NEUROMUSCULAR CLINICAL LABORATORY Room [address] [place] [phone] * Neuromuscular Testing Tissue (06/25/2025 12:00 AM CDT) Tissue (Muscle, biopsy) 06/25/2025 06/25/2025 Narrative NEUROMUSCULAR CLINICAL LABORATORY - 07/18/2025 2:30 PM CDT EPIC results best viewed via link to PDF [facility] [address], [address] [place] [address]; ; Fax NEUROMUSCULAR REPORT Patient Name: LILIA VAZQUEZ Date of : 1980 (Age: 45) HOSPITAL: [facility] Neuromuscular Clinic BIOPSY DATE: 06/25/2025 BIOPSY RECEIVED: 06/25/2025 [facility] BIOPSY NUMBER: [id number] Outside Specimen Number: NA Specimen(s) Received: A: [...] and their performance characteristics determined, by the [facility] Neuromuscular [facility]. FDA does not require [...] for this case were performed at the [facility] Department of Neurology laboratory. us Amrit Bright MD PhD LAB PATHOLOGY ORDERABLES Final Result NEUROMUSCULAR CLINICAL LABORATORY Room [address] [place] [address] * Targeted Opioid Screen, Ur (05/28/2025 10:13 AM CDT) Pain mgt 6-Acetylmorphine, Ur Not Detected CutOff 10 ng/mL Pain mgt Buprenorphine, Ur Not Detected CutOff 5 ng/mL [facility] Pain mgt Buprenorphine metabolite (Norbuprenorphine), Ur Not Detected CutOff 5 ng/mL [facility] Pain mgt Codeine, Ur Not Detected CutOff 25 ng/mL [facility] Pain mgt Hydrocodone, Ur Not Detected CutOff 25 ng/mL [facility] Pain mgt Hydromorphone, Ur Not Detected CutOff 25 ng/mL [facility] Pain mgt Methadone, Ur Not Detected CutOff 25 ng/mL [facility] Pain mgt Methadone Metabolite (EDDP), Ur Not Detected CutOff 25 ng/mL [facility] Pain mgt Morphine, Ur Not Detected CutOff 25 ng/mL [facility] Pain mgt Oxycodone, Ur Not Detected CutOff 25 ng/mL [facility] Pain mgt Oxymorphone, Ur Not Detected CutOff 25 ng/mL [facility] Pain mgt Tapentadol, Ur Not Detected CutOff 25 ng/mL [facility] Pain mgt Tramadol, Ur Not Detected CutOff 25 ng/mL [facility] Pain mgt Tramadol metabolite (O-desmethyltramado l), Ur Not Detected CutOff 25 ng/mL [facility] Comment: Interpretive Data This test only detects [...] developed and its performance characteristics determined by [facility]. It has not been cleared or approved by the U.S. Food and Drug Administration. Current interpretive data was last revised 19. Pain mgt Naloxone, ur Not Detected cutoff 20 ng/ml [facility] Urine 05/28/2025 10:1 3 AM CDT 05/28/2025 6:45 PM CDT Aylin Reyes NP LAB URINE ORDERABLES Final Re sult [facility] [place] [address] * (ABNORMAL) Drugs of Abuse Screen, Urine with Reflex Confirmation (05/28/2025 10:13 AM CDT) Amphetamine, ur Screen Positive, presumptive (A) CutOff 500ng/mL Comment: Interpretive Data - Amphetamines: Samples containing greater than 500 ng/mL d-methamphetamine or other cross-reacting amphetamine compounds are reported as positive. Amphetamine immunoassays are subject to significant false positive rates due to cross-reactivity of non-amphetamine drugs. Confirmatory testing required for definitive results. Current Interpretive Data was last reviewed 2023. Barbiturates, ur Not Detected CutOff 200ng/mL [facility] Comment: Interpretive Data - Barbiturates: Samples containing greater than 200 ng/mL secobarbital or other cross-reacting barbiturate compounds are reported as positive. False positive and false negative results are possible. Confirmatory testing required for definitive results. Current Interpretive Data was last reviewed 2023. Benzodiazepines, ur Not Detected CutOff 100ng/mL [facility] Comment: Interpretive Data - Benzodiazepines: Samples containing greater than 100 ng/mL nordiazepam or other cross-reacting compounds are reported as positive. False positive and false negative results are possible. Confirmatory testing required for definitive results. Current Interpretive Data was last reviewed 2023. Cannabinoids, ur Not Detected CutOff 50 ng/mL [facility] Comment: Interpretive Data - Cannabinoids: Samples containing greater than 50 ng/mL delta-9 THC -COOH or other cross- reacting compounds are reported as positive. False positive and false negative results are possible. Confirmatory testing required for definitive results. Current Interpretive Data was last reviewed 2023. Cocaine, ur Not Detected CutOff 150ng/mL [facility] Comment: Interpretive Data - Cocaine: Samples containing greater than 150 ng/mL benzoylecgonine or other cross- reacting compounds are reported as positive. False positive and false negative results are possible. Confirmatory testing required for definitive results. Current Interpretive Data was last reviewed 2023. Fentanyl, Ur Not Detected CutOff 5 ng/mL [facility] Comment: Interpretive Data - Fentanyl: Samples containing greater than 5 ng/mL norfentanyl, fentanyl, or other cross-reacting fentanyl compounds are reported as positive. False positive and false negative results are possible. Confirmatory testing required for definitive results. Current Interpretive Data was last reviewed 2024. Methadone, ur Not Detected CutOff 300ng/mL [facility] Comment: Interpretive Data - Methadone: Samples containing greater than 300 ng/mL d,l-methadone or other cross-reacting compounds are reported as positive. False positive and false negative results are possible. Confirmatory testing required for definitive results. Current Interpretive Data was last reviewed 2023. Opiates, ur Not Detected CutOff 300ng/mL [facility] Comment: Interpretive Data - Opiates: Samples containing greater than 300 ng/mL morphine or other cross-reacting compounds are reported as positive. False positive and false negative results are possible. Confirmatory testing required for definitive results. Current Interpretive Data was last reviewed 2023. Oxycodone, ur Not Detected CutOff 100ng/mL [facility] Comment: Interpretive Data - Oxycodone: Samples containing greater than 100 ng/mL oxycodone or other cross-reacting compounds are reported as positive. False positive and false negative results are possible. Confirmatory testing required for definitive results. Current Interpretive Data was last reviewed 2023. Phencyclidine, ur Not Detected CutOff 25 ng/mL [facility] Comment: Interpretive Data - Phencyclidine: Samples containing greater than 25 ng/mL phencyclidine or other cross-reacting compounds are reported as positive. False positive and false negative results are possible. Confirmatory testing required for definitive results. Current Interpretive Data was last reviewed 2023. Urine Creatinine 187 mg/dL [facility] Comment: Interpretive Data Urine Creatinine: < 10 mg/dL is extremely dilute = or > 10 but < 20 mg/dL is dilute = or > 20 mg/dL is normal Current Interpretive Data was last revised on 2017. Urine 05/28/2025 10:1 3 AM CDT 05/28/2025 6:45 PM CDT Narrative [facility] - 05/28/2025 7:49 PM CDT Drug Screening is performed by immunoassay for medical purposes. If positive, confirmation testing will be performed for amphetamines, benzodiazepines, cocaine, fentanyl, methadone, opiates, oxycodone, and phencyclidine. Aylin Reyes NP LAB URINE ORDERABLES Final Re sult [facility] [place] [address] * Amphetamine Confirmation, Urine (05/28/2025 10:13 AM CDT) Amphetamine Conf, Ur Does Not Confirm CutOff 150ng/mL Methamphetamine Conf, Ur Does Not Confirm CutOff 150ng/mL [facility] MDA Conf, Ur Does Not Confirm CutOff 150ng/mL [facility] MDMA Conf, Ur Does Not Confirm CutOff 50 ng/mL [facility] MDEA Conf, Ur Does Not Confirm CutOff 150ng/mL [facility] MBDB Conf, Ur Does Not Confirm CutOff 150ng/mL [facility] Comment: Interpretive Data This test detects the presence or absence of drug compounds using LC Tandem mass spectrometry. While this test is highly specific, false positive and false negative results may occur in very rare circumstances. Contact the laboratory for consultation, if needed. Performance characteristics were determined by the [facility] in a manner consistent with CLIA requirement and has not been cleared or approved by the U.S. Food and Drug Administration. Current interpretive data was last revised on 2020. Urine 05/28/2025 10:1 3 AM CDT 05/28/2025 7:13 PM CDT us Aylin Reyes CABLE ASSEMBLER LAB URINE ORDERABLES Final Re sult ELICEO DAMIAN [facility] [place] [address] * eGFR (03/29/2025 11:23 AM CDT) eGFR [...] MD LAB BLOOD ORDERABLES Final Result [facility] ([place]) [facility] Department of Laboratories [place], [place] [id number] * Albumin Creatinine Ratio, Urine (03/29/2025 11:23 AM CDT) Albumin Ur 29.8 mg/L Comment: Interpretive Data No reference range established. Current interpretive data was last revised 2019. Testing performed by: [facility], [address] [place] [address], [place]., [address] Creatinine Ur 312.8 mg/dL ELICEO GARCIA ([place]) Comment: Interpretive Data No reference range established. Current interpretive data was last revised 2019. Testing performed by: [facility], [address] [place] [address]., [id number] Albumin Creatinine Ratio, Ur 10 1 - 29 mg/g ELICEO GARCIA ([place]) Comment:Testing performed by : [facility], [address] [place] [address]., [id number] Urine 03/29/2025 11:2 3 AM CDT 03/29/2025 2:51 PM CDT Tom Crystal Jr., MD LAB URINE ORDERABLES Final Result Performing Organization Address City/[facility] Co de Phone Number ELICEO GARCIA ([place]) [address] [facility] [place] [address] * Hemoglobin A1c (03/29/2025 11:23 AM CDT) Hgb A1C 5.0 4.0 - 5.6 % Estimated Average Glucose 97 mg/dL ELICEO GARCIA ([place]) Comment: The ADA recommends reporting an estimated Average Glucose (eAG) with all Hemoglobin A1c results using the equation derived from a study of 507 normal and diabetic adults. Minority populations were underrepresented and children were not included. (Diabetes Care 31:6740-0415, 2008). The eAG is not equivalent to a fasting glucose. Blood 03/29/2025 11:2 3 AM CDT 03/29/2025 11:51 AM CDT us Tom Crystal Jr., MD LAB BLOOD ORDERABLES Final Result ELICEO GARCIA ([place] 1 [facility] [place] [address] * (ABNORMAL) Lipid panel (03/29/2025 11:23 AM [...] mg/dL High: >160 mg/dL Calculated using the Gavin LDL-C estimating equation. This equation was implemented on 2024. Prior to this date LDL-C was estimated using the Friedewald equation. Literature References: 1. Expert Panel on Integrated Guidelines for Cardiovascular Health and Risk Reduction in Children and Adolescents. Pediatrics 2011;128:S213 2. NCEP Expert Panel. Circulation 2004;110:227 3. Romaine M et al. DUNG Cardiol. 2019February 01;5(5):540-548. doi: 10.1001/jamacardio.2020.0013 Current Interpretive Data was last revised on 2024. Non-HDL Cholesterol 102 mg/dL EL[facility]O GARCIA ([place]) Comment: Interpretive Data Ages < or = [...] on 2018. Chol/HDL ratio 5 ZENAIDA GARCIA ([place]) Blood 03/29/2025 11:2 3 AM CDT 03/29/2025 11:51 AM CDT Tom Crystal Jr., MD LAB BLOOD ORDERABLES Final Result EL[facility]O [facility] ([place]) 1 [facility] [place] [address] * (ABNORMAL) DIABETES EYE EXAM (03/13/2025 10:54 AM CDT) SCRIBED DIABETIC DILATED EYE EXAM Abnormal Historical Provider HEALTH MAINTENANCE Final Result * PAP SMEAR WITH HPV (01/11/2023) Scribed Pap Smear w/HPV Normal [facility] Provider HEALTH MAINTENANCE Final Result [...] age 40, based on guidelines of the [place] [employer] (ACR Practice Parameter for the Performance of Screening and Diagnostic Mammography) and [place] [employer]. For women [...] Most Recently Relevant to Health Maintenance Insurance [facility] OPEN ACCESS [employer] OPEN ACCESS [employer] OPEN ACCESS [employer] OPEN ACCESS Care Teams Electron Beam Machine Welder Setter Relationship Specialty Start Date End Date Tom Crystal Jr., MD [address] [place] [id number] PCP - General Internal Medicine 07/23/22 Gerardo Ortega MD [address] [id number] Referring Physician Obstetrics and Gynecology 04/10/21 Israel Cervantes Jr., DPDelma [address] [address] Referring Physician Podiatry 04/10/21 Linda Moore MD [address] [address] Consulting Physician Cardiology 04/10/21 Noe Acevedo MD [address] [place] [address] Consulting Physician Rheumatology 08/17/23
--- OUTSIDE RECORDS SUMMARY | 2025-08-22 01:21 | XMS_ITS | Clinical Summary ---
Author Organization [facility] [facility] Address [address] [place] [address] Care Team Providers Care Cognos Consultant Name Role Phone Tom Lees MD Primary Care Provider [phone] Source Comments [facility],non-owned Affiliates and Associated Physician Practices is amultiple site organization consisting of ambulatory clinics and hospital sitesin [place], [place], [place] and [place]. This disclosure is being madepursuant to the Care Everywhere program and may not contain all information available regarding this patient. 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 Gender Identity Not on file Sexual Orientation Not on file Plan of Treatment Health Maintenance Due Date Last Done Comments LIPID TESTING 1982 MAMMOGRAM 1982 HIV SCREENING 1997 HEPATITIS C SCREENING 01/15/2000 DTAP/TDAP/TD VACCINES (1 - Tdap) 2001 HEPATITIS B VACCINE (1 of 3 - 19+ 3-dose series) 2001 Cervical Cancer Screening 2003 PAP SMEAR 2003 HPV VACCINE (1 - 3-dose SCDM series) 2009 PAP with HPV 01/20/2012 DEPRESSION SCREENING 10/04/2024 COVID-19 VACCINE (3 - [...] complete this topic Insurance [employer]IG[employer] Care Teams Cognos Consultant Relationship Specialty Start Date End Date Tom Lees MD [facility] [facility] [address] [place], [place] [address] PCP - General 07/10/19
--- OUTSIDE RECORDS SUMMARY | 2025-08-22 01:21 | XMS_ITS | Encounter Summary ---
Author Organization [facility] Healthcare Address [address] [place] [address] Care Team Providers Care Livestock Auctioneer Name Role Phone Gerardo Ortega MD Unavailable [phone] Billy Guevara DPM, Gabriel Unavailable [phone] Linda Moore MD Unavailable [phone] Bonilla Guevara MD, Tom Mackey Primary Care Provide r Noe Acevedo MD Unavailable [phone] Reason for Visit * Reason Onset Date Comments [facility] Preprocedure 01/06/2024 Encounter Details Date Type Department Care Team (Late st Contact Info) Description 01/06/2024 Telephone [facility] [address] [facility] [address] [place], [place] [id number] Derik Faith MD [address] [facility] [address] [place] [address] [facility] Preprocedure Social History Tobacco Use Types [...] on file 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 Minimize further functional decline 2. Maximize quality of life 3. Control pain Strategies: - Activity/exercise program recommendation - Conservative stepwise pain medicine strategy with multi-disciplinary approach - Recommend healthy lifestyle strategies and compensatory methods as needed documented as of this encounter Visit Diagnoses Not on filedocumented in this encounter Care Teams Livestock Auctioneer Relationship Specialty Start Date End Date Tom Crystal Jr., MD [address] [address] PCP - General Internal Medicine 07/23/22 Gerardo Ortega MD [address] [address] Referring Physician Obstetrics and Gynecology 04/10/21 Israel Cervantes Jr., DPM [address] [place] [address] Referring Physician Podiatry 04/10/21 Linda Moore MD [address] [place] [address] Consulting Physician Cardiology 04/10/21 Noe Acevedo MD [address] [place] [address] Consulting Physician Rheumatology 08/17/23 documented as of this encounter
--- OUTSIDE RECORDS SUMMARY | 2025-08-22 01:22 | XMS_ITS | Encounter Summary ---
Author Organization [facility] Healthcare Address [address] [place] [address] Care Team Providers Care Grading Clerk Name Role Phone Gerardo Ortega MD Unavailable [phone] Billy Guevara DPM, Gabriel Unavailable [phone] Linda Moore MD Unavailable [phone] Bonilla Guevara MD, Tom Mackey Primary Care Provide r Noe Acevedo MD Unavailable [phone] Reason for Visit * Reason Onset Date Comments infusion 03/07/2024 Encounter Details Date Type Department Care Team (Late st Contact Info) Description 03/07/2024 Telephone [facility] [address] [facility] Advanced Medicine [address] [place] [address] Arlette Marsh MD PhD [address] [facility] [address] [place] [address] infusion Social History Tobacco Use Types Packs/Day [...] on file 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 Minimize further functional decline 2. Maximize quality of life 3. Control pain Strategies: - Activity/exercise program recommendation - Conservative stepwise pain medicine strategy with multi-disciplinary approach - Recommend healthy lifestyle strategies and compensatory methods as needed documented as of this encounter Visit Diagnoses Not on filedocumented in this encounter Care Teams Grading Clerk Relationship Specialty Start Date End Date Tom Crystal Jr., MD [address] [address] PCP - General Internal Medicine 07/23/22 Gerardo Ortega MD [address] [address] Referring Physician Obstetrics and Gynecology 04/10/21 Israel Cervantes Jr., DPM [address] [place] [address] Referring Physician Podiatry 04/10/21 Linda Moore MD [address] [place] [address] Consulting Physician Cardiology 04/10/21 Noe Acevedo MD [address] [place] [address] Consulting Physician Rheumatology 08/17/23 documented as of this encounter
--- OUTSIDE RECORDS SUMMARY | 2025-08-22 01:22 | XMS_ITS | Clinical Summary ---
Author Organization [facility] Address [address] [place] [address] Phone Care Team Providers Care Cogeneration Operator Name Role Phone Unavailable Primary Care Provider Unavailabl e Allergies No known active allergies Medications FLUoxetine (PROzac) 40 mg capsule TAKE ONE CAPSULE BY MOUTH ONCE DAILY 90 Capsule 07/22/2022 9:41 AM CDT 2 Active albuterol sulfate HFA 90 mcg/actuation aerosol inhaler Inhale 2 puffs every 4 (four) hours as needed for wheezing or shortness of breath 25.5 Gram 4 12/10/2022 4:22 PM BOOMBOAT OPERATOR 3 Active azithromycin (ZITHROMAX) 250 mg tablet Take 2 tablets (500 mg) by mouth today, than take 1 tablet (250 mg) once daily for 4 days. 6 Tablet 11/06/2022 3:41 PM BOOMBOAT OPERATOR 3 Active FLUoxetine (PROzac) 40 mg capsule TAKE ONE CAPSULE BY MOUTH ONCE DAILY 90 Capsule 3 Active amitriptyline (ELAVIL) 25 mg tablet Take 1 tablet (25 mg total) by mouth nightly 90 Tablet 1 12/04/2022 7:20 PM BOOMBOAT OPERATOR 3 Active pregabalin (LYRICA) 75 mg Capsule [...] mouth daily 30 Capsule 08/11/2023 10:10 AM BOOMBOAT OPERATOR 3 Active sertraline (ZOLOFT) 25 mg tablet Take 1 tablet (25 mg total) by mouth daily 90 Tablet 4 08/11/2023 10:10 AM BOOMBOAT OPERATOR 3 Active sertraline (ZOLOFT) 25 mg tablet Take 1 tablet (25 mg total) by mouth daily 90 Tablet 4 3 Active HYDROcodone-moira taminophen (NORCO) 5-325 mg tablet Take 1 tablet by mouth every 6 (six) hours as needed for pain for up to 7 days 28 Tablet 09/01/2023 2:07 PM BOOMBOAT OPERATOR 3 Active HYDROcodone-moira taminophen (NORCO) 5-325 mg tablet Take 1 Tablet by mouth nightly as needed for pain. 30 Tablet 10/07/2023 11:40 AM BOOMBOAT OPERATOR 4 Active cariprazine (Vraylar) 1.5 mg Capsule capsule Take 1 Capsule (1.5 mg) by mouth daily. 90 Capsule 12/20/2023 6:53 PM CDT 4 Active amLODIPine (NORVASC) 5 mg tablet Take 1 Tablet (5 mg) by mouth daily. 90 Tablet 4 11/05/2023 2:59 PM BOOMBOAT OPERATOR 4 Active Social History Tobacco Use Types [...]
--- OUTSIDE RECORDS SUMMARY | 2025-08-22 01:22 | XMS_ITS | Clinical Summary ---
Author Organization [facility] Address [address] [place] [address] Care Team Providers Care Steel Plate Caulker Name Role Phone Linda Moore MD Unavailable [...] this topic Medical Devices Explanted Type Area Electroplating Worker Device Identifier Shelf Expiration Date Model / Serial / Lot Plate Explanted:Qty: 1 on 04/23/2022 by Margarito Crystal DPM at [facility] Plate Left: Foot Description:Plate and screws removed from left foot- hardware from [employer] Screws Explanted:Qty: 1 on 04/23/2022 by Margarito Crystal DPM at [facility] Screw Left: Foot Description:Hardware explant ed from Left foot - hardware from [employer] Insurance [facility] Care Teams Steel Plate Caulker Relationship Specialty Start Date End Date Tom Crystal Jr., MD [address] [place], [place] [address] PCP - General HOSPITALIST 05/06/23 Linda Moore MD CARDIOVASCULAR DISEASE 04/16/22
--- OUTSIDE RECORDS SUMMARY | 2025-08-22 05:08 | XMS_ITS | Clinical Summary ---
Author Organization [facility] Address [address] [place] [address] Care Team Providers Care Oil Painter Name Role Phone Linda Moore MD Unavailable [...] this topic Medical Devices Explanted Type Area Software Asset Manager Device Identifier Shelf Expiration Date Model / Serial / Lot Plate Explanted:Qty: 1 on 04/23/2022 by Margarito Crystal DPM at [facility] Plate Left: Foot Description:Plate and screws removed from left foot- hardware from [employer] Screws Explanted:Qty: 1 on 04/23/2022 by Margarito Crystal DPM at [facility] Screw Left: Foot Description:Hardware explant ed from Left foot - hardware from [employer] Insurance [facility] Care Teams Oil Painter Relationship Specialty Start Date End Date Tom Crystal Jr., MD [address] [place], [place] [address] PCP - General HOSPITALIST 05/06/23 Linda Moore MD CARDIOVASCULAR DISEASE 04/16/22
== END 2025-08-22 | disposition home or self-care (01) ==
PROVIDERS: Physician Assistant; Emergency Provider Registered Nurse; PCP Hospitalist
DX: N39.0 Urinary tract infection, site not specified (principal); K21.9 Gastro-esophageal reflux disease without esophagitis; N83.201 Unspecified ovarian cyst, right side; M51.379 Other intervertebral disc degeneration, lumbosacral region without mention of lumbar back pain or lower extremity pain; Z87.442 Personal history of urinary calculi; J45.909 Unspecified asthma, uncomplicated; G47.30 Sleep apnea, unspecified; F32.A Depression, unspecified; E78.5 Hyperlipidemia, unspecified; I10 Essential (primary) hypertension; G62.9 Polyneuropathy, unspecified
CPT/HCPCS: 36415; 74177; 80053; 81001; 81025; 83690; 85025; 87086; 96361; 96374; 99284; A9270; J1885; J7030; Q9967